=== PATIENT | female | born 1940 | race Caucasian/White ===

== ENCOUNTER 2017-04-17 06:49 | Day surgery (SDC) | payer MEDICARE, OTHER ==
[~2017-04-17] VITALS: Ht 157.5 cm; Wt 58.2 kg
[~2017-04-17 06:49] MED LIST: ACETAMINOPHEN 325 MG TAB PO PRN; PARO10TA3 PO; SIMV40TA2 PO; TYLE325T5 PO
[2017-04-17] MEDS ORDERED: CYCLOPENTOLATE 2% OPHTH SOLN 2ML BTL OD ONE (07:00)
[2017-04-17] MEDS ORDERED: OFLOXACIN 0.3 % (OCUFLOX) OPTH SOL 5ML OD ONE (07:00)
[2017-04-17] MEDS ORDERED: BSS with VANC/TOB/EPI for EYE CASES IR ONE (07:00)
[2017-04-17] MEDS ORDERED: PHENYLEPHRINE 2.5% OPHTH SOL 2ML OD ONE (07:00)
[2017-04-17] MEDS ORDERED: TROPICAMIDE 1% OPHTH SOLN 2ML OD ONE (07:00)
[2017-04-17] MEDS ORDERED: PHENYLEPHRINE HCL 10 % OPHTH. SOL 5ML OD PRN (07:00)
[2017-04-17] MEDS ORDERED: LIDOCAINE 3.5 % 1ML OPHTH TOPICAL GEL OU ONE (07:00)
[2017-04-17] MEDS ORDERED: PROPARACAINE 0.5% OPHTH SOL 15ML XX PRN (07:01)
[2017-04-17] MEDS ORDERED: PHENYLEPHRINE 2.5% OPHTH SOL 2ML As Ordered ONE (07:15)
[2017-04-17] MEDS ORDERED: TROPICAMIDE 1% OPHTH SOLN 2ML As Ordered ONE (07:15)
[2017-04-17] MEDS ORDERED: OFLOXACIN 0.3 % (OCUFLOX) OPTH SOL 5ML As Ordered ONE (07:15)
[2017-04-17] MEDS ORDERED: CYCLOPENTOLATE 2% OPHTH SOLN 2ML BTL As Ordered ONE (07:15)
[2017-04-17] MEDS ORDERED: MIDAZOLAM INJ 2 MG/2 ML VIAL (J2250) As Ordered ONE (07:39)
[2017-04-17] MEDS ORDERED: fentaNYL 100 MCG/2 ML INJECTION (J3010) As Ordered ONE (07:40)
[2017-04-17] MEDS ORDERED: TRIMETHOBENZAMIDE 300 MG CAP PO PRN (07:45)
[2017-04-17] MEDS ORDERED: AcetaZOLAMIDE 500 MG ER CAP PO ONE (07:45)
[2017-04-17] MEDS ORDERED: LR 1,000 ML IV ONE (07:45)
[2017-04-17] MEDS ORDERED: TRIAMCINOLONE PRES FR 40 MG/ML 1ML(TRIESENCE)(OR EYE ONLY)(J3300 PER 1MG) As Ordered ONE (09:18)
[2017-04-17] MEDS ORDERED: POVIDONE-IODINE 5% OPHTH PREP SOL 30ML As Ordered ONE (09:18)
[2017-04-17] MEDS ORDERED: HEALON DUET (HEALON 10MG/ML 0.55ML & HEALON ENDOCOAT 30MG/ML 0.85ML) As Ordered ONE (09:18)
[2017-04-17] MEDS ORDERED: LIDOCAINE 1% SDV 5 ML VIAL As Ordered ONE (09:18)
[2017-04-17] MEDS ORDERED: MOXIFLOXACIN IN BSS 0.25MG/0.25ML INTRACAMERAL INJ (OR EYE ONLY)(J2280) As Ordered ONE (09:18)
[2017-04-17 10:15] VITALS: BP 119/60
== END 2017-04-17 10:29 | disposition home or self-care (01) ==
LOC: M SDC 06:49
PROVIDERS: ATTEND Ophthalmology
DX: H26.9 Unspecified cataract (principal); E78.00 Pure hypercholesterolemia, unspecified; R01.1 Cardiac murmur, unspecified; F41.9 Anxiety disorder, unspecified; F32.9 Major depressive disorder, single episode, unspecified; Z79.899 Other long term (current) drug therapy; F17.210 Nicotine dependence, cigarettes, uncomplicated
CPT/HCPCS: 66984; J2250; J2280; J3010; J3300; V2632

== ENCOUNTER 2017-07-01 07:43 | Day surgery (SDC) | payer MEDICARE, OTHER ==
[2017-07-01] MEDS: LIDOCAINE 3.5 % 1ML OPHTH TOPICAL GEL OU (07:00)
[~2017-07-01 07:43] MED LIST changes: +ACETAMINOPHEN 325 MG TAB PO; -ACETAMINOPHEN 325 MG TAB PO PRN; -PARO10TA3 PO; +PHENYLEPHRINE HCL 10 % OPHTH. SOL 5ML OS; +PROPARACAINE 0.5% OPHTH SOL 15ML OS; -SIMV40TA2 PO; -TYLE325T5 PO
[2017-07-01] MEDS ORDERED: TRIMETHOBENZAMIDE 300 MG CAP PO (08:00)
[2017-07-01] MEDS ORDERED: KETOROLAC 0.5% OPHTH SOLN OS (08:00)
[2017-07-01] MEDS: CYCLOPENTOLATE 2% OPHTH SOLN 2ML BTL OS (08:31)
[2017-07-01] MEDS: OFLOXACIN 0.3 % (OCUFLOX) OPTH SOL 5ML OS (08:31)
[2017-07-01] MEDS: TROPICAMIDE 1% OPHTH SOLN 2ML OS (08:31)
[2017-07-01] MEDS: PHENYLEPHRINE 2.5% OPHTH SOL 2ML OS (08:32)
[2017-07-01] MEDS ORDERED: fentaNYL 100 MCG/2 ML INJECTION (J3010) As Ordered (08:49)
[2017-07-01] MEDS ORDERED: MIDAZOLAM INJ 2 MG/2 ML VIAL (J2250) As Ordered (08:49)
[2017-07-01] MEDS: POVIDONE-IODINE 5% OPHTH PREP SOL 30ML As Ordered (10:00)
[2017-07-01] MEDS: LIDOCAINE 2% W/EPIN INJ 20ML **PRES FREE As Ordered (10:01)
[2017-07-01] MEDS: HEALON DUET (HEALON 10MG/ML 0.55ML & HEALON ENDOCOAT 30MG/ML 0.85ML) As Ordered (10:01)
[2017-07-01] MEDS: TRIAMCINOLONE PRES FR 40 MG/ML 1ML(TRIESENCE)(OR EYE ONLY)(J3300 PER 1MG) As Ordered (10:01)
[2017-07-01] MEDS: LIDOCAINE 1% SDV 5 ML VIAL As Ordered (10:01)
[2017-07-01] MEDS: MOXIFLOXACIN IN BSS 0.25MG/0.25ML INTRACAMERAL INJ (OR EYE ONLY)(J2280) As Ordered (10:01)
[2017-07-01] MEDS: BSS with VANC/TOB/EPI for EYE CASES IR (10:02)
[2017-07-01] MEDS ORDERED: ONDANSETRON 4MG/2ML VIAL (J2405) IV (10:30)
[2017-07-01] MEDS: AcetaZOLAMIDE 500 MG ER CAP PO (10:39)
== END 2017-07-01 10:52 | disposition home or self-care (01) ==
LOC: M SDC 07:43
DX: H25.9 Unspecified age-related cataract (principal); E78.5 Hyperlipidemia, unspecified; F41.9 Anxiety disorder, unspecified; F32.9 Major depressive disorder, single episode, unspecified; Z79.899 Other long term (current) drug therapy; F17.210 Nicotine dependence, cigarettes, uncomplicated
CPT/HCPCS: 66984

== ENCOUNTER 2018-05-22 16:30 | Observation (INO) | payer MEDICARE, OTHER ==
[~2018-05-22] VITALS: Ht 157.5 cm; Wt 54.0 kg
[~2018-05-22 16:30] MED LIST changes: -ACETAMINOPHEN 325 MG TAB PO; +PARO10TA3 PO; -PHENYLEPHRINE HCL 10 % OPHTH. SOL 5ML OS; -PROPARACAINE 0.5% OPHTH SOL 15ML OS; +SIMV40TA2 PO; +TYLE325T5 PO
--- NOTE | 2018-05-22 17:15 | REP ---
Portable chest x-ray: Single view. History: Chest pain. Comparison study: June 01, 2010. Findings: Cardiomegaly is observed. The aorta is tortuous. Pulmonary vascular and interstitial markings are prominent. This is a new finding. No pleural effusion is seen. There is slight fissural thickening. Impression: Cardiomegaly. Vascular and interstitial congestion. Question CHF. No focal infiltrate. Electronically Signed by Bran Wallace MD 05/22/2018 06:19 P
[2018-05-22 17:17] LABS: BASO % 0.3 % (0.0-1.0); EOS # 0.1 10^3/uL (0.0-0.50); EOS % 0.7 % (0.0-3.0); HEMATOCRIT 65.5 % (36.0-47.0); LYMPH # 1.5 10^3/uL (1.5-4.5); LYMPH % 22.2 % (24.0-44.0); MEAN CORPUSCULAR HEMOGLOBIN 29.4 pg (27.0-33.0); MEAN CORPUSCULAR HGB CONC 31.9 g/dl (32.0-36.5); MEAN CORPUSCULAR VOLUME 92.1 fl (80.0-96.0); MONO # 0.7 10^3/uL (0.0-0.8); MONO % 9.4 % (0.0-5.0); NEUTROPHILS # 4.6 10^3/uL (1.8-7.7); PLATELET COUNT, AUTOMATED 163 10^3/uL (150-450); RED BLOOD COUNT 7.11 10^6/uL (4.00-5.40); WHITE BLOOD COUNT 6.9 10^3/uL (4.0-10.0)
[2018-05-22 17:20] LABS: HEMOGLOBIN 20.9 g/dl (12.0-15.5)
[2018-05-22 17:24] LABS: INR 0.99; PROTHROMBIN TIME 13.2 SECONDS (12.1-14.4)
[2018-05-22 17:49] LABS: ALBUMIN 3.3 GM/DL (3.2-5.2); ALT/SGPT 24 U/L (12-78); BILIRUBIN,DIRECT 0.2 MG/DL (0.0-0.2); BILIRUBIN,TOTAL 0.6 MG/DL (0.2-1.0); BLOOD UREA NITROGEN 14 MG/DL (7-18); CALCIUM LEVEL 8.8 MG/DL (8.8-10.2); CARBON DIOXIDE LEVEL 34 MEQ/L (21-32); CHLORIDE LEVEL 105 MEQ/L (98-107); CPK CREATINE PHOSPHOKINASE 86 U/L (26-192); CREATININE FOR GFR 0.79 MG/DL (0.55-1.30); GLOMERULAR FILTRATION RATE > 60.0 (>39); GLUCOSE, FASTING 110 MG/DL (70-100); LIPASE 204 U/L (73-393); MB/CK RELATIVE INDEX 5.35 (< OR =4); NT-PRO BNP 4658 PG/ML (<450); POTASSIUM SERUM 4.3 MEQ/L (3.5-5.1); SODIUM LEVEL 145 MEQ/L (136-145); TOTAL PROTEIN 6.6 GM/DL (6.4-8.2); TROPONIN I 0.04 NG/ML (< 0.10)
[2018-05-22] MEDS ORDERED: ASPI-222 PO (18:33)
[2018-05-22] MEDS ORDERED: ATOR1TAB21 PO (18:33)
[2018-05-22] MEDS ORDERED: LISI2.5T76 PO (18:33)
[2018-05-22] MEDS ORDERED: VITA-121 PO (18:33)
[2018-05-22] MEDS ORDERED: PARO10TA3 PO (18:33)
--- NOTE | 2018-05-22 19:06 | ECGEPIP ---
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
--- NOTE | 2018-05-22 19:07 | ECGEPIP ---
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
[2018-05-22 20:30] VITALS: BP 168/79
[2018-05-22] MEDS: ATORVASTATIN 20 MG TAB PO SCH (20:48)
--- NOTE | 2018-05-22 21:02 | HPE ---
DATE OF ADMISSION: 05/22/2018 This is a 78-year-old female with a past medical history of hypertension, hyperlipidemia, chronic active tobacco abuser, presented to the emergency room with chest pain, precordial in location, sharp, nonradiating that happened at rest. She had a similar episode approximately 3 days ago, and it went away. She has never had similar symptoms in the past. She has no known coronary history. In the emergency room (ER), her 12-lead EKG showed no acute ST abnormalities, and her first troponin was negative; however, complete blood count (CBC) did show the patient had a very abnormal hemoglobin and hematocrit, a hemoglobin of 20.9 and hematocrit of 65.5. Apparently, she sees a doctor in [place], and there is some evidence of this when I went back to the history here in [facility] of the diagnosis of hemachromatosis; however, upon looking at her anemia profile in 2013, they were all normal. The patient has not been treated for it as far as she is aware of, and at this time she is also chest pain free. She will be admitted for further management. PAST MEDICAL HISTORY: 1. Hypertension. 2. Hyperlipidemia. 3. Depression. 4. Chronic active tobacco abuser. ALLERGIES: She has no known drug allergies. FAMILY HISTORY: Positive for hematologic disorder. Her grandson has some sort of hematologic disorder of the blood; however, her daughter does not remember the name. Her family history is also negative for early coronary disease. SOCIAL HISTORY: Patient has been smoking half pack a day since she was age 14. Denies alcohol or illicit drugs. HOME MEDICATIONS: - aspirin 325 mg orally daily - atorvastatin 20 mg orally at bedtime - cholecalciferol 1000 units orally daily - lisinopril 2.5 mg orally daily - paroxetine 10 mg orally daily REVIEW OF SYSTEMS: Negative for all 10 major systems except what is mentioned in the history of present illness (HPI). VITAL SIGNS: Blood pressure is 177/88, heart rate 93, regular, respiratory rate is 21, temperature is 96.7, oxygen saturation is 95% on room air. HEAD: Atraumatic, normocephalic. NECK: Supple. No jugular venous distention (JVD). LUNGS: Clear to auscultation. S1, S2 audible. No murmurs appreciated. ABDOMEN: Soft. Positive bowel sounds. No pedal edema. SKIN: Intact. NEUROLOGIC: Patient awake, alert, oriented times three. LABORATORY DATA: WBC 6.9, hemoglobin is 20.9, hematocrit 65.5, platelets are 160,000, MCV is 92.1. Sodium 145, potassium 4.3, chloride is 105, CO2 of 34, BUN 14, creatinine 0.79, lactic acid 1.5. Troponin 0.04. TSH 3.260. AST 26, ALT 24, total bilirubin 0.6, direct bilirubin 0.2. IMPRESSION: 1. Chest pain, rule out acute coronary syndrome. 2. Polycythemia. PLAN: Patient is to be admitted to progressive care unit (PCU). Will get a second troponin to rule out acute coronary syndrome. I will also send a second anemia profile; however, most of this polycythemia can be done as an outpatient, so no hematologic consultation is necessary for the acute setting; however, she should be referred to a compliance officer upon discharge. For now, her liver function tests (LFTs) are normal, which usually are elevated if the patient has hemachromatosis, especially of this duration of being untreated, and the only other screening labs to check are serum ferritin and transferrin saturation, which I have sent out. If rules out acute coronary syndrome, would do well to followup with cardiology as an outpatient due to her age and years of smoking as well as other comorbidities, like hypertension, hyperlipidemia. Will continue following her care in the PCU.
[2018-05-22 21:51] LABS: PERCENT SATURATION 13.2 % (13.2-45.0); THYROID STIMULATING HORMONE 1.55 uIU/ML (0.358-3.740); TROPONIN I 0.06 NG/ML (< 0.10)
[2018-05-23] VITALS (7 sets, daily range): BP systolic 110–165; BP diastolic 58–77; PULSE 92
[2018-05-23] MEDS ORDERED: IBUPROFEN 400 MG TAB PO ONE (00:30)
[2018-05-23 07:39] LABS: MEAN CORPUSCULAR HEMOGLOBIN 28.9 pg (27.0-33.0); MEAN CORPUSCULAR HGB CONC 31.8 g/dl (32.0-36.5); MEAN CORPUSCULAR VOLUME 90.8 fl (80.0-96.0); PLATELET COUNT, AUTOMATED 155 10^3/uL (150-450); RED BLOOD COUNT 6.65 10^6/uL (4.00-5.40); WHITE BLOOD COUNT 8.4 10^3/uL (4.0-10.0)
[2018-05-23 07:58] LABS: HEMATOCRIT 60.4 % (36.0-47.0); HEMOGLOBIN 19.2 g/dl (12.0-15.5)
[2018-05-23] MEDS: LISINOPRIL *2.5 MG* TAB PO SCH (08:44)
[2018-05-23] MEDS: VITAMIN D 1,000 INTERNATIONAL UNITS TABLET PO SCH (08:44)
[2018-05-23] MEDS: ASPIRIN ENTERIC 325 MG TAB PO SCH (08:45)
[2018-05-23] MEDS ORDERED: ISOVUE-370 76% 100ML VIAL (Q9967) As Ordered ONE (11:43)
[2018-05-23 12:14] LABS: ABG BASE EXCESS 4.3 (-2.0-2.0); ABG HCO3 30.7 MEQ/L (22.0-26.0); ABG O2 SATURATION 83.5 % (95.0-99.0); ABG PARTIAL PRESSURE CO2 50.2 mmHg (35.0-45.0); ABG STANDARD HCO3 27.8 MEQ/L (22.0-26.0); ABG TOTAL CO2 32.2 MEQ/L (23.0-31.0); ABG pH (ARTERIAL) 7.404 UNITS (7.350-7.450)
[2018-05-23 12:19] LABS: ABG PARTIAL PRESSURE O2 44.8 mmHg (75.0-100.0)
[2018-05-23] MEDS ORDERED: IPRATROPIUM 0.5MG/ALBUTEROL 2.5MG INH SOL UD 3ML (DUONEB)(J7620) NEB PRN (12:30)
[2018-05-23 13:14] LABS: AMORPHOUS SEDIMENT SMALL (NEGATIVE); APPEARANCE, URINE CLEAR (CLEAR); BACTERIA, URINE AUTO NEGATIVE (NEGATIVE); BILIRUBIN, URINE AUTO NEGATIVE (NEGATIVE); BLOOD, URINE BLOOD NEGATIVE (NEGATIVE); COLOR, URINE YELLOW (YELLOW); GLUCOSE, URINE (UA) AUTO NEGATIVE (NEGATIVE); KETONE, URINE AUTO NEGATIVE (NEGATIVE); LEUKOCYTE ESTERASE, URINE AUTO 2+ (NEGATIVE); MUCUS, URINE SMALL (NEGATIVE); NITRITE, URINE AUTO NEGATIVE (NEGATIVE); PROTEIN, URINE AUTO 1+ mg/dL (NEGATIVE); RBC, URINE AUTO 2 /HPF (0-3); SPECIFIC GRAVITY URINE AUTO 1.027 (1.002-1.035); SQUAMOUS EPITHELIAL CELL UR AU 1 /HPF (0-6); WBC, URINE AUTO 5 /HPF (0-3)
--- NOTE | 2018-05-23 13:35 | REP ---
CT pulmonary angiogram: With IV contrast. HISTORY: Chest pain and hypoxia. COMPARISON STUDIES: No comparison CT study. CONTRAST DOSE: 75 mL of Isovue [address] TECHNIQUE: Helical scanning is acquired and overlapping 1.5 mm and contiguous 3 mm axial images are reformatted. In addition, maximum intensity projection and multiplanar re-formation images are generated in sagittal and coronal imaging projections. CT PULMONARY ANGIOGRAPHIC FINDINGS: There is good opacification of the pulmonary arterial tree. There is no CT evidence of pulmonary embolism. Maximum intensity projection images show no vessel cutoff or filling defect. The ascending aortic root is quite dilated measuring up to 7.3 cm in greatest AP dimension. There is no evidence of dissection. Vascular calcification is noted. The descending aorta measures 3.9 cm in diameter. There is cardiomegaly with right heart dilation. There is reflux of contrast opacified blood into the liver consistent with right heart strain or right heart failure. No pleural or pericardial effusion is seen. There is emphysematous change in the upper lobes bilaterally, right more so than left. Some right lower lobe emphysematous changes are noted. There is linear fibrosis versus discoid atelectasis in the left upper lobe posteriorly along the major fissure. No infiltrate is seen. No pulmonary nodule or mass lesion is seen. No hilar or mediastinal mass or adenopathy is observed. No adrenal lesion is seen. IMPRESSION: 1. No CT evidence of pulmonary embolus. 2. Ascending thoracic aortic aneurysm, up to 7.3 cm AP dimension of the aortic root. No dissection seen. 3. COPD. 4. CT findings consistent with right heart strain or right heart failure. Electronically Signed by Bran Wallace MD 05/23/2018 07:55 P
[2018-05-23] MEDS ORDERED: SODIUM CHLORIDE 0.9% 1000ML IV ONE (16:30)
[2018-05-23] MEDS: NICOTINE 14 MG/24 HR TRANSDERMAL TD SCH (18:30)
[2018-05-23] MEDS: ALBUTEROL 90 MCG/ACT 8GM HFA INHALER INH SCH (20:19)
[2018-05-23] MEDS: ATORVASTATIN 20 MG TAB PO SCH (21:54)
[2018-05-24] VITALS (7 sets, daily range): BP systolic 103–127; BP diastolic 55–64
--- NOTE | 2018-05-24 00:12 | IPNPDOC ---
Subjective Date Seen The patient was seen on 05/23/18. Subjective Chief Complaint/HPI chest pain Events since last encounter Chest pain has resolved. Patient says she wants to go home. Denies any SOB however noted t have accessory muscles working during conversation and and also has to break for breaths after a few words. She was hypoxic in the ED and now she was saturating about 88% at rest in room air. she did mention that her oxygenation readings are always better in her feet. Her said that y day when she came to the ED the nurses there had said she was cyanotic. He also said the patient pants on minimal exertion for several years but never been evaluated as she minimizes he symptoms and does not want to tell the doctors her problems. She also mentions that she had seen an oncologist in Dr Smith's office several years ago when some blood was let out for her high hemoglobin levels. Objective Physical Examination General Exam: Positive: Alert, Cooperative, No Acute Distress Eye Exam: Positive: PERRLA, Conjunctiva & lids normal, EOMI; Negative: Sclera icteric ENT Exam: Positive: Atraumatic, Mucous membr. moist/pink, Pharynx Normal Neck Exam: Positive: Supple, JVD Chest Exam: Positive: Clear to auscultation, Diminished (breath sounds are very distant and poorly heard all over) Heart Exam: Positive: Rate Normal, Regular Rhythm, Normal S1, Normal S2; Negative: Gallops, Murmurs, Rubs Abdomen Exam: Positive: Normal bowel sounds, Soft; Negative: Tenderness Extremity Exam: Negative: Edema, Tenderness, Swelling Neuro Exam: Positive: Normal Gait, Normal Speech, Cranial Nerves 3-12 NL, Reflexes 2+ Assessment /Plan Assessment This is a 78 years of female patient with past medical history of hypertension , hyperlipidemia, anxiety, vit D deficiency , smoker, known to have high hemoglobin with history of blood letting several years ago sent to the ED from urgent care for chest pain with possible ST-T segment elevation changes in the EKG. Patient had an episode of chest pain 3 days ago in the left precordium whi ch lasted 1 hour and subsided spontaneously however she has not been feeling well since then . Today she again had another episode of chest pain so she went to the urgent care and was sent here. On arrival to the ED patient's fingers were cyanotic with delayed capillary refill and she was hypoxic to 85% in room air. Pateint was also found to have erythrocytosis with a Hb of 20.9. Patient was admitted for evaluation of chest pain and hypoxia. Chest pain EKGs and Cardiac enzymes were negative for any ACS. however will get echo. in view of hypoxia and chest pain i did a CT angio of chest which was negative for Pulmonary embolism. will continue ASA and stain. Hypoxia Abg suggests chronic hypoxic and hypercarbic respiratory failure. due to advanced COPD/emphysema as seen in CT angio of chest never diagnosed before. patient is a smoker. 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 consulted hemato/oncology erythropoietin levels have been ordered. Had about 400 cc phlebotomy done. COPD/Emphysema with possible pulmonary hypertension and corpulmonale ordered Echo will start on albuterol and spiriva. Smoker counselled about stopping accepted nicotine patch. Hypertension continue lisinopril Hyperlipidemia continue statin Anxiety continue paroxetine DVT prophylaxis ordered. Plan/VTE VTE Prophylaxis Ordered?: Yes VS, I&O, 24H, Fishbone Vital Signs/I&O Vital Signs Date Time Temp Pulse Resp B/P (MAP) Pulse Ox O2 Delivery O2 Flow Rate FiO2 05/23/18 20:00 98.9 94 18 119/58 (78) 91 Nasal Cannula 2.0 05/23/18 04:00 94 I&O- Last 24 Hours up to 6 AM 05/23/18 06:00 Intake Total 0 ml Output Total 350 ml Balance -350 ml Laboratory Data 24H LABS Laboratory Tests 2 05/23/18 07:12: Nucleated Red Blood Cells % (auto) 0.0 05/23/18 11:59: Blood Gas Bicarbonate Standard 27.8H, Arterial Blood pH 7.404, Arterial Blood Partial Pressure CO2 50.2H, Arterial Blood Partial Pressure O2 44.8*L, Arterial Blood Total CO2 32.2H, Arterial Blood HCO3 30.7H, Arterial Blood Base Excess 4.3H, Arterial Blood Oxygen Saturation 83.5L 05/23/18 13:01: Urine Appearance CLEAR, Urine Color YELLOW, Urine pH 7.0, Urine Specific [place] 1.027, Urine Protein 1+H, Urine Glucose (UA) NEGATIVE, Urine Ketones NEGATIVE, Urine Urobilinogen 4.0H, Urine Bilirubin NEGATIVE, Urine Leukocyte Esterase 2+H, Urine Blood NEGATIVE, Urine Nitrite NEGATIVE, Urine WBC (Auto) 5H, Urine RBC (Auto) 2, Urine Hyaline Casts (Auto) 0, Urine Bacteria (Auto) NEGATIVE, Urine Squamous Epithelial Cells 1, Urine Amorphous Sediment SMALLH, Urine Mucus (Auto) SMALL, Urine Sperm (Auto) 05/23/18 15:23: CBC/BMP Laboratory Tests 05/23/18 07:12 Red Blood Count 6.65 H, Mean Corpuscular Volume 90.8, Mean Corpuscular Hemoglobin 28.9, Mean Corpuscular Hemoglobin Concent 31.8 L, Red Cell Distribution Width 16.5 H Microbiology Microbiology 05/22/18 Blood Culture - Preliminary, Resulted No growth after 24 hours . All specim... SHAMIKA CARTER MD May 24, 2018 00:12
[2018-05-24 06:54] LABS: BASO % 0.2 % (0.0-1.0); EOS % 0.2 % (0.0-3.0); HEMATOCRIT 57.1 % (36.0-47.0); HEMOGLOBIN 17.5 g/dl (12.0-15.5); LYMPH % 11.4 % (24.0-44.0); MEAN CORPUSCULAR HEMOGLOBIN 28.5 pg (27.0-33.0); MEAN CORPUSCULAR HGB CONC 30.6 g/dl (32.0-36.5); MEAN CORPUSCULAR VOLUME 93.1 fl (80.0-96.0); MONO # 1.2 10^3/uL (0.0-0.8); NEUTROPHILS # 6.7 10^3/uL (1.8-7.7); NEUTROPHILS % 74.8 % (36.0-66.0); PLATELET COUNT, AUTOMATED 149 10^3/uL (150-450); RED BLOOD COUNT 6.13 10^6/uL (4.00-5.40); WHITE BLOOD COUNT 8.9 10^3/uL (4.0-10.0)
[2018-05-24 07:12] LABS: BLOOD UREA NITROGEN 9 MG/DL (7-18); CARBON DIOXIDE LEVEL 33 MEQ/L (21-32); CHLORIDE LEVEL 106 MEQ/L (98-107); CREATININE FOR GFR 0.55 MG/DL (0.55-1.30); GLOMERULAR FILTRATION RATE > 60.0 (>39); GLUCOSE, FASTING 108 MG/DL (70-100); POTASSIUM SERUM 3.8 MEQ/L (3.5-5.1); SODIUM LEVEL 143 MEQ/L (136-145)
[2018-05-24] MEDS: TIOTROPIUM INHALER/CAPSULE (SPIRIVA) INH SCH ×3 (07:33→07:35)
[2018-05-24] MEDS: ALBUTEROL 90 MCG/ACT 8GM HFA INHALER INH SCH ×3 (07:33→21:00)
[2018-05-24] MEDS: LISINOPRIL *2.5 MG* TAB PO SCH (09:00)
--- NOTE | 2018-05-24 09:07 | CR ---
DATE OF CONSULTATION: 05/23/2018 REASON FOR CONSULTATION: Elevated hematocrit of 60. HISTORY OF PRESENT ILLNESS: This is a very pleasant 78-year-old white female who has a known history of hypertension and chronic obstructive pulmonary disease (COPD). Her had brought her into the hospital due to a complaint of chest pain and he was concerned that she had an angina attack. When she had come to the emergency room, acute coronary symptoms were evaluated and appropriate testing was done. Of note, her hematocrit was 65 on admission. She has had a known past medical history of seeing Dr. Smith here locally in the community and had been diagnosed with polycythemia vera. She had been getting routine phlebotomies in order to control her hematocrit, but stopped going to him approximately 5 years ago. There was no particular reason, she just stopped going. She has had no history of any thrombotic event in the interval since that particular time until it hit a crescendo today. PAST MEDICAL HISTORY: Includes hypertension, hyperlipidemia and depression. She at least has a 40 pack-year history of smoking. SOCIAL HISTORY: She is currently . She is an immigrant from [place]. FAMILY HISTORY: Positive for a grandson who has a blood disorder and also there is coronary artery disease. CURRENT MEDICATIONS HERE IN THE HOSPITAL INCLUDE: - aspirin 325 mg by mouth (p.o.) daily - atorvastatin 20 mg p.o. daily - vitamin D3 1000 units daily - lisinopril 2.5 mg p.o. daily - paroxetine 10 mg p.o. daily ALLERGIES: No known drug allergies. REVIEW OF SYSTEMS: She has baseline shortness of breath sitting. She requires oxygen therapy at home. She continues to smoke. She has no current chest pain at present. She denies any visual problems. However, she does use corrective lenses. No ringing in the ears. No mouth sores. No current chest pain or palpitations. She denies any history of any nausea or vomiting. She denies any history of any postprandial fullness, but she does have a decreased appetite. She has no problems with any hematuria. No vaginal bleeding. Currently no numbness at the fingertips or toes. She is able to take care of her activities of daily living, however, she does have dyspnea at minimal to moderate exertion. PHYSICAL EXAMINATION: She is a very frail elderly patient who has an increased respiratory rate and is using the accessory muscles of inspiration. Her weight is 54.7 kg. Temperature is 97.7, pulse is 94, respiratory rate is 18, blood pressure (BP) is 122/60 and pulse oximetry is 92. HEENT is normocephalic, atraumatic. Pupils equal, round and reactive to light (PERRL). Extraocular muscles intact (EOMI). Sclerae is white, nonicteric. Oropharynx is otherwise clear. Her neck is supple with no adenopathy. Slight increased in jugular vein distention. Chest is otherwise flattened diaphragms, occasional expiratory wheeze. Cardiovascular: Sounds are somewhat muffled, S1 and S2 appreciated. Her abdomen is soft. No hepatosplenomegaly is appreciated. Her extremities are thin and there is some degree of clubbing. IMAGING STUDIES: Angio CT of the chest shows no evidence of any pulmonary embolism. No evidence of any dissection. Cardiomegaly with right heart dilatation. There is reflux of contrast. Opacified blood into the liver. Consistent with right heart strain and right heart failure. There is no pleural or pericardial effusion. There is change in the upper lobes bilaterally. There are emphysematous changes noted bilaterally as well as atelectasis and fibrosis. There are no pulmonary nodules, mediastinal mass or any adenopathy that is noted. LABORATORIES: She has a WBC count of 8.4. She has a hemoglobin on admission of 20, hematocrit of 65, MCV of 92, platelets of 163, neutrophils of 67, and lymphs of 22. On today's laboratories, her hemoglobin is 19.2 and hematocrit is 60. IMPRESSION: Polycythemia vera is virtually diagnosed with a hematocrit of 60. She does have a known history with a lack of followup which has now caused her along with her COPD to have some right heart failure. PLAN: To remove 400 mL of blood tonight. Replace with normal saline solution. Try to get 2 units of blood off tomorrow. The goal is to get her hematocrit initially below 55, although ideally with polycythemia vera, in females, the target hemoglobin is 42. Due to her COPD, target hematocrit may go up to 45 depending upon patient's performance status. Of her problems, her COPD appears to be quite advanced symptomatically. Would appreciate cardiology evaluation regarding her right heart strain.
[2018-05-24] MEDS: VITAMIN D 1,000 INTERNATIONAL UNITS TABLET PO SCH (11:35)
[2018-05-24] MEDS: ASPIRIN ENTERIC 325 MG TAB PO SCH (11:35)
--- NOTE | 2018-05-24 12:22 | IPNPDOC ---
Date Seen The patient was seen on 05/24/18. Progress Note SUBJECTIVE: Patient is a [78]-year-old [white female with a know n Dxx of P Melony She was starte don phlebotmies last night due to a HCT of 60 + she has RIGHT sided heart failure She is more comfortable today less SOB her is at her bedside oPHYSICAL EXAMINATION: VITAL SIGNS: Please see below. GENERAL: [ND AT PERRL rubor facial ] HEENT: NC AT OR o clear neck supple CARDIOVASCULAR: [s1 s2 appreciated no murmurs no heaves intact ]. RESPIRATORY: [clear to A& P some exp wheeze ]. ABDOMINAL: [no HSM No distention ] EXTREMITIES: [no CCE no edema ] NEUROLOGICAL: [intact no numbness ntoed ] PSYCHOLOGICAL: LABORATORY DATA, IMAGING STUDIES, MICROBIOLOGY: Please see below. Echocardiogram: [noted ]. DVT prophylaxis ordered?: ASSESSMENT AND PLAN: This is a -year-old [RACE] [GENDER] with . PROBLEMS: 1. : [Polycythemia vera with HCT over 60 at high risk to CVA and OK ]. 2. : COPD . 3. : . DISPOSITION: [The patietn will be getting phlebotomies until her HCT is below 55 before discharge She was advised of the risks of not being on top of her disease and the risk of OK and CVA She can be sent home if her HCT is less than 55 ]. but will need to be followed up in the [facility] within the week to continue the phlebotomy until her HCt is 45 or less per the Polycythemia Vera Study group guidelines CBC with dif ordered for am 05/25/2018 [facility] Sign[facility]/I&O Vital Signs Date Time Temp Pulse Resp B/P (MAP) Pulse Ox O2 Delivery O2 Flow Rate FiO2 05/24/18 11:27 97.8 105 18 112/55 (74) 94 Nasal Cannula 2.0 05/23/18 04:00 94 I&O- Last 24 Hours up to 6 AM 05/24/18 06:00 Intake Total 860 ml Output Total 650 ml Balance 210 ml Laboratory Data 24H LABS Laboratory Tests 2 05/23/18 13:01: Urine Appearance CLEAR, Urine Color YELLOW, Urine pH 7.0, Urine Specific [place] 1.027, Urine Protein 1+H, Urine Glucose (UA) NEGATIVE, Urine Ketones NEGATIVE, U rine Urobilinogen 4.0H, Urine Bilirubin NEGATIVE, Urine Leukocyte Esterase 2+H, Urine Blood NEGATIVE, Urine Nitrite NEGATIVE, Urine WBC (Auto) 5H, Urine RBC (Auto) 2, Urine Hyaline Casts (Auto) 0, Urine Bacteria (Auto) NEGATIVE, Urine Squamous Epithelial Cells 1, Urine Amorphous Sediment SMALLH, Urine Mucus (Auto) SMALL, Urine Sperm (Auto) 05/23/18 15:23: 05/24/18 05:51: Anion Gap 4L, Glomerular Filtration Rate > 60.0, Blood Urea Nitrogen 9, Creatinine 0.55, Sodium Level 143, Potassium Level 3.8, Chloride Level 106, Carbon Dioxide Level 33H, Calcium Level 8.0L 05/24/18 05:52: Immature Granulocyte % (Auto) 0.4, White Blood Count 8.9, Red Blood Count 6.13H, Hemoglobin 17.5H, Hematocrit 57.1H, Mean Corpuscular Volume 93.1, Mean Corpuscular Hemoglobin 28.5, Mean Corpuscular Hemoglobin Concent 30.6L, Red Cell Distribution Width 15.9H, Platelet Count 149L, Neutrophils (%) (Auto) 74.8H, Lymphocytes (%) (Auto) 11.4L, Monocytes (%) (Auto) 13.0H, Eosinophils (%) (Auto) 0.2, Basophils (%) (Auto) 0.2, Neutrophils # (Auto) 6.7, Lymphocytes # (Auto) 1.0L, Monocytes # (Auto) 1.2H, Eosinophils # (Auto) 0.0, Basophils # (Auto) 0.0, Nucleated Red Blood Cells % (auto) 0.0 CBC/BMP Laboratory Tests 05/24/18 05:51 Calcium Level 8.0 L 05/24/18 05:52 Red Blood Count 6.13 H, Mean Corpuscular Volume 93.1, Mean Corpuscular Hemoglobin 28.5, Mean Corpuscular Hemoglobin Concent 30.6 L, Red Cell Distribution Width 15.9 H, Neutrophils (%) (Auto) 74.8 H, Lymphocytes (%) (Auto) 11.4 L, Monocytes (%) (Auto) 13.0 H, Eosinophils (%) (Auto) 0.2, Basophils (%) (Auto) 0.2, Neutrophils # (Auto) 6.7, Lymphocytes # (Auto) 1.0 L, Monocytes # (Auto) 1.2 H, Eosinophils # (Auto) 0.0, Basophils # (Auto) 0.0 Microbiology Microbiology 05/22/18 Blood Culture - Preliminary, Resulted No growth after 24 hours . All specim... Miri Davis MD May 24, 2018 12:22
--- NOTE | 2018-05-24 14:30 | ECGEPIP ---
Stationary ECG Study [facility] Test Date: 2018-05-24 Pat Name: WILTON ROBERTO Department: Room: [place] [address] Gender: F Magnetic Locater: INNA : 1940 Requested By: SHAMKIA CARTER Order Number: [id number] Reading MD: Car Chavez Measurements Intervals [place] Rate: 94 P: 69 RI: 137 QRS: 225 QRSD: 102 T: -5 QT: 353 QTc: 442 Interpretive Statements SINUS RHYTHM Incomplete right bundle branch block Delayed anterior R wave progression, possible previous anterior myocardial infarct Similar to tracing done 05-22-18 with increased artifact Electronically Signed On 05-24-2018 14:29:53 EST by Car Chavez
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
[2018-05-24] MEDS ORDERED: NS 250 ML IV ONE (19:00)
[2018-05-24 19:15] LABS: HEMATOCRIT 53.5 % (36.0-47.0); HEMOGLOBIN 16.5 g/dl (12.0-15.5); MEAN CORPUSCULAR HEMOGLOBIN 28.9 pg (27.0-33.0); MEAN CORPUSCULAR HGB CONC 30.8 g/dl (32.0-36.5); MEAN CORPUSCULAR VOLUME 93.7 fl (80.0-96.0); PLATELET COUNT, AUTOMATED 174 10^3/uL (150-450); RED BLOOD COUNT 5.71 10^6/uL (4.00-5.40); WHITE BLOOD COUNT 10.3 10^3/uL (4.0-10.0)
[2018-05-24] MEDS: ATORVASTATIN 20 MG TAB PO SCH (20:46)
[2018-05-24] MEDS: NICOTINE 14 MG/24 HR TRANSDERMAL TD SCH (20:50)
[2018-05-25 04:00] VITALS: BP 100/50
[2018-05-25 06:11] LABS: BASO % 0.3 % (0.0-1.0); EOS # 0.1 10^3/uL (0.0-0.50); EOS % 0.8 % (0.0-3.0); HEMATOCRIT 47.7 % (36.0-47.0); HEMOGLOBIN 14.6 g/dl (12.0-15.5); LYMPH # 1.3 10^3/uL (1.5-4.5); LYMPH % 14.7 % (24.0-44.0); MEAN CORPUSCULAR HEMOGLOBIN 28.6 pg (27.0-33.0); MEAN CORPUSCULAR HGB CONC 30.6 g/dl (32.0-36.5); MEAN CORPUSCULAR VOLUME 93.5 fl (80.0-96.0); MONO # 1.2 10^3/uL (0.0-0.8); MONO % 12.9 % (0.0-5.0); NEUTROPHILS # 6.4 10^3/uL (1.8-7.7); PLATELET COUNT, AUTOMATED 157 10^3/uL (150-450)
[2018-05-25 06:25] LABS: BLOOD UREA NITROGEN 14 MG/DL (7-18); CALCIUM LEVEL 7.8 MG/DL (8.8-10.2); CARBON DIOXIDE LEVEL 32 MEQ/L (21-32); CHLORIDE LEVEL 108 MEQ/L (98-107); CREATININE FOR GFR 0.56 MG/DL (0.55-1.30); GLOMERULAR FILTRATION RATE > 60.0 (>39); GLUCOSE, FASTING 97 MG/DL (70-100); POTASSIUM SERUM 4.2 MEQ/L (3.5-5.1); SODIUM LEVEL 143 MEQ/L (136-145)
[2018-05-25 06:59] VITALS: BP 138/60
[2018-05-25] MEDS: ALBUTEROL 90 MCG/ACT 8GM HFA INHALER INH SCH ×3 (08:07→21:00)
[2018-05-25] MEDS: TIOTROPIUM INHALER/CAPSULE (SPIRIVA) INH SCH (08:07)
[2018-05-25] MEDS: VITAMIN D 1,000 INTERNATIONAL UNITS TABLET PO SCH (08:40)
[2018-05-25] MEDS: ASPIRIN ENTERIC 325 MG TAB PO SCH (08:40)
[2018-05-25] MEDS: LISINOPRIL *2.5 MG* TAB PO SCH (08:40)
[2018-05-25 09:34] VITALS: BP 115/58
[2018-05-25 09:48] VITALS: BP 104/58
[2018-05-25 14:00] VITALS: BP 102/53
--- NOTE | 2018-05-25 15:06 | IPNPDOC ---
Text Note Date of Service The patient was seen on 05/25/18. NOTE Subjective: Patient feels well today. No chest pain or shortness of breath. No nausea or vomiting. Objective: Vitals: (see below) General: No acute distress, laying comfortably in bed. HEENT: Moist mucous membranes. Neck: No JVD or lymphadenopathy Cardiac: RRR, No murmurs Pulm: Clear to auscultation b/l. No wheezing, rhonchi Abd: NT/ND + BS Ext: No edema or cyanosis Labs (see below) Images: CTA chest on 05/23/[address]: 1[address] evidence of pulmonary embolus. 2. Ascending thoracic aortic aneurysm, up to 7.3 cm AP dimension of the aortic root. No dissection seen. 3. COPD. 4. CT findings consistent with right heart strain or right heart failure. Assessment/Plan 1. Chest pain resolved. Cardiac enzymes negative. CTA negative for PE. 2. Advanced COPD/emphysema on imaging. Will need close outpatient follow-up with PCP, pulmonary. Continue oxygen supplementation. Patient is a smoker. Counseled on cessation. 3. ? Polycythemia vera- appreciate Dr. Davis's input. Patient has received phlebotomies while on patient's and will need subsequent phlebotomies outpatient per hematology/oncology. We'll defer further testing to Dr. Davis. 4. Tobacco abuse counseled cessation. Nicotine patch. 5. Hypertension controlled continue current meds. 6. Hyperlipidemia statin 7. Ascending thoracic aneurysm- Dr. Wheat consulted 8. History of anxiety continue paroxetine DVT prophy: SCDs I plan to discharge in the next 24-48 hours continues to improve. In the meantime will have evaluation by Dr. Wheat. VS,Marga, I+O VS, Marie, I+O Laboratory Tests 05/24/18 18:29 Red Blood Count 5.71 H, Mean Corpuscular Volume 93.7, Mean Corpuscular Hemoglobin 28.9, Mean Corpuscular Hemoglobin Concent 30.8 L, Red Cell Distribution Width 15.3 H 05/25/18 05:33 Red Blood Count 5.10, Mean Corpuscular Volume 93.5, Mean Corpuscular Hemoglobin 28.6, Mean Corpuscular Hemoglobin Concent 30.6 L, Red Cell Distribution Width 15.1 H, Neutrophils (%) (Auto) 71.0 H, Lymphocytes (%) (Auto) 14.7 L, Monocytes (%) (Auto) 12.9 H, Eosinophils (%) (Auto) 0.8, Basophils (%) (Auto) 0.3, Neutrophils # (Auto) 6.4, Lymphocytes # (Auto) 1.3 L, Monocytes # (Auto) 1.2 H, Eosinophils # (Auto) 0.1, Basophils # (Auto) 0.0, Calcium Level 7.8 L Vital Signs Date Time Temp Pulse Resp B/P (MAP) Pulse Ox O2 Delivery O2 Flow Rate FiO2 05/25/18 09:48 96.4 97 20 104/58 (73) 89 Nasal Cannula 2.0 05/23/18 04:00 94 I&O- Last 24 Hours up to 6 AM 05/25/18 06:00 Intake Total 1650 ml Output Total 500 ml Balance 1150 ml LYNDA DURANT MD May 25, 2018 15:06
[2018-05-25] MEDS: ATORVASTATIN 20 MG TAB PO SCH (20:40)
[2018-05-25] MEDS: NICOTINE 14 MG/24 HR TRANSDERMAL TD SCH (20:41)
[2018-05-25 22:00] VITALS: BP 110/55
[2018-05-26 06:00] VITALS: BP 122/56
[2018-05-26 06:16] LABS: BASO % 0.3 % (0.0-1.0); EOS # 0.1 10^3/uL (0.0-0.50); EOS % 1.2 % (0.0-3.0); HEMATOCRIT 40.3 % (36.0-47.0); LYMPH # 1.2 10^3/uL (1.5-4.5); LYMPH % 12.9 % (24.0-44.0); MEAN CORPUSCULAR HEMOGLOBIN 28.4 pg (27.0-33.0); MEAN CORPUSCULAR HGB CONC 30.5 g/dl (32.0-36.5); MEAN CORPUSCULAR VOLUME 93.1 fl (80.0-96.0); MONO # 1.1 10^3/uL (0.0-0.8); MONO % 12.1 % (0.0-5.0); NEUTROPHILS # 6.7 10^3/uL (1.8-7.7); NEUTROPHILS % 73.1 % (36.0-66.0); PLATELET COUNT, AUTOMATED 174 10^3/uL (150-450); RED BLOOD COUNT 4.33 10^6/uL (4.00-5.40); WHITE BLOOD COUNT 9.1 10^3/uL (4.0-10.0)
[2018-05-26 06:24] LABS: HEMOGLOBIN 12.3 g/dl (12.0-15.5)
[2018-05-26 06:39] LABS: BLOOD UREA NITROGEN 16 MG/DL (7-18); CALCIUM LEVEL 7.7 MG/DL (8.8-10.2); CARBON DIOXIDE LEVEL 32 MEQ/L (21-32); CHLORIDE LEVEL 108 MEQ/L (98-107); CREATININE FOR GFR 0.58 MG/DL (0.55-1.30); GLOMERULAR FILTRATION RATE > 60.0 (>39); GLUCOSE, FASTING 87 MG/DL (70-100); POTASSIUM SERUM 4.1 MEQ/L (3.5-5.1); SODIUM LEVEL 144 MEQ/L (136-145)
[2018-05-26 08:57] VITALS: BP 122/56
[2018-05-26] MEDS: VITAMIN D 1,000 INTERNATIONAL UNITS TABLET PO SCH (08:57)
[2018-05-26] MEDS: LISINOPRIL *2.5 MG* TAB PO SCH (08:57)
[2018-05-26] MEDS: ASPIRIN ENTERIC 325 MG TAB PO SCH (08:57)
[2018-05-26] MEDS: TIOTROPIUM INHALER/CAPSULE (SPIRIVA) INH SCH (09:06)
[2018-05-26] MEDS: ALBUTEROL 90 MCG/ACT 8GM HFA INHALER INH SCH (09:07)
--- NOTE | 2018-05-26 11:35 | IPNPDOC ---
Date Seen The patient was seen on 05/26/18. Progress Note SUBJECTIVE: The patietn was seen on am rounds with Nahed Nino NP SHe has had 3 untis of PRBC's removed over the weekend and is now off oxygen therapy and ambulating to and from in th hallway and in the room Baseline SOB improved OBJECTIVE PHYSICAL EXAMINATION: VITAL SIGNS: Please see below. GENERAL: [ Constitutional ] patient is feeling better sittingup in the chair eating breakfast this am tolerated the three phlebotomies well HEENT: [NC AT PERRl EOMI sclera white non icteric ] CARDIOVASCULAR: s1 s2 appreciated no murmurs noted intact . RESPIRATORY: [clear to A&P no wheezes noted ]. ABDOMINAL: [soft non tender no HSM ] EXTREMITIES: [no cc e skin itact lower extrenities n o edema noted ] NEUROLOGICAL: cranial nreves ii-XII intact PSYCHOLOGICAL: [improved no anxiety today Laboratory Tests 05/23/18 07:12 Red Blood Count 6.65, Mean Corpuscular Volume 90.8, Mean Corpuscular Hemoglobin 28.9, Mean Corpuscular Hemoglobin Concent 31.8, Red Cell Distribution Width 16.5 05/24/18 05:51 Calcium Level 8.0 05/24/18 05:52 Red Blood Count 6.13, Mean Corpuscular Volume 93.1, Mean Corpuscular Hemoglobin 28.5, Mean Corpuscular Hemoglobin Concent 30.6, Red Cell Distribution Width 15.9, Neutrophils (%) (Auto) 74.8, Lymphocytes (%) (Auto) 11.4, Monocytes (%) (Auto) 13.0, Eosinophils (%) (Auto) 0.2, Basophils (%) (Auto) 0.2, Neutrophils # (Auto) 6.7, Lymphocytes # (Auto) 1.0, Monocytes # (Auto) 1.2, Eosinophils # (Auto) 0.0, Basophils # (Auto) 0.0 05/24/18 18:29 Red Blood Count 5.71, Mean Corpuscular Volume 93.7, Mean Corpuscular Hemoglobin 28.9, Mean Corpuscular Hemoglobin Concent 30.8, Red Cell Distribution Width 15.3 05/25/18 05:33 Red Blood Count 5.10, Mean Corpuscular Volume 93.5, Mean Corpuscular Hemoglobin 28.6, Mean Corpuscular Hemoglobin Concent 30.6, Red Cell Distribution Width 15.1, Neutrophils (%) (Auto) 71.0, Lymphocytes (%) (Auto) 14.7, Monocytes (%) (Auto) 12.9, Eosinophils (%) (Auto) 0.8, Basophils (%) (Auto) 0.3, Neutrophils # (Auto) 6.4, Lymphocytes # (Auto) 1.3, Monocytes # (Auto) 1.2, Eosinophils # (Auto) 0.1, Basophils # (Auto) 0.0, Calcium Level 7.8 05/26/18 05:45 Red Blood Count 4.33, Mean Corpuscular Volume 93.1, Mean Corpuscular Hemoglobin 28.4, Mean Corpuscular Hemoglobin Concent 30.5, Red Cell Distribution Width 14.8, Neutrophils (%) (Auto) 73.1, Lymphocytes (%) (Auto) 12.9, Monocytes (%) (Auto) 12.1, Eosinophils (%) (Auto) 1.2, Basophils (%) (Auto) 0.3, Neutrophils # (Auto) 6.7, Lymphocytes # (Auto) 1.2, Monocytes # (Auto) 1.1, Eosinophils # (Auto) 0.1, Basophils # (Auto) 0.0, Calcium Level 7.7 Current Medications Albuterol Sulfate (Proventil, Ventolin Hfa) 2 puff TID INH Last administered on 05/25/18at 17:09; Start 05/23/18 at 16:00 Albuterol/ Ipratropium (Duoneb (Ipr 0.5mg/Alb 2.5mg)) 3 ml Q2HP PRN NEB SOB/WHEEZING; Start 05/23/18 at 12:30 Aspirin (Ecotrin) 325 mg DAILY PO Last administered on 05/25/18at 08:40; Start 05/23/18 at 09:00 Atorvastatin Calcium (Lipitor) 20 mg QHS PO Last administered on 05/25/18at 20:40; Start 05/22/18 at 21:00 Home Med (Med Rec Complete!) ASDIRECTED XX ; Start 05/22/18 at 18:45; Stop 05/22/18 at 18:45; Status DC Lisinopril (Prinivil) 2.5 mg DAILY PO Last administered on 05/25/18at 08:40; Start 05/23/18 at 09:00 Nicotine (Nicoderm Cq 14mg) 1 patch QPM TD Last administered on 05/25/18at 20:41; Start 05/23/18 at 18:30 Tiotropium [place] (Spiriva Handihaler) 1 inhalation DAILY@08 INH Last administered on 05/25/18at 08:07; Start 05/23/18 at 08:00 Vitamin D (Vitamin D) 1,000 units DAILY PO Last administered on 05/25/18at 08 :40; Start 05/23/18 at 09:00 Skin dry intact LABORATORY DATA, IMAGING STUDIES, MICROBIOLOGY: Please see below. Echocardiogram: . DVT prophylaxis ordered?: ASSESSMENT AND PLAN: Polycythemia vera patient with poor compliance for phlebotomies as an outpatient now presenting with right heart strain improved post phlebotomy and HCT now 40 PROBLEMS: 1. : [P vera now with HCT of 40 . 2. : [COPD ]. 3. : [RIGHT hear t strain exacerbated by increased work load form a HCT of over 60 for several years DISPOSITION: I had a discussion with the patient regarding the need to keep her HCT less than . 45 Plan No further phlebotomies while admitted Follow up in the cancer center 2-3 weeks from her discharge date Compliance stressed in order to avoid repeat episodes VS, I&O, 24H, Fishbone Vital Signs/I&O Vital Signs Date Time Temp Pulse Resp B/P (MAP) Pulse Ox O2 Delivery O2 Flow Rate FiO2 05/26/18 06:00 97.6 104 17 122/56 (78) 93 Nasal Cannula 1.0 05/23/18 04:00 94 I&O- Last 24 Hours up to 6 AM 05/26/18 06:00 Intake Total 1100 ml Output Total 200 ml Balance 900 ml Laboratory Data 24H LABS Laboratory Tests 2 05/26/18 05:45: Immature Granulocyte % (Auto) 0.4, White Blood Count 9.1, Red Blood Count 4.33, Hemoglobin 12.3#, Hematocrit 40.3, Mean Corpuscular Volume 93.1, Mean Corpuscular Hemoglobin 28.4, Mean Corpuscular Hemoglobin Concent 30.5L, Red Cell Distribution Width 14.8H, Platelet Count 174, Neutrophils (%) (Auto) 73.1H, Lymphocytes (%) (Auto) 12.9L, Monocytes (%) (Auto) 12.1H, Eosinophils (%) (Auto) 1.2, Basophils (%) (Auto) 0.3, Neutrophils # (Auto) 6.7, Lymphocytes # (Auto) 1.2L, Monocytes # (Auto) 1.1H, Eosinophils # (Auto) 0.1, Basophils # (Auto) 0.0, Nucleated Red Blood Cells % (auto) 0.0, Anion Gap 4L, Glomerular Filtration Rate > 60.0, Blood Urea Nitrogen 16, Creatinine 0.58, Sodium Level 144, Potassium Level 4.1, Chloride Level 108H, Carbon Dioxide Level 32, Calcium Level 7.7L CBC/BMP Laboratory Tests 05/26/18 05:45 Red Blood Count 4.33, Mean Corpuscular Volume 93.1, Mean Corpuscular Hemoglobin 28.4, Mean Corpuscular Hemoglobin Concent 30.5 L, Red Cell Distribution Width 14.8 H, Neutrophils (%) (Auto) 73.1 H, Lymphocytes (%) (Auto) 12.9 L, Monocytes (%) (Auto) 12.1 H, Eosinophils (%) (Auto) 1.2, Basophils (%) (Auto) 0.3, Neutrophils # (Auto) 6.7, Lymphocytes # (Auto) 1.2 L, Monocytes # (Auto) 1.1 H, Eosinophils # (Auto) 0.1, Basophils # (Auto) 0.0, Calcium Level 7.7 L Microbiology Microbiology 05/22/18 Blood Culture - Preliminary, Resulted No Growth after 72 hours. All specime... Miri Davis MD May 26, 2018 10:44
[2018-05-26 14:00] VITALS: BP_SYST 122; BP_SYST 133; BP_DIAS 56; BP_DIAS 62
--- NOTE | 2018-05-26 17:00 | DS.PDOC ---
Discharge Summary General Date of Admission May 22, 2018 at 18:52 Date of Discharge 05/26/18 Attending Physician: LYNDA DURANT MD Specialist/Consultants Involve: Miri Davis MD Specialist/Consultants Involve Dr. Wheat Discharge Summary PROCEDURES PERFORMED DURING STAY: None. ADMITTING/DISCHARGE DIAGNOSES: 1. Ascending thoracic aneurysm 7.3 cm 2. Polycythemia vera status post phlebotomy 3. Chest pain resolved 4. Advanced COPD/emphysema 5. Tobacco abuse counseled on cessation 6. History of hyperlipidemia 7. History of anxiety COMPLICATIONS/CHIEF COMPLAINT: Chest pain HISTORY OF PRESENT ILLNESS/HOSPITAL COURSE: This is a 78-year-old female past medical history of tobacco abuse, hyperlipidemia, anxiety, polycythemia vera who has not followed up with her hr analyst/oncologist who presents complaining of chest pain. Patient had negative cardiac enzymes, and EKG did not reveal any acute ST elevations. Over the course of hospitalization, patient was noted to have hemoglobin greater than 20, hematocrit greater than 65, hematology/oncology was consulted, and Dr. Davis recommended phlebotomy for which patient had multiple times as the patient still to have his polycythemia vera. The patient's hematocrit is much improved and the patient will need to follow closely with hematology/collagen outpatient. Given the patient's chest pain, the patient did have a CTA of the chest which was negative for pulmonary embolism however noted to 7.3 cm ascending aortic aneurysm. I have discussed with Dr. Wheat who recommends transferring the patient to [place] for further evaluation by thoracic surgery given high risk of rupture/dissection. The patient was initially reluctant to go, however after speaking with the and the patient once again, the patient was agreeable. At this time the patient denies any chest pain, shortness of breath, or palpitations. I have discussed the case with Dr. Pérez who has graciously accepted the patient onto service. The patient will be transferred to [facility] for further management and care. I have answered all of the patient and 's questions to their satisfaction. DISCHARGE MEDICATIONS: Please see below. ALLERGIES: Please see below. PHYSICAL EXAMINATION ON DISCHARGE: Vitals: (see below) General: No acute distress, laying comfortably in bed. HEENT: Moist mucous membranes. Neck: No JVD or lymphadenopathy Cardiac: RRR, No murmurs Pulm: Clear to auscultation b/l. No wheezing, rhonchi Abd: NT/ND + BS Ext: No edema or cyanosis LABORATORY DATA: Please see below. IMAGING: CTA chest on 05/23/[address]: 1[address] evidence of pulmonary embolus. 2. Ascending thoracic aortic aneurysm, up to 7.3 cm AP dimension of the aortic root. No dissection seen. 3. COPD. 4. CT findings consistent with right heart strain or right heart failure. PROGNOSIS: Fair to poor given underlying comorbidities ACTIVITY: As tolerated. DIET: Low-sodium diet DISCHARGE PLAN/DISPOSITION: Transfer to [facility] under the care of Dr. Pérez DISCHARGE INSTRUCTIONS: 1. Follow-up with PCP in 1 week after discharge, thoracic surgery as recommended by [facility],, hematology/oncology 2-3 weeks. DISCHARGE CONDITION: Stable. TIME SPENT ON DISCHARGE: Greater than 30 minutes. Vital Signs/I&Os Vital Signs Date Time Temp Pulse Resp B/P (MAP) Pulse Ox O2 Delivery O2 Flow Rate FiO2 05/26/18 14:00 97.6 104 17 133/62 (85) 93 Nasal Cannula 1.0 05/23/18 04:00 94 I&O- Last 24 Hours up to 6 AM 05/26/18 06:00 Intake Total 1100 ml Output Total 200 ml Balance 900 ml Laboratory Data Labs 24H Laboratory Tests 2 05/26/18 05:45: Immature Granulocyte % (Auto) 0.4, White Blood Count 9.1, Red Blood Count 4.33, Hemoglobin 12.3#, Hematocrit 40.3, Mean Corpuscular Volume 93.1, Mean Corpuscular Hemoglobin 28.4, Mean Corpuscular Hemoglobin Concent 30.5L, Red Cell Distribution Width 14.8H, Platelet Count 174, Neutrophils (%) (Auto) 73.1H, Lymphocytes (%) (Auto) 12.9L, Monocytes (%) (Auto) 12.1H, Eosinophils (%) (Auto) 1.2, Basophils (%) (Auto) 0.3, Neutrophils # (Auto) 6.7, Lymphocytes # (Auto) 1.2L, Monocytes # (Auto) 1.1H, Eosinophils # (Auto) 0.1, Basophils # (Auto) 0.0, Nucleated Red Blood Cells % (auto) 0.0, Anion Gap 4L, Glomerular Filtration Rate > 60.0, Blood Urea Nitrogen 16, Creatinine 0.58, Sodium Level 144, Potassium Level 4.1, Chloride Level 108H, Carbon Dioxide Level 32, Calcium Level 7.7L 05/26/18 08:50: Whole Blood Ionized Calcium 4.5 CBC/BMP Laboratory Tests 05/26/18 05:45 Red Blood Count 4.33, Mean Corpuscular Volume 93.1, Mean Corpuscular Hemoglobin 28.4, Mean Corpuscular Hemoglobin Concent 30.5 L, Red Cell Distribution Width 14.8 H, Neutrophils (%) (Auto) 73.1 H, Lymphocytes (%) (Auto) 12.9 L, Monocytes (%) (Auto) 12.1 H, Eosinophils (%) (Auto) 1.2, Basophils (%) (Auto) 0.3, Neutrophils # (Auto) 6.7, Lymphocytes # (Auto) 1.2 L, Monocytes # (Auto) 1.1 H, Eosinophils # (Auto) 0.1, Basophils # (Auto) 0.0, Calcium Level 7.7 L Microbiology Microbiology 05/22/18 Blood Culture - Preliminary, Resulted No Growth after 72 hours. All specime... Discharge Medications Scheduled (Paroxetine) 10 Mg Tab, 10 MG PO DAILY, (Reported) Atorvastatin Calcium (Atorvastatin Calcium) 20 Mg Tab, 20 MG PO QHS, (Reported) Cholecalciferol (Vitamin D-3) 1,000 Unit Tab, 1,000 UNIT PO DAILY, (Reported) Lisinopril (Lisinopril) 2.5 Mg Tab, 2.5 MG PO DAILY, (Reported) Scheduled PRN Aspirin (Aspirin) 325 Mg Tab, 325 MG PO for CHEST PAIN, (Reported) Allergies Coded Allergies: No Known Drug Allergy (Unverified Allergy, Unknown, 05/22/18) LYNDA DURANT MD May 26, 2018 17:00
--- NOTE | 2018-05-26 18:24 | ECHO ---
DATE OF PROCEDURE: 05/26/2018 REFERRING PHYSICIAN: Dr. Neil Butler INDICATION: Chest pain. Height 158 cm, weight 54 kg. DIMENSIONS: IVS: 1.3 LV: 3.8 LVPW: 1.3 LA: 2.7. Aortic root: 3.4 Ascending aorta: 6.5 E prime septal: 4.8 E prime lateral: 4.4 IVC: 1.3 Left atrial volume index: 29 FINDINGS: The study is of good technical quality. The patient is in sinus tachycardia with ventricular rate approximately 110 beats per minute. Left ventricle has normal size and hyperdynamic contractility with estimated ejection fraction (EF) approximately 70-75%. I do not appreciate any segmental wall motion abnormalities. Right ventricle appears grossly normal. Left atrium is mildly enlarged. Right atrium appears normal size. Aortic valve is sclerotic. It is a trileaflet valve. It has preserved mobility. Mitral valve appears normal. Tricuspid valve appears normal. Pulmonic valve also appears structurally intact. There is small noncompressive pericardial effusion. Inferior vena cava is normal size. Aortic root appears normal. The ascending aorta is markedly dilated, measured diameter is 6.5 cm. Aortic arch and abdominal aorta were poorly seen but also appear enlarged. Doppler interrogation of aortic valve reveals no stenosis and at least moderate if not moderately severe insufficiency. There is no reversal of flow in descending aorta and pressure half-time of jet is 250 milliseconds. There is mild mitral insufficiency and mild tricuspid insufficiency. Calculated pulmonary artery pressure is in low 60s corresponding to moderately severe pulmonary hypertension. Pulmonic valve exhibits trace insufficiency. Evaluation of diastolic function is inconclusive due to aortic insufficiency jet interfering with mitral inflow pattern, but tissue Doppler velocities of mitral annulus are low so I assume advanced diastolic dysfunction. CONCLUSIONS: 1. Study is of good technical quality. 2. Normal left ventricular (LV) size with hyperdynamic LV systolic function. 3. Moderately severe aortic insufficiency. 4. Severely dilated ascending aorta. 5. Small pericardial effusion. 6. Normal central venous pressure. 7. Moderately severe pulmonary hypertension. COMMENT: Subacute bacterial endocarditis (SBE) prophylaxis is not recommended. Even though no obvious dissection is seen, combination of markedly dilated ascending aorta with significant aortic insufficiency and small pericardial effusion raises suspicion of possible dissection. To the best of my understanding, the patient was already transferred to [facility] in [place]. I left a message on attending physician's cell phone expressing my concerns.
== END 2018-05-26 15:19 | disposition other institution (70) ==
LOC: M ED 16:30 → M ED INP 18:52 → M PCU 20:26 → M MSPAV 05-25 07:08
PROVIDERS: ADMIT Internal Medicine Nephrology; ATTEND Internal Medicine
DX: I71.2 Thoracic aortic aneurysm, without rupture (principal); D45 Polycythemia vera; R07.9 Chest pain, unspecified; J44.9 Chronic obstructive pulmonary disease, unspecified; F17.210 Nicotine dependence, cigarettes, uncomplicated; E78.5 Hyperlipidemia, unspecified; F41.9 Anxiety disorder, unspecified; I10 Essential (primary) hypertension; F32.9 Major depressive disorder, single episode, unspecified; Z79.82 Long term (current) use of aspirin; Z79.899 Other long term (current) drug therapy
CPT/HCPCS: 36415; 71045; 71275; 80048; 80076; 81001; 82330; 82550; 82553; 82668; 82728; 82803; 83550; 83605; 83690; 83880; 84443; 84484; 85025; 85027; 85610; 87040; 93005; 93041; 93306; 94640; 94760; 96360; 96361; 97161; 99285; G0378; Q9967

== ENCOUNTER → 2018-08-07 | Outpatient (REF) ==
[~2018-08-07] MED LIST changes: +ASPI-222 PO; +ATOR1TAB21 PO; +LISI2.5T76 PO; +VITA-121 PO
[2018-08-07 09:21] LABS: HEMATOCRIT 40.3 % (36.0-47.0); HEMOGLOBIN 12.2 g/dl (12.0-15.5); MEAN CORPUSCULAR HGB CONC 30.3 g/dl (32.0-36.5); PLATELET COUNT, AUTOMATED 295 10^3/uL (150-450); WHITE BLOOD COUNT 8.2 10^3/uL (4.0-10.0)
[2018-08-07 09:26] LABS: BLOOD UREA NITROGEN 17 MG/DL (7-18); CALCIUM LEVEL 8.9 MG/DL (8.8-10.2); CARBON DIOXIDE LEVEL 31 MEQ/L (21-32); CHLORIDE LEVEL 105 MEQ/L (98-107); GLOMERULAR FILTRATION RATE > 60.0 (>39); GLUCOSE, FASTING 94 MG/DL (70-100); POTASSIUM SERUM 4.4 MEQ/L (3.5-5.1); SODIUM LEVEL 142 MEQ/L (136-145)
== END ==
LOC: SKLAB7 07:00
PROVIDERS: ATTEND Internal Medicine
DX: I10 Essential (primary) hypertension (principal); I25.10 Atherosclerotic heart disease of native coronary artery without angina pectoris

== ENCOUNTER → 2018-08-14 | Outpatient (REF) ==
[2018-08-14 08:10] LABS: HEMOGLOBIN 11.7 g/dl (12.0-15.5); MEAN CORPUSCULAR HEMOGLOBIN 29.1 pg (27.0-33.0); MEAN CORPUSCULAR HGB CONC 30.8 g/dl (32.0-36.5); MEAN CORPUSCULAR VOLUME 94.5 fl (80.0-96.0); PLATELET COUNT, AUTOMATED 279 10^3/uL (150-450); RED BLOOD COUNT 4.02 10^6/uL (4.00-5.40); WHITE BLOOD COUNT 7.6 10^3/uL (4.0-10.0)
[2018-08-14 08:39] LABS: BLOOD UREA NITROGEN 19 MG/DL (7-18); CALCIUM LEVEL 8.7 MG/DL (8.8-10.2); CARBON DIOXIDE LEVEL 30 MEQ/L (21-32); CHLORIDE LEVEL 107 MEQ/L (98-107); CREATININE FOR GFR 0.79 MG/DL (0.55-1.30); GLOMERULAR FILTRATION RATE > 60.0 (>39); GLUCOSE, FASTING 106 MG/DL (70-100); POTASSIUM SERUM 4.6 MEQ/L (3.5-5.1); SODIUM LEVEL 142 MEQ/L (136-145)
== END ==
LOC: SKLAB7 07:00
PROVIDERS: ATTEND Internal Medicine
DX: D64.9 Anemia, unspecified (principal); I10 Essential (primary) hypertension; I25.10 Atherosclerotic heart disease of native coronary artery without angina pectoris

== ENCOUNTER → 2018-08-21 | Outpatient (REF) ==
[2018-08-21 08:37] LABS: HEMATOCRIT 39.4 % (36.0-47.0); HEMOGLOBIN 11.8 g/dl (12.0-15.5); MEAN CORPUSCULAR HEMOGLOBIN 28.3 pg (27.0-33.0); MEAN CORPUSCULAR HGB CONC 29.9 g/dl (32.0-36.5); MEAN CORPUSCULAR VOLUME 94.5 fl (80.0-96.0); PLATELET COUNT, AUTOMATED 342 10^3/uL (150-450); RED BLOOD COUNT 4.17 10^6/uL (4.00-5.40); WHITE BLOOD COUNT 7.7 10^3/uL (4.0-10.0)
[2018-08-21 08:57] LABS: BLOOD UREA NITROGEN 19 MG/DL (7-18); CALCIUM LEVEL 9.1 MG/DL (8.8-10.2); CARBON DIOXIDE LEVEL 32 MEQ/L (21-32); CHLORIDE LEVEL 106 MEQ/L (98-107); CREATININE FOR GFR 0.74 MG/DL (0.55-1.30); GLOMERULAR FILTRATION RATE > 60.0 (>39); GLUCOSE, FASTING 93 MG/DL (70-100); POTASSIUM SERUM 4.4 MEQ/L (3.5-5.1); SODIUM LEVEL 142 MEQ/L (136-145)
== END ==
LOC: SKLAB7 07:00
PROVIDERS: ATTEND Internal Medicine
DX: I25.10 Atherosclerotic heart disease of native coronary artery without angina pectoris (principal); D64.9 Anemia, unspecified

== ENCOUNTER → 2018-08-28 | Outpatient (REF) ==
[2018-08-28 08:25] LABS: HEMATOCRIT 38.2 % (36.0-47.0); HEMOGLOBIN 11.7 g/dl (12.0-15.5); MEAN CORPUSCULAR HEMOGLOBIN 28.5 pg (27.0-33.0); MEAN CORPUSCULAR HGB CONC 30.6 g/dl (32.0-36.5); MEAN CORPUSCULAR VOLUME 93.2 fl (80.0-96.0); PLATELET COUNT, AUTOMATED 312 10^3/uL (150-450); WHITE BLOOD COUNT 6.9 10^3/uL (4.0-10.0)
[2018-08-28 08:42] LABS: BLOOD UREA NITROGEN 15 MG/DL (7-18); CALCIUM LEVEL 9.2 MG/DL (8.8-10.2); CARBON DIOXIDE LEVEL 29 MEQ/L (21-32); CHLORIDE LEVEL 106 MEQ/L (98-107); CREATININE FOR GFR 0.77 MG/DL (0.55-1.30); GLOMERULAR FILTRATION RATE > 60.0 (>39); GLUCOSE, FASTING 84 MG/DL (70-100); POTASSIUM SERUM 3.9 MEQ/L (3.5-5.1); SODIUM LEVEL 142 MEQ/L (136-145)
== END ==
LOC: SKLAB7 11:27
PROVIDERS: ATTEND Internal Medicine
DX: D64.9 Anemia, unspecified (principal)

== ENCOUNTER → 2018-09-18 | Outpatient (REF) ==
[2018-09-18 09:15] LABS: HEMATOCRIT 39.5 % (36.0-47.0); HEMOGLOBIN 12.1 g/dl (12.0-15.5); MEAN CORPUSCULAR HEMOGLOBIN 28.5 pg (27.0-33.0); MEAN CORPUSCULAR HGB CONC 30.6 g/dl (32.0-36.5); MEAN CORPUSCULAR VOLUME 93.2 fl (80.0-96.0); PLATELET COUNT, AUTOMATED 314 10^3/uL (150-450); RED BLOOD COUNT 4.24 10^6/uL (4.00-5.40); WHITE BLOOD COUNT 8.7 10^3/uL (4.0-10.0)
[2018-09-18 09:23] LABS: BLOOD UREA NITROGEN 17 MG/DL (7-18); CALCIUM LEVEL 9.5 MG/DL (8.8-10.2); CARBON DIOXIDE LEVEL 30 MEQ/L (21-32); CHLORIDE LEVEL 104 MEQ/L (98-107); CREATININE FOR GFR 0.75 MG/DL (0.55-1.30); GLOMERULAR FILTRATION RATE > 60.0 (>39); GLUCOSE, FASTING 84 MG/DL (70-100); SODIUM LEVEL 141 MEQ/L (136-145)
== END ==
LOC: SKLAB7 08:25
PROVIDERS: ATTEND Internal Medicine
DX: I10 Essential (primary) hypertension (principal); J44.9 Chronic obstructive pulmonary disease, unspecified

== ENCOUNTER → 2018-10-17 | Outpatient (CLI) | payer MEDICARE, OTHER ==
--- NOTE | 2018-10-17 15:11 | NUR ---
Pt seen this date for Modified Barium Swallow Study to determine if there is aspiration/penetration of intake to assist MD in determining whether removal of PEG tube is appropriate. Observed course of thin liquids, puree solids, soft solid w/thin liquid base mix, dry solid and barium tablet with applesauce assist. Swallow presented wnl for all consistencies. Minimal residue noted. Recommend: Regular solids and thin liquids. Continue to meats small and use ample moisture to dry items. Meds administered whole via puree assist. Continue supervision of intake. Continue dysphagia therapy to self-monitor safe intake protocol and/or teach caregiver how to monitor and prepare meal for safe intake. Addendum: 10/17/18 at 1517 by HARI MALONE [facility] Amended: Links added.
--- NOTE | 2018-10-17 19:28 | REP ---
COOKIE SWALLOW The procedure was performed under the direct supervision of Dr. Quershi. The procedure was performed with Ann Harrington from speech pathology present. 5 ml aliquots of pudding, thin, fruit, solid and a barium pill were administered. There is no evidence of penetration or aspiration. The detailed report of this examination will be provided by speech pathology. 0.9 minutes of fluoroscopy time was utilized for this procedure. Reviewed by CROW Bear 10/17/2018 03:48 P Electronically Signed by Robel Qureshi MD 10/17/2018 07:19 P
== END ==
LOC: M ST 12:15
PROVIDERS: ATTEND Internal Medicine
DX: R13.10 Dysphagia, unspecified (principal)

== ENCOUNTER → 2018-10-23 | Outpatient (REF) ==
[~2018-10-23] MED LIST changes: +ACET-908 PO; +ASPI81TA85 PO; +ATOR40TA75 PO; +ELIQ5TAB PO; +FAMO1TAB11 PO; +FOLI1TAB11 PO; +FOLI400T PO; +FURO20TA2 PO; +MELA3TAB PO; +METO1TAB87 PO; +PANT20TA2 PO; +POTA20TA6 PO; +REQU1TAB14 PO; +ROPI1TAB PO; +SENN1TAB8 PO; +SERT-155 PO; +SYMB16INH INH; +VITA-122 PO; +VITMTA PO
[2018-10-23 09:18] LABS: HEMATOCRIT 40.4 % (36.0-47.0); HEMOGLOBIN 12.3 g/dl (12.0-15.5); MEAN CORPUSCULAR HGB CONC 30.4 g/dl (32.0-36.5); MEAN CORPUSCULAR VOLUME 88.8 fl (80.0-96.0); PLATELET COUNT, AUTOMATED 270 10^3/uL (150-450); RED BLOOD COUNT 4.55 10^6/uL (4.00-5.40); WHITE BLOOD COUNT 6.4 10^3/uL (4.0-10.0)
[2018-10-23 09:28] LABS: BLOOD UREA NITROGEN 14 MG/DL (7-18); CALCIUM LEVEL 9.1 MG/DL (8.8-10.2); CARBON DIOXIDE LEVEL 31 MEQ/L (21-32); CHLORIDE LEVEL 102 MEQ/L (98-107); CREATININE FOR GFR 0.88 MG/DL (0.55-1.30); GLOMERULAR FILTRATION RATE > 60.0 (>39); GLUCOSE, FASTING 94 MG/DL (70-100); POTASSIUM SERUM 4.2 MEQ/L (3.5-5.1); SODIUM LEVEL 140 MEQ/L (136-145)
== END ==
LOC: SKLAB7 07:00
PROVIDERS: ATTEND Internal Medicine
DX: J44.9 Chronic obstructive pulmonary disease, unspecified (principal); I25.10 Atherosclerotic heart disease of native coronary artery without angina pectoris

== ENCOUNTER 2018-11-07 06:02 | Inpatient (IN) | payer MEDICARE, OTHER ==
[~2018-11-07] VITALS: Ht 157.5 cm; Wt 53.0 kg
[~2018-11-07 06:02] MED LIST changes: -ACET-908 PO; -ASPI81TA85 PO; -ATOR40TA75 PO; -ELIQ5TAB PO; -FAMO1TAB11 PO; -FOLI1TAB11 PO; -FOLI400T PO; -FURO20TA2 PO; -MELA3TAB PO; -METO1TAB87 PO; -PANT20TA2 PO; -POTA20TA6 PO; -REQU1TAB14 PO; -ROPI1TAB PO; -SENN1TAB8 PO; -SERT-155 PO; -SYMB16INH INH; -VITA-122 PO; -VITMTA PO
[2018-11-07] MEDS ORDERED: SENN1TAB8 PO (06:31)
[2018-11-07] MEDS ORDERED: FAMO1TAB11 PO (06:31)
[2018-11-07] MEDS ORDERED: FOLI1TAB11 PO (06:31)
[2018-11-07] MEDS ORDERED: FURO20TA2 PO (06:31)
[2018-11-07] MEDS ORDERED: POTA20TA6 PO (06:31)
[2018-11-07] MEDS ORDERED: METO1TAB87 PO (06:31)
[2018-11-07] MEDS ORDERED: MELA3TAB PO (06:31)
[2018-11-07] MEDS ORDERED: ELIQ5TAB PO (06:31)
[2018-11-07] MEDS ORDERED: ATOR40TA75 PO (06:31)
--- NOTE | 2018-11-07 06:50 | REPVR ---
EXAM: CT Head Without Contrast EXAM DATE/TIME: 11/07/2018 6:22 AM CLINICAL HISTORY: 78 years old, female; Injury or trauma; Fall; Initial encounter; Concussion / head injury TECHNIQUE: Imaging protocol: Axial computed tomography images of the head without contrast. Radiation optimization: All CT scans at this facility use at least one of these dose optimization techniques: automated exposure control; mA and/or kV adjustment per patient size (includes targeted exams where dose is matched to clinical indication); or iterative reconstruction. COMPARISON: No relevant prior studies available. FINDINGS: Brain: See Ventricles Finding. Ventricles: There is age-related cerebral atrophy with secondary ventricular dilatation. There is an area of chronic encephalomalacia in the right parietal lobe. Small lucency seen in the region of the right basal ganglia and thalamus likely also lacunar infarcts. There is mild periventricular white matter lucencies without mass effect. Bones/joints: Unremarkable. No acute fracture. Sinuses: Visualized sinuses are unremarkable. No fluid levels. Mastoid air cells: Visualized mastoid air cells are well aerated. No mastoid effusion. Soft tissues: Unremarkable. IMPRESSION: 1. No CT evidence of intracranial hemorrhage, mass effect or midline shift. 2. Age related cerebral atrophy with chronic microangiopathic changes. 3. Right parietal lobe chronic encephalomalacia and small lacunar infarcts in the right basal ganglia and thalamus. Electronically signed by: Wesley Garrett On 11/07/2018 06:50:00 AM
[2018-11-07] MEDS ORDERED: VITA-122 PO (06:58)
[2018-11-07] MEDS ORDERED: REQU1TAB14 PO (06:58)
[2018-11-07] MEDS ORDERED: FOLI400T PO (06:58)
[2018-11-07] MEDS ORDERED: ROPI1TAB PO (06:58)
[2018-11-07] MEDS ORDERED: PANT20TA2 PO (06:58)
[2018-11-07] MEDS ORDERED: SERT-155 PO (06:58)
[2018-11-07] MEDS ORDERED: SYMB16INH INH (06:58)
[2018-11-07] MEDS ORDERED: MORPHINE 4 MG/ML 1ML VIAL/SYRINGE (J2270) IV ONE (07:00)
[2018-11-07] MEDS ORDERED: NS 1,000 ML IV SCH (07:00)
[2018-11-07] MEDS ORDERED: ONDANSETRON 4MG/2ML VIAL (J2405) IV ONE (07:00)
[2018-11-07 07:10] LABS: BASO % 0.2 % (0.0-1.0); EOS # 0.3 10^3/uL (0.0-0.50); EOS % 2.4 % (0.0-3.0); HEMATOCRIT 35.5 % (36.0-47.0); HEMOGLOBIN 10.8 g/dl (12.0-15.5); LYMPH # 1.5 10^3/uL (1.5-4.5); LYMPH % 14.2 % (24.0-44.0); MEAN CORPUSCULAR HEMOGLOBIN 27.2 pg (27.0-33.0); MEAN CORPUSCULAR HGB CONC 30.4 g/dl (32.0-36.5); MEAN CORPUSCULAR VOLUME 89.4 fl (80.0-96.0); MONO # 0.8 10^3/uL (0.0-0.8); MONO % 8.2 % (0.0-5.0); NEUTROPHILS # 7.6 10^3/uL (1.8-7.7); NEUTROPHILS % 74.1 % (36.0-66.0); PLATELET COUNT, AUTOMATED 275 10^3/uL (150-450); RED BLOOD COUNT 3.97 10^6/uL (4.00-5.40); WHITE BLOOD COUNT 10.2 10^3/uL (4.0-10.0)
[2018-11-07 07:12] LABS: BLOOD UREA NITROGEN 15 MG/DL (7-18); CALCIUM LEVEL 8.5 MG/DL (8.8-10.2); CARBON DIOXIDE LEVEL 28 MEQ/L (21-32); CHLORIDE LEVEL 111 MEQ/L (98-107); CREATININE FOR GFR 0.72 MG/DL (0.55-1.30); GLOMERULAR FILTRATION RATE > 60.0 (>39); GLUCOSE, FASTING 98 MG/DL (70-100); SODIUM LEVEL 144 MEQ/L (136-145)
[2018-11-07 07:36] LABS: INR 1.34; PROTHROMBIN TIME 16.3 SECONDS (11.8-14.0)
[2018-11-07 07:37] LABS: PARTIAL THROMBOPLASTIN TIME 29.2 SECONDS (25.0-38.4)
--- NOTE | 2018-11-07 07:49 | REP ---
Clinical: Fall. Technique: AP and frog lateral views of the left femur. Findings: There is a comminuted angulated intertrochanteric fracture of the proximal left femur. Impression: Comminuted intertrochanteric fracture of the left femur. Electronically Signed by Raoul Todd MD 11/07/2018 07:40 A
--- NOTE | 2018-11-07 07:51 | REP ---
Clinical: Trauma. Fall. Technique: Single portable view of the chest. Comparison: 05/22/2018 Findings: Mediastinum and cardiac silhouette demonstrate the patient to be status post sternotomy, CABG and cardiac valve repair. Elevation to the left hemidiaphragm noted. Lung murray demonstrate chronic interstitial changes and subtle superimposed left lower lobe process cannot be excluded. No pneumothorax. Skeletal structures intact. Impression: Chronic and postsurgical changes. Elevation to the left hemidiaphragm. Cannot exclude left lower lobe process. Electronically Signed by Raoul Todd MD 11/07/2018 07:42 A
--- NOTE | 2018-11-07 07:54 | REPVR ---
EXAM: CT Cervical Spine Without Contrast EXAM DATE/TIME: 11/07/2018 6:22 AM CLINICAL HISTORY: 78 years old, female; Injury or trauma; Fall; Initial encounter; Concussion /head injury TECHNIQUE: Imaging protocol: Axial computed tomography images of the cervical spine without contrast. Coronal and sagittal reformatted images were created and reviewed. Radiation optimization: All CT scans at this facility use at least one of these dose optimization techniques: automated exposure control; mA and/or kV adjustment per patient size (includes targeted exams where dose is matched to clinical indication); or iterative reconstruction. COMPARISON: XA Cookie Swallow Mod.Ba Swallow 10/17/2018 12:35 PM FINDINGS: Vertebrae: No acute fracture. Normal alignment. Discs/Spinal canal/Neural foramina: There is multilevel cervical spine DJD extending from C3-C4 through C7-T1. There is multilevel facet arthrosis. Soft tissues: Unremarkable. Lungs: Severe emphysematous changes seen in the imaged lung apices. IMPRESSION: 1. No CT evidence of traumatic cervical spine injury. 2. C3-C4 through C7-T1 degenerative changes with posterior disc osteophyte complex formation above with facet arthrosis. Evaluation of the spinal canal, cord and neural foramina is very limited on this exam. 3. Severe emphysematous lung changes. Electronically signed by: Wesley Garrett On 11/07/2018 07:54:27 AM
[2018-11-07] MEDS ORDERED: ASPI81TA85 PO (08:29)
[2018-11-07] MEDS ORDERED: VITMTA PO (08:29)
[2018-11-07] MEDS ORDERED: ACET-908 PO (08:29)
[2018-11-07] MEDS ORDERED: PROMETHAZINE INJ 25 MG/ML VIAL (J2550) IV ONE (08:45)
[2018-11-07] MEDS ORDERED: NS 1,000 ML IV ONE (08:45)
[2018-11-07] MEDS ORDERED: MOM 30ML SUSPENSION UDC PO PRN (09:00)
[2018-11-07] MEDS: SYMBICORT 160/4.5MCG INHALER 6GM INH SCH ×2 (09:00→21:52)
[2018-11-07] MEDS ORDERED: MAALOX 30 ML SUSP *UDC PO PRN (09:00)
[2018-11-07] MEDS: ENOXAPARIN 30 MG/0.3 ML SYR (J1650) SC SCH (09:00)
[2018-11-07 10:45] VITALS: BP 132/60
--- NOTE | 2018-11-07 11:23 | ECGEPIP ---
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
[2018-11-07] MEDS ORDERED: ALBUTEROL SULFATE 2.5 MG/0.5 ML INH NEB SOLN NEB PRN (11:30)
[2018-11-07] MEDS ORDERED: ONDANSETRON 4MG/2ML VIAL (J2405) IV PRN (11:30)
[2018-11-07] MEDS: SERTRALINE HCL 50 MG TAB PO SCH (12:07)
[2018-11-07] MEDS: DOCUSATE SODIUM 100 MG CAP PO SCH ×2 (12:07→21:08)
[2018-11-07] MEDS: SENNA 8.6 MG TAB (SENOKOT) PO SCH (12:07)
[2018-11-07] MEDS: FAMOTIDINE 20 MG TAB PO SCH (12:07)
[2018-11-07] MEDS: PANTOPRAZOLE 20 MG TAB PO SCH (12:08)
[2018-11-07] MEDS: rOPINIRole 1MG TAB PO SCH ×2 (12:08→21:08)
[2018-11-07] MEDS: METOPROLOL TART 12.5 MG PER 1/2 TAB PO SCH ×2 (12:09→21:09)
[2018-11-07] MEDS: MORPHINE 4 MG/ML 1ML VIAL/SYRINGE (J2270) IV PRN ×2 (12:15→18:39)
--- NOTE | 2018-11-07 14:14 | CR ---
DATE OF CONSULTATION: 11/07/2018 REFERRING PHYSICIAN: Dr. Krista Myers. INDICATION: Preoperative evaluation for left hip open reduction internal fixation (ORIF) Mrs. Howard is known to me. She is a very unfortunate 78-year-old female who has a fairly extensive medical history. 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 She was transferred to [facility] ([facility]) and underwent ascending aortic replacement, aortic valve replacement and single-vessel coronary artery bypass graft (CABG). 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 It was felt to be related to paroxysmal atrial fibrillation that was apparent in postoperative period. She underwent extensive rehabilitation and eventually made it home this last week. Yesterday though just walking at night to the bathroom she tripped and broke her left hip. I am seeing the patient in progressive care unit (PCU). She tells me that she is currently comfortable even though she appears mildly dyspneic. She denies any chest pain and tells me that her respiratory status in the last several days has been quite favorable. Apparently, besides her problems with her mobility, she has not had any additional problems. Her initial dysphasia that required placement on the percutaneous endoscopic gastrostomy (PEG)mostly resolved and she is eating. There was actually a plan to remove the PEG tube in near future. PAST MEDICAL HISTORY: 1. History of open heart surgery in May of this year as above. She underwent aortic valve replacement with #23 Magna Ease pericardial valve. She has a ascending aorta replaced with #32 Dacron aortic graft and she had a single saphenous vein graft to left anterior descending (LAD). 2. Paroxysmal atrial fibrillation. 3. An echocardiogram performed on June 01, 2018 revealed ejection fraction 40-45% with dilated right ventricle and normal function of aortic bioprosthesis. Bubble study was suspicious for patent foramen ovale. 4/ Polycythemia vera 5. Hypertension. 6. Hyperlipidemia. 7. Anxiety. 8. History of solitary kidney. Surgical history is positive for; Left rotator cuff repair. Carpal tunnel release. Hysterectomy. Hammertoe release Heart surgery as above. FAMILY HISTORY: No longer relevant. SOCIAL HISTORY: The patient is , lives with her . There is a remote history of smoking. There is no alcohol. REVIEW OF SYSTEMS: She denies any recent fever, chills, nausea, vomiting or diarrhea. She tells me that she gets easily short of breath but there has been no deterioration lately. No chest pain or palpitations. No syncopal events. No abdominal pain. No peripheral edema. At her baseline she is walking with a cane slowly and she has splint on the left upper extremity. According to her , she usually is being assisted with ambulation but at night, she is not looking for any help and she also did not use cane this last night. PHYSICAL EXAMINATION: Mrs. Howard is a frail elderly woman. She appears anxious and mildly tachypneic. Respiratory rate was 16, even though she seemed to be mildly working mildly hard. Afebrile. Blood pressure 132/60, heart rate in 80s and 90s. Saturation 92% on 3 liters of oxygen. She earlier was as low as 82% on 3 liters of oxygen. Stated weight was 50 kg. She is alert and oriented and appropriate. Her jugular venous pulse (JVP) does not appear high. Lungs are reasonably clear to auscultation. I do not appreciate any wheezing, crackles or rhonchi. There is a scar after her thoracic surgery. I do not appreciate a murmur, gallop or rub. Abdomen is soft. Bowel sounds are present. There is no peripheral edema. Peripheral pulses are palpable on both lower extremities. She has fairly dense left-sided hemiparesis. She cannot move fingers or raise her left arm without help and her left lower extremity I did not test formally due to recent fracture related pain. LABORATORY: Hemoglobin 10.9, hematocrit 35, platelet count 275,000, WBC count 10.2. Basic metabolic panel sodium 144, potassium 4.0, BUN 15, creatinine 0.79, glucose 98, INR was 1.3. She had a chest x-ray, which revealed evidence for open heart surgery as expected. There is significant elevation of the left hemidiaphragm and chronic interstitial changes. She also had neuro imaging. CT of her head is consistent with old stroke. No hemorrhage. An electrocardiogram revealed sinus rhythm with ventricular rate 89 beats per minute. Right bundle branch block and left anterior hemiblock. This is not appreciably changed from her prior ECG. OUTPATIENT MEDICATIONS: According to hospital records, she was taking: - Tylenol as needed - Eliquis 5 twice a day, the last dose taken 11/06/2018 evening hours - aspirin 81 a day - Lipitor 40 a day - Symbicort - vitamin D - famotidine 20 a day - folic acid one a day - furosemide 20 mg a day - melatonin as needed - metoprolol 12.5 twice a day - pantoprazole 20 mg a day - potassium 20 mEq three times a week - ropinirole 1 mg twice a day - Senna as needed - sertraline 50 mg at night. ALLERGIES: No known allergies. ASSESSMENT/PLAN: Mrs. Howard is a frail 78-year-old female who, in the last 6 months, has had numerous medical problems. It started with extensive open heart surgery that was followed by ischemic stroke leading to difficulty swallowing and also dense left-sided hemiparesis. She finally made it home last week but then unfortunately broke her left hip. As far as the surgical intervention is concerned, I foresee that she will be able to proceed but with her Eliquis still being actively administered as recently as last night, I recommend that we wait at least 48 hours from her last dose before proceeding. Because the weekend is coming, I suspect that she will be operated on Saturday, even though in from my perspective, Saturday would be acceptable. She is quite hypoxic, which I am afraid will be further exacerbated by her inability to ambulate. I do not have an impression that she is in congestive heart failure but I am going to obtain a BNP to get a better idea. I did not make any additional changes in her medications. Otherwise I do not have any specific recommendations to her management. Unfortunately, because of her frail status and still ongoing left-sided hemiparesis, which is lot more pronounced on upper extremity, I am afraid that her prognosis is very poor because her capacity for rehab will likely be diminished. But she is certainly willing to put up a fight and I think we should proceed with surgery as explained above. Alternatives, unfortunately, give her a really grave prognosis. MAXIMUS
[2018-11-07 16:00] VITALS: BP 128/65
--- NOTE | 2018-11-07 17:37 | ECGEPIP ---
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 Order Number: [id number] Reading MD: Nichol Ji Measurements Intervals [place] Rate: 84 P: 68 NE: 138 QRS: QRSD: 114 T: 66 QT: 400 QTc: 474 Interpretive Statements SINUS RHYTHM INCOMPLETE RIGHT BUNDLE BRANCH BLOCK LEFT ANTERIOR FASCICULAR BLOCK MODERATE T-WAVE ABNORMALITY, CONSIDER ISCHEMIA DECREASED RATE 05/24/18 Electronically Signed on 11-07-2018 17:36:45 EDT by Nichol Ji
[2018-11-07 19:27] VITALS: BP 113/57
--- NOTE | 2018-11-07 20:23 | CR ---
DATE OF CONSULTATION: 11/07/2018 CHIEF COMPLAINT: Left hip pain. HISTORY OF PRESENT ILLNESS: This pleasant 78-year-old female has a complex history, but in short, she was at home, she got out of bed to use the bathroom, she is supposed to use a cane but did not have her cane, neither going to the bathroom or coming back from the bathroom. She fell and fractured her hip, was brought in to the emergency room (ER) and evaluated, appreciated to have a comminuted intertrochanteric fracture of the left hip with displacement. Recently, she had been sent home from [facility] and had recently had a complicated medical history, including a stroke with severe left-sided hemiparesis associated with treatment of a thoracic aortic aneurysm. She has got atrial fibrillation. She has had rotator cuff repair on the left side remotely with Dr. Johnson. Currently in the progressive care unit. In addition to the left hip fracture, her complains that she has a percutaneous endoscopic gastrostomy (PEG) tube that some day needs to be removed, and he is hoping to get that removed soon as she is eating. MEDICAL HISTORY: Open heart surgery May of 2018. Paroxysmal atrial fibrillation. Possible patent foramen ovale. Polycythemia vera. Hypertension. Hyperlipidemia. Anxiety. Only has one kidney. SURGICAL HISTORY: Includes left rotator cuff repair at least 20 years ago, carpal tunnel surgery, hysterectomy, hammertoe surgery, as well as the heart surgery she had in May FAMILY HISTORY: Not contributory. SOCIAL HISTORY: She is and lives independently with her outside of her rehabilitation experiences; again, she had only been home for a few days. Does not currently smoke or drink. REVIEW OF SYSTEMS: Today she is only complaining of left hip discomfort. She is not complaining of headache or shortness of breath, or chest pain or abdominal pain, or numbness or tingling. MEDICATIONS: When admitted, she was on Tylenol, Eliquis, aspirin, Lipitor, Symbicort, vitamin D, famotidine, folate, furosemide, melatonin, metoprolol, pantoprazole, potassium, ropinirole, Senna, sertraine, and other medications. ALLERGIES: No known drug allergies. IMPRESSION: Comminuted left hip fracture, intertrochanteric type, in a previous ambulator with a complex history. RECOMMENDATIONS: If she maintains stability, will consider surgical intervention in about 2 days. It is recommended that she hold Shiraquis for 48 hours. She has been seen by cardiology, Dr. Cook. Dr. Cook feels that she could potentially have surgery this coming Saturday and would be beneficial to the patient in order to get her mobilized, and I agree. Dr. Hillman is title i paraprofessional this , one of our orthopedic partners. I will coordinate with Dr. Hillman with respect to potentially seeing the patient and electing to operate. PLAN: Surgical intervention Saturday as long as the patient is medically optimized and able. Provisionally, we will contact the operating room and let them know that there is a possibility of this surgery this coming Saturday.
[2018-11-07] MEDS: ATORVASTATIN 20 MG TAB PO SCH (21:10)
[2018-11-08] VITALS (9 sets, daily range): BP systolic 100–146; BP diastolic 53–69
[2018-11-08] MEDS: MORPHINE 4 MG/ML 1ML VIAL/SYRINGE (J2270) IV PRN ×5 (00:56→22:02)
[2018-11-08 06:13] LABS: NT-PRO BNP 1355 PG/ML (<450)
[2018-11-08] MEDS: SYMBICORT 160/4.5MCG INHALER 6GM INH SCH ×2 (07:42→20:28)
[2018-11-08] MEDS: FAMOTIDINE 20 MG TAB PO SCH (09:12)
[2018-11-08] MEDS: SERTRALINE HCL 50 MG TAB PO SCH (09:12)
[2018-11-08] MEDS: SENNA 8.6 MG TAB (SENOKOT) PO SCH (09:12)
[2018-11-08] MEDS: DOCUSATE SODIUM 100 MG CAP PO SCH ×2 (09:12→20:01)
[2018-11-08] MEDS: METOPROLOL TART 12.5 MG PER 1/2 TAB PO SCH ×2 (09:13→20:01)
[2018-11-08] MEDS: ENOXAPARIN 30 MG/0.3 ML SYR (J1650) SC SCH (09:14)
[2018-11-08] MEDS ORDERED: SLF 3 ML SYR IV PRN (09:30)
--- NOTE | 2018-11-08 10:13 | HPEPDOC ---
General Date of Admission Nov 07, 2018 at 08:53 Date of Service: Nov 07, 2018 Chief Complaint The patient is a 78-year-old female admitted with a reason for visit of Closed Left Hip Fracture. Source: Patient, Family, RN/MD, Old records Exam Limitations: No limitations Severity: Moderate History of Present Illness 78 year old female with PMH of COPD/Emphysema, chronic respiratory failure with hypoxia on oxygen since may 2018 aftr surgery, polycythemia vera, Hypertension, Hyperlipidemia, solitary kidney, ascending Aortic severe dilatation with aortic regurgitation s/p open heart surgery in May 2018 which included AVR with biopr osthetic valve, ascending thoracic aortic dacron graft and single vessel CABG with saphenous graft to the LAD, Systolic CHF with EF of 40 to 45% from jun 01, 2018 , right sided ischemic stroke in the post operative period thought to be due to paroxysmal afib and there was a possibility of PFO also in bubble study complicated by dysphagia and dysphonia and left hemiparesis. Had a PEG tube placement then. Also had tracheostomy. After a prolonged stay at [facility] where she had the open heart surgery followed by Acute rehab in [facility] and then acute rehab in [facility] was just discharged a week ago. Early this morning was walking to the bathroom without her cane and she tripped possibly over the own left toes and broke her left hip. She was Admitted for Left Comminuted intertrochanteric fracture of the left femur. Patient complains of severe dull aching pain in the left groin and hip region with severe muscle spasms on minimal movement. The pain is 10/10 in intensity and then gets some relief wtih morphine . No radiation. Home Medications Scheduled Apixaban (Eliquis) 5 Mg Tablet, 5 MG PO BID, (Reported) Aspirin (Aspir 81) 81 Mg Tablet.dr, 81 MG PO DAILY, (Reported) Atorvastatin Calcium (Atorvastatin Calcium) 40 Mg Tablet, 40 MG PO QHS, (Reported) Budesonide/Formoterol (Symbicort 160-4.5 Mcg Inhaler) 6 Gm Hfa.aer.ad, 2 PUFF INH BID, (Reported) Cholecalciferol (Vitamin D3) (Vitamin D3) 1,000 Unit Tablet, 1,000 UNIT PO DAILY, (Reported) Famotidine (Famotidine) 20 Mg Tablet, 20 MG PO DAILY, (Reported) Folic Acid (Folic Acid) 1 Mg Tablet, 1 MG PO DAILY, (Reported) Furosemide (Furosemide) 20 Mg Tablet, 20 MG PO DAILY, (Reported) Metoprolol Tartrate (Metoprolol Tartrate) 25 Mg Tablet, 12.5 MG PO BID, (Reported) Multivitamins (Thera M Plus Tablet) 1 Each Tablet, 1 TAB PO DAILY, (Reported) Pantoprazole Sodium (Pantoprazole Sodium) 20 Mg Tablet.dr, 20 MG PO DAILY, (Reported) Potassium Chloride (Potassium Chloride) 20 Meq Tab.er.prt, 20 MG PO 3XW, (Reported) SAT/SAT/SAT Ropinirole HCl (Ropinirole HCl) 1 Mg Tablet, 1 MG PO BID, (Reported) Sennosides (Senna) 8.6 Mg Tablet, 17.2 MG PO DAILY, (Reported) Sertraline HCl (Sertraline HCl) 50 Mg Tablet, 50 MG PO DAILY, (Reported) Scheduled PRN Acetaminophen (Acetaminophen) 325 Mg Tablet, 650 MG PO Q4H PRN for PAIN, (Reported) Melatonin (Melatonin) 3 Mg Tablet, 3 MG PO QHS PRN for SLEEP, (Reported) Allergies Coded Allergies: No Known Allergies (Unverified , 11/07/18) Past Medical History Medical History COPD/Emphysema, chronic respiratory failure with hypoxia on oxygen, polycythemia vera, Hypertension, Hyperlipidemia, solitary kidney, ascending Aortic severe dilatation with aortic regurgitation s/p open heart surgery in May 2018 which included AVR with bioprosthetic valve, ascending thoracic aortic dacron graft and single vessel CABG with saphenous graft to the LAD, Systolic CHF with EF of 40 to 45% from jun 01, 2018 , right sided ischemic stroke in the post operative period thought to be due to paroxysmal afib Surgical History ascending Aortic severe dilatation with aortic regurgitation s/p open heart surgery in May 2018 which included AVR with bioprosthetic valve, ascending thoracic aortic dacron graft and single vessel CABG with saphenous graft to the LAD, PEG placement Tracheostomy Family History Positive for hematologic disorder. Her grandson has some sort of hematologic disorder of the blood; however, her daughter does not remember the name. Social History * Smoker: former Smoker Alcohol: Denies Drugs: denies A-FIB/CHADSVASC A-FIB History Current/History of A-Fib/PAF?: Yes Current PO Anticoag Therapy: Yes Review of Systems Constitutional: Denies: Chills, Fever, Night Sweats Eyes: Denies: Pain, Vision change Skin: Denies: Rash, Lesions, Breakdown Pulmonary: Denies: Dyspnea, Cough Cardiovascular: Denies: Chest Pain, Palpitations, Orthopnea Gastrointestinal: Denies: Nausea, Vomiting, Abdominal Pain, Diarrhea Hematologic: Denies: Bruising, Bleeding Excessively Musculoskeletal: Reports: Leg Pain, Joint Pain, Spasms Physical Examination General Exam: Positive: Alert, Moderate Distress (due to severe hip pain) Eye Exam: Positive: PERRLA, Conjunctiva & lids normal, EOMI; Negative: Sclera icteric ENT Exam: Positive: Atraumatic, Mucous membr. moist/pink, Pharynx Normal Neck Exam: Positive: Supple; Negative: JVD, thyromegaly Chest Exam: Positive: Wheezing (some wheezing on dep expiration. ), Diminished, Other (diffuse fibrotic crackles. ) Heart Exam: Positive: Rate Normal, Regular Rhythm, Normal S1, Normal S2; Negative: Murmurs, Rubs Telemetry: Positive: No significant arrhythmia Abdomen Exam: Positive: Normal bowel sounds, Soft, Other (Has PEG tube in placed not being used.); Negative: Tenderness, Hepatospenomegaly Extremity Exam: Negative: Clubbing, Cyanosis, Edema Skin Exam: Positive: Nl turgor and temperature; Negative: Breakdown, Lesion Vital Signs Vital Signs Date Time Temp Pulse Resp B/P (MAP) Pulse Ox O2 Delivery O2 Flow Rate FiO2 11/07/18 21:09 88 113/57 11/07/18 19:27 97.7 18 94 3.0 11/07/18 10:30 Nasal Cannula Laboratory Data Labs 24H Laboratory Tests 2 11/07/18 06:18: Immature Granulocyte % (Auto) 0.9, White Blood Count 10.2H, Red Blood Count 3.97L, Hemoglobin 10.8L, Hematocrit 35.5L, Mean Corpuscular Volume 89.4, Mean Corpuscular Hemoglobin 27.2, Mean Corpuscular Hemoglobin Concent 30.4L, Red Cell Distribution Width 14.3, Platelet Count 275, Neutrophils (%) (Auto) 74.1H, Lymphocytes (%) (Auto) 14.2L, Monocytes (%) (Auto) 8.2H, Eosinophils (%) (Auto) 2.4, Basophils (%) (Auto) 0.2, Neutrophils # (Auto) 7.6, Lymphocytes # (Auto) 1.5, Monocytes # (Auto) 0.8, Eosinophils # (Auto) 0.3, Basophils # (Auto) 0.0, Nucleated Red Blood Cells % (auto) 0.0, Prothrombin Time 16.3H, Prothromb Time International Ratio 1.34, Activated Partial Thromboplast Time 29.2, Anion Gap 5L, Glomerular Filtration Rate > 60.0, Blood Urea Nitrogen 15, Creatinine 0.72, Sodium Level 144, Potassium Level 4.0, Chloride Level 111H, Carbon Dioxide Level 28, Calcium Level 8.5L CBC/BMP Laboratory Tests 11/07/18 06:18 Red Blood Count 3.97 L, Mean Corpuscular Volume 89.4, Mean Corpuscular Hemoglobin 27.2, Mean Corpuscular Hemoglobin Concent 30.4 L, Red Cell Distr ibution Width 14.3, Neutrophils (%) (Auto) 74.1 H, Lymphocytes (%) (Auto) 14.2 L, Monocytes (%) (Auto) 8.2 H, Eosinophils (%) (Auto) 2.4, Basophils (%) (Auto) 0.2, Neutrophils # (Auto) 7.6, Lymphocytes # (Auto) 1.5, Monocytes # (Auto) 0.8, Eosinophils # (Auto) 0.3, Basophils # (Auto) 0.0, Calcium Level 8.5 L Assessment/Plan 78 year old female with PMH of COPD/Emphysema, chronic respiratory failure with hypoxia on oxygen since may 2018 aftr surgery, polycythemia vera, Hypertension, Hyperlipidemia, solitary kidney, ascending Aortic severe dilatation with aortic regurgitation s/p open heart surgery in May 2018 which included AVR with bioprosthetic valve, ascending thoracic aortic dacron graft and single vessel CABG with saphenous graft to the LAD, Systolic CHF with EF of 40 to 45% from jun 01, 2018 , right sided ischemic stroke in the post operative period thought to be due to paroxysmal afib and there was a possibility of PFO also in bubble study complicated by dysphagia and dysphonia and left hemiparesis. Had a PEG tube placement then. Also had tracheostomy. After a prolonged stay at [facility] where she had the open heart surgery followed by Acute rehab in [facility] and then acute rehab in [facility] was just discharged a week ago. Early this morning was walking to the bathroom without her cane and she tripped possibly over the own left toes and broke her left hip. She was Admitted for Left Comminuted intertrochanteric fracture of the left femur. Left hip fracture Patient will need ORIF. Ortho has been consulted patient cannot be cleared at this point Due to her recent extensive cardiac history she will need cardiac evaluation and risk stratification by sign fabricator. will consult Dr Cook who follows her as an outpateint Also she is on Eliquis her last dose was on 11/06/18 at 8:30 pm. She will need at least 24 hours for this effect t wear off. In fact anesthesia may want longer. Pain control with Morphine prn, zofran Lovenox for DVT prophylaxis. , hold on the day of surgery. A fib paroxysmal now in sinus rhythm with normal rate EKG shows INCOMPLETE RIGHT BUNDLE BRANCH BLOCK LEFT ANTERIOR FASCICULAR BLOCK hold eliquis COPD /Emphysema/ tracheostomy in may 2018 /Chronic respiratory failure with hypoxia continue oxygen supplementation continue symbicort continue albuterol prn. Hypertension metoprolol Hyperlipidemia statin H/O recent CVA with residual left hemiparesis continue statin, asa CAD s/p CABG continue stain , betablocker Restless legs ropinirole Anxiety depression emotional and crying continue sertraline. GERD continue pantoprazole , famotidine, maalox prn. Diet mechanical soft to regular PEG tube is not being used now. Plan / VTE VTE Prophylaxis Ordered?: Yes SHAMIKA CARTER MD Nov 07, 2018 23:24
[2018-11-08] MEDS: PANTOPRAZOLE 20 MG TAB PO SCH (10:27)
[2018-11-08] MEDS: rOPINIRole 1MG TAB PO SCH ×2 (10:28→20:26)
--- NOTE | 2018-11-08 11:00 | IPN ---
DATE: 11/08/2018 Ms. Howard is not feeling well today. She complains about a lot of pain in her left hip and when I entered the room she was actually crying, but she denies any chest discomfort or shortness of breath. There have not been any unusual events overnight. Vital signs: Blood pressure 133/63, heart rate has been in low 80s. She is afebrile. Saturation 95% on 3 liters of oxygen. Fluid balance yesterday was documented approximately equal even though the weight is 53.2 kg based on bed scale (yesterday. weight was not measured). She is alert and oriented. Her jugular venous pressure does not look high. Lungs are clear with fair air movement. Heart exam reveals regular rhythm. I do not appreciate a murmur or gallop. Abdomen is soft, nontender. She is free of edema. Neurologically, she is intact as much as I can tell due to lack of cooperation with the exam due to underlying pain. There are no laboratories this morning other than BNP, which was 1350. ASSESSMENT/PLAN Mrs. Howard is a 78-year-old female who underwent extensive cardiac surgery in May 2018 with aortic valve replacement, replacement of the ascending aorta and single-vessel bypass with venous graft to LAD. Surgery was complicated by stroke leading to left-sided hemiparesis. It was felt that the stroke was due to postoperative atrial fibrillation. She has been anticoagulated with Eliquis since and has been undergoing rehab and actually just came home a week ago. Unfortunately, now she broke her hip. I think she will be ready to go for surgery tomorrow. I am surprised that her BNP is this high. She does not look in heart failure by physical examination. Consequently, I am going to order an echocardiogram to get a better idea about her ejection fraction. I do not believe that it will stop her surgery for hopefully tomorrow. She is in a lot of pain, and I think that the pinning will certainly help her be more comfortable. I am concerned about a long-term prognosis mostly due to her limited rehabilitation potential. She has fairly significant left-sided paresis more pronounced on left upper extremity.
[2018-11-08 11:03] LABS: BASO % 0.2 % (0.0-1.0); EOS % 0.5 % (0.0-3.0); HEMOGLOBIN 10.9 g/dl (12.0-15.5); LYMPH # 0.9 10^3/uL (1.5-4.5); LYMPH % 10.5 % (24.0-44.0); MEAN CORPUSCULAR HGB CONC 30.3 g/dl (32.0-36.5); MEAN CORPUSCULAR VOLUME 92.5 fl (80.0-96.0); MONO # 0.8 10^3/uL (0.0-0.8); MONO % 10.1 % (0.0-5.0); NEUTROPHILS # 6.4 10^3/uL (1.8-7.7); NEUTROPHILS % 78.1 % (36.0-66.0); PLATELET COUNT, AUTOMATED 246 10^3/uL (150-450); RED BLOOD COUNT 3.89 10^6/uL (4.00-5.40); WHITE BLOOD COUNT 8.2 10^3/uL (4.0-10.0)
[2018-11-08 11:13] LABS: BLOOD UREA NITROGEN 13 MG/DL (7-18); CALCIUM LEVEL 8.2 MG/DL (8.8-10.2); CARBON DIOXIDE LEVEL 30 MEQ/L (21-32); CHLORIDE LEVEL 106 MEQ/L (98-107); CREATININE FOR GFR 0.67 MG/DL (0.55-1.30); GLOMERULAR FILTRATION RATE > 60.0 (>39); GLUCOSE, FASTING 137 MG/DL (70-100); POTASSIUM SERUM 4.1 MEQ/L (3.5-5.1); SODIUM LEVEL 144 MEQ/L (136-145)
--- NOTE | 2018-11-08 12:33 | IPNPDOC ---
Subjective Date Seen The patient was seen on 11/08/18. Subjective Chief Complaint/HPI Very anxious and emotional this morning. She is crying asks the rails to be put up furtehr as she is afraid of falling. I explained that the rails are already up and cannot go up higher that seemed to calm her and little. Having episodes of severe hip pain and spasm. No fever or chills, no chest pain or SOB. Awaiting for an echo however as per cardio this will not delay surgery. Objective Physical Examination General Exam: Positive: Alert, Moderate Distress (due to severe hip pain) Eye Exam: Positive: PERRLA, Conjunctiva & lids normal, EOMI; Negative: Sclera icteric ENT Exam: Positive: Atraumatic, Mucous membr. moist/pink, Pharynx Normal Neck Exam: Positive: Supple; Negative: JVD, thyromegaly Chest Exam: Positive: Wheezing (some wheezing on dep expiration. ), Diminished, Other (diffuse fibrotic crackles. ) Heart Exam: Positive: Rate Normal, Regular Rhythm, Normal S1, Normal S2; Negative: Murmurs, Rubs Telemetry: Positive: No significant arrhythmia Abdomen Exam: Positive: Normal bowel sounds, Soft, Other (Has PEG tube in [facility] ed not being used.); Negative: Tenderness, Hepatospenomegaly Extremity Exam: Negative: Clubbing, Cyanosis, Edema Skin Exam: Positive: Nl turgor and temperature; Negative: Breakdown, Lesion Assessment /Plan Assessment 78 year old female with PMH of COPD/Emphysema, chronic respiratory failure with hypoxia on oxygen since may 2018 aftr surgery, polycythemia vera, Hypertension, Hyperlipidemia, solitary kidney, ascending Aortic severe dilatation with aortic regurgitation s/p open heart surgery in May 2018 which included AVR with bioprosthetic valve, ascending thoracic aortic dacron graft and single vessel CABG with saphenous graft to the LAD, Systolic CHF with EF of 40 to 45% from jun 01, 2018 , right sided ischemic stroke in the post operative period thought to be due to paroxysmal afib and there was a possibility of PFO also in bubble study complicated by dysphagia and dysphonia and left hemiparesis. Had a PEG tube placement then. Also had tracheostomy. After a prolonged stay at [facility] where she had the open heart surgery followed by Acute rehab in [facility] and then acute rehab in [facility] was just discharged a week ago. Early this morning was walking to the bathroom without her cane and she tripped possibly over the own left toes and broke her left hip. She was Admitted for Left Comminuted intertrochanteric fracture of the left femur. Left hip fracture Patient will need ORIF. Ortho has been consulted Patient cleared to go for surgery tomorrow evening by cardio after 72 hours from [facility] last dose of eliquis. Also she is on Eliquis her last dose was on 11/06/18 at 8:30 pm. Pain control with Morphine prn, zofran Lovenox for DVT prophylaxis. , hold on the day of surgery. A fib paroxysmal now in sinus rhythm with normal rate EKG shows INCOMPLETE RIGHT BUNDLE BRANCH BLOCK LEFT ANTERIOR FASCICULAR BLOCK hold eliquis COPD /Emphysema/ tracheostomy in may 2018 /Chronic respiratory failure with hypoxia continue oxygen supplementation continue symbicort continue albuterol prn. Hypertension metoprolol Hyperlipidemia statin H/O recent CVA with residual left hemiparesis continue statin, asa CAD s/p CABG continue stain , betablocker Restless legs ropinirole Anxiety depression emotional and crying continue sertraline. GERD continue pantoprazole , famotidine, maalox prn. Diet mechanical soft to regular PEG tube is not being used now. Plan/VTE VTE Prophylaxis Ordered?: Yes VS, I&O, 24H, Marga Vital Signs/I&O Vital Signs Date Time Temp Pulse Resp B/P (MAP) Pulse Ox O2 Delivery O2 Flow Rate FiO2 11/08/18 10:27 18 11/08/18 09:13 87 133/63 11/08/18 08:00 3.0 11/08/18 08:00 97.1 95 11/07/18 10:30 Nasal Cannula I&O- Last 24 Hours up to 6 AM 11/08/18 06:00 Intake Total 180 ml Output Total 450 ml Balance -270 ml Laboratory Data 24H LABS Laboratory Tests 2 11/08/18 05:25: Immature Granulocyte % (Auto) 0.6, White Blood Count 8.2, Red Blood Count 3.89L, Hemoglobin 10.9L, Hematocrit 36.0, Mean Corpuscular Volume 92.5, Mean Corpuscular Hemoglobin 28.0, Mean Corpuscular Hemoglobin Concent 30.3L, Red Cell Distribution Width 14.5, Platelet Count 246, Neutrophils (%) (Auto) 78.1H, Lymphocytes (%) (Auto) 10.5L, Monocytes (%) (Auto) 10.1H, Eosinophils (%) (Auto) 0.5, Basophils (%) (Auto) 0.2, Neutrophils # (Auto) 6.4, Lymphocytes # (Auto) 0.9L, Monocytes # (Auto) 0.8, Eosinophils # (Auto) 0.0, Basophils # (Auto) 0.0, Nucleated Red Blood Cells % (auto) 0.0, Anion Gap 8, Glomerular Filtration Rate > 60.0, Blood Urea Nitrogen 13, Creatinine 0.67, Sodium Level 144, Potassium Level 4.1, Chloride Level 106, Carbon Dioxide Level 30, Calcium Level 8.2L, NG-Sus-N-Type Natriuretic Peptide 1355H CBC/BMP Laboratory Tests 11/08/18 05:25 Red Blood Count 3.89 L, Mean Corpuscular Volume 92.5, Mean Corpuscular Hemoglobin 28.0, Mean Corpuscular Hemoglobin Concent 30.3 L, Red Cell Distribution Width 14.5, Neutrophils (%) (Auto) 78.1 H, Lymphocytes (%) (Auto) 10.5 L, Monocytes (%) (Auto) 10.1 H, Eosinophils (%) (Auto) 0.5, Basophils (%) (Auto) 0.2, Neutrophils # (Auto) 6.4, Lymphocytes # (Auto) 0.9 L, Monocytes # (Auto) 0.8, Eosinophils # (Auto) 0.0, Basophils # (Auto) 0.0, Calcium Level 8.2 L SHAMIKA CARTER MD Nov 08, 2018 12:33
[2018-11-08] MEDS: PERCOCET 5MG/325MG TAB PO PRN ×3 (14:08→21:54)
[2018-11-08] MEDS: SLF 3 ML SYR IV SCH ×2 (14:11→20:26)
[2018-11-08] MEDS: D5W/0.9% SODIUM CHLORIDE 1,000 ML IV SCH (18:23)
[2018-11-08] MEDS: ATORVASTATIN 20 MG TAB PO SCH (20:02)
[2018-11-09] VITALS (12 sets, daily range): BP systolic 96–126; BP diastolic 51–76
[2018-11-09] MEDS: PERCOCET 5MG/325MG TAB PO PRN ×4 (00:34→20:34)
[2018-11-09] MEDS: MORPHINE 4 MG/ML 1ML VIAL/SYRINGE (J2270) IV PRN ×2 (04:32→09:38)
[2018-11-09] MEDS: SLF 3 ML SYR IV SCH ×3 (06:00→21:09)
[2018-11-09 07:38] LABS: HEMATOCRIT 32.9 % (36.0-47.0); MEAN CORPUSCULAR HEMOGLOBIN 27.2 pg (27.0-33.0); MEAN CORPUSCULAR HGB CONC 30.4 g/dl (32.0-36.5); MEAN CORPUSCULAR VOLUME 89.6 fl (80.0-96.0); PLATELET COUNT, AUTOMATED 209 10^3/uL (150-450); RED BLOOD COUNT 3.67 10^6/uL (4.00-5.40); WHITE BLOOD COUNT 8.6 10^3/uL (4.0-10.0)
[2018-11-09 08:01] LABS: BLOOD UREA NITROGEN 14 MG/DL (7-18); CALCIUM LEVEL 7.8 MG/DL (8.8-10.2); CARBON DIOXIDE LEVEL 32 MEQ/L (21-32); CHLORIDE LEVEL 108 MEQ/L (98-107); CREATININE FOR GFR 0.64 MG/DL (0.55-1.30); GLOMERULAR FILTRATION RATE > 60.0 (>39); GLUCOSE, FASTING 119 MG/DL (70-100); POTASSIUM SERUM 3.8 MEQ/L (3.5-5.1); SODIUM LEVEL 143 MEQ/L (136-145)
[2018-11-09] MEDS: METOPROLOL TART 12.5 MG PER 1/2 TAB PO SCH ×2 (08:45→21:09)
[2018-11-09] MEDS: SYMBICORT 160/4.5MCG INHALER 6GM INH SCH ×2 (08:49→20:03)
[2018-11-09] MEDS: DOCUSATE SODIUM 100 MG CAP PO SCH ×2 (09:00→21:08)
[2018-11-09] MEDS: SENNA 8.6 MG TAB (SENOKOT) PO SCH (09:00)
[2018-11-09] MEDS: rOPINIRole 1MG TAB PO SCH ×2 (09:00→21:09)
[2018-11-09] MEDS: SERTRALINE HCL 50 MG TAB PO SCH (09:00)
[2018-11-09] MEDS: FAMOTIDINE 20 MG TAB PO SCH (09:00)
[2018-11-09] MEDS: PANTOPRAZOLE 20 MG TAB PO SCH (09:00)
[2018-11-09] MEDS: D5W/0.9% SODIUM CHLORIDE 1,000 ML IV SCH (11:01)
[2018-11-09] MEDS ORDERED: MORPHINE 4 MG/ML 1ML VIAL/SYRINGE (J2270) IV ONE (13:00)
--- NOTE | 2018-11-09 14:03 | ECHO ---
DATE OF PROCEDURE: 11/08/2018 REFERRING PHYSICIAN: Dr. Cook INDICATION: Dyspnea, elevated BNP HEIGHT: 157 cm WEIGHT: 53 kg DIMENSIONS: IVS: 0.8 LV: 4.1 LVPW: 1.0 LA: 3.0 Aorta: 2.9 RV: 2.7 IVC: 1.6 Mitral E wave velocity: 83 A wave: 89 E prime septal: 6.2 E prime lateral: 9.8 FINDINGS: The study is of acceptable technical quality. Left ventricle is of normal size. There is septal wall motion abnormality most likely due to recent open heart surgery. Remaining LV segments have normal contractility. I estimate overall left ventricle ejection fraction (LVEF) approximately 60-65%. Right ventricle appears normal size. Both atria appear normal. There is a bioprosthesis in aortic position that appears normal. Mitral valve exhibits mild degenerative abnormalities with mitral annular calcifications, but mobility of the leaflets is preserved. Tricuspid valve appears normal. Pulmonic valve also appears normal. No pericardial effusion is present. Inferior vena cava is normal size. Aortic root is normal size. Visualized segment of ascending aorta appears normal. Aortic arch and abdominal aorta also appear normal. Doppler interrogation of aortic bioprosthesis reveals no insufficiency and mean gradient only 5 mmHg. There is trace mitral insufficiency and mild tricuspid insufficiency. Calculated pulmonary artery pressure is in 40s corresponding to moderate pulmonary hypertension. Pulmonic valve is functionally competent. Mitral inflow pattern and tissue Doppler imaging of mitral annulus reveal grade 1 diastolic dysfunction. CONCLUSIONS: 1. Study is of acceptable technical quality. 2. Normal LV size with normal LV systolic function and grade 1 diastolic dysfunction. Septal wall motion abnormality consistent with recent open heart surgery. 3. Normally functioning bioprosthesis in aortic position. 4. Normal a ascending aorta. 5. Likely normal central venous pressure and moderate pulmonary hypertension. COMMENT: Subacute bacterial endocarditis (SBE) prophylaxis is recommended.
--- NOTE | 2018-11-09 14:04 | IPN ---
DATE: 11/09/2018 Mrs. Howard tells me that she is feeling better. She still has pain in her left hip, but it is better than it was yesterday. Denies any chest pain or dyspnea. Her vital signs reveal a blood pressure of 196/52. Heart rate has been in 80s and 90s. She is afebrile. Saturation 92% on 3 liters of oxygen. Her weight is 52.5 kg. She is alert and oriented and appropriate. Her jugular venous pulse (JVP) is not elevated. Lungs sound reasonably clear to auscultation, even though her effort is relatively poor. Heart exam reveals regular rhythm. I do not appreciate any gallop or rub. Abdomen is soft, nontender. There is no peripheral edema. Neurologically, she has her dense left-sided hemiparesis. Laboratory-siddiqi, basic metabolic panel is essentially normal. Her CBC reveals a hemoglobin of 10.0, hematocrit 32 and platelet count 209,000. ASSESSMENT/PLAN: Mrs. Howard is a 78-year-old female who underwent single vessel bypass surgery, aortic valve replacement with bioprosthetic valve and replacement of ascending aortic aorta in May 2018. The surgery was complicated by a stroke that left her with dense left-sided hemiparesis. Now she is coming with a hip fracture. There is a plan to take her to the operating room (OR) later this afternoon. She was anticoagulated with Eliquis and her last dose was on evening. I do not have much to contribute to her management. I would continue her chronic medications and once felt safe from anesthesia and orthopedic perspective, I think we should put her back on Eliquis. Otherwise, will continue the metoprolol and Lipitor in perioperative period. I gave her nurse an order for incentive spirometry. I have to repeat myself to state that I am somewhat pessimistic about her prognosis. She is going to be very difficult to go through the rehab and there is a lot of work in front of her.
[2018-11-09] MEDS ORDERED: ceFAZolin 2 GM/D5W 50 ML IV BAG (J0690 PER 500MG) As Ordered ONE (15:05)
[2018-11-09] MEDS ORDERED: fentaNYL 100 MCG/2 ML INJECTION (J3010) As Ordered ONE ×2 (15:55→17:11)
[2018-11-09] MEDS ORDERED: BUPIVACAINE/DEXTROSE 0.75% 2 ML AMP As Ordered ONE (15:55)
[2018-11-09] MEDS ORDERED: ONDANSETRON 4MG/2ML VIAL (J2405) As Ordered ONE (15:55)
[2018-11-09] MEDS ORDERED: dexameTHASONE 4 MG/ML 1ML VIAL (J1100) As Ordered ONE (15:55)
[2018-11-09] MEDS ORDERED: ESMOLOL INJ 100MG/10ML VIAL As Ordered ONE (15:55)
[2018-11-09] MEDS ORDERED: EPINEPHrine INJ 1 MG/ML 1ML AMP As Ordered ONE (15:55)
[2018-11-09] MEDS ORDERED: PROPOFOL 200 MG/20 ML VIAL As Ordered ONE (15:55)
[2018-11-09] MEDS ORDERED: MIDAZOLAM INJ 2 MG/2 ML VIAL (J2250) As Ordered ONE (15:55)
[2018-11-09] MEDS ORDERED: KETAMINE HCL 200 MG/20 ML VIAL As Ordered ONE (15:55)
[2018-11-09] MEDS ORDERED: PHENYLephrine HCL 500 MCG/5 ML (100MCG/ML) SYRINGE (J2370) As Ordered ONE (15:55)
--- NOTE | 2018-11-09 17:01 | REP ---
Clinical: Fracture fixation. Technique: Intraoperative fluoroscopic imaging using portable C-arm technique. Findings: The patient is status post satisfactory open reduction and fixation for femoral neck fracture with intramedullary sofya and compression screw in satisfactory position. Total fluoroscopic time 1 minute 59 seconds. Impression: Status post satisfactory open reduction and fixation. Electronically Signed by Raoul Todd MD 11/09/2018 04:52 P
[2018-11-09] MEDS: fentaNYL 100 MCG/2 ML INJECTION (J3010) IV PRN ×2 (17:07→17:15)
[2018-11-09] MEDS ORDERED: ONDANSETRON 4MG/2ML VIAL (J2405) IV PRN (17:45)
[2018-11-09] MEDS ORDERED: PERCOCET 5MG/325MG TAB PO PRN (17:45)
[2018-11-09] MEDS ORDERED: HYDROMORPHONE HCL 0.5 MG/ 0.5 ML SYRINGE (J1170 PER 1) IV PRN (17:45)
[2018-11-09] MEDS ORDERED: LR 1,000 ML IV SCH (17:45)
[2018-11-09] MEDS: ATORVASTATIN 20 MG TAB PO SCH (21:09)
[2018-11-09] MEDS: ceFAZolin SOD 1 GM in D5W MINI-BAG PLUS 50 ML IV SCH (21:09)
--- NOTE | 2018-11-09 23:53 | IPNPDOC ---
Subjective Date Seen The patient was seen on 11/09/18. Subjective Chief Complaint/HPI Patient going to OR today. Post OR will come back to PCU. No new issues this am. The hip pain comes in spasms on minor movement. no fever or chills, no chest pain or SOB. Objective Physical Examination General Exam: Positive: Alert, Moderate Distress (due to severe hip pain) Eye Exam: Positive: PERRLA, Conjunctiva & lids normal, EOMI; Negative: Sclera icteric ENT Exam: Positive: Atraumatic, Mucous membr. moist/pink, Pharynx Normal Neck Exam: Positive: Supple; Negative: JVD, thyromegaly Chest Exam: Positive: Wheezing (some wheezing on dep expiration. ), Diminished, Other (diffuse fibrotic crackles. ) Heart Exam: Positive: Rate Normal, Regular Rhythm, Normal S1, Normal S2; Negative: Murmurs, Rubs Telemetry: Positive: No significant arrhythmia Abdomen Exam: Positive: Normal bowel sounds, Soft, Other (Has PEG tube in placed not being used.); Negative: Tenderness, Hepatospenomegaly Extremity Exam: Negative: Clubbing, Cyanosis, Edema Skin Exam: Positive: Nl turgor and temperature; Negative: Breakdown, Lesion Assessment /Plan Assessment 78 year old female with PMH of COPD/Emphysema, chronic respiratory failure with hypoxia on oxygen since may 2018 aftr surgery, polycythemia vera, Hypertension, Hyperlipidemia, solitary kidney, ascending Aortic severe dilatation with aortic regurgitation s/p open heart surgery in May 2018 which included AVR with bioprosthetic valve, ascending thoracic aortic dacron graft and single vessel CABG with saphenous graft to the LAD, Systolic CHF with EF of 40 to 45% from jun 01, 2018 , right sided ischemic stroke in the post operative period thought to be due to paroxysmal afib and there was a possibility of PFO also in bubble study complicated by dysphagia and dysphonia and left hemiparesis. Had a PEG tube placement then. Also had tracheostomy. After a prolonged stay at [facility] where she had the open heart surgery followed by Acute rehab in [place] and then acute rehab in [facility] was just discharged a week ago. Early this morning was walking to the bathroom without her cane and she tripped possibly over the own left toes and broke her left hip. She was Admitted for Left Comminuted intertrochanteric fracture of the left femur. Left hip fracture Patient will need ORIF. Ortho has been consulted Patient cleared to go for surgery by cardio but its going to be high risk surgery and difficult rehabilitation. Eliquis ast dose was on 11/06/18 at 8:30 pm. Pain control with Morphine prn Post op pain control as per Ortho. A fib paroxysmal now in sinus rhythm with normal rate EKG shows INCOMPLETE RIGHT BUNDLE BRANCH BLOCK LEFT ANTERIOR FASCICULAR BLOCK hold eliquis now restart after surgery when cleared by Orhto and anesthesia. COPD /Emphysema/ tracheostomy in may 2018 /Chronic respiratory failure with hypoxia continue oxygen supplementation continue symbicort continue albuterol prn. Hypertension metoprolol Hyperlipidemia statin H/O recent CVA with residual left hemiparesis continue statin, asa CAD s/p CABG continue stain , betablocker Restless legs ropinirole Anxiety depression emotional and crying continue sertraline. GERD continue pantoprazole , famotidine, maalox prn. Diet mechanical soft to regular PEG tube is not being used now. Plan/VTE VTE Prophylaxis Ordered?: Yes VS, I&O, [facility] Vital Signs/I&O Vital Signs Date Time Temp Pulse Resp B/P (MAP) Pulse Ox O2 Delivery O2 Flow Rate FiO2 11/09/18 08:45 90 96/52 11/09/18 08:00 98.3 17 92 3.0 11/07/18 10:30 Nasal Cannula I&O- Last 24 Hours up to 6 AM 11/09/18 06:00 Intake Total 1280 ml Output Total 650 ml Balance 630 ml Laboratory Data 24H LABS Laboratory Tests 2 11/09/18 07:24: Nucleated Red Blood Cells % (auto) 0.0, Anion Gap 3L, Glomerular Filtration Rate > 60.0, Blood Urea Nitrogen 14, Creatinine 0.64, Sodium Level 143, Potassium Level 3.8, Chloride Level 108H, Carbon Dioxide Level 32, Calcium Level 7.8L CBC/BMP Laboratory Tests 11/09/18 07:24 Red Blood Count 3.67 L, Mean Corpuscular Volume 89.6, Mean Corpuscular Hemoglobin 27.2, Mean Corpuscular Hemoglobin Concent 30.4 L, Red Cell Distribution Width 14.5, Calcium Level 7.8 L SHAMIKA CARTER MD Nov 09, 2018 09:28
[2018-11-10 04:00] VITALS: BP 128/63
[2018-11-10] MEDS: ceFAZolin SOD 1 GM in D5W MINI-BAG PLUS 50 ML IV SCH (05:44)
[2018-11-10] MEDS: SLF 3 ML SYR IV SCH ×3 (05:44→20:08)
[2018-11-10 06:16] LABS: BASO % 0.1 % (0.0-1.0); HEMOGLOBIN 10.2 g/dl (12.0-15.5); LYMPH # 0.7 10^3/uL (1.5-4.5); LYMPH % 7.8 % (24.0-44.0); MEAN CORPUSCULAR HEMOGLOBIN 27.8 pg (27.0-33.0); MEAN CORPUSCULAR VOLUME 92.6 fl (80.0-96.0); MONO # 0.7 10^3/uL (0.0-0.8); MONO % 8.4 % (0.0-5.0); NEUTROPHILS % 82.9 % (36.0-66.0); PLATELET COUNT, AUTOMATED 212 10^3/uL (150-450); RED BLOOD COUNT 3.67 10^6/uL (4.00-5.40); WHITE BLOOD COUNT 8.5 10^3/uL (4.0-10.0)
[2018-11-10] MEDS: PERCOCET 5MG/325MG TAB PO PRN ×2 (06:16→14:13)
[2018-11-10 06:36] LABS: BLOOD UREA NITROGEN 17 MG/DL (7-18); CALCIUM LEVEL 8.6 MG/DL (8.8-10.2); CARBON DIOXIDE LEVEL 30 MEQ/L (21-32); CHLORIDE LEVEL 109 MEQ/L (98-107); CREATININE FOR GFR 0.75 MG/DL (0.55-1.30); GLOMERULAR FILTRATION RATE > 60.0 (>39); GLUCOSE, FASTING 124 MG/DL (70-100); POTASSIUM SERUM 4.5 MEQ/L (3.5-5.1); SODIUM LEVEL 143 MEQ/L (136-145)
--- NOTE | 2018-11-10 07:26 | IPN ---
DATE: 11/10/2018 Mrs. Howard underwent her ORIF yesterday afternoon she tolerated the procedure well and this morning she is in much better mood. She tells me that the pain in her left hip is much better than it was yesterday. She denies any chest pain or shortness of breath and has no specific complaints. Vital signs this morning blood pressure 128/63, heart rate has been in 80s to low 100s as she is afebrile. Saturation is 94%, but she is now on 6 liters of oxygen. Her fluid balance yesterday was recorded as positive 1100, but the weight is not appreciably changed at 52.8 kg. She is alert and oriented and mostly appropriate. Her JVP does not look high. Lungs are reasonably clear to auscultation. I do not appreciate wheezing, crackles, even though there are diminished breath sounds over mostly left bowel base. Heart: Exam reveals regular rhythm. I would do not appreciate gallop or rub. Abdomen is soft without tenderness that the tube is still in place. Extremities are free of edema and neurologically she continues to have very prominent left sided weakness that is very obvious on left upper extremity and also she is to somewhat reluctant to move her left lower extremity has a consequence of hip pain. LABORATORY: Basic metabolic panel this morning is normal and CBC reveals hemoglobin 10.4, hematocrit 34 and platelet count 212,000 ASSESSMENT/PLAN: Mrs. 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 Postoperatively she developed atrial fibrillation and stroke which left her with left-sided hemiparesis. She came to our facility with hip fracture and after holding Eliquis for almost 72 hours, she underwent repair yesterday. It looks like the procedure was well. She remains in sinus rhythm as she has been monitored on telemetry as far as her dyspnea is concerned, her BNP was quite high but her systolic function is preserved. She had approximately moderate pulmonary hypertension, but I do not appreciate any volume overload by physical examination I suspect that the great degree of hypoxemia is caused by her hypoventilation and I am hoping that if she does not need to much sedatives and will be able to get her into sitting position that this is going to improve, I would restart the Eliquis as soon as felt safe from anesthesiology perspective, she probably will be okay to get her first dose tonight. I am going to sign off her care, please do not hesitate to contact me back if further assistance is desired.
[2018-11-10 08:00] VITALS: BP 92/52
[2018-11-10] MEDS: SYMBICORT 160/4.5MCG INHALER 6GM INH SCH ×2 (08:01→20:24)
--- NOTE | 2018-11-10 08:05 | RO ---
DATE OF PROCEDURE: 11/09/2018 PREOPERATIVE DIAGNOSIS: Left displaced proximal femur fracture. POSTOPERATIVE DIAGNOSIS: Left displaced proximal femur fracture. PROCEDURE: Open reduction internal fixation left femur with an intramedullary nail. SURGEON: Dr. Johnny Hillman. ANESTHESIA: Spinal. IV FLUIDS: Lactated Ringer's. ESTIMATED BLOOD LOSS: 50 mL. IMPLANTS: Synthes intermediate length TFN 130 degrees neck angle, 85 mm helical blade and that distal locking screw times one closure gifty. PROCEDURE: The patient was identified in preoperative holding area and the left leg marked by myself. She had been medically optimized per cardiology on the hospitalist. She was brought to the operating room and spinal anesthesia was induced. She received appropriate IV antibiotics within 1 hour of incision. She was carefully positioned onto the fracture table and the left operative leg was well padded and secured into the traction boot and the right well leg was secured to the central beam the OR table in a scissored fashion. She had an SCD on the right lower extremity for DVT prophylaxis. Time-out was then performed per hospital protocol. Closed reduction with manipulation was then performed with internal rotation, adduction and traction. This was a four-part fracture and the tip of the greater trochanter was significantly displaced in a posterior fashion. The lesser trochanter was attached to both the proximal and distal fragments so with is atypical not of internal rotation. It actually caused worsening fracture displacement. Multiple AP lateral and obliques with the large C-ARM were obtained and a good 10 minutes were spent on the closed reduction to obtain as good reduction as possible. Alignment on the lateral was quite good on the AP she was somewhat more vertical neck shaft angle. The left leg was then prepped and draped in normal sterile fashion with Chloraprep and the fracture table shower drape. The fifth the 10 blade was used to make a longitudinal incision just proximal to the greater trochanter. Hemostasis electrocautery. Metzenbaum scissor dissection down to the fascia which then carefully opened with curved García scissors. The tip of the greater trochanter was palpated significant again significantly posteriorly displaced. A threaded guidewire was placed, what would have been the tip of the greater trochanter and then was advanced by hand to the level lesser trochanter on AP lateral and oblique views. Next, the opening reamer was used over the guidewire taking care to medialized with the reamer to avoid lateralization of the nail. A ball-tip guidewire was then placed through that opening. 12.5 mm reamer was placed over the guidewire. An intermediate length [id number] degrees neck angle was then placed on the industrial economist over the guidewire and malleted to the appropriate depth. Trocars were then placed and a threaded guidewire was then advanced on power up to the proximal femur to the femoral head in a central position on the flat lateral view and slightly countersunk on AP view just distal to mid point. An 85 mm length helical blade was felt to be most appropriate and the opening reamer was placed over the guidewire and then in 85 mm helical blade malleted over the guidewire to the appropriate depth. This fracture alignment was excellent at this point. The nail was locked proximally. AP lateral C-arm images at the hip, fracture site and tip of the nail were then obtained as well as an AP at the knee showing well-positioned hardware in no fractures distally. The trocar for the distal interlocking screw was then placed and appropriate drilling through the trocar and a 34 mm distal locking she was placed by hand with excellent fixation. The industrial economist was then removed. All incisions extensively irrigated. Deep fascia proximally was closed with 0 Vicryl suture in [id number] fashion. IT band of for distally was closed with 0 Vicryl and then 2-0 Vicryl and gifty. Sterile dressings were applied. All counts correct times 2. Complications none. She was transferred to PACU in stable condition. Per anesthesia request. She will have every 2 hour neuro monitoring. 24 hours antibiotic prophylaxis.
[2018-11-10] MEDS: METOPROLOL TART 12.5 MG PER 1/2 TAB PO SCH ×2 (09:00→20:07)
[2018-11-10] MEDS: FAMOTIDINE 20 MG TAB PO SCH (09:46)
[2018-11-10] MEDS: DOCUSATE SODIUM 100 MG CAP PO SCH ×2 (09:46→20:07)
[2018-11-10] MEDS: APIXABAN 5 MG TAB (ELIQUIS) PO SCH ×2 (09:46→20:07)
[2018-11-10] MEDS: SERTRALINE HCL 50 MG TAB PO SCH (09:46)
[2018-11-10] MEDS: SENNA 8.6 MG TAB (SENOKOT) PO SCH (09:46)
[2018-11-10] MEDS: rOPINIRole 1MG TAB PO SCH ×2 (09:46→20:07)
[2018-11-10] MEDS: PANTOPRAZOLE 20 MG TAB PO SCH (09:46)
[2018-11-10] MEDS ORDERED: MORPHINE 4 MG/ML 1ML VIAL/SYRINGE (J2270) IV ONE (10:45)
[2018-11-10 12:00] VITALS: BP 122/68
[2018-11-10 16:00] VITALS: BP 90/50
--- NOTE | 2018-11-10 17:24 | IPNPDOC ---
Subjective Date Seen The patient was seen on 11/10/18. Subjective Chief Complaint/HPI 78f with hx polycytemia vera, copd, CABG/AVR/TAAR in may complicated post op by afib, cva, prolonged respiratory failure requiring peg/trach, admitted with left hip fracture. s/p ORIF pt seen four hours after receiving 2 percocets, crying in pain. Unable to obtain ROS at this time Objective Physical Examination General Exam: Positive: Alert, Severe Distress Eye Exam: Positive: PERRLA, Conjunctiva & lids normal, EOMI; Negative: Sclera icteric ENT Exam: Positive: Atraumatic, Mucous membr. moist/pink, Pharynx Normal Neck Exam: Positive: Supple; Negative: JVD, thyromegaly Chest Exam: Positive: Wheezing (some wheezing on dep expiration. ), Diminished, Other (diffuse fibrotic crackles. ) Heart Exam: Positive: Rate Normal, Regular Rhythm, Normal S1, Normal S2; Negative: Murmurs, Rubs Telemetry: Positive: No significant arrhythmia Abdomen Exam: Positive: Normal bowel sounds, Soft, Other (Has PEG tube in placed not being used.); Negative: Tenderness, Hepatospenomegaly Extremity Exam: Negative: Clubbing, Cyanosis, Edema Skin Exam: Positive: Nl turgor and temperature; Negative: Breakdown, Lesion Assessment /Plan Assessment 78f with hx of post op complications admitted with hip fracture hip pain s/p ORIF would increase oxycodone to q4h prn PT afib/avr continue eliquis continue metorpolol for rate control copd stable continue bronchodilators and ICS Plan/VTE VTE Prophylaxis Ordered?: Yes VS, I&O, 24H, [facility] Vital Signs/I&O Vital Signs Date Time Temp Pulse Resp B/P (MAP) Pulse Ox O2 Delivery O2 Flow Rate FiO2 11/10/18 16:00 97.6 99 20 90/50 (63) 91 4.0 11/07/18 10:30 Nasal Cannula I&O- Last 24 Hours up to 6 AM0 11/10/18 06:00 Intake Total 1130 ml Output Total 350 ml Balance 780 ml Laboratory Data 24H LABS Laboratory Tests 2 11/10/18 05:25: Immature Granulocyte % (Auto) 0.8, White Blood Count 8.5, Red Blood Count 3.67L, Hemoglobin 10.2L, Hematocrit 34.0L, Mean Corpuscular Volume 92.6, Mean Corpuscular Hemoglobin 27.8, Mean Corpuscular Hemoglobin Concent 30.0L, Red Cell Distribution Width 14.4, Platelet Count 212, Neutrophils (%) (Auto) 82.9H, Lymphocytes (%) (Auto) 7.8L, Monocytes (%) (Auto) 8.4H, Eosinophils (%) (Auto) 0.0, Basophils (%) (Auto) 0.1, Neutrophils # (Auto) 7.0, Lymphocytes # (Auto) 0.7L, Monocytes # (Auto) 0.7, Eosinophils # (Auto) 0.0, Basophils # (Auto) 0.0, Nucleated Red Blood Cells % (auto) 0.0, Anion Gap 4L, Glomerular Filtration Rate > 60.0, Blood Urea Nitrogen 17, Creatinine 0.75, Sodium Level 143, Potassium Level 4.5, Chloride Level 109H, Carbon Dioxide Level 30, Calcium Level 8.6L CBC/BMP Laboratory Tests 11/10/18 05:25 Red Blood Count 3.67 L, Mean Corpuscular Volume 92.6, Mean Corpuscular Hemoglobin 27.8, Mean Corpuscular Hemoglobin Concent 30.0 L, Red Cell Distribution Width 14.4, Neutrophils (%) (Auto) 82.9 H, Lymphocytes (%) (Auto) 7.8 L, Monocytes (%) (Auto) 8.4 H, Eosinophils (%) (Auto) 0.0, Basophils (%) (Auto) 0.1, Neutrophils # (Auto) 7.0, Lymphocytes # (Auto) 0.7 L, Monocytes # (Auto) 0.7, Eosinophils # (Auto) 0.0, Basophils # (Auto) 0.0, Calcium Level 8.6 L PARKER LOBO MD Nov 10, 2018 17:24
[2018-11-10 20:00] VITALS: BP 115/54
[2018-11-10] MEDS: ATORVASTATIN 20 MG TAB PO SCH (20:07)
[2018-11-10 23:59] VITALS: BP 119/60
[2018-11-11] MEDS: PERCOCET 5MG/325MG TAB PO PRN ×2 (00:29→06:26)
[2018-11-11 04:00] VITALS: BP 127/59
[2018-11-11] MEDS: SLF 3 ML SYR IV SCH ×3 (04:25→20:19)
[2018-11-11 04:55] LABS: BASO % 0.3 % (0.0-1.0); EOS # 0.2 10^3/uL (0.0-0.50); EOS % 2.8 % (0.0-3.0); HEMATOCRIT 29.6 % (36.0-47.0); HEMOGLOBIN 9.1 g/dl (12.0-15.5); LYMPH # 1.2 10^3/uL (1.5-4.5); LYMPH % 15.7 % (24.0-44.0); MEAN CORPUSCULAR HEMOGLOBIN 28.4 pg (27.0-33.0); MEAN CORPUSCULAR HGB CONC 30.7 g/dl (32.0-36.5); MEAN CORPUSCULAR VOLUME 92.5 fl (80.0-96.0); MONO # 0.8 10^3/uL (0.0-0.8); MONO % 9.9 % (0.0-5.0); NEUTROPHILS # 5.5 10^3/uL (1.8-7.7); NEUTROPHILS % 70.5 % (36.0-66.0); PLATELET COUNT, AUTOMATED 227 10^3/uL (150-450); WHITE BLOOD COUNT 7.8 10^3/uL (4.0-10.0)
[2018-11-11 05:23] LABS: BLOOD UREA NITROGEN 22 MG/DL (7-18); CALCIUM LEVEL 7.6 MG/DL (8.8-10.2); CARBON DIOXIDE LEVEL 27 MEQ/L (21-32); CHLORIDE LEVEL 110 MEQ/L (98-107); CREATININE FOR GFR 0.63 MG/DL (0.55-1.30); GLOMERULAR FILTRATION RATE > 60.0 (>39); GLUCOSE, FASTING 108 MG/DL (70-100); POTASSIUM SERUM 3.9 MEQ/L (3.5-5.1); SODIUM LEVEL 143 MEQ/L (136-145)
[2018-11-11] MEDS: SYMBICORT 160/4.5MCG INHALER 6GM INH SCH ×2 (07:37→21:27)
[2018-11-11 08:00] VITALS: BP 95/54
--- NOTE | 2018-11-11 08:24 | IPNPDOC ---
Text Note Date of Service The patient was seen on 11/11/18. NOTE Subjective: Patient seen and examined at bedside. Complains of some left leg pain, which she states is typical from her restless leg syndrome. Denies chest pain, shortness of breath. She is noted to be hypoxic on pulse oximetry. Objective: General: NAD, lying comfortably in bed, elderly, frail HEENT: NC/AT, EOMI, PERRL Lungs: CTA B/L Heart: +S1S2, RRR, systolic murmur Abd: soft, NT, +BS Ext: no edema A/P: 78yo female with PMHx P.Vera, COPD, CAD s/p CABG, s/p AVR/TAAR in may complicated post-op by afib, cva, prolonged respiratory failure requiring peg/trach, admitted with left hip fracture s/p ORIF #hypoxia - ABG, CXR - keep O2 sats >88% #hip pain - s/p ORIF - as per ortho - PT as per ortho #afib/avr - a/c recs as per cardiology/ortho - receiving eliquis - continue metorpolol for rate control #copd - as above check ABG, CXR #dysphagia - currently has PEG tube #RLS - requip #GERD - PPI #DVT prophylaxis VS,Fishbone, I+O VS, Fishbone, I+O Laboratory Tests 11/11/18 04:43 Red Blood Count 3.20 L, Mean Corpuscular Volume 92.5, Mean Corpuscular Hemoglobin 28.4, Mean Corpuscular Hemoglobin Concent 30.7 L, Red Cell Distribution Width 14.6 H, Neutrophils (%) (Auto) 70.5 H, Lymphocytes (%) (Auto) 15.7 L, Monocytes (%) (Auto) 9.9 H, Eosinophils (%) (Auto) 2.8, Basophils (%) (Auto) 0.3, Neutrophils # (Auto) 5.5, Lymphocytes # (Auto) 1.2 L, Monocytes # (Auto) 0.8, Eosinophils # (Auto) 0.2, Basophils # (Auto) 0.0, Calcium Level 7.6 L Vital Signs Date Time Temp Pulse Resp B/P (MAP) Pulse Ox O2 Delivery O2 Flow Rate FiO2 11/11/18 06:26 18 4.0 11/11/18 04:00 97.7 88 127/59 (81) 95 11/07/18 10:30 Nasal Cannula I&O- Last 24 Hours up to 6 AM 11/11/18 06:00 Intake Total 360 ml Output Total 625 ml Balance -265 ml DAVID CACERES MD Nov 11, 2018 08:24
[2018-11-11] MEDS: FAMOTIDINE 20 MG TAB PO SCH (08:37)
[2018-11-11] MEDS: APIXABAN 5 MG TAB (ELIQUIS) PO SCH ×2 (08:40→20:18)
[2018-11-11] MEDS: rOPINIRole 1MG TAB PO SCH ×2 (08:40→20:18)
[2018-11-11] MEDS: DOCUSATE SODIUM 100 MG CAP PO SCH ×2 (08:40→20:18)
[2018-11-11] MEDS: PANTOPRAZOLE 20 MG TAB PO SCH (08:40)
[2018-11-11] MEDS: SENNA 8.6 MG TAB (SENOKOT) PO SCH (08:40)
[2018-11-11] MEDS: SERTRALINE HCL 50 MG TAB PO SCH (08:40)
[2018-11-11] MEDS: METOPROLOL TART 12.5 MG PER 1/2 TAB PO SCH ×2 (08:42→20:18)
[2018-11-11 08:50] LABS: ABG BASE EXCESS 4.2 (-2.0-2.0); ABG HCO3 28.7 MEQ/L (22.0-26.0); ABG O2 SATURATION 96.5 % (95.0-99.0); ABG PARTIAL PRESSURE CO2 43.2 mmHg (35.0-45.0); ABG PARTIAL PRESSURE O2 82.5 mmHg (75.0-100.0); ABG STANDARD HCO3 28.2 MEQ/L (22.0-26.0); ABG TOTAL CO2 30.1 MEQ/L (23.0-31.0); ABG pH (ARTERIAL) 7.441 UNITS (7.350-7.450)
--- NOTE | 2018-11-11 09:06 | REP ---
Portable chest x-ray: Single view. History: Shortness of breath. Comparison study: November 07, 2018. Findings: The patient is status post median sternotomy and aortic valve replacement. Lung murray are a little less well inflated on today's radiograph with elevation of the left hemidiaphragm somewhat more pronounced. Pleural opacity is suspected in the left base. Possible left effusion. There is discoid atelectasis in the right base on today's radiograph. Pulmonary vasculature is not increased. Impression: Lesser degree of inspiration. Status post aortic valve replacement. Increased pleural opacity left base, question effusion. Discoid atelectasis visible in the right base. Electronically Signed by Bran Wallace MD 11/11/2018 04:43 P
[2018-11-11] MEDS: oxyCODONE 5MG TAB PO PRN ×3 (11:27→20:19)
[2018-11-11 12:00] VITALS: BP 120/68
[2018-11-11 16:00] VITALS: BP 106/55
[2018-11-11 20:00] VITALS: BP 132/60
[2018-11-11] MEDS: ATORVASTATIN 20 MG TAB PO SCH (20:18)
[2018-11-11 23:59] VITALS: BP 148/64
[2018-11-12] VITALS (7 sets, daily range): BP systolic 103–147; BP diastolic 55–76
[2018-11-12 05:12] LABS: BASO % 0.3 % (0.0-1.0); EOS # 0.2 10^3/uL (0.0-0.50); EOS % 2.9 % (0.0-3.0); HEMATOCRIT 30.1 % (36.0-47.0); HEMOGLOBIN 9.3 g/dl (12.0-15.5); LYMPH # 1.2 10^3/uL (1.5-4.5); LYMPH % 16.1 % (24.0-44.0); MEAN CORPUSCULAR HEMOGLOBIN 27.4 pg (27.0-33.0); MEAN CORPUSCULAR HGB CONC 30.9 g/dl (32.0-36.5); MEAN CORPUSCULAR VOLUME 88.8 fl (80.0-96.0); MONO # 0.8 10^3/uL (0.0-0.8); MONO % 11.3 % (0.0-5.0); NEUTROPHILS # 4.9 10^3/uL (1.8-7.7); NEUTROPHILS % 68.3 % (36.0-66.0); PLATELET COUNT, AUTOMATED 227 10^3/uL (150-450); RED BLOOD COUNT 3.39 10^6/uL (4.00-5.40); WHITE BLOOD COUNT 7.2 10^3/uL (4.0-10.0)
[2018-11-12 05:32] LABS: BLOOD UREA NITROGEN 16 MG/DL (7-18); CALCIUM LEVEL 8.5 MG/DL (8.8-10.2); CARBON DIOXIDE LEVEL 32 MEQ/L (21-32); CHLORIDE LEVEL 106 MEQ/L (98-107); CREATININE FOR GFR 0.56 MG/DL (0.55-1.30); GLOMERULAR FILTRATION RATE > 60.0 (>39); GLUCOSE, FASTING 103 MG/DL (70-100); POTASSIUM SERUM 4.1 MEQ/L (3.5-5.1); SODIUM LEVEL 142 MEQ/L (136-145)
[2018-11-12] MEDS: SLF 3 ML SYR IV SCH ×3 (05:39→22:34)
[2018-11-12] MEDS: oxyCODONE 5MG TAB PO PRN ×3 (06:43→21:44)
[2018-11-12] MEDS: SYMBICORT 160/4.5MCG INHALER 6GM INH SCH ×2 (07:20→20:05)
--- NOTE | 2018-11-12 09:07 | IPNPDOC ---
Text Note Date of Service The patient was seen on 11/12/18. NOTE Subjective: Patient seen and examined at bedside. No acute overnight events reported. No new medical complaints. Objective: General: NAD, lying comfortably in bed, elderly, frail HEENT: NC/AT, EOMI, PERRL Lungs: CTA B/L Heart: +S1S2, tachy, systolic murmur Abd: soft, NT, +BS Ext: no edema A/P: 78yo female with PMHx P.Vera, COPD, CAD s/p CABG, s/p AVR/TAAR in may com plicated post-op by afib, cva, prolonged respiratory failure requiring peg/trach, admitted with left hip fracture s/p ORIF #hypoxia - CT chest pending - possible effusion - keep O2 sats >88% #hip pain - s/p ORIF - as per ortho - PT as per ortho #afib/avr - a/c recs as per cardiology/ortho - receiving eliquis - continue metoprolol for rate control #copd #dysphagia - currently has PEG tube but is tolerating oral - to d/w surgery regarding removing PEG tube #RLS - requip #GERD - PPI #DVT prophylaxis - Eliquis VS,Fishbone, I+O VS, Fishbone, I+O Laboratory Tests 11/12/18 04:56 Red Blood Count 3.39 L, Mean Corpuscular Volume 88.8, Mean Corpuscular Hemoglobin 27.4, Mean Corpuscular Hemoglobin Concent 30.9 L, Red Cell Distribution Width 14.6 H, Neutrophils (%) (Auto) 68.3 H, Lymphocytes (%) (Auto) 16.1 L, Monocytes (%) (Auto) 11.3 H, Eosinophils (%) (Auto) 2.9, Basophils (%) (Auto) 0.3, Neutrophils # (Auto) 4.9, Lymphocytes # (Auto) 1.2 L, Monocytes # (Auto) 0.8, Eosinophils # (Auto) 0.2, Basophils # (Auto) 0.0, Calcium Level 8.5 L Vital Signs Date Time Temp Pulse Resp B/P (MAP) Pulse Ox O2 Delivery O2 Flow Rate FiO2 11/12/18 08:00 97.5 105 20 147/67 (93) 92 30.0 11/11/18 21:27 Nasal Cannula I&O- Last 24 Hours up to 6 AM 11/12/18 06:00 Intake Total 600 ml Output Total 0 ml Balance 600 ml DAVID CACERES MD Nov 12, 2018 09:07
[2018-11-12] MEDS: METOPROLOL TART 12.5 MG PER 1/2 TAB PO SCH ×2 (09:59→20:14)
[2018-11-12] MEDS: FAMOTIDINE 20 MG TAB PO SCH (10:00)
[2018-11-12] MEDS: DOCUSATE SODIUM 100 MG CAP PO SCH ×2 (10:00→20:14)
[2018-11-12] MEDS: rOPINIRole 1MG TAB PO SCH ×2 (10:00→20:13)
[2018-11-12] MEDS: SENNA 8.6 MG TAB (SENOKOT) PO SCH (10:00)
[2018-11-12] MEDS: SERTRALINE HCL 50 MG TAB PO SCH (10:00)
[2018-11-12] MEDS: PANTOPRAZOLE 20 MG TAB PO SCH (10:00)
[2018-11-12] MEDS: APIXABAN 5 MG TAB (ELIQUIS) PO SCH ×2 (10:01→20:13)
--- NOTE | 2018-11-12 10:44 | REP ---
CT CHEST WITHOUT CONTRAST: HISTORY: Further evaluation, possible effusion. Comparison is made with yesterday's portable chest x-ray. There is a comparison chest CT study from May 23, 2018. FINDINGS: The patient is rotated to the left. There is a small left pleural effusion. In addition, there is collapse and consolidation with air bronchograms in the left lower lobe. These findings are new when compared with the May 23, 2018 prior study. There are fairly advanced emphysematous changes in the upper lobes bilaterally and in the superior portion of the right lower lobe. There is similar atelectatic change with air bronchograms in the right lower lobe although this is less extensive. The thoracic aorta is diffusely dilated and calcific. This is unchanged. There is a cyst in the left lobe of the liver unchanged. IMPRESSION: 1. Bilateral lower lobe atelectatic changes, left more extensive than right. 2. Small left pleural effusion. 3. Advanced COPD changes. 4. Diffuse thoracic aortic ectasia. Electronically Signed by Bran Wallace MD 11/12/2018 01:41 P
[2018-11-12] MEDS: ATORVASTATIN 20 MG TAB PO SCH (20:13)
[2018-11-13 04:00] VITALS: BP 125/61
[2018-11-13 05:43] LABS: BASO % 0.3 % (0.0-1.0); EOS # 0.3 10^3/uL (0.0-0.50); HEMATOCRIT 30.1 % (36.0-47.0); HEMOGLOBIN 9.1 g/dl (12.0-15.5); LYMPH # 1.1 10^3/uL (1.5-4.5); LYMPH % 17.7 % (24.0-44.0); MEAN CORPUSCULAR HEMOGLOBIN 27.6 pg (27.0-33.0); MEAN CORPUSCULAR HGB CONC 30.2 g/dl (32.0-36.5); MEAN CORPUSCULAR VOLUME 91.2 fl (80.0-96.0); MONO # 0.7 10^3/uL (0.0-0.8); MONO % 10.9 % (0.0-5.0); NEUTROPHILS % 64.5 % (36.0-66.0); PLATELET COUNT, AUTOMATED 250 10^3/uL (150-450); WHITE BLOOD COUNT 6.3 10^3/uL (4.0-10.0)
[2018-11-13] MEDS: SLF 3 ML SYR IV SCH ×3 (05:46→22:41)
[2018-11-13 06:03] LABS: BLOOD UREA NITROGEN 16 MG/DL (7-18); CARBON DIOXIDE LEVEL 32 MEQ/L (21-32); CHLORIDE LEVEL 104 MEQ/L (98-107); CREATININE FOR GFR 0.55 MG/DL (0.55-1.30); GLOMERULAR FILTRATION RATE > 60.0 (>39); GLUCOSE, FASTING 96 MG/DL (70-100); POTASSIUM SERUM 4.3 MEQ/L (3.5-5.1); SODIUM LEVEL 140 MEQ/L (136-145)
[2018-11-13] MEDS: oxyCODONE 5MG TAB PO PRN ×3 (06:31→22:38)
[2018-11-13 08:00] VITALS: BP 119/56
[2018-11-13] MEDS: SYMBICORT 160/4.5MCG INHALER 6GM INH SCH ×2 (08:00→20:31)
[2018-11-13] MEDS: SERTRALINE HCL 50 MG TAB PO SCH (08:49)
[2018-11-13] MEDS: SENNA 8.6 MG TAB (SENOKOT) PO SCH (08:49)
[2018-11-13] MEDS: PANTOPRAZOLE 20 MG TAB PO SCH (08:49)
[2018-11-13] MEDS: FAMOTIDINE 20 MG TAB PO SCH (08:49)
[2018-11-13] MEDS: METOPROLOL TART 12.5 MG PER 1/2 TAB PO SCH ×2 (08:49→20:35)
[2018-11-13] MEDS: rOPINIRole 1MG TAB PO SCH ×2 (08:49→20:35)
[2018-11-13] MEDS: APIXABAN 5 MG TAB (ELIQUIS) PO SCH ×2 (08:50→20:35)
[2018-11-13] MEDS: DOCUSATE SODIUM 100 MG CAP PO SCH ×2 (08:50→20:35)
[2018-11-13 12:00] VITALS: BP 111/58
--- NOTE | 2018-11-13 12:37 | IPNPDOC ---
Text Note Date of Service The patient was seen on 11/13/18. NOTE Subjective: Patient seen and examined at bedside. No acute overnight events reported. No new medical complaints. Objective: General: NAD, sitting comfortably in chair, elderly, frail HEENT: NC/AT, EOMI, PERRL Lungs: CTA B/L Heart: +S1S2, tachy, systolic murmur Abd: soft, NT, +BS Ext: no edema A/P: 78yo female with PMHx P.Vera, COPD, CAD s/p CABG, s/p AVR/TAAR in may complicated post-op by afib, cva, prolonged respiratory failure requiring peg/trach, admitted with left hip fracture s/p ORIF #hypoxia - CT chest noted - keep O2 sats >88% #hip pain - s/p ORIF - as per ortho - PT as per ortho #afib/avr - a/c recs as per cardiology/ortho - receiving eliquis - continue metoprolol for rate control #copd - supplemental o2 at baseline #dysphagia - currently has PEG tube but is tolerating oral - pending surgery to remove PEG #RLS - requip #GERD - PPI #DVT prophylaxis - Eliquis VS,Fishbone, I+O VS, Fishbone, I+O Laboratory Tests 11/13/18 05:15 Red Blood Count 3.30 L, Mean Corpuscular Volume 91.2, Mean Corpuscular Hemoglobin 27.6, Mean Corpuscular Hemoglobin Concent 30.2 L, Red Cell Distribution Width 14.5, Neutrophils (%) (Auto) 64.5, Lymphocytes (%) (Auto) 17.7 L, Monocytes (%) (Auto) 10.9 H, Eosinophils (%) (Auto) 5.0 H, Basophils (%) (Auto) 0.3, Neutrophils # (Auto) 4.0, Lymphocytes # (Auto) 1.1 L, Monocytes # (Auto) 0.7, Eosinophils # (Auto) 0.3, Basophils # (Auto) 0.0, Calcium Level 8.0 L Vital Signs Date Time Temp Pulse Resp B/P (MAP) Pulse Ox O2 Delivery O2 Flow Rate FiO2 11/13/18 09:15 96 3.0 11/13/18 08:49 102 119/56 11/13/18 08:00 98.4 19 7/9/19 21:27 Nasal Cannula I&O- Last 24 Hours up to 6 AM 11/13/18 05:59 Intake Total 900 ml Output Total 0 ml Balance 900 ml DAVID CACERES MD Nov 13, 2018 12:37
--- NOTE | 2018-11-13 13:12 | CR.PDOC ---
General Surgery Consultation Date of Consultation 11/13/18 History and Physical CONSULT REPORT FOR: Ziggy Denise MD REASON FOR CONSULTATION: removal of PEG tube HISTORY OF PRESENT ILLNESS: I was asked to see the patient for possible removal of her gastrostomy tube which was placed percutaneously sometime june when she had a prolonged hospital course/prolonged ventilation following her cardiothoracic surgery. She only used it for about a month afterwards and is no longer using it at this point for a few months now. She denies any problems, drainage, infection with it. The tube bothers her that it gets caught up in her clothes and tugs at it with movement. She is in the hospital following a fall and hip fracture and is recovering from this following surgery. She is able to eat without signs of aspiration and has no need for the feeding tube. PAST MEDICAL HISTORY: 1. Reviewed in the chart, confirmed with family. Recent open heart surgery, paroxysmal atrial fibrillation, polycythemia vera, hypertension, solitary kidney PAST SURGICAL HISTORY: INCLUDES: 1. Reviewed in chart. PEG tube placed back in June along with a tracheostomy. She no longer have her tracheostomy. ALLERGIES: Please see below. FAMILY HISTORY: Not relevant. HOME MEDICATIONS: Please see below. REVIEW OF SYSTEMS: Patient in the hospital for history of fall with hip fracture, had hip surgery last Saturday. Seems to be doing well from this. Yesterday, the hospitalist has concerns for shortness of breath and a chest CT done. She reports feeling better, breathing better. She is tolerating soft foods which she denies any nausea. Not documented episodes of aspiration. No fevers or chills prior to hospitalization no unexplained weight loss. She denies any chest pains or palpitations or any recent silk syncopal events. PHYSICAL EXAMINATION: VITALS SIGNS: Please see below. GENERAL APPEARANCE: Frail-appearing otherwise comfortable. SKIN: Warm and dry. LUNGS: Clear to auscultation bilaterally. No wheezing appreciated. HEART: Slightly irregular rhythm, rate in the 80s to 90s. No murmurs.. ABDOMEN: Abdomen is flat, soft, and nondistended. She has a 20 [place] PEG tube on her epigastric area. Slight granulation tissue around the PEG tube site. No drainage. No skin erythema.. EXTREMITIES: Left upper arm is on the splint ANCILLARIES: LABORATORY DATA: Please see below. IMAGING STUDIES: . IMPRESSION AND PLAN: Nonfunctioning gastrostomy tube feeding tube removed at bedside, tolerated. npo x 2 hrs then may resume diet change dressings prn. expect minimal drainage for a couple of days Vital Signs Vital Signs Date Time Temp Pulse Resp B/P (MAP) Pulse Ox O2 Delivery O2 Flow Rate FiO2 11/13/18 12:00 3.0 11/13/18 12:00 99.1 91 18 111/58 (75) 93 11/11/18 21:27 Nasal Cannula I&Os I&O- Last 24 Hours up to 6 AM 11/13/18 06:00 Intake Total 900 ml Output Total 0 ml Balance 900 ml Laboratory Data Labs 24H Laboratory Tests 2 11/13/18 05:15: Immature Granulocyte % (Auto) 1.6, White Blood Count 6.3, Red Blood Count 3.30L, Hemoglobin 9.1L, Hematocrit 30.1L, Mean Corpuscular Volume 91.2, Mean Corpuscular Hemoglobin 27.6, Mean Corpuscular Hemoglobin Concent 30.2L, Red Cell Distribution Width 14.5, Platelet Count 250, Neutrophils (%) (Auto) 64.5, Lym phocytes (%) (Auto) 17.7L, Monocytes (%) (Auto) 10.9H, Eosinophils (%) (Auto) 5.0H, Basophils (%) (Auto) 0.3, Neutrophils # (Auto) 4.0, Lymphocytes # (Auto) 1.1L, Monocytes # (Auto) 0.7, Eosinophils # (Auto) 0.3, Basophils # (Auto) 0.0, Nucleated Red Blood Cells % (auto) 0.0, Anion Gap 4L, Glomerular Filtration Rate > 60.0, Blood Urea Nitrogen 16, Creatinine 0.55, Sodium Level 140, Potassium Level 4.3, Chloride Level 104, Carbon Dioxide Level 32, Calcium Level 8.0L CBC/BMP Laboratory Tests 11/13/18 05:15 Red Blood Count 3.30 L, Mean Corpuscular Volume 91.2, Mean Corpuscular Hemoglobin 27.6, Mean Corpuscular Hemoglobin Concent 30.2 L, Red Cell Distribution Width 14.5, Neutrophils (%) (Auto) 64.5, Lymphocytes (%) (Auto) 17.7 L, Monocytes (%) (Auto) 10.9 H, Eosinophils (%) (Auto) 5.0 H, Basophils (%) (Auto) 0.3, Neutrophils # (Auto) 4.0, Lymphocytes # (Auto) 1.1 L, Monocytes # (Auto) 0.7, Eosinophils # (Auto) 0.3, Basophils # (Auto) 0.0, Calcium Level 8.0 L Home Medications Scheduled Apixaban (Eliquis) 5 Mg Tablet, 5 MG PO BID, (Reported) Aspirin (Aspir 81) 81 Mg Tablet.dr, 81 MG PO DAILY, (Reported) Atorvastatin Calcium (Atorvastatin Calcium) 40 Mg Tablet, 40 MG PO QHS, (Reported) Budesonide/Formoterol (Symbicort 160-4.5 Mcg Inhaler) 6 Gm Hfa.aer.ad, 2 PUFF INH BID, (Reported) Cholecalciferol (Vitamin D3) (Vitamin D3) 1,000 Unit Tablet, 1,000 UNIT PO DAILY, (Reported) Famotidine (Famotidine) 20 Mg Tablet, 20 MG PO DAILY, (Reported) Folic Acid (Folic Acid) 1 Mg Tablet, 1 MG PO DAILY, (Reported) Furosemide (Furosemide) 20 Mg Tablet, 20 MG PO DAILY, (Reported) Metoprolol Tartrate (Metoprolol Tartrate) 25 Mg Tablet, 12.5 MG PO BID, (Reported) Multivitamins (Thera M Plus Tablet) 1 Each Tablet, 1 TAB PO DAILY, (Reported) Pantoprazole Sodium (Pantoprazole Sodium) 20 Mg Tablet.dr, 20 MG PO DAILY, (Reported) Potassium Chloride (Potassium Chloride) 20 Meq Tab.er.prt, 20 MG PO 3XW, (Reported) SAT/SAT/SAT Ropinirole HCl (Ropinirole HCl) 1 Mg Tablet, 1 MG PO BID, (Reported) Sennosides (Senna) 8.6 Mg Tablet, 17.2 MG PO DAILY, (Reported) Sertraline HCl (Sertraline HCl) 50 Mg Tablet, 50 MG PO DAILY, (Reported) Scheduled PRN Acetaminophen (Acetaminophen) 325 Mg Tablet, 650 MG PO Q4H PRN for PAIN, (Reported) Melatonin (Melatonin) 3 Mg Tablet, 3 MG PO QHS PRN for SLEEP, (Reported) Allergies Coded Allergies: No Known Allergies (Unverified , 11/07/18) SHEILA KONG MD Nov 13, 2018 13:12
[2018-11-13 16:00] VITALS: BP 121/59
[2018-11-13 20:00] VITALS: BP 112/53
[2018-11-13] MEDS: ATORVASTATIN 20 MG TAB PO SCH (20:35)
[2018-11-13 23:59] VITALS: BP 110/58
[2018-11-14] MEDS: oxyCODONE 5MG TAB PO PRN ×2 (03:09→10:07)
[2018-11-14 04:00] VITALS: BP 126/60
[2018-11-14 05:43] LABS: BASO % 0.4 % (0.0-1.0); EOS # 0.3 10^3/uL (0.0-0.50); EOS % 4.5 % (0.0-3.0); HEMATOCRIT 31.9 % (36.0-47.0); HEMOGLOBIN 9.5 g/dl (12.0-15.5); LYMPH # 1.4 10^3/uL (1.5-4.5); LYMPH % 19.2 % (24.0-44.0); MEAN CORPUSCULAR HEMOGLOBIN 27.2 pg (27.0-33.0); MEAN CORPUSCULAR HGB CONC 29.8 g/dl (32.0-36.5); MEAN CORPUSCULAR VOLUME 91.4 fl (80.0-96.0); MONO # 0.8 10^3/uL (0.0-0.8); MONO % 11.5 % (0.0-5.0); NEUTROPHILS # 4.6 10^3/uL (1.8-7.7); NEUTROPHILS % 62.2 % (36.0-66.0); PLATELET COUNT, AUTOMATED 278 10^3/uL (150-450); RED BLOOD COUNT 3.49 10^6/uL (4.00-5.40); WHITE BLOOD COUNT 7.3 10^3/uL (4.0-10.0)
[2018-11-14 05:57] LABS: BLOOD UREA NITROGEN 17 MG/DL (7-18); CALCIUM LEVEL 8.1 MG/DL (8.8-10.2); CARBON DIOXIDE LEVEL 31 MEQ/L (21-32); CHLORIDE LEVEL 104 MEQ/L (98-107); CREATININE FOR GFR 0.66 MG/DL (0.55-1.30); GLOMERULAR FILTRATION RATE > 60.0 (>39); GLUCOSE, FASTING 105 MG/DL (70-100); POTASSIUM SERUM 4.4 MEQ/L (3.5-5.1); SODIUM LEVEL 139 MEQ/L (136-145)
[2018-11-14] MEDS: SLF 3 ML SYR IV SCH (06:24)
[2018-11-14] MEDS: SYMBICORT 160/4.5MCG INHALER 6GM INH SCH (07:25)
[2018-11-14 08:00] VITALS: BP 126/62
[2018-11-14 10:04] VITALS: BP 117/68
[2018-11-14] MEDS: METOPROLOL TART 12.5 MG PER 1/2 TAB PO SCH (10:04)
[2018-11-14] MEDS: PANTOPRAZOLE 20 MG TAB PO SCH (10:05)
[2018-11-14] MEDS: rOPINIRole 1MG TAB PO SCH (10:05)
[2018-11-14] MEDS: APIXABAN 5 MG TAB (ELIQUIS) PO SCH (10:05)
[2018-11-14] MEDS: SENNA 8.6 MG TAB (SENOKOT) PO SCH (10:05)
[2018-11-14] MEDS: FAMOTIDINE 20 MG TAB PO SCH (10:05)
[2018-11-14] MEDS: DOCUSATE SODIUM 100 MG CAP PO SCH (10:05)
[2018-11-14] MEDS: SERTRALINE HCL 50 MG TAB PO SCH (10:05)
[2018-11-14 12:00] VITALS: BP 112/58
--- NOTE | 2018-11-14 12:18 | DS.PDOC ---
Discharge Summary General Date of Admission Nov 07, 2018 at 08:53 Date of Discharge 11/14/18 Specialist/Consultants Involve cardiology, dr. myles nguyễn, dr. bean surgery, dr. tovar Discharge Summary PROCEDURES PERFORMED DURING STAY: Removal of PEG tube, left femur ORIF/intramedullary nail DISCHARGE DIAGNOSES: 1. Left Hip Fx s/p ORIF 2. 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 Had a PEG tube placement then. Also had tracheostomy. After a prolonged stay at [facility] where she had the open heart surgery followed by Acute rehab in [facility] and then acute rehab in [facility] was just discharged a week ago. Early this morning was walking to the bathroom without her cane and she tripped and broke her left hip. She was Admitted for Left Commi nuted intertrochanteric fracture of the left femur. HOSPITAL COURSE: Patient was seen by cardiology for risk stratification for planned ORIF by [facility]. Post-operative she was in acute hypoxic respiratory failure requiring increasing supplemental oxygen. She was successfully weaned to essentially her baseline of 2-3L supplemental oxygen. She tolerated oral intake, and her PEG tube was removed on consultation with surgery. DISCHARGE MEDICATIONS: Please see below. ALLERGIES: Please see below. PHYSICAL EXAMINATION ON DISCHARGE: VITAL SIGNS: Please see below. GENERAL: NAD, lying comfortably in bed, edlerly, frail HEENT: NC/AT NECK: supple CARDIOVASCULAR EXAMINATION: +S1S2, systolic murmur RESPIRATORY EXAMINATION: CTA B/L ABDOMINAL EXAMINATION: soft, NT, +BS EXTREMITIES: no edema LABORATORY DATA: Please see below. PROGNOSIS: guarded/poor ACTIVITY: As per PT/ortho. DIET: 2 gram sodium, heart healthy DISPOSITION: Discharge to [facility] ITEMS TO FOLLOWUP ON ON OUTPATIENT: 1. Follow up PCP in 3-7 days. DISCHARGE CONDITION: [Stable]. TIME SPENT ON DISCHARGE: 41 minutes. Vital Signs/I&Os Vital Signs Date Time Temp Pulse Resp B/P (MAP) Pulse Ox O2 Delivery O2 Flow Rate FiO2 11/14/18 10:37 18 11/14/18 10:04 110 117/68 11/14/18 08:00 98.3 91 3.0 11/11/18 21:27 Nasal Cannula I&O- Last 24 Hours up to 6 AM 11/14/18 06:00 Intake Total 360 ml Output Total 625 ml Balance -265 ml Laboratory Data Labs 24H Laboratory Tests 2 11/14/18 05:22: Immature Granulocyte % (Auto) 2.2, White Blood Count 7.3, Red Blood Count 3.49L, Hemoglobin 9.5L, Hematocrit 31.9L, Mean Corpuscular Volume 91.4, Mean Corpuscular Hemoglobin 27.2, Mean Corpuscular Hemoglobin Concent 29.8L, Red Cell Distribution Width 14.5, Platelet Count 278, Neutrophils (%) (Auto) 62.2, Lymphocytes (%) (Auto) 19.2L, Monocytes (%) (Auto) 11.5H, Eosinophils (%) (Auto) 4.5H, Basophils (%) (Auto) 0.4, Neutrophils # (Auto) 4.6, Lymphocytes # (Auto) 1.4L, Monocytes # (Auto) 0.8, Eosinophils # (Auto) 0.3, Basophils # (Auto) 0.0, Nucleated Red Blood Cells % (auto) 0.0, Anion Gap 4L, Glomerular Filtration Rate > 60.0, Blood Urea Nitrogen 17, Creatinine 0.66, Sodium Level 139, Potassium Level 4.4, Chloride Level 104, Carbon Dioxide Level 31, Calcium Level 8.1L CBC/BMP Laboratory Tests 11/14/18 05:22 Red Blood Count 3.49 L, Mean Corpuscular Volume 91.4, Mean Corpuscular Hemoglobin 27.2, Mean Corpuscular Hemoglobin Concent 29.8 L, Red Cell Distribution Width 14.5, Neutrophils (%) (Auto) 62.2, Lymphocytes (%) (Auto) 19.2 L, Monocytes (%) (Auto) 11.5 H, Eosinophils (%) (Auto) 4.5 H, Basophils (%) (Auto) 0.4, Neutrophils # (Auto) 4.6, Lymphocytes # (Auto) 1.4 L, Monocytes # (Auto) 0.8, Eosinophils # (Auto) 0.3, Basophils # (Auto) 0.0, Calcium Level 8.1 L Discharge Medications Scheduled Apixaban (Eliquis) 5 Mg Tablet, 5 MG PO BID, (Reported) Aspirin (Aspir 81) 81 Mg Tablet.dr, 81 MG PO DAILY, (Reported) Atorvastatin Calcium (Atorvastatin Calcium) 40 Mg Tablet, 40 MG PO QHS, (Reported) Budesonide/Formoterol (Symbicort 160-4.5 Mcg Inhaler) 6 Gm Hfa.aer.ad, 2 PUFF INH BID, (Reported) Cholecalciferol (Vitamin D3) (Vitamin D3) 1,000 Unit Tablet, 1,000 UNIT PO DAILY, (Reported) Famotidine (Famotidine) 20 Mg Tablet, 20 MG PO DAILY, (Reported) Folic Acid (Folic Acid) 1 Mg Tablet, 1 MG PO DAILY, (Reported) Furosemide (Furosemide) 20 Mg Tablet, 20 MG PO DAILY, (Reported) Metoprolol Tartrate (Metoprolol Tartrate) 25 Mg Tablet, 12.5 MG PO BID, (Reported) Multivitamins (Thera M Plus Tablet) 1 Each Tablet, 1 TAB PO DAILY, (Reported) Pantoprazole Sodium (Pantoprazole Sodium) 20 Mg Tablet.dr, 20 MG PO DAILY, (Reported) Potassium Chloride (Potassium Chloride) 20 Meq Tab.er.prt, 20 MG PO 3XW, (Reported) MON/SAT/SAT Ropinirole HCl (Ropinirole HCl) 1 Mg Tablet, 1 MG PO BID, (Reported) Sennosides (Senna) 8.6 Mg Tablet, 17.2 MG PO DAILY, (Reported) Sertraline HCl (Sertraline HCl) 50 Mg Tablet, 50 MG PO DAILY, (Reported) Scheduled PRN Acetaminophen (Acetaminophen) 325 Mg Tablet, 650 MG PO Q4H PRN for PAIN, (Reported) Melatonin (Melatonin) 3 Mg Tablet, 3 MG PO QHS PRN for SLEEP, (Reported) Allergies Coded Allergies: No Known Allergies (Unverified , 11/07/18) DAVID CACERES MD Nov 14, 2018 12:18
== END 2018-11-14 13:45 | DRG 481 ==
LOC: M ED 06:02 → M ED INP 08:53 → M PCU 10:47
PROVIDERS: ADMIT Internal Medicine Nephrology; ATTEND Internal Medicine
PROC: 0QS706Z Reposition Left Upper Femur with Intramedullary Internal Fixation Device, Open Approach (ICD-10-PCS; principal; 2018-11-09 12:00)
PROC: 0DP67UZ Removal of Feeding Device from Stomach, Via Natural or Artificial Opening (ICD-10-PCS; 2018-11-13)
DX: S72.142A Displaced intertrochanteric fracture of left femur, initial encounter for closed fracture (principal); J96.11 Chronic respiratory failure with hypoxia; I50.22 Chronic systolic (congestive) heart failure; I69.354 Hemiplegia and hemiparesis following cerebral infarction affecting left non-dominant side; Q60.0 Renal agenesis, unilateral; J44.9 Chronic obstructive pulmonary disease, unspecified; D45 Polycythemia vera; I11.0 Hypertensive heart disease with heart failure; F32.9 Major depressive disorder, single episode, unspecified; I27.20 Pulmonary hypertension, unspecified; K21.9 Gastro-esophageal reflux disease without esophagitis; F41.9 Anxiety disorder, unspecified; G25.81 Restless legs syndrome; E78.5 Hyperlipidemia, unspecified; I48.0 Paroxysmal atrial fibrillation; Z95.3 Presence of xenogenic heart valve; W18.09XA Striking against other object with subsequent fall, initial encounter; Y92.89 Other specified places as the place of occurrence of the external cause; Z79.01 Long term (current) use of anticoagulants; Z79.82 Long term (current) use of aspirin; Z79.899 Other long term (current) drug therapy; Z99.81 Dependence on supplemental oxygen; Z93.1 Gastrostomy status

== ENCOUNTER → 2018-11-20 | Outpatient (REF) ==
[~2018-11-20] MED LIST changes: +ACET-908 PO; +ASPI81TA85 PO; +ATOR40TA75 PO; +ELIQ5TAB PO; +FAMO1TAB11 PO; +FOLI1TAB11 PO; +FOLI400T PO; +FURO20TA2 PO; +MELA3TAB PO; +METO1TAB87 PO; +PANT20TA2 PO; +POTA20TA6 PO; +REQU1TAB14 PO; +ROPI1TAB PO; +SENN1TAB8 PO; +SERT-155 PO; +SYMB16INH INH; +VITA-122 PO; +VITMTA PO
[2018-11-20 08:06] LABS: HEMATOCRIT 32.8 % (36.0-47.0); HEMOGLOBIN 9.9 g/dl (12.0-15.5); MEAN CORPUSCULAR HEMOGLOBIN 27.5 pg (27.0-33.0); MEAN CORPUSCULAR HGB CONC 30.2 g/dl (32.0-36.5); MEAN CORPUSCULAR VOLUME 91.1 fl (80.0-96.0); PLATELET COUNT, AUTOMATED 474 10^3/uL (150-450); WHITE BLOOD COUNT 9.4 10^3/uL (4.0-10.0)
[2018-11-20 08:33] LABS: BLOOD UREA NITROGEN 18 MG/DL (7-18); CALCIUM LEVEL 8.8 MG/DL (8.8-10.2); CARBON DIOXIDE LEVEL 29 MEQ/L (21-32); CHLORIDE LEVEL 105 MEQ/L (98-107); CREATININE FOR GFR 0.61 MG/DL (0.55-1.30); GLOMERULAR FILTRATION RATE > 60.0 (>39); GLUCOSE, FASTING 96 MG/DL (70-100); POTASSIUM SERUM 4.5 MEQ/L (3.5-5.1); SODIUM LEVEL 140 MEQ/L (136-145)
== END ==
LOC: SKLAB7 08:49
PROVIDERS: ATTEND Internal Medicine
DX: I50.9 Heart failure, unspecified (principal); D64.9 Anemia, unspecified

== ENCOUNTER → 2018-11-27 | Outpatient (REF) | payer MEDICARE, OTHER | LOC: SKLAB7 08:23 | PROVIDERS: ATTEND Internal Medicine | DX: M81.0 Age-related osteoporosis without current pathological fracture (principal) ==

== ENCOUNTER → 2018-11-28 | Outpatient (REF) | payer MEDICARE, OTHER ==
--- NOTE | 2018-11-29 13:06 | NOCOX ---
NOCTURNAL OXIMETRY STUDY DATE: 11/28/2018 Study was performed on 2 liters of nasal cannula oxygen supplementation. The total valid sampling time for this study was 7 hours and 37 minutes. The highest O2 sat was 100%. The lowest O2 sat was 70%. The patient's heart rate was 107, the lowest heart rate was 60. The total time spent with an O2 sat less than 88% was 25 minutes. On the graphical summary the patient had significant episodic oxygen desaturations as well as significant heart rate variability. IMPRESSION: Abnormal nocturnal oximetry study. The study was performed on 2 liters of nasal cannula oxygen supplementation. Despite the nasal cannula oxygen she had significant desaturations overnight. Graphically the patient had episodic oxygen desaturations with associated heart rate variability consistent with obstructive sleep apnea. Would consider formal sleep evaluation if clinically indicated for obstructive sleep apnea.
== END ==
LOC: SKLAB7 13:17
PROVIDERS: ATTEND Internal Medicine
DX: R41.82 Altered mental status, unspecified (principal)

== ENCOUNTER → 2018-11-28 | Outpatient (CLI) | payer MEDICARE, OTHER ==
--- NOTE | 2018-11-28 15:24 | REPVR ---
EXAM: CT Head Without Contrast EXAM DATE/TIME: 11/28/2018 2:51 PM CLINICAL HISTORY: 78 years old, female; Altered mental status/memory loss; Other: Confusion TECHNIQUE: Imaging protocol: Computed tomography images of the head without contrast. Radiation optimization: All CT scans at this facility use at least one of these dose optimization techniques: automated exposure control; mA and/or kV adjustment per patient size (includes targeted exams where dose is matched to clinical indication); or iterative reconstruction. COMPARISON: CT Head without contrast 11/07/2018 6:30 AM FINDINGS: Brain: Lucencies in the white matter, most suggestive of chronic microvascular ischemic disease, do not appear significantly changed. There is a similar area of encephalomalacia in the right frontoparietal region relating to a remote infarct. There is also again evidence of prior infarct in the left cerebellum. No intracranial hemorrhage or extraaxial collection is identified. There is no significant intracranial mass effect. Ventricles: The ventricles and sulci are stable in configuration, with similar atrophy. Bones/joints: Unremarkable. No acute fracture. Sinuses: Visualized sinuses are unremarkable. No fluid levels. Mastoid air cells: Visualized mastoid air cells are well aerated. No mastoid effusion. Soft tissues: Unremarkable. Vasculature: Intracranial atherosclerotic vascular calcifications are again present. IMPRESSION: No CT evidence for acute intracranial abnormality or significant change since 11/07/18. Electronically signed by: Josue Mcintyre On 11/28/2018 15:24:03 PM
== END ==
LOC: M RAD 14:25
PROVIDERS: ATTEND Nurse Practitioner Family
DX: R41.0 Disorientation, unspecified (principal)

== ENCOUNTER → 2018-12-04 | Outpatient (REF) ==
[2018-12-04 10:47] LABS: HEMATOCRIT 33.2 % (36.0-47.0); HEMOGLOBIN 9.8 g/dl (12.0-15.5); MEAN CORPUSCULAR HEMOGLOBIN 27.3 pg (27.0-33.0); MEAN CORPUSCULAR HGB CONC 29.5 g/dl (32.0-36.5); MEAN CORPUSCULAR VOLUME 92.5 fl (80.0-96.0); PLATELET COUNT, AUTOMATED 475 10^3/uL (150-450); RED BLOOD COUNT 3.59 10^6/uL (4.00-5.40); WHITE BLOOD COUNT 7.4 10^3/uL (4.0-10.0)
== END ==
LOC: SKLAB7 07:00
PROVIDERS: ATTEND Internal Medicine
DX: D64.9 Anemia, unspecified (principal)

== ENCOUNTER → 2018-12-11 | Outpatient (REF) ==
[2018-12-11 08:02] LABS: HEMATOCRIT 30.5 % (36.0-47.0); MEAN CORPUSCULAR HEMOGLOBIN 26.4 pg (27.0-33.0); MEAN CORPUSCULAR HGB CONC 29.5 g/dl (32.0-36.5); MEAN CORPUSCULAR VOLUME 89.4 fl (80.0-96.0); PLATELET COUNT, AUTOMATED 434 10^3/uL (150-450); RED BLOOD COUNT 3.41 10^6/uL (4.00-5.40); WHITE BLOOD COUNT 7.3 10^3/uL (4.0-10.0)
== END ==
LOC: SKLAB7 08:46
PROVIDERS: ATTEND Internal Medicine
DX: D64.9 Anemia, unspecified (principal)

== ENCOUNTER → 2018-12-18 | Outpatient (REF) ==
[2018-12-18 08:42] LABS: HEMATOCRIT 31.8 % (36.0-47.0); HEMOGLOBIN 9.4 g/dl (12.0-15.5); MEAN CORPUSCULAR HEMOGLOBIN 26.9 pg (27.0-33.0); MEAN CORPUSCULAR HGB CONC 29.6 g/dl (32.0-36.5); MEAN CORPUSCULAR VOLUME 91.1 fl (80.0-96.0); PLATELET COUNT, AUTOMATED 445 10^3/uL (150-450); RED BLOOD COUNT 3.49 10^6/uL (4.00-5.40); WHITE BLOOD COUNT 7.1 10^3/uL (4.0-10.0)
[2018-12-18 10:17] LABS: BLOOD UREA NITROGEN 23 MG/DL (7-18); CALCIUM LEVEL 9.3 MG/DL (8.8-10.2); CARBON DIOXIDE LEVEL 29 MEQ/L (21-32); CHLORIDE LEVEL 106 MEQ/L (98-107); CREATININE FOR GFR 0.74 MG/DL (0.55-1.30); GLOMERULAR FILTRATION RATE > 60.0 (>39); GLUCOSE, FASTING 97 MG/DL (70-100); POTASSIUM SERUM 4.6 MEQ/L (3.5-5.1); SODIUM LEVEL 142 MEQ/L (136-145)
== END ==
LOC: SKLAB7 07:00
PROVIDERS: ATTEND Internal Medicine
DX: D64.9 Anemia, unspecified (principal)

== ENCOUNTER → 2019-01-15 | Outpatient (REF) ==
[~2019-01-15] MED LIST changes: +ADV250INH INH; +AMOX500T2 PO; -ASPI-222 PO; +ASPI-527 PO; +DULC10SU2 PR; +ENEMENE PR; +ENSU1LIQ36 PO; +FERR325T18 PO; -MELA3TAB PO; +MELA3TAB63 PO; +MELA5CAP2 PO; +MOM30SS PO; -SERT-155 PO; +SERT50TA29 PO; -SIMV40TA2 PO; +SIMV40TA20 PO; +SODIGEL; +VITA500T40 PO
[2019-01-15 09:08] LABS: BLOOD UREA NITROGEN 20 MG/DL (7-18); CALCIUM LEVEL 9.1 MG/DL (8.8-10.2); CARBON DIOXIDE LEVEL 29 MEQ/L (21-32); CHLORIDE LEVEL 106 MEQ/L (98-107); CREATININE FOR GFR 0.71 MG/DL (0.55-1.30); GLOMERULAR FILTRATION RATE > 60.0 (>39); GLUCOSE, FASTING 97 MG/DL (70-100); POTASSIUM SERUM 4.6 MEQ/L (3.5-5.1); SODIUM LEVEL 143 MEQ/L (136-145)
== END ==
LOC: SKLAB7 07:00
PROVIDERS: ATTEND Internal Medicine
DX: Z86.73 Personal history of transient ischemic attack (TIA), and cerebral infarction without residual deficits (principal)

== ENCOUNTER → 2019-01-25 | Outpatient (CLI) | payer MEDICARE, OTHER ==
[~2019-01-25] MED LIST changes: +SERT-155 PO; -SERT50TA29 PO; +SIMV40TA2 PO; -SIMV40TA20 PO
--- NOTE | 2019-02-01 14:57 | SLEEP ---
DATE OF STUDY: 01/25/2019 REFERRING PHYSICIAN: Dr. Cong Jackson INTERPRETATION: Overnight polysomnography was performed for evaluation of excessive daytime sleepiness, sleep apnea and hypoxemia. A total 7 hours and 16 minutes of data was reviewed with total sleep time 147 minutes with reduced sleep efficiency. No stage N3 REM sleep were recorded. The mean oxygen saturation during sleep was 95% with minimum oxygen saturation 83% during respiratory events. Mild-moderate snoring was observed. EKG revealed sinus rhythm with mean heart rate 74 beats per minute. EEG remained normal throughout. Respiratory disturbance index was 7.3 per hour with severe periodic limb movements of sleep and index 180 per hour, but no significant respiratory effort related arousals. CONCLUSIONS: 1. Mild obstructive sleep apnea syndrome. 2. Nocturnal hypoxemia. 3. Severe periodic limb movements of sleep, which can be seen with restless legs and obstructive sleep apnea syndrome, and are nonspecific in nature. RECOMMENDATIONS: Overnight polysomnography is recommended for titration of positive airway pressure. Clinical correlation is recommended for treatment of periodic limb movements of sleep.
== END ==
LOC: M SLEEP 20:00
PROVIDERS: ATTEND Psychiatry & Neurology Neurology
DX: G47.33 Obstructive sleep apnea (adult) (pediatric) (principal)

== ENCOUNTER 2019-01-30 09:11 | Inpatient (IN) | payer MEDICARE, OTHER ==
[~2019-01-30] VITALS: Ht 157.5 cm; Wt 53.3 kg
[~2019-01-30 09:11] MED LIST changes: -ADV250INH INH; -AMOX500T2 PO; -DULC10SU2 PR; -ENEMENE PR; -ENSU1LIQ36 PO; -FERR325T18 PO; -MELA5CAP2 PO; -MOM30SS PO; -SODIGEL; -VITA500T40 PO
[2019-01-30] MEDS ORDERED: ONDANSETRON 4MG/2ML VIAL (J2405) IV ONE (09:45)
[2019-01-30] MEDS ORDERED: NS 500 ML IV ONE (09:45)
[2019-01-30 09:55] LABS: BASO % 0.3 % (0.0-1.0); EOS # 0.3 10^3/uL (0.0-0.5); EOS % 3.1 % (0.0-3.0); HEMATOCRIT 26.9 % (36.0-47.0); HEMOGLOBIN 7.7 g/dl (12.0-15.5); LYMPH # 2.5 10^3/uL (1.5-5.0); MEAN CORPUSCULAR HEMOGLOBIN 24.5 pg (27.0-33.0); MEAN CORPUSCULAR HGB CONC 28.6 g/dl (32.0-36.5); MEAN CORPUSCULAR VOLUME 85.7 fl (80.0-96.0); MONO # 0.9 10^3/uL (0.0-0.8); MONO % 8.7 % (0.0-5.0); NEUTROPHILS # 6.3 10^3/uL (1.5-8.5); NEUTROPHILS % 62.1 % (36.0-66.0); PLATELET COUNT, AUTOMATED 410 10^3/uL (150-450); RED BLOOD COUNT 3.14 10^6/uL (4.00-5.40); WHITE BLOOD COUNT 10.1 10^3/uL (4.0-10.0)
[2019-01-30 09:59] LABS: INR 1.27; PARTIAL THROMBOPLASTIN TIME 26.1 SECONDS (25.0-38.4); PROTHROMBIN TIME 15.6 SECONDS (11.8-14.0)
[2019-01-30] MEDS ORDERED: ENEMENE PR (10:00)
[2019-01-30] MEDS ORDERED: MOM30SS PO (10:00)
[2019-01-30] MEDS ORDERED: MELA5CAP2 PO (10:00)
[2019-01-30] MEDS ORDERED: ADV250INH INH (10:00)
[2019-01-30] MEDS ORDERED: ENSU1LIQ36 PO (10:00)
[2019-01-30] MEDS ORDERED: DULC10SU2 PR (10:00)
[2019-01-30] MEDS ORDERED: SODIGEL (10:00)
[2019-01-30 10:15] LABS: ALBUMIN 3.3 GM/DL (3.2-5.2); ALT/SGPT 14 U/L (12-78); BILIRUBIN,DIRECT < 0.1 MG/DL (0.0-0.2); BILIRUBIN,TOTAL 0.3 MG/DL (0.2-1.0); BLOOD UREA NITROGEN 26 MG/DL (7-18); CALCIUM LEVEL 8.8 MG/DL (8.8-10.2); CARBON DIOXIDE LEVEL 27 MEQ/L (21-32); CHLORIDE LEVEL 105 MEQ/L (98-107); CK-MB VALUE MASS < 1.0 NG/ML (<3.6); CPK CREATINE PHOSPHOKINASE 63 U/L (26-192); CREATININE FOR GFR 0.86 MG/DL (0.55-1.30); GLOMERULAR FILTRATION RATE > 60.0 (>39); GLUCOSE, FASTING 131 MG/DL (70-100); LIPASE 206 U/L (73-393); MB/CK RELATIVE INDEX 1.59 (< OR =4); POTASSIUM SERUM 4.4 MEQ/L (3.5-5.1); SODIUM LEVEL 142 MEQ/L (136-145); TOTAL PROTEIN 6.9 GM/DL (6.4-8.2); TROPONIN I < 0.02 NG/ML (< 0.10)
--- NOTE | 2019-01-30 10:42 | REP ---
Portable chest, 10:20 a.m., single AP view with the patient semi upright: Comparisons are the portable chest dated 11/11/[address] dated 11/12/2018. The patient is rotated. Sternotomy wires and cardiac valve replacement are unchanged. There is increased density superimposed over the heart, left lower lobe infiltrate versus artifact from patient rotation. Remainder the lung murray are clear. The josselin, mediastinum, skeletal structures are unremarkable. Impression: Left lower lobe infiltrate versus artifact from patient rotation. Electronically Signed by Robel Salgado MD 01/30/2019 10:34 A
[2019-01-30] MEDS ORDERED: ONDANSETRON 4MG/2ML VIAL (J2405) IV PRN (13:00)
[2019-01-30 13:48] LABS: FERRITIN 18 NG/ML (8-252); IRON (FE) 48 UG/DL (50-170); PERCENT SATURATION 10.2 % (13.2-45.0); TOTAL IRON BINDING CAPACITY 472 UG/DL (250-450)
--- NOTE | 2019-01-30 13:57 | HPEPDOC ---
General Date of Admission Jan 30, 2019 at 12:39 Date of Service: Jan 30, 2019 Chief Complaint The patient is a 78-year-old female admitted with a reason for visit of Anemia,Epistaxis. Source: Patient, Family, RN/MD, Old records Severity: Moderate History of Present Illness 78 year old female with PMH of COPD/Emphysema, chronic respiratory failure with hypoxia on oxygen since may 2018 after open heart surgery, Probable ABE , polycythemia vera, Hypertension, Hyperlipidemia, solitary kidney, ascending Aortic severe dilatation with aortic regurgitation s/p open heart surgery in May 2018 which included AVR with bioprosthetic valve, ascending thoracic aortic dacron graft and single vessel CABG with saphenous graft to the LAD, Systolic CHF with EF of 40 to 45% from jun 01, 2018 , right sided ischemic stroke in the post operative period thought to be due to paroxysmal afib and there was a possibility of PFO also in bubble study complicated by dysphagia and dysphonia and left hemiparesis. Had a PEG tube placement then. Also had tracheostomy. Aft er a prolonged stay at [facility] where she had the open heart surgery followed by Acute rehab in [place] [facility] and then acute rehab in [facility] and discharged in november then fell at home and was readmitted here for left hip fracture on 11/07/18 and underwent ORIF and then was again discharged to [facility] rehab were she has been till now. She started having epistaxis 4 days ago , eliquis was stopped 2 days ago however epistaxis has continued in large amounts and she was swallowing a lot of blood. this morning she had a severe bout and swallowed some of it and then had coffee ground emesis . Patient was sent to the ED for uncontrollable epistaxis. She also complained of dizziness and light headedness, feeling extremely weak and tired. In the ED she had a packing done in her right nose which seems to have controlled the bleeding. Blood work showed HH of 7.7 which was down from 9.[address] Crawford has been consulted by the ED physician and he has agreed to consult on the patient. Patient is being admitted to the hospitalist service for epistaxis and symptomatic anemia. Home Medications Scheduled Amoxicillin/Potassium Clav (Amox-Clav 500-125 mg Tablet) 1 Each Tablet, 500 MG PO Q8H Aspirin (Aspir 81) 81 Mg Tablet.dr, 81 MG PO DAILY, (Reported) Atorvastatin Calcium (Atorvastatin Calcium) 40 Mg Tablet, 40 MG PO QHS, (Reported) Cholecalciferol (Vitamin D3) (Vitamin D3) 1,000 Unit Tablet, 1,000 UNIT PO DAILY, (Reported) TAKES AT NOON Cyanocobalamin (Vitamin B-12) (Vitamin B-12) 500 Mcg Tablet, 1,000 MCG PO DAILY Famotidine (Famotidine) 20 Mg Tablet, 20 MG PO DAILY, (Reported) Ferrous Sulfate (Ferrous Sulfate) 325 Mg Tablet, 325 MG PO DAILY Folic Acid (Folic Acid) 1 Mg Tablet, 1 MG PO DAILY, (Reported) Furosemide (Furosemide) 20 Mg Tablet, 20 MG PO DAILY, (Reported) Lactose-Reduced Food (Ensure Enlive) 237 Ml Liquid, 180 ML PO DAILY, (Reported) TAKES AT 1400 Melatonin (Melatonin) 5 Mg Capsule, 5 MG PO QHS, (Reported) Metoprolol Tartrate (Metoprolol Tartrate) 25 Mg Tablet, 12.5 MG PO BID, (Reported) Multivitamins (Thera M Plus Tablet) 1 Each Tablet, 1 TAB PO DAILY, (Reported) Potassium Chloride (Potassium Chloride) 20 Meq Tab.er.prt, 20 MG PO 3XW, (Reported) MON/WED/FRI Ropinirole HCl (Ropinirole HCl) 1 Mg Tablet, 1 MG PO BID, (Reported) Salmeterol/Fluticasone (Advair 250-50 Diskus) 1 Each Blst.w.dev, 1 PUFF INH BID, (Reported) Sennosides (Senna) 8.6 Mg Tablet, 8.6 MG PO DAILY, (Reported) Sertraline HCl (Sertraline HCl) 50 Mg Tablet, 50 MG PO DAILY, (Reported) Sodium Chloride ([place] Saline Nasal Gel) 14.1 Gm Gel..gram., 1 DOSE NA BID, (Reported) Scheduled PRN Acetaminophen (Acetaminophen) 325 Mg Tablet, 650 MG PO Q4H PRN for PAIN, (Reported) Bisacodyl (Dulcolax) 10 Mg Supp.rect, 10 MG MS DAILY PRN for CONSTIPATION, (Reported) Milk Of Magnesia (Milk of Magnesia) 2,400 Mg/10 Ml Oral.susp, 10 ML PO DAILY PRN for CONSTIPATION, (Reported) Sodium Phosphate,[place]-Dibasic (Enema) 133 Ml Enema, 1 ERASTO MS DAILY PRN for CONSTIPATION, (Reported) Allergies Coded Allergies: No Known Allergies (Unverified , 11/07/18) Past Medical History Medical History COPD/Emphysema, chronic respiratory failure with hypoxia on oxygen since may 2018, CAD s/p CABG, AVR, thoracic Aortic aneurysm repair, polycythemia vera, Hypertension, Hyperlipidemia, solitary kidney, Systolic CHF with EF of 40 to 45% from jun 01, 2018 , right sided ischemic stroke in the post operative period , paroxysmal afib , possibility of PFO left hemiparesis, probable ABE ,PEG tube placement then, tracheostomy then Surgical History Thoracic aortic aneurysm repair AVR CABG Tracheostomy PEG Left proximal femur ORIF Carpal tunnel release Release of Guyons canal and the ulnar nerve of the left wrist. Bilateral Cataract surgery Left shoulder Rotator cuff surgery Left first and second toe surgeries. Family History Positive for hematologic disorder. Her grandson has some sort of hematologic disorder Social History * Smoker: former Smoker Alcohol: Denies Drugs: denies A-FIB/CHADSVASC A-FIB History Current/History of A-Fib/PAF?: Yes Current PO Anticoag Therapy: Yes Review of Systems Constitutional: Reports: Weakness, Fatigue; Denies: Chills, Fever, Night Sweats Eyes: Denies: Pain, Vision change ENT: Reports: Epistaxis; Denies: Head Aches, Ear Pain, Dysphagia Skin: Reports: Bruising; Denies: Rash, Lesions, Breakdown Pulmonary: Denies: Dyspnea, Cough Cardiovascular: Denies: Chest Pain, Palpitations, Orthopnea, Paroxysmal Noc. Dyspnea, Lt Headedness Gastrointestinal: Reports: Nausea, Vomiting; Denies: Abdominal Pain, Diarrhea, Constipation, Melena, Hematochezia Genitourinary: Denies: Dysuria, Frequency, Incontinence, Retention Hematologic: Reports: Bruising Musculoskeletal: Denies: Neck Pain, Back Pain Neurological: Reports: Weakness (on the left side), Other Symptoms (left wrist drop) Physical Examination General Exam: Positive: Alert, Cooperative, No Acute Distress Eye Exam: Positive: PERRLA, Conjunctiva & lids normal, EOMI; Negative: Sclera icteric ENT Exam: Positive: Atraumatic, Mucous membr. moist/pink, Other ENT (right nostril packed) Neck Exam: Positive: Supple; Negative: JVD, thyromegaly Chest Exam: Positive: Clear to auscultation, Normal air movement Heart Exam: Positive: Rate Normal, Regular Rhythm, Normal S1, Normal S2, Murmurs; Negative: Rubs Telemetry: Positive: No significant arrhythmia Abdomen Exam: Positive: Normal bowel sounds, Soft; Negative: Tenderness, Hepatospenomegaly Extremity Exam: Positive: Normal pulses; Negative: Clubbing, Cyanosis, Edema Skin Exam: Positive: Nl turgor and temperature, Other skin issue (bruises present); Negative: Breakdown, Lesion Neuro Exam: Positive: Normal Speech Psych Exam: Positive: Mental status NL, Mood NL, Memory Intact, Oriented x 3 Vital Signs Vital Signs Date Time Temp Pulse Resp B/P (MAP) Pulse Ox O2 Delivery O2 Flow Rate FiO2 01/30/19 10:33 98.0 76 20 96 01/30/19 10:30 148/77 (100) Laboratory Data Labs 24H Laboratory Tests 2 01/30/19 09:29: Immature Granulocyte % (Auto) 0.8, White Blood Count 10.1H, Red Blood Count 3.14L, Hemoglobin 7.7L, Hematocrit 26.9L, Mean Corpuscular Volume 85.7, Mean Corpuscular Hemoglobin 24.5L, Mean Corpuscular Hemoglobin Concent 28.6L, Red Cell Distribution Width 15.3H, Platelet Count 410, Neutrophils (%) (Auto) 62.1, Lymphocytes (%) (Auto) 25.0, Monocytes (%) (Auto) 8.7H, Eosinophils (%) (Auto) 3 .1H, Basophils (%) (Auto) 0.3, Neutrophils # (Auto) 6.3, Lymphocytes # (Auto) 2.5, Monocytes # (Auto) 0.9H, Eosinophils # (Auto) 0.3, Basophils # (Auto) 0.0, Nucleated Red Blood Cells % (auto) 0.0, Prothrombin Time 15.6H, Prothromb Time International Ratio 1.27, Activated Partial Thromboplast Time 26.1, Anion Gap 10, Glomerular Filtration Rate > 60.0, Calcium Level 8.8, Aspartate Amino Transf (AST/SGOT) 18, Alanine Aminotransferase (ALT/SGPT) 14, Alkaline Phosphatase 96, Total Bilirubin 0.3, Direct Bilirubin < 0.1, Total Creatine Kinase 63, Creatine Kinase MB < 1.0, Creatine Kinase MB Relative Index 1.59, Troponin I < 0.02, Total Protein 6.9, Albumin 3.3, Albumin/Globulin Ratio 0.92L, Lipase 206 CBC/BMP Laboratory Tests 01/30/19 09:29 Red Blood Count 3.14 L, Mean Corpuscular Volume 85.7, Mean Corpuscular Hemoglobin 24.5 L, Mean Corpuscular Hemoglobin Concent 28.6 L, Red Cell Distribution Width 15.3 H, Neutrophils (%) (Auto) 62.1, Lymphocytes (%) (Auto) 25.0, Monocytes (%) (Auto) 8.7 H, Eosinophils (%) (Auto) 3.1 H, Basophils (%) (Auto) 0.3, Neutrophils # (Auto) 6.3, Lymphocytes # (Auto) 2.5, Monocytes # (Auto) 0.9 H, Eosinophils # (Auto) 0.3, Basophils # (Auto) 0.0 Microbiology Microbiology 01/30/19 Blood Culture, Received Pending 01/30/19 Blood Culture, Received Pending Assessment/Plan 78 year old female with PMH of COPD/Emphysema, chronic respiratory failure with hypoxia on oxygen since may 2018 after open heart surgery, polycythemia vera, Hypertension, Hyperlipidemia, solitary kidney, ascending Aortic severe dilatation with aortic regurgitation s/p open heart surgery in May 2018 which included AVR with bioprosthetic valve, ascending thoracic aortic dacron graft and single vessel CABG with saphenous graft to the LAD, Systolic CHF with EF of 40 to 45% from jun 01, 2018 , right sided ischemic stroke in the post operative period thought to be due to paroxysmal afib and there was a possibility of PFO also in bubble study complicated by dysphagia and dysphonia and left hemiparesis. Had a PEG tube placement then. Also had tracheostomy. After a prolonged stay at [facility] where she had the open heart surgery followed by Acute rehab in [place] [facility] and then acute rehab in [facility] and discharged in november then fell at home and was readmitted here for left hip fracture on 11/07/18 and underwent ORIF and then was again discharged to [facility] rehab were she has been till now. She started having epistaxis 4 days ago , eliquis was stopped 2 days ago however epistaxis has continued in large amounts and she was swallowing a lot of blood. this morning she had a severe bout and swallowed some of it and then had coffee ground emesis . Patient was sent to the ED for uncontrollable epistaxis. She also complained of dizziness and light headedness, feeling extremely weak and tired. In the ED she had a packing done in her right nose which seems to have controlled the bleeding. Blood work showed HH of 7.7 which was down from 9.[address] Crawford has been consulted by the ED physician and he has agreed to consult on the patient. Patient is being admitted to the hospitalist service for epistaxis and symptomatic anemia. Epistaxis eliquis is on hold for the past 2 days nose now packed Dr Crawford consulted. Acute on chronic anemia acute blood loss anemia due to uncontrollable epistaxis on the back ground of being on eliquis. 2 units prbc transfusion check iron panel, folate and b 12 levels. H/o Polycythemia Vera with h/o therapeutic phlebotomies in the past. now most of the year her hematocrit has been around 30 after her heart surgery now at 26 will transfuse 2 units. HCT should remain less than 40 A fib paroxysmal now in sinus rhythm with normal rate EKG shows INCOMPLETE RIGHT BUNDLE BRANCH BLOCK LEFT ANTERIOR FASCICULAR BLOCK hold eliquis COPD /Emphysema/ tracheostomy in may 2018 /Chronic respiratory failure with hypoxia continue oxygen supplementation continue advair continue albuterol prn. Hypertension metoprolol Hyperlipidemia statin H/O CVA in may 2018 with residual left hemiparesis continue statin, asa has left wrist drop CAD s/p CABG continue stain , betablocker Chronic Systolic CHF continue lasix appears euvolemic Restless legs ropinirole Anxiety depression emotional and crying continue sertraline. GERD famotidine Diet mechanical soft to regular H/o Polycythemia Vera with h/o therapeutic phlebotomies int eh past. now most of the year her hematocrit has been around 30 after her heart surgery now at 26 will transfuse 2 units. HCT should remain less than 40 Thoracic Aortic Aneurysm repair/ AVR/CABG in may 2018 Ascending Aortic severe dilatation with aortic regurgitation s/p surgery in May 2018 which included AVR with bioprosthetic valve, ascending thoracic aortic dacron graft and single vessel CABG with saphenous graft to the LAD, Plan / VTE VTE Prophylaxis Ordered?: Yes SHAMIKA CARTER MD Jan 30, 2019 13:57
[2019-01-30] MEDS ORDERED: ALBUTEROL SULFATE 2.5 MG/0.5 ML INH NEB SOLN NEB PRN (14:00)
[2019-01-30 14:31] LABS: FOLATE > 24.0 NG/ML; VITAMIN B12 LEVEL 283 PG/ML
[2019-01-30 16:00] VITALS: BP 137/71
[2019-01-30] MEDS: ADVAIR HFA 115/21MCG INHALER INH SCH (18:28)
--- NOTE | 2019-01-30 20:06 | ECGEPIP ---
[facility] - ED Test Date: 2019-01-30 Pat Name: WILTON ROBERTO Department: Room: - Gender: Female Bundle Collector: NORBERTO : 1940 Requested By: Beto Garcia Order Number: [id number] Reading MD: Ankush Goldman Measurements Intervals [place] Rate: 84 P: 49 VT: 141 QRS: -44 QRSD: 110 T: 33 QT: 383 QTc: 453 Interpretive Statements SINUS RHYTHM MARKED LEFT AXIS DEVIATION PATTERN CONSISTENT WITH PULMONARY DISEASE INCOMPLETE RIGHT BUNDLE BRANCH BLOCK SIMILAR TO 11/07/18 Electronically Signed on 01-30-2019 20:06:13 EDT by Ankush Goldman
[2019-01-30 20:29] VITALS: BP 164/70
[2019-01-30] MEDS: rOPINIRole 1MG TAB PO SCH (20:29)
[2019-01-30] MEDS: METOPROLOL TART 12.5 MG PER 1/2 TAB PO SCH (20:29)
[2019-01-30] MEDS: ACETAMINOPHEN TAB 650MG DOSE (2X325MG) PO PRN (20:30)
[2019-01-30] MEDS ORDERED: ATORVASTATIN 20 MG TAB PO SCH (21:00)
[2019-01-30 22:00] VITALS: BP 144/72
[2019-01-31] MEDS: ACETAMINOPHEN TAB 650MG DOSE (2X325MG) PO PRN (03:25)
[2019-01-31] MEDS ORDERED: LIDOCAINE 5% (LIDODERM) PATCH TD SCH (05:45)
[2019-01-31] MEDS ORDERED: traMADol 50 MG TAB PO ONE (05:45)
[2019-01-31 06:00] VITALS: BP 140/72
[2019-01-31 07:50] LABS: BASO % 0.2 % (0.0-1.0); EOS # 0.2 10^3/uL (0.0-0.5); EOS % 2.2 % (0.0-3.0); HEMATOCRIT 33.8 % (36.0-47.0); LYMPH # 1.2 10^3/uL (1.5-5.0); LYMPH % 13.9 % (24.0-44.0); MEAN CORPUSCULAR HEMOGLOBIN 26.1 pg (27.0-33.0); MEAN CORPUSCULAR HGB CONC 30.5 g/dl (32.0-36.5); MEAN CORPUSCULAR VOLUME 85.6 fl (80.0-96.0); MONO # 0.7 10^3/uL (0.0-0.8); MONO % 8.9 % (0.0-5.0); NEUTROPHILS # 6.2 10^3/uL (1.5-8.5); NEUTROPHILS % 74.1 % (36.0-66.0); RED BLOOD COUNT 3.95 10^6/uL (4.00-5.40); WHITE BLOOD COUNT 8.3 10^3/uL (4.0-10.0)
[2019-01-31 07:56] LABS: HEMOGLOBIN 10.3 g/dl (12.0-15.5); PLATELET COUNT, AUTOMATED 300 10^3/uL (150-450)
[2019-01-31 08:03] LABS: BLOOD UREA NITROGEN 18 MG/DL (7-18); CALCIUM LEVEL 8.5 MG/DL (8.8-10.2); CARBON DIOXIDE LEVEL 28 MEQ/L (21-32); CHLORIDE LEVEL 107 MEQ/L (98-107); CREATININE FOR GFR 0.73 MG/DL (0.55-1.30); GLOMERULAR FILTRATION RATE > 60.0 (>39); GLUCOSE, FASTING 100 MG/DL (70-100); SODIUM LEVEL 142 MEQ/L (136-145)
[2019-01-31] MEDS ORDERED: FERROUS SULFATE 325MG TAB PO SCH (09:00)
[2019-01-31] MEDS ORDERED: FAMOTIDINE 20 MG TAB PO SCH (09:00)
[2019-01-31] MEDS ORDERED: CYANOCOBALAMIN 500 MCG TAB PO SCH (09:00)
[2019-01-31] MEDS ORDERED: FOLIC ACID 1 MG TAB PO SCH (09:00)
[2019-01-31] MEDS ORDERED: FUROSEMIDE 20 MG TAB PO SCH (09:00)
[2019-01-31] MEDS ORDERED: SENNA 8.6 MG TAB (SENOKOT) PO SCH (09:00)
[2019-01-31] MEDS ORDERED: SERTRALINE HCL 50 MG TAB PO SCH (09:00)
[2019-01-31] MEDS: METOPROLOL TART 12.5 MG PER 1/2 TAB PO SCH (10:11)
[2019-01-31] MEDS: rOPINIRole 1MG TAB PO SCH (10:11)
[2019-01-31] MEDS: ADVAIR HFA 115/21MCG INHALER INH SCH (10:46)
[2019-01-31] MEDS ORDERED: FERR325T18 PO (10:49)
[2019-01-31] MEDS ORDERED: VITA500T40 PO (10:49)
[2019-01-31] MEDS ORDERED: AMOX500T2 PO (10:49)
[2019-01-31] MEDS ORDERED: AUGMENTIN 500 MG TAB PO SCH (14:00)
--- NOTE | 2019-01-31 16:11 | DS.PDOC ---
Discharge Summary General Date of Admission Jan 30, 2019 at 12:39 Date of Discharge 01/31/19 Discharge Summary PROCEDURES PERFORMED DURING STAY: [None]. DISCHARGE DIAGNOSES: Severe epistaxis on the back ground of being on Eliquis and ASA Acute blood loss anemia Iron deficiency Vit B12 deficiency SECONDARY DIAGNOSIS: COPD/Emphysema, Probable ABE, chronic respiratory failure with hypoxia on oxygen since may 2018 after open heart surgery, polycythemia vera, Hypertension, Hyperlipidemia, solitary kidney, ascending Aortic severe dilatation with aortic regurgitation s/p open heart surgery in May 2018 which included AVR with bioprosthetic valve, ascending thoracic aortic dacron graft and single vessel CABG with saphenous graft to the LAD, Systolic CHF with EF of 40 to 45% from jun 01, 2018 , right sided ischemic stroke in the post operative period thought to be due to paroxysmal afib and there was a possibility of PFO also in bubble study complicated by dysphagia and dysphonia and left hemiparesis. Had a PEG tube placement then. Also had tracheostomy , fall and left proximal femur fracture with ORIF in november 2018. COMPLICATIONS/CHIEF COMPLAINT: Anemia,Epistaxis. HISTORY OF PRESENT ILLNESS: Please see history and physical HOSPITAL COURSE: 78 year old female with PMH of COPD/Emphysema, chronic respiratory failure with hypoxia on oxygen since may 2018 after open heart surgery, polycythemia vera, Hypertension, Hyperlipidemia, solitary kidney, ascending Aortic severe dilatation with aortic regurgitation s/p open heart surgery in May 2018 which included AVR with bioprosthetic valve, ascending thoracic aortic dacron graft and single vessel CABG with saphenous graft to the LAD, Systolic CHF with EF of 40 to 45% from jun 01, 2018 , right sided ischemic stroke in the post operative period thought to be due to paroxysmal afib and there was a possibility of PFO also in bubble study complicated by dysphagia and dysphonia and left hemiparesis. Had a PEG tube placement then. Also had tr acheostomy. After a prolonged stay at [facility] where she had the open heart surgery followed by Acute rehab in [facility] and then acute rehab in [facility] and discharged in november then fell at home and was readmitted here for left hip fracture on 11/07/18 and underwent ORIF and then was again discharged to [facility] rehab were she has been till now. She started having epistaxis 4 days ago , eliquis was stopped 2 days ago however epistaxis has continued in large amounts and she was swallowing a lot of blood. this morning she had a severe bout and swallowed some of it and then had coffee ground emesis . Patient was sent to the ED for uncontrollable epistaxis. She also complained of dizziness and light headedness, feeling extremely weak and tired. In the ED she had a packing done in her right nose which seems to have controlled the bleeding. Blood work showed HH of 7.7 which was down from 9.[address] Crawford has been consulted by the ED physician and he has agreed to consult on the patient. Patient is being admitted to the hospitalist service for epistaxis and symptomatic anemia. Epistaxis eliquis on hold. nose now packed Dr Crawford consulted. Discussed with Dr White today. He wanted the pateint to be sent to [facility] on Saturday02/02/19 for removal of nasl pack and evaluation. He adviced to continue the patient on antibiotics for now. Acute on chronic anemia acute blood loss anemia due to uncontrollable epistaxis on the back ground of being on eliquis. 2 units prbc transfusion Ferritin low normal and Vit B12 also low normal. started on supplements. H/o Polycythemia Vera with h/o therapeutic phlebotomies in the past. now most of the year her hematocrit has been around 30 after her heart surgery now at 26 will transfuse 2 units. HCT should remain less than 40 A fib paroxysmal now in sinus rhythm with normal rate EKG shows INCOMPLETE RIGHT BUNDLE BRANCH BLOCK LEFT ANTERIOR FASCICULAR BLOCK hold eliquis COPD /Emphysema/ tracheostomy in may 2018 /Chronic respiratory failure with hypoxia continue oxygen supplementation continue advair continue albuterol prn. Hypertension metoprolol Hyperlipidemia statin H/O CVA in may 2018 with residual left hemiparesis continue statin, asa has left wrist drop CAD s/p CABG continue stain , betablocker Chronic Systolic CHF continue lasix appears euvolemic Restless legs ropinirole Anxiety depression emotional and crying continue sertraline. GERD famotidine Diet mechanical soft to regular Thoracic Aortic Aneurysm repair/ AVR/CABG in may 2018 Ascending Aortic severe dilatation with aortic regurgitation s/p surgery in May 2018 which included AVR with bioprosthetic valve, ascending thoracic aortic dacr on graft and single vessel CABG with saphenous graft to the LAD, DISCHARGE MEDICATIONS: Please see below. ALLERGIES: Please see below. PHYSICAL EXAMINATION ON DISCHARGE: VITAL SIGNS: Please see below. General Exam: Positive: Alert, Cooperative, No Acute Distress Eye Exam: Positive: PERRLA, Conjunctiva & lids normal, EOMI; Negative: Sclera icteric ENT Exam: Positive: Atraumatic, Mucous membr. moist/pink, Other ENT (right nostril packed) Neck Exam: Positive: Supple; Negative: JVD, thyromegaly Chest Exam: Positive: Clear to auscultation, Normal air movement Heart Exam: Positive: Rate Normal, Regular Rhythm, Normal S1, Normal S2, Murmurs; Negative: Rubs Telemetry: Positive: No significant arrhythmia Abdomen Exam: Positive: Normal bowel sounds, Soft; Negative: Tenderness, Hepatospenomegaly Extremity Exam: Positive: Normal pulses; Negative: Clubbing, Cyanosis, Edema Skin Exam: Positive: Nl turgor and temperature, Other skin issue (bruises present); Negative: Breakdown, Lesion Neuro Exam: Positive: Normal Speech Psych Exam: Positive: Mental status NL, Mood NL, Memory Intact, Oriented x 3 LABORATORY DATA: Please see below. ACTIVITY: [As tolerated]. DIET: as tolerated DISPOSITION: [facility]. DISCHARGE INSTRUCTIONS: Follow up with Dr Crawford in office on 02/02/19 DISCHARGE CONDITION: [Stable]. TIME SPENT ON DISCHARGE: 35 minutes. Vital Signs/I&Os Vital Signs Date Time Temp Pulse Resp B/P (MAP) Pulse Ox O2 Delivery O2 Flow Rate FiO2 01/31/19 09:00 2.0 01/31/19 06:00 97.7 81 18 140/72 (94) 94 01/30/19 15:00 Nasal Cannula I&O- Last 24 Hours up to 6 AM 01/31/19 06:00 Intake Total 1910 ml Output Total 400 ml Balance 1510 ml Laboratory Data Labs 24H Laboratory Tests 2 01/31/19 07:31: Immature Granulocyte % (Auto) 0.7, White Blood Count 8.3, Red Blood Count 3.95L, Hemoglobin 10.3#L, Hematocrit 33.8L, Mean Corpuscular Volume 85.6, Mean Corpuscular Hemoglobin 26.1L, Mean Corpuscular Hemoglobin Concent 30.5L, Red Cell Distribution Width 15.2H, Platelet Count 300#, Neutrophils (%) (Auto) 74.1H, Lymphocytes (%) (Auto) 13.9L, Monocytes (%) (Auto) 8.9H, Eosinophils (%) (Auto) 2.2, Basophils (%) (Auto) 0.2, Neutrophils # (Auto) 6.2, Lymphocytes # (Auto) 1.2L, Monocytes # (Auto) 0.7, Eosinophils # (Auto) 0.2, Basophils # (Auto) 0.0, Nucleated Red Blood Cells % (auto) 0.0, Anion Gap 7L, Glomerular Filtration Rate > 60.0, Blood Urea Nitrogen 18, Creatinine 0.73, Sodium Level 142, Potassium Level 4.0, Chloride Level 107, Carbon Dioxide Level 28, Calcium Level 8.5L CBC/BMP Laboratory Tests 01/31/19 07:31 Red Blood Count 3.95 L, Mean Corpuscular Volume 85.6, Mean Corpuscular Hemoglobin 26.1 L, Mean Corpuscular Hemoglobin Concent 30.5 L, Red Cell Distribution Width 15.2 H, Neutrophils (%) (Auto) 74.1 H, Lymphocytes (%) (Auto) 13.9 L, Monocytes (%) (Auto) 8.9 H, Eosinophils (%) (Auto) 2.2, Basophils (%) (Auto) 0.2, Neutrophils # (Auto) 6.2, Lymphocytes # (Auto) 1.2 L, Monocytes # (Auto) 0.7, Eosinophils # (Auto) 0.2, Basophils # (Auto) 0.0, Calcium Level 8.5 L Microbiology Microbiology 01/30/19 Blood Culture - Preliminary, Resulted No growth after 24 hours . All specim... 01/30/19 Blood Culture - Preliminary, Resulted No growth after 24 hours . All specim... Discharge Medications Scheduled Amoxicillin/Potassium Clav (Amox-Clav 500-125 mg Tablet) 1 Each Tablet, 500 MG PO Q8H Aspirin (Aspir 81) 81 Mg Tablet.dr, 81 MG PO DAILY, (Reported) Atorvastatin Calcium (Atorvastatin Calcium) 40 Mg Tablet, 40 MG PO QHS, (Reported) Cholecalciferol (Vitamin D3) (Vitamin D3) 1,000 Unit Tablet, 1,000 UNIT PO DAILY, (Reported) TAKES AT NOON Cyanocobalamin (Vitamin B-12) (Vitamin B-12) 500 Mcg Tablet, 1,000 MCG PO DAILY Famotidine (Famotidine) 20 Mg Tablet, 20 MG PO DAILY, (Reported) Ferrous Sulfate (Ferrous Sulfate) 325 Mg Tablet, 325 MG PO DAILY Folic Acid (Folic Acid) 1 Mg Tablet, 1 MG PO DAILY, (Reported) Furosemide (Furosemide) 20 Mg Tablet, 20 MG PO DAILY, (Reported) Lactose-Reduced Food (Ensure Enlive) 237 Ml Liquid, 180 ML PO DAILY, (Reported) TAKES AT 1400 Melatonin (Melatonin) 5 Mg Capsule, 5 MG PO QHS, (Reported) Metoprolol Tartrate (Metoprolol Tartrate) 25 Mg Tablet, 12.5 MG PO BID, (Reported) Multivitamins (Thera M Plus Tablet) 1 Each Tablet, 1 TAB PO DAILY, (Reported) Potassium Chloride (Potassium Chloride) 20 Meq Tab.er.prt, 20 MG PO 3XW, (Reported) SAT/SAT/SAT Ropinirole HCl (Ropinirole HCl) 1 Mg Tablet, 1 MG PO BID, (Reported) Salmeterol/Fluticasone (Advair 250-50 Diskus) 1 Each Blst.w.dev, 1 PUFF INH BID, (Reported) Sennosides (Senna) 8.6 Mg Tablet, 8.6 MG PO DAILY, (Reported) Sertraline HCl (Sertraline HCl) 50 Mg Tablet, 50 MG PO DAILY, (Reported) Sodium Chloride ([place] Saline Nasal Gel) 14.1 Gm Gel..gram., 1 DOSE NA BID, (Reported) Scheduled PRN Acetaminophen (Acetaminophen) 325 Mg Tablet, 650 MG PO Q4H PRN for PAIN, (Reported) Bisacodyl (Dulcolax) 10 Mg Supp.rect, 10 MG [place] DAILY PRN for CONSTIPATION, (Reported) Milk Of Magnesia (Milk of Magnesia) 2,400 Mg/10 Ml Oral.susp, 10 ML PO DAILY PRN for CONSTIPATION, (Reported) Sodium Phosphate,[place]-Dibasic (Enema) 133 Ml Enema, 1 [place]ST[place] DAILY PRN for CONSTIPATION, (Reported) Allergies Coded Allergies: No Known Allergies (Unverified , 11/07/18) SHAMIKA CARTER MD Jan 31, 2019 16:11
[2019-01-31] MEDS ORDERED: **NOTE PATIENT COMMENT** MISC XX SCH (21:00)
== END 2019-01-31 13:55 | DRG 151 ==
LOC: EDSEX 09:11 → EDBD 09:11 → M ED 09:11 → M ED INP 12:39 → M MSPAV 16:05
PROVIDERS: ADMIT Internal Medicine Nephrology; ATTEND Internal Medicine Nephrology
PROC: 2Y41X5Z Packing of Nasal Region using Packing Material (ICD-10-PCS; principal; 2019-01-30)
PROC: 30233N1 Transfusion of Nonautologous Red Blood Cells into Peripheral Vein, Percutaneous Approach (ICD-10-PCS; 2019-01-30)
DX: R04.0 Epistaxis (principal); J96.11 Chronic respiratory failure with hypoxia; I50.22 Chronic systolic (congestive) heart failure; I69.354 Hemiplegia and hemiparesis following cerebral infarction affecting left non-dominant side; D62 Acute posthemorrhagic anemia; J44.9 Chronic obstructive pulmonary disease, unspecified; G47.33 Obstructive sleep apnea (adult) (pediatric); D45 Polycythemia vera; E61.1 Iron deficiency; I11.0 Hypertensive heart disease with heart failure; I48.0 Paroxysmal atrial fibrillation; E78.5 Hyperlipidemia, unspecified; E53.8 Deficiency of other specified B group vitamins; Z99.81 Dependence on supplemental oxygen; I69.391 Dysphagia following cerebral infarction; R13.10 Dysphagia, unspecified; R49.0 Dysphonia; I69.398 Other sequelae of cerebral infarction; Z79.01 Long term (current) use of anticoagulants; Z79.82 Long term (current) use of aspirin; Z79.899 Other long term (current) drug therapy; Z98.41 Cataract extraction status, right eye; Z98.42 Cataract extraction status, left eye; Z87.891 Personal history of nicotine dependence; Z95.1 Presence of aortocoronary bypass graft; Z95.3 Presence of xenogenic heart valve

== ENCOUNTER → 2019-02-05 | Outpatient (REF) | payer MEDICARE, OTHER ==
[~2019-02-05] MED LIST changes: +ADV250INH INH; +AMOX500T2 PO; +DULC10SU2 PR; +ENEMENE PR; +ENSU1LIQ36 PO; +FERR325T18 PO; +MELA5CAP2 PO; +MOM30SS PO; +SODIGEL; +VITA500T40 PO
[2019-02-05 08:19] LABS: HEMATOCRIT 36.3 % (36.0-47.0); HEMOGLOBIN 10.6 g/dl (12.0-15.5); MEAN CORPUSCULAR HEMOGLOBIN 25.6 pg (27.0-33.0); MEAN CORPUSCULAR HGB CONC 29.2 g/dl (32.0-36.5); MEAN CORPUSCULAR VOLUME 87.7 fl (80.0-96.0); PLATELET COUNT, AUTOMATED 334 10^3/uL (150-450); RED BLOOD COUNT 4.14 10^6/uL (4.00-5.40); WHITE BLOOD COUNT 7.7 10^3/uL (4.0-10.0)
== END ==
LOC: SKLAB7 07:00
PROVIDERS: ATTEND Internal Medicine
DX: D64.9 Anemia, unspecified (principal)

== ENCOUNTER → 2019-02-12 | Outpatient (REF) ==
[2019-02-12 08:29] LABS: HEMATOCRIT 38.8 % (36.0-47.0); HEMOGLOBIN 11.2 g/dl (12.0-15.5); MEAN CORPUSCULAR HEMOGLOBIN 25.8 pg (27.0-33.0); MEAN CORPUSCULAR HGB CONC 28.9 g/dl (32.0-36.5); MEAN CORPUSCULAR VOLUME 89.4 fl (80.0-96.0); PLATELET COUNT, AUTOMATED 383 10^3/uL (150-450); RED BLOOD COUNT 4.34 10^6/uL (4.00-5.40); WHITE BLOOD COUNT 7.8 10^3/uL (4.0-10.0)
== END ==
LOC: SKLAB7 07:00
PROVIDERS: ATTEND Internal Medicine
DX: D64.9 Anemia, unspecified (principal)

== ENCOUNTER → 2019-02-19 | Outpatient (REF) ==
[~2019-02-19] MED LIST changes: -SERT-155 PO; +SERT50TA29 PO
[2019-02-19 08:43] LABS: HEMATOCRIT 41.3 % (36.0-47.0); HEMOGLOBIN 11.8 g/dl (12.0-15.5); MEAN CORPUSCULAR HEMOGLOBIN 25.6 pg (27.0-33.0); MEAN CORPUSCULAR HGB CONC 28.6 g/dl (32.0-36.5); MEAN CORPUSCULAR VOLUME 89.6 fl (80.0-96.0); PLATELET COUNT, AUTOMATED 345 10^3/uL (150-450); RED BLOOD COUNT 4.61 10^6/uL (4.00-5.40); WHITE BLOOD COUNT 8.2 10^3/uL (4.0-10.0)
== END ==
LOC: SKLAB7 07:00
PROVIDERS: ATTEND Internal Medicine
DX: D64.9 Anemia, unspecified (principal)

== ENCOUNTER → 2019-02-26 | Outpatient (REF) | payer MEDICARE, OTHER ==
[2019-02-26 08:59] LABS: HEMATOCRIT 41.4 % (36.0-47.0); MEAN CORPUSCULAR HEMOGLOBIN 26.5 pg (27.0-33.0); MEAN CORPUSCULAR VOLUME 91.6 fl (80.0-96.0); PLATELET COUNT, AUTOMATED 250 10^3/uL (150-450); RED BLOOD COUNT 4.52 10^6/uL (4.00-5.40); WHITE BLOOD COUNT 6.6 10^3/uL (4.0-10.0)
== END ==
LOC: SKLAB7 11:56
PROVIDERS: ATTEND Internal Medicine
DX: D64.9 Anemia, unspecified (principal)

== ENCOUNTER → 2019-02-27 | Outpatient (CLI) | payer MEDICARE, OTHER ==
--- NOTE | 2019-03-09 11:36 | SLEEP ---
DATE OF PROCEDURE: 02/27/2019 REFERRING PHYSICIAN: Dr. Cong Jackson INTERPRETATION: Overnight polysomnography was performed for titration of positive airway pressure. The patient was diagnosed with nocturnal hypoxemia and obstructive sleep apnea syndrome. A total of 6 hours and 25 minutes of data was reviewed with total sleep time 193.5 minutes with prolonged sleep onset latency and decreased sleep efficiency and suppression of N3 sleep. Before the study, the patient was fit with ResMed small F30 AirFit full face mask and C-PAP trial was initiated at 4 cm of water pressure and titrated to 7 cm of water pressure. 2 liters per minute oxygen was bled into CPAP due to persistent nocturnal hypoxemia. The mean oxygen saturation during sleep was 90%, minimum oxygen saturation during sleep was 80% during periods of hypoxemia. Mild snoring was observed. There were no significant respiratory events or respiratory arousals. Severe periodic limb movements were noted. EKG revealed mean heart rate 74 beats per minute. EEG remained normal throughout. Decreased REM sleep was noted. CONCLUSIONS: 1. Obstructive sleep apnea syndrome. 2. Nocturnal hypoxemia. 3. Successful trial of CPAP 7 cm of water pressure with 2 liters per minute oxygen with suggested mask. 4. Severe periodic limb movements of sleep, which are nonspecific, and can be seen with sleep apnea or restless leg syndrome. RECOMMENDATIONS: 1. Nightly use of CPAP 7 cm of water pressure with suggested mask and oxygen 2 liters per minute. 2. Correlation is recommended for periodic limb movements of sleep as described above.
== END ==
LOC: M SLEEP 19:01
PROVIDERS: ATTEND Psychiatry & Neurology Neurology
DX: G47.33 Obstructive sleep apnea (adult) (pediatric) (principal); G47.61 Periodic limb movement disorder; R09.02 Hypoxemia

== ENCOUNTER → 2019-04-23 | Outpatient (REF) | payer MEDICARE, OTHER ==
[~2019-04-23] MED LIST changes: -SIMV40TA2 PO; +SIMV40TA20 PO
[2019-04-23 09:32] LABS: ALBUMIN 3.6 GM/DL (3.2-5.2); ALT/SGPT 14 U/L (12-78); BILIRUBIN,TOTAL 0.4 MG/DL (0.2-1.0); BLOOD UREA NITROGEN 21 MG/DL (7-18); CALCIUM LEVEL 9.2 MG/DL (8.8-10.2); CARBON DIOXIDE LEVEL 34 MEQ/L (21-32); CHLORIDE LEVEL 104 MEQ/L (98-107); CHOLESTEROL LEVEL 213 MG/DL (<200); CREATININE FOR GFR 0.79 MG/DL (0.55-1.30); GLOMERULAR FILTRATION RATE > 60.0 (>39); GLUCOSE, FASTING 102 MG/DL (70-100); HDL CHOLESTEROL 78 MG/DL (>40); IRON (FE) 83 UG/DL (50-170); LDL CHOLESTEROL 112 MG/DL (<100); NON-HDL-C 135 MG/DL; POTASSIUM SERUM 4.7 MEQ/L (3.5-5.1); SODIUM LEVEL 141 MEQ/L (136-145); TOTAL PROTEIN 7.8 GM/DL (6.4-8.2); TRIGLYCERIDES LEVEL 117 MG/DL (<150)
== END ==
LOC: SKLAB7 07:00
PROVIDERS: ATTEND Internal Medicine
DX: D64.9 Anemia, unspecified (principal); I50.9 Heart failure, unspecified; E87.6 Hypokalemia

== ENCOUNTER → 2019-05-14 | Outpatient (REF) | payer MEDICARE, OTHER ==
[2019-05-14 08:32] LABS: HEMATOCRIT 44.5 % (36.0-47.0); HEMOGLOBIN 12.7 g/dl (12.0-15.5); MEAN CORPUSCULAR HEMOGLOBIN 26.2 pg (27.0-33.0); MEAN CORPUSCULAR HGB CONC 28.5 g/dl (32.0-36.5); MEAN CORPUSCULAR VOLUME 91.9 fl (80.0-96.0); PLATELET COUNT, AUTOMATED 265 10^3/uL (150-450); RED BLOOD COUNT 4.84 10^6/uL (4.00-5.40); WHITE BLOOD COUNT 7.1 10^3/uL (4.0-10.0)
== END ==
LOC: SKLAB7 13:15
PROVIDERS: ATTEND Internal Medicine
DX: Z79.899 Other long term (current) drug therapy (principal)

== ENCOUNTER → 2019-05-21 | Outpatient (REF) | payer MEDICARE, OTHER ==
[2019-05-21 09:06] LABS: HEMOGLOBIN 12.2 g/dl (12.0-15.5); MEAN CORPUSCULAR HEMOGLOBIN 27.8 pg (27.0-33.0); MEAN CORPUSCULAR HGB CONC 30.5 g/dl (32.0-36.5); MEAN CORPUSCULAR VOLUME 91.1 fl (80.0-96.0); PLATELET COUNT, AUTOMATED 269 10^3/uL (150-450); RED BLOOD COUNT 4.39 10^6/uL (4.00-5.40); WHITE BLOOD COUNT 6.3 10^3/uL (4.0-10.0)
== END ==
LOC: SKLAB7 09:16
PROVIDERS: ATTEND Internal Medicine
DX: D64.9 Anemia, unspecified (principal)

== ENCOUNTER → 2019-06-25 | Outpatient (REF) | payer MEDICARE, OTHER ==
[~2019-06-25] MED LIST changes: -ROPI1TAB PO; +ROPI1TAB3 PO
[2019-06-25 09:38] LABS: HEMATOCRIT 35.5 % (36.0-47.0); HEMOGLOBIN 10.7 g/dl (12.0-15.5); MEAN CORPUSCULAR HEMOGLOBIN 28.2 pg (27.0-33.0); MEAN CORPUSCULAR HGB CONC 30.1 g/dl (32.0-36.5); MEAN CORPUSCULAR VOLUME 93.7 fl (80.0-96.0); PLATELET COUNT, AUTOMATED 270 10^3/uL (150-450); RED BLOOD COUNT 3.79 10^6/uL (4.00-5.40); WHITE BLOOD COUNT 6.5 10^3/uL (4.0-10.0)
== END ==
LOC: SKLAB7 13:53
PROVIDERS: ATTEND Family Medicine
DX: D64.9 Anemia, unspecified (principal)

== ENCOUNTER → 2019-07-07 | Outpatient (REF) | payer MEDICARE, OTHER ==
--- NOTE | 2019-07-07 13:50 | REP ---
CHEST, TWO VIEWS: Two views of the chest are performed. The heart is of upper limits of normal in size to slightly enlarged. There is tortuosity and dilatation of the thoracic aorta. The descending thoracic aorta appears dilated up to 5.3 cm in maximum AP dimension. There is a prosthetic heart valve. There are multiple sternal wires present. Liner scarring is seen in the left lung base. Otherwise no infiltrate or pulmonary edema is seen. There is osteopenia. IMPRESSION: Linear scarring left base with no acute infiltrate. Dilatation of the thoracic aorta, descending thoracic aorta appears to be have a maximum diameter of 5.3 cm. Electronically Signed by Robel Qureshi MD 07/07/2019 07:57 P
[2019-07-07 14:55] LABS: HEMATOCRIT 36.8 % (36.0-47.0); HEMOGLOBIN 11.2 g/dl (12.0-15.5); MEAN CORPUSCULAR HEMOGLOBIN 27.8 pg (27.0-33.0); MEAN CORPUSCULAR HGB CONC 30.4 g/dl (32.0-36.5); MEAN CORPUSCULAR VOLUME 91.3 fl (80.0-96.0); PLATELET COUNT, AUTOMATED 296 10^3/uL (150-450); RED BLOOD COUNT 4.03 10^6/uL (4.00-5.40); WHITE BLOOD COUNT 6.6 10^3/uL (4.0-10.0)
[2019-07-07 15:24] LABS: CALCIUM LEVEL 8.8 MG/DL (8.8-10.2); CREATININE FOR GFR 0.98 MG/DL (0.55-1.30); GLOMERULAR FILTRATION RATE 58.3 (>39); POTASSIUM SERUM 4.1 MEQ/L (3.5-5.1)
== END ==
LOC: SKLAB7 11:37
PROVIDERS: ATTEND Internal Medicine
DX: R06.02 Shortness of breath (principal); R60.9 Edema, unspecified

== ENCOUNTER → 2019-07-23 | Outpatient (REF) | payer MEDICARE, OTHER ==
[2019-07-23 09:07] LABS: HEMATOCRIT 38.5 % (36.0-47.0); HEMOGLOBIN 11.4 g/dl (12.0-15.5); MEAN CORPUSCULAR HEMOGLOBIN 28.2 pg (27.0-33.0); MEAN CORPUSCULAR HGB CONC 29.6 g/dl (32.0-36.5); MEAN CORPUSCULAR VOLUME 95.3 fl (80.0-96.0); PLATELET COUNT, AUTOMATED 288 10^3/uL (150-450); RED BLOOD COUNT 4.04 10^6/uL (4.00-5.40); WHITE BLOOD COUNT 5.7 10^3/uL (4.0-10.0)
[2019-07-23 09:30] LABS: BLOOD UREA NITROGEN 16 MG/DL (7-18); CALCIUM LEVEL 8.9 MG/DL (8.8-10.2); CARBON DIOXIDE LEVEL 30 MEQ/L (21-32); CHLORIDE LEVEL 106 MEQ/L (98-107); CHOLESTEROL LEVEL 158 MG/DL (<200); CHOLESTEROL RISK RATIO 2.393 (<5); CREATININE FOR GFR 0.82 MG/DL (0.55-1.30); GLOMERULAR FILTRATION RATE > 60.0 (>39); GLUCOSE, FASTING 175 MG/DL (70-100); HDL CHOLESTEROL 66 MG/DL (>40); IRON (FE) 48 UG/DL (50-170); LDL CHOLESTEROL 64 MG/DL (<100); NON-HDL-C 92 MG/DL; POTASSIUM SERUM 4.5 MEQ/L (3.5-5.1); SODIUM LEVEL 143 MEQ/L (136-145); TRIGLYCERIDES LEVEL 138 MG/DL (<150)
[2019-07-23 12:27] LABS: VITAMIN B12 LEVEL 469 PG/ML (247-911)
== END ==
LOC: SKLAB7 13:21
PROVIDERS: ATTEND Internal Medicine
DX: D64.9 Anemia, unspecified (principal); I50.9 Heart failure, unspecified; E78.5 Hyperlipidemia, unspecified

== ENCOUNTER → 2019-09-03 | Outpatient (REF) | payer MEDICARE, OTHER ==
[~2019-09-03] MED LIST changes: +SENN-80 PO; -SENN1TAB8 PO
--- NOTE | 2019-09-03 17:18 | REP ---
REASON FOR EXAM: Back pain. There are no priors for comparison. There is degenerative disc space narrowing at every level, particularly at L1-2, L4-5, and L5-S1. There is a grade 1 L4 upon L5 spondylolisthesis. Anterior and posterior osteophytic ridging is seen at every level, but particularly L2-3. There is partial syndesmophyte formation seen bilaterally at every level but, again, particularly at L2-3. The pedicles are intact bilaterally. There is evidence of a partially wall calcified abdominal aortic aneurysm with an approximate measurement of 5.8 cm. Hypertrophic degenerative facet joint changes are present at every level bilaterally, particularly L4-5 and L5-S1. IMPRESSION: 1. Chronic changes as described above. The L4 upon L5 spondylolisthesis is likely secondary to degenerative facet joint changes. 2. Evidence of an abdominal aortic aneurysm. Abdominal aortic ultrasound is recommended for further evaluation. Electronically Signed by Braulio Madison DO 09/04/2019 09:24 A
== END ==
LOC: SKLAB7 13:57
PROVIDERS: ATTEND Internal Medicine
DX: M43.16 Spondylolisthesis, lumbar region (principal); M43.17 Spondylolisthesis, lumbosacral region

== ENCOUNTER → 2019-09-07 | Outpatient (CLI) | payer MEDICARE, OTHER ==
[~2019-09-07] MED LIST changes: +AUGM875T28 PO
--- NOTE | 2019-09-07 08:05 | REP ---
Clinical: Abdominal aortic aneurysm. Technique: Real time thayer scale ultrasound examination using curved array transducer. Findings: Abdominal aorta is tortuous and demonstrates moderate atheromatous changes. An aneurysm is identified originating approximately 3 cm below the level of the main renal arteries measuring 4.8 x 5.3 diameter and 5.7 cm in craniocaudal length tapering towards the bifurcation with associated dilatation of the left iliac artery. Proximal aorta 3.2 x 4.2 cm. Mid aorta (renal artery level) 2.2 x 2.5 cm. Mid aorta 4.8 x 5.3 cm. Distal aorta 2.1 x 3.5 cm. Right common iliac artery 1.0 x 1.2 cm maximal diameter. Left common iliac artery 1.7 x 1.8 cm maximal diameter. Impression: Infrarenal abdominal aortic aneurysm as described above. Evaluation is limited due to a aortic tortuosity and overlying bowel gas. Pre and postcontrast CT may be warranted for more definitive evaluation. Electronically Signed by Raoul Todd MD 09/07/2019 07:56 A
== END ==
LOC: M RAD 07:05
PROVIDERS: ATTEND Nurse Practitioner Family
DX: I71.4 Abdominal aortic aneurysm, without rupture (principal); I70.0 Atherosclerosis of aorta

== ENCOUNTER 2019-09-11 13:11 | Emergency (ER) | payer MEDICARE, OTHER ==
[~2019-09-11] VITALS: Ht 157.5 cm; Wt 67.2 kg
[~2019-09-11 13:11] MED LIST changes: -AUGM875T28 PO; +LISI-1034 PO; -LISI2.5T76 PO
[2019-09-11 14:55] LABS: HEMATOCRIT 34.9 % (36.0-47.0); HEMOGLOBIN 10.4 g/dl (12.0-15.5); MEAN CORPUSCULAR HGB CONC 29.8 g/dl (32.0-36.5); MEAN CORPUSCULAR VOLUME 90.6 fl (80.0-96.0); PLATELET COUNT, AUTOMATED 332 10^3/uL (150-450); RED BLOOD COUNT 3.85 10^6/uL (4.00-5.40); WHITE BLOOD COUNT 7.1 10^3/uL (4.0-10.0)
[2019-09-11] MEDS ORDERED: AUGMENTIN 875 MG TAB PO ONE (15:15)
[2019-09-11] MEDS ORDERED: AUGM875T28 PO (15:18)
[2019-09-11 16:15] VITALS: BP 147/75
== END 2019-09-11 16:26 | disposition home or self-care (01) ==
LOC: EDBD 13:11 → M ED 13:11
DX: R04.0 Epistaxis (principal); I10 Essential (primary) hypertension; I50.9 Heart failure, unspecified; J44.9 Chronic obstructive pulmonary disease, unspecified; I48.91 Unspecified atrial fibrillation; E78.5 Hyperlipidemia, unspecified; D75.1 Secondary polycythemia; G47.33 Obstructive sleep apnea (adult) (pediatric); Z95.1 Presence of aortocoronary bypass graft; Z99.81 Dependence on supplemental oxygen; Z79.899 Other long term (current) drug therapy; Z79.82 Long term (current) use of aspirin; Z79.01 Long term (current) use of anticoagulants

== ENCOUNTER → 2019-09-17 | Outpatient (REF) ==
[~2019-09-17] MED LIST changes: +AUGM875T28 PO
== END ==
LOC: SKLAB7 09:36
PROVIDERS: ATTEND Internal Medicine
DX: Z11.59 Encounter for screening for other viral diseases (principal); Z53.9 Procedure and treatment not carried out, unspecified reason

== ENCOUNTER → 2019-10-13 | Outpatient (REF) | payer MEDICARE, OTHER ==
[2019-10-13 16:40] LABS: BLOOD UREA NITROGEN 17 MG/DL (7-18); CALCIUM LEVEL 8.9 MG/DL (8.8-10.2); CARBON DIOXIDE LEVEL 32 MEQ/L (21-32); CHLORIDE LEVEL 105 MEQ/L (98-107); CREATININE FOR GFR 0.88 MG/DL (0.55-1.30); GLOMERULAR FILTRATION RATE > 60.0 (>39); GLUCOSE, FASTING 129 MG/DL (70-100); POTASSIUM SERUM 4.6 MEQ/L (3.5-5.1); SODIUM LEVEL 142 MEQ/L (136-145)
== END ==
LOC: SKLAB7 11:00
PROVIDERS: ATTEND Internal Medicine
DX: Z79.899 Other long term (current) drug therapy (principal)

== ENCOUNTER → 2019-10-15 | Outpatient (CLI) | payer MEDICARE, OTHER ==
[~2019-10-15] MED LIST changes: +ISOVUE-370 76% 100ML VIAL As Ordered ONE
--- NOTE | 2019-10-15 23:30 | REP ---
CT ANGIOGRAM ABDOMEN AND PELVIS: CT angiogram abdomen and pelvis performed following the intravenous administration of 100 mL of Isovue-370. Sagittal, coronal, and 3D MIP reconstruction images are performed. There is a fusiform aneurysm of the distal abdominal aorta measuring 4.8 cm in diameter, both in the AP and transverse dimensions. There is moderate diffuse plaquing of the abdominal aorta. The very proximal aspect of the abdominal aorta at the diaphragmatic hiatus measures 3.9 cm in AP dimension. The distal thoracic aorta more superiorly measures 4.1 cm in AP dimension. 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 There is no stenosis of the superior mesenteric or main right renal artery. There is no left renal artery present. There is severe left renal atrophy. No inferior mesenteric artery is visualized. There is moderate calcific plaque of bilateral common iliac arteries with bilateral moderate narrowing. There is severe stenosis at the origin of the right internal iliac artery. Both external iliac arteries are moderately narrowed diffusely, as are the bilateral common femoral arteries. There is bilateral occlusion at the origin of the superficial femoral arteries. There is metallic internal fixation in the proximal left femur. The visualized lung bases demonstrate interstitial fibrosis. Liver, spleen, adrenals, pancreas, and right kidney are unremarkable. There is no adenopathy, free air, or free fluid. There are scattered diverticula of the colon. The patient has had a hysterectomy. IMPRESSION: Fusiform aneurysm of distal abdominal aorta with a maximum diameter of 4.8 cm. Moderate diffuse plaquing of the abdominal aorta. Mildly dilated lower thoracic aorta 4.1 cm in AP dimension. 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 Patent superior mesenteric artery. Inferior mesenteric artery is not visualized. Occluded main left renal artery with severe left renal atrophy. Mild to moderate narrowing of the right renal artery without significant stenosis. Moderate diffuse narrowing of the external iliac and common femoral arteries with bilateral occlusion at the origin of the superficial femoral arteries. Electronically Signed by Robel Qureshi MD 10/20/2019 06:20 P
== END ==
LOC: M RAD 15:03
PROVIDERS: ATTEND Physician Assistant
DX: I71.4 Abdominal aortic aneurysm, without rupture (principal); I70.0 Atherosclerosis of aorta; I77.4 Celiac artery compression syndrome; I70.203 Unspecified atherosclerosis of native arteries of extremities, bilateral legs
CPT/HCPCS: 74174; Q9967

== ENCOUNTER → 2019-10-22 | Outpatient (REF) | payer MEDICARE, OTHER ==
[~2019-10-22] MED LIST changes: -ISOVUE-370 76% 100ML VIAL As Ordered ONE
[2019-10-22 09:50] LABS: HEMATOCRIT 33.9 % (36.0-47.0); HEMOGLOBIN 9.7 g/dl (12.0-15.5); MEAN CORPUSCULAR HEMOGLOBIN 24.9 pg (27.0-33.0); MEAN CORPUSCULAR HGB CONC 28.6 g/dl (32.0-36.5); MEAN CORPUSCULAR VOLUME 87.1 fl (80.0-96.0); PLATELET COUNT, AUTOMATED 330 10^3/uL (150-450); RED BLOOD COUNT 3.89 10^6/uL (4.00-5.40); WHITE BLOOD COUNT 5.8 10^3/uL (4.0-10.0)
[2019-10-22 10:27] LABS: ALBUMIN 3.3 GM/DL (3.2-5.2); ALT/SGPT 17 U/L (12-78); BILIRUBIN,TOTAL 0.3 MG/DL (0.2-1.0); BLOOD UREA NITROGEN 16 MG/DL (7-18); CALCIUM LEVEL 9.1 MG/DL (8.8-10.2); CARBON DIOXIDE LEVEL 33 MEQ/L (21-32); CHLORIDE LEVEL 107 MEQ/L (98-107); CHOLESTEROL LEVEL 144 MG/DL (<200); CHOLESTEROL RISK RATIO 2.666 (<5); CREATININE FOR GFR 0.79 MG/DL (0.55-1.30); GLOMERULAR FILTRATION RATE > 60.0 (>39); GLUCOSE, FASTING 114 MG/DL (70-100); HDL CHOLESTEROL 54 MG/DL (>40); IRON (FE) 19 UG/DL (50-170); LDL CHOLESTEROL 64 MG/DL (<100); NON-HDL-C 90 MG/DL; POTASSIUM SERUM 3.5 MEQ/L (3.5-5.1); SODIUM LEVEL 142 MEQ/L (136-145); TOTAL PROTEIN 7.4 GM/DL (6.4-8.2); TRIGLYCERIDES LEVEL 129 MG/DL (<150)
== END ==
LOC: SKLAB7 09:35
PROVIDERS: ATTEND Internal Medicine
DX: E78.5 Hyperlipidemia, unspecified (principal); D64.9 Anemia, unspecified; J44.9 Chronic obstructive pulmonary disease, unspecified; I50.9 Heart failure, unspecified

== ENCOUNTER → 2019-11-05 | Outpatient (REF) | payer MEDICARE, OTHER ==
[2019-11-05 08:17] LABS: HEMATOCRIT 40.1 % (36.0-47.0); HEMOGLOBIN 11.2 g/dl (12.0-15.5); MEAN CORPUSCULAR HEMOGLOBIN 25.6 pg (27.0-33.0); MEAN CORPUSCULAR HGB CONC 27.9 g/dl (32.0-36.5); MEAN CORPUSCULAR VOLUME 91.8 fl (80.0-96.0); PLATELET COUNT, AUTOMATED 337 10^3/uL (150-450); RED BLOOD COUNT 4.37 10^6/uL (4.00-5.40); WHITE BLOOD COUNT 6.1 10^3/uL (4.0-10.0)
== END ==
LOC: SKLAB7 10:29
PROVIDERS: ATTEND Internal Medicine
DX: D64.9 Anemia, unspecified (principal)

== ENCOUNTER → 2019-11-19 | Outpatient (REF) | payer MEDICARE, OTHER ==
[~2019-11-19] MED LIST changes: -ASPI81TA85 PO; +ASPI81TA86 PO; -LISI-1034 PO; +LISI2.5T8 PO; -PANT20TA2 PO; +PANT20TA6 PO
[2019-11-19 10:07] LABS: HEMATOCRIT 43.2 % (36.0-47.0); HEMOGLOBIN 12.4 g/dl (12.0-15.5); MEAN CORPUSCULAR HEMOGLOBIN 26.6 pg (27.0-33.0); MEAN CORPUSCULAR HGB CONC 28.7 g/dl (32.0-36.5); MEAN CORPUSCULAR VOLUME 92.7 fl (80.0-96.0); PLATELET COUNT, AUTOMATED 243 10^3/uL (150-450); RED BLOOD COUNT 4.66 10^6/uL (4.00-5.40); WHITE BLOOD COUNT 6.5 10^3/uL (4.0-10.0)
== END ==
LOC: SKLAB7 07:00
PROVIDERS: ATTEND Internal Medicine
DX: D64.9 Anemia, unspecified (principal)

== ENCOUNTER 2019-12-05 04:49 | Emergency (ER) | payer MEDICARE, OTHER ==
[2019-12-05] MEDS ORDERED: DOXYCYCLINE HYCLATE 100MG TABLET ONE (06:46)
== END 2019-12-05 06:50 | disposition home or self-care (01) ==
LOC: M ED 04:49
DX: R04.0 Epistaxis (principal); T45.515A Adverse effect of anticoagulants, initial encounter; X58.XXXA Exposure to other specified factors, initial encounter; Y92.89 Other specified places as the place of occurrence of the external cause; I50.9 Heart failure, unspecified; J44.9 Chronic obstructive pulmonary disease, unspecified; N18.3 Chronic kidney disease, stage 3 (moderate); I48.91 Unspecified atrial fibrillation; F33.9 Major depressive disorder, recurrent, unspecified; Z99.81 Dependence on supplemental oxygen; Z99.89 Dependence on other enabling machines and devices; Z95.1 Presence of aortocoronary bypass graft; Z79.899 Other long term (current) drug therapy; Z79.82 Long term (current) use of aspirin; Z79.01 Long term (current) use of anticoagulants

== ENCOUNTER → 2020-01-21 | Outpatient (REF) | payer MEDICARE, OTHER ==
[2020-01-21 09:44] LABS: BLOOD UREA NITROGEN 19 MG/DL (7-18); CALCIUM LEVEL 8.8 MG/DL (8.8-10.2); CARBON DIOXIDE LEVEL 29 MEQ/L (21-32); CHLORIDE LEVEL 106 MEQ/L (98-107); CHOLESTEROL LEVEL 178 MG/DL (<200); CHOLESTEROL RISK RATIO 2.656 (<5); CREATININE FOR GFR 0.81 MG/DL (0.55-1.30); GLOMERULAR FILTRATION RATE > 60.0 (>39); GLUCOSE, FASTING 94 MG/DL (70-100); HDL CHOLESTEROL 67 MG/DL (>40); LDL CHOLESTEROL 90 MG/DL (<100); NON-HDL-C 111 MG/DL; POTASSIUM SERUM 3.9 MEQ/L (3.5-5.1); SODIUM LEVEL 142 MEQ/L (136-145); TRIGLYCERIDES LEVEL 107 MG/DL (<150)
[2020-01-21 11:20] LABS: VITAMIN B12 LEVEL 335 PG/ML (247-911)
== END ==
LOC: SKLAB7 13:03
PROVIDERS: ATTEND Internal Medicine
DX: E78.5 Hyperlipidemia, unspecified (principal); E55.9 Vitamin D deficiency, unspecified; I50.9 Heart failure, unspecified

== ENCOUNTER → 2020-02-25 | Outpatient (REF) | payer MEDICARE, OTHER ==
[2020-02-25 09:24] LABS: HEMATOCRIT 41.2 % (36.0-47.0); HEMOGLOBIN 12.2 g/dl (12.0-15.5); MEAN CORPUSCULAR HEMOGLOBIN 28.2 pg (27.0-33.0); MEAN CORPUSCULAR HGB CONC 29.6 g/dl (32.0-36.5); MEAN CORPUSCULAR VOLUME 95.2 fl (80.0-96.0); PLATELET COUNT, AUTOMATED 275 10^3/uL (150-450); RED BLOOD COUNT 4.33 10^6/uL (4.00-5.40); WHITE BLOOD COUNT 6.9 10^3/uL (4.0-10.0)
== END ==
LOC: SKLAB7 07:00
PROVIDERS: ATTEND Internal Medicine
DX: D64.9 Anemia, unspecified (principal)

== ENCOUNTER → 2020-03-02 | Outpatient (REF) | payer MEDICARE, OTHER | LOC: SKLAB7 14:51 | PROVIDERS: ATTEND Internal Medicine | DX: Z20.828 Contact with and (suspected) exposure to other viral communicable diseases (principal) ==

== ENCOUNTER → 2020-03-17 | Outpatient (REF) ==
[2020-03-18 09:51] LABS: INFLUENZA A AMPLIFICATION NEGATIVE (NEGATIVE); INFLUENZA B AMPLIFICATION NEGATIVE (NEGATIVE)
== END ==
LOC: SKLAB7 14:13
PROVIDERS: ATTEND Internal Medicine
DX: Z20.828 Contact with and (suspected) exposure to other viral communicable diseases (principal)

== ENCOUNTER → 2020-03-24 | Outpatient (REF) | payer MEDICARE, OTHER | LOC: SKLAB7 07:00 | PROVIDERS: ATTEND Internal Medicine | DX: D64.9 Anemia, unspecified (principal) ==

== ENCOUNTER → 2020-03-30 | Outpatient (REF) ==
[~2020-03-30] MED LIST changes: +ASPI-161 PO; +AZIT-10 PO; +BACI28.3; +BENG1CRE3 EXT; +C 50TAB PO; +D31000TA2 PO; +ELIQ2.5T PO; +FERR32TA PO; +HM S0.65; -MELA3TAB63 PO; +MELA3TAB70 PO; +META400T PO; +ONDA-195 PO; +POTA10TA67 PO; +PRED20TA PO; +QC A650T3 PO; +SERT-138 PO; +ZINC50TA26 PO
== END ==
LOC: SKLAB7 08:00
PROVIDERS: ATTEND Internal Medicine
DX: Z20.828 Contact with and (suspected) exposure to other viral communicable diseases (principal)

== ENCOUNTER → 2020-04-06 | Outpatient (REF) | LOC: SKLAB7 08:00 | PROVIDERS: ATTEND Internal Medicine | DX: Z20.828 Contact with and (suspected) exposure to other viral communicable diseases (principal) ==

== ENCOUNTER 2020-04-12 15:55 | Inpatient (IN) | payer MEDICARE, OTHER ==
[~2020-04-12] VITALS: Ht 160 cm; Wt 59.2 kg
[~2020-04-12 15:55] MED LIST changes: -ASPI-161 PO; -AZIT-10 PO; -BACI28.3; -BENG1CRE3 EXT; -C 50TAB PO; -D31000TA2 PO; -ELIQ2.5T PO; -FERR32TA PO; -HM S0.65; -META400T PO; -ONDA-195 PO; -POTA10TA67 PO; -PRED20TA PO; -QC A650T3 PO; -SERT-138 PO; -ZINC50TA26 PO
[2020-04-12] MEDS ORDERED: ALBUTEROL 90 MCG/ACT 8GM HFA INHALER INH ONE (16:45)
[2020-04-12] MEDS ORDERED: ACETAMINOPHEN TAB 650MG DOSE (2X325MG) PO ONE (16:45)
[2020-04-12 17:07] LABS: VENOUS BASE EXCESS 4.2 (-2.0-2.0); VENOUS O2 SATURATION 98.8 % (60.0-80.0); VENOUS PARTIAL PRESSURE CO2 56.3 mmHg (38.0-50.0); VENOUS PARTIAL PRESSURE O2 135.7 mmHg (30.0-50.0); VENOUS PH 7.359 UNITS (7.330-7.430); VENOUS STANDARD HCO3 28.2 MEQ/L; VENOUS TOTAL CO2 32.7 MEQ/L (24.0-28.0)
[2020-04-12 17:10] LABS: BASO % 0.2 % (0.0-1.0); HEMATOCRIT 41.1 % (36.0-47.0); HEMOGLOBIN 12.1 g/dl (12.0-15.5); LYMPH # 0.5 10^3/uL (1.5-5.0); LYMPH % 9.9 % (24.0-44.0); MEAN CORPUSCULAR HEMOGLOBIN 27.4 pg (27.0-33.0); MEAN CORPUSCULAR HGB CONC 29.4 g/dl (32.0-36.5); MEAN CORPUSCULAR VOLUME 93.2 fl (80.0-96.0); MONO # 0.2 10^3/uL (0.0-0.8); MONO % 3.6 % (0.0-5.0); NEUTROPHILS % 85.5 % (36.0-66.0); PLATELET COUNT, AUTOMATED 236 10^3/uL (150-450); RED BLOOD COUNT 4.41 10^6/uL (4.00-5.40); WHITE BLOOD COUNT 4.7 10^3/uL (4.0-10.0)
--- NOTE | 2020-04-12 17:11 | REP ---
INDICATION: DYSPNEA/COUGH. COMPARISON: PA and lateral chest dated 07/07/2019. TECHNIQUE: Single AP view performed portably with the patient sitting. FINDINGS: There is a new infiltrate inferomedially in the right lung, as an interval change. There is diffuse mild interstitial coarsening as an interval change. There are no pleural effusions. Cardiac size is mildly enlarged, unchanged. Sternotomy wires and cardiac valve prosthesis are unchanged. IMPRESSION: No infiltrate inferomedially in the right lung. Mild diffuse interstitial coarsening. <Electronically signed by Robel Salgado > 04/12/20 [id number]
[2020-04-12 17:15] LABS: INR 1.56
[2020-04-12 17:30] LABS: ALBUMIN 2.9 GM/DL (3.2-5.2); ALT/SGPT 16 U/L (12-78); BILIRUBIN,DIRECT 0.1 MG/DL (0.0-0.2); BILIRUBIN,TOTAL 0.3 MG/DL (0.2-1.0); BLOOD UREA NITROGEN 21 MG/DL (7-18); CALCIUM LEVEL 8.4 MG/DL (8.8-10.2); CARBON DIOXIDE LEVEL 29 MEQ/L (21-32); CHLORIDE LEVEL 108 MEQ/L (98-107); CK-MB VALUE MASS < 1.0 NG/ML (<3.6); CPK CREATINE PHOSPHOKINASE 48 U/L (26-192); CREATININE FOR GFR 0.79 MG/DL (0.55-1.30); GLOMERULAR FILTRATION RATE > 60.0 (>39); GLUCOSE, FASTING 156 MG/DL (70-100); MB/CK RELATIVE INDEX 2.08 (< OR =4); NT-PRO BNP 108 PG/ML (<450); POTASSIUM SERUM 4.2 MEQ/L (3.5-5.1); SODIUM LEVEL 141 MEQ/L (136-145); TOTAL PROTEIN 6.8 GM/DL (6.4-8.2); TROPONIN I < 0.02 NG/ML (< 0.10)
--- NOTE | 2020-04-12 18:58 | HPEPDOC ---
[facility] Medical History & Physical Date of Admission Apr 12, 2020 Date of Service: Apr 12, 2020 History and Physical CHIEF COMPLAINT: hypoxia HISTORY OF PRESENT ILLNESS: 79 yo F with a hx of COPD (2L NC at home, requires continous CPAP), paroxysmal afib, depression, CAD (s/p CABG 2018), mobility disorder, sent to ER from [place] for hypoxia. Patient was diagnosed with COVID at [place] on 04/06 after having gone home for Thanksgiving. patient was saturating well but became hypoxic this morning. Patient denies associated dyspnea, subjective fevers, chills, chest pain, n/v/d. On arrival to ED, required 15 LPM of O2 via NRB. Able to wean to 10 LPM and saturating at 92%. Admitted to covid unit for O2 supplementation and treatemnt with IV steroids and remdesevir. PAST MEDICAL HISTORY: 1. Gait mobility disorder. 2. Left hip fracture due to mechanical fall. 3. COPD. 4. Chronic hypoxemic respiratory failure. 5. Paroxysmal atrial fibrillation, on chronic anticoagulation. 6. Hypercholesterolemia. 7. Depression. 8. Restless leg syndrome. 9. GERD. 10. Insomnia. 11. Coronary arterial disease, status post CABG times one. 12. 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 Complicated by postoperative stroke with left-sided hemiparesis. Aortic valve replacement with a #23 Magna Ease pericardial valve. Ascending thoracic aorta was fixed with a #32 Dacron aortic graft, and she had a single saphenous vein graft to her LAD. Echocardiogram May 2018 revealed ejection fraction 40-45% with normal function of bioprosthetic valve. She possibly had a patent foramen ovale. 13. Hypertension with chronic kidney disease stage III. 14. Polycythemia vera. 15. Chronic anxiety. 16. History of solitary kidney. PAST SURGICAL HISTORY: 1. CABG 2. S/p L rotator cuff repair 3. Carpal tunnel release 4. Hysterectomy 5. Hammer toe surgery SOCIAL HISTORY: Patient denies smoking Patient denies etoh use Patient denies illicit drug use FAMILY HISTORY: reviewed with patient, no pertinent family hx ALLERGIES: Please see below. REVIEW OF SYSTEMS: CONSTITUTIONAL: patient denies fevers, chills HEENT: patient denies blurred vision, loss of vision, headache,. CARDIOVASCULAR: patient denies chest pain, palpitations. RESPIRATORY: patient denies shortness of breath, cough, hemoptysis. GASTROINTESTINAL: patient denies abdominal pain, n/v/d, blood in stool. GENITOURINARY: patient denies dysuria, discharge. SKIN: patient denies rashes. MUSCULOSKELETAL: patient denies joint pain, neck pain. NEUROLOGICAL: patient denies focal weakness, numbness, seizures. PSYCHIATRIC: patient denies SI/HI. ENDOCRINE: patient denies polyuria, heat intolerance, cold intolerance. HEMATOLOGIC/LYMPHATIC: patient denies easy bruising.. HOME MEDICATIONS: Please see below. PHYSICAL EXAMINATION: VITAL SIGNS: please see below General: NAD, comfortable HEENT: PERRLA, EOMI, sclerae clear Neck: supple, normal ROM, no JVD Respiratory: reduced air entry, no wheeze, no rales, no crackles CVS: RRR, normal S1, S2, no murmurs Abdo: soft, no masses, no hepatosplenomegaly, BS+, no rebound tenderness Extremities: no edema, pulses 2+ MSK: no joint deformities, normal ROM Neuro: no focal neuro deficits, moving all 4 extremities, CN2-12 intact. Strength 5/5 in all 4 extremities. No nystagmus. Psych: calm, cooperative, AAO x 3 LABORATORY DATA: See below. IMAGING: CXR (04/12/20): TECHNIQUE: Single AP view performed portably with the patient sitting. FINDINGS: There is a new infiltrate inferomedially in the right lung, as an interval change. There is diffuse mild interstitial coarsening as an interval change. There are no pleural effusions. Cardiac size is mildly enlarged, unchanged. Sternotomy wires and cardiac valve prosthesis are unchanged. IMPRESSION: No infiltrate inferomedially in the right lung. Mild diffuse interstitial coarsening. MICROBIOLOGY: Please see below. ASSESSMENT: 79 yo F with a hx of CAD, . PLAN: #Acute hypoxic respiratory failure #COVID-19 infection: requires 10L NRB. IV dexamethasone 6 mg daily. Remdesevir. Monitor inflammatory markers. #RLL CAP: seen on CXR. continue azithromycin 250 mg PO daily x 5 days. #COPD: uses 2L NC in [place]. duonebs prn. symbicort. #paroxysmal atrial fibrillation: rate controlled. AC with eliquis 2.5 mg PO bid. Metoprolol 12.5 mg PO bid #CKD 3: Cr. 0.79. stable. monitor. avoid nephrotoxins. #Anemia: stable. c/w PO iron daily. #CAD: continue with ASA, metoprolol, statin #CHF: continue home meds. Lasix 20 mg daily. Metoprolol 12.5 mg PO bid. #Depression: sertraline 100 mg PO daily #Vit D deficiency: c/w Vit D daily replacement #Constipation: senna, dulcolax DVT ppx: AC on eliquis. Vital Signs Vital Signs Date Time Temp Pulse Resp B/P (MAP) Pulse Ox O2 Delivery O2 Flow Rate FiO2 04/12/20 18:30 100/58 (72) 04/12/20 18:10 87 95 04/12/20 17:02 Non-Rebreather 15.0 100 04/12/20 16:31 99.1 28 Laboratory Data Labs 24H Laboratory Tests 2 04/12/20 16:41: Immature Granulocyte % (Auto) 0.8, Neutrophils (%) (Auto) 85.5H, Lymphocytes (%) (Auto) 9.9L, Monocytes (%) (Auto) 3.6, Eosinophils (%) (Auto) 0.0, Basophils (%) (Auto) 0.2, Neutrophils # (Auto) 4.0, Lymphocytes # (Auto) 0.5L, Monocytes # (Auto) 0.2, Eosinophils # (Auto) 0.0, Basophils # (Auto) 0.0, Nucleated Red Blood Cells % (auto) 0.0, Blood Gas Bicarbonate Standard 28.2, Venous Blood pH 7.359, Venous Blood Partial Pressure CO2 56.3H, Venous Blood Partial Pressure O2 135.7H, Venous Blood Total Carbon Dioxide 32.7H, Venous Blood HCO3 31.0H, Venous Blood Oxygen Saturation 98.8H, Venous Blood Base Excess 4.2H 04/12/20 16:42: Anion Gap 4L, Glomerular Filtration Rate > 60.0, Calcium Level 8.4L, Total Bili hernández 0.3, Direct Bilirubin 0.1, Aspartate Amino Transf (AST/SGOT) 22, Alanine Aminotransferase (ALT/SGPT) 16, Alkaline Phosphatase 63, Total Creatine Kinase 48, Creatine Kinase MB < 1.0, Creatine Kinase MB Relative Index 2.08, Troponin I < 0.02, [id number]-Type Natriuretic Peptide 108, Total Protein 6.8, Albumin 2.9L, Albumin/Globulin Ratio 0.7L 04/12/20 16:50: Prothrombin Time 19.0H, Prothromb Time International Ratio 1.56, Lactic Acid Level 0.8 CBC/BMP Laboratory Tests 04/12/20 16:41 04/12/20 16:42 Microbiology Microbiology 04/12/20 Blood Culture, Received Pending Home Medications Scheduled Acetaminophen (Acetaminophen 8 Hour) 650 Mg Tablet.er, 650 MG PO QHS Apixaban (Eliquis) 2.5 Mg Tablet, 2.5 MG PO BID Ascorbic Acid (Vitamin C) 500 Mg Tablet, 500 MG PO DAILY Aspirin (Aspirin EC) 81 Mg Tablet.dr, 81 MG PO DAILY Azithromycin (Azithromycin) 250 Mg Tablet, 250 MG PO QHS STARTED ON 04/09/2020 Bacitracin/Polymyxin B Sulfate (Polysporin Ointment) 28.3 Gm Oint...g., 1 DOSE NA BID Budesonide/Formoterol (Symbicort 160-4.5 Mcg Inhaler) 6 Gm Hfa.aer.ad, 2 PUFF INH BID Cholecalciferol (Vitamin D3) (Vitamin D3) 1,000 Unit Tablet, 1,000 UNITS PO DAILY TAKES AT 1200 Famotidine (Famotidine) 20 Mg Tablet, 20 MG PO DAILY Ferrous Gluconate (Ferrous Gluconate) 324 Mg Tablet, 324 MG PO DAILY Furosemide (Furosemide) 20 Mg Tablet, 20 MG PO DAILY Lactose-Reduced Food (Ensure Enlive) 237 Ml Liquid, 180 ML PO DAILY TAKES AT 1400 Melatonin (Melatonin) 5 Mg Capsule, 5 MG PO QHS Metaxalone (Metaxalone) 400 Mg Tablet, 400 MG PO BID Metoprolol Tartrate (Metoprolol Tartrate) 25 Mg Tablet, 12.5 MG PO BID Multivitamins (Thera M Plus Tablet) 1 Each Tablet, 1 TAB PO DAILY Potassium Chloride (Potassium Chloride) 10 Meq Tab.er.prt, 20 MEQ PO 3XW SATURDAY, SATURDAY AND SATURDAY, GAVE 40MEQ ON LAST DOSE ONE TIME ORDER Prednisone (Prednisone) 20 Mg Tablet, 40 MG PO DAILY Ropinirole HCl (Ropinirole HCl) 1 Mg Tablet, 1 MG PO BID Sennosides (Senna) 8.6 Mg Tablet, 8.6 MG PO DAILY Sertraline HCl (Sertraline HCl) 100 Mg Tablet, 100 MG PO DAILY Simvastatin (Simvastatin) 40 Mg Tablet, 40 MG PO QHS Sodium Chloride (Saline Nasal Index) 44 Ml Index, 1 SPRAY NA QID Zinc Gluconate (Zinc) 50 Mg Tablet, 50 MG PO DAILY Scheduled PRN Acetaminophen (Acetaminophen) 325 Mg Tablet, 650 MG PO Q4H PRN for PAIN / FEVER Bisacodyl (Dulcolax) 10 Mg Supp.rect, 10 MG AR DAILY PRN for CONSTIPATION Methyl Salicylate/Menthol (Bengay Greaseless Cream) 57 Gm Cream..g., 1 DOSE EXT QID PRN for PAIN APPLY TO PAINFUL JOINTS Milk Of Magnesia (Milk of Magnesia) 2,400 Mg/10 Ml Oral.susp, 10 ML PO DAILY PRN for CONSTIPATION Ondansetron HCl (Ondansetron HCl) 4 Mg Tablet, 4 MG PO Q8H PRN for NAUSEA OR VOMITING Sodium Phosphate,Cass-Dibasic (Enema) 133 Ml Enema, 1 ERASTO AR DAILY PRN for CONSTIPATION Allergies Coded Allergies: No Known Allergies (Unverified , 11/07/18) A-FIB/CHADSVASC A-FIB History Current/History of A-Fib/PAF?: No Current PO Anticoag Therapy: No CHUCK MARRUFO MD Apr 12, 2020 18:58
[2020-04-12 20:41] LABS: C REACTIVE PROTEIN QUANTITATIV 3.58 MG/DL (0.00-0.30); LDH LACTATE DEHYDROGENASE 222 U/L (84-246)
[2020-04-12 21:04] LABS: ERYTHROCYTE SEDIMENTATION RATE 54 mm/hr (0-30)
[2020-04-12] MEDS ORDERED: PRED20TA PO (21:27)
[2020-04-12] MEDS ORDERED: ONDA-195 PO (21:27)
[2020-04-12] MEDS ORDERED: ASPI-161 PO (21:27)
[2020-04-12 21:50] LABS: PARTIAL THROMBOPLASTIN TIME 34.2 SECONDS (24.2-38.5)
[2020-04-12 21:52] LABS: D-DIMER QUANT 2177.43 ng/ml (<500)
[2020-04-12] MEDS ORDERED: ELIQ2.5T PO (22:03)
[2020-04-12] MEDS ORDERED: ZINC50TA26 PO (22:03)
[2020-04-12] MEDS ORDERED: SERT-138 PO (22:03)
[2020-04-12] MEDS ORDERED: SYMB16INH INH (22:03)
[2020-04-12] MEDS ORDERED: D31000TA2 PO (22:03)
[2020-04-12] MEDS ORDERED: BENG1CRE3 EXT (22:03)
[2020-04-12] MEDS ORDERED: BACI28.3 (22:03)
[2020-04-12] MEDS ORDERED: META400T PO (22:03)
[2020-04-12] MEDS ORDERED: SIMV40TA20 PO (22:03)
[2020-04-12] MEDS ORDERED: C 50TAB PO (22:03)
[2020-04-12] MEDS ORDERED: FERR32TA PO (22:03)
[2020-04-12] MEDS ORDERED: AZIT-10 PO (22:03)
[2020-04-12] MEDS ORDERED: POTA10TA67 PO (22:03)
[2020-04-12] MEDS ORDERED: QC A650T3 PO (22:03)
[2020-04-12] MEDS ORDERED: HM S0.65 (22:03)
[2020-04-12 22:29] VITALS: BP 135/67
[2020-04-12] MEDS: rOPINIRole 1MG TAB PO SCH (22:56)
[2020-04-12] MEDS: SIMVASTATIN 40 MG TAB PO SCH (22:56)
[2020-04-12] MEDS: APIXABAN 2.5 MG TAB (ELIQUIS) PO SCH (22:56)
[2020-04-12] MEDS: METOPROLOL TART 12.5 MG PER 1/2 TAB PO SCH (22:56)
[2020-04-12] MEDS: dexameTHASONE 4 MG/ML 1ML VIAL (J1100 PER 1MG) IV SCH (22:56)
[2020-04-12] MEDS ORDERED: BISACODYL 10 MG SUPP PR PRN (23:00)
[2020-04-12] MEDS ORDERED: SODIUM CHLORIDE 0.9% INJ 10 ML SYR IV ONE (23:00)
[2020-04-12] MEDS ORDERED: MOM 30ML SUSPENSION UDC PO PRN (23:00)
[2020-04-13] MEDS: AZITHROMYCIN 250MG TABLET PO SCH ×2 (01:01→21:13)
[2020-04-13] MEDS: SYMBICORT 160/4.5MCG INHALER 6GM INH SCH ×3 (01:33→20:18)
[2020-04-13 03:25] VITALS: BP 132/64
[2020-04-13 07:22] LABS: HEMATOCRIT 40.8 % (36.0-47.0); HEMOGLOBIN 12.2 g/dl (12.0-15.5); LYMPH # 0.5 10^3/uL (1.5-5.0); LYMPH % 10.5 % (24.0-44.0); MEAN CORPUSCULAR HEMOGLOBIN 28.2 pg (27.0-33.0); MEAN CORPUSCULAR HGB CONC 29.9 g/dl (32.0-36.5); MEAN CORPUSCULAR VOLUME 94.2 fl (80.0-96.0); MONO # 0.2 10^3/uL (0.0-0.8); MONO % 5.3 % (0.0-5.0); NEUTROPHILS # 3.7 10^3/uL (1.5-8.5); NEUTROPHILS % 83.3 % (36.0-66.0); PLATELET COUNT, AUTOMATED 231 10^3/uL (150-450); RED BLOOD COUNT 4.33 10^6/uL (4.00-5.40); WHITE BLOOD COUNT 4.5 10^3/uL (4.0-10.0)
[2020-04-13 07:29] LABS: INR 1.55; PARTIAL THROMBOPLASTIN TIME 29.2 SECONDS (24.2-38.5); PROTHROMBIN TIME 18.9 SECONDS (12.5-14.3)
[2020-04-13 07:32] LABS: D-DIMER QUANT 2789.83 ng/ml (<500)
[2020-04-13 07:45] LABS: ALBUMIN 2.8 GM/DL (3.2-5.2); ALT/SGPT 15 U/L (12-78); BILIRUBIN,DIRECT < 0.1 MG/DL (0.0-0.2); BILIRUBIN,TOTAL 0.2 MG/DL (0.2-1.0); BLOOD UREA NITROGEN 20 MG/DL (7-18); C REACTIVE PROTEIN QUANTITATIV 2.58 MG/DL (0.00-0.30); CALCIUM LEVEL 8.2 MG/DL (8.8-10.2); CARBON DIOXIDE LEVEL 29 MEQ/L (21-32); CHLORIDE LEVEL 111 MEQ/L (98-107); FERRITIN 131 NG/ML (8-252); GLOMERULAR FILTRATION RATE > 60.0 (>39); GLUCOSE, FASTING 132 MG/DL (70-100); NT-PRO BNP 172 PG/ML (<450); SODIUM LEVEL 144 MEQ/L (136-145); TOTAL PROTEIN 6.6 GM/DL (6.4-8.2); TROPONIN I < 0.02 NG/ML (< 0.10)
--- NOTE | 2020-04-13 08:38 | ECGEPIP ---
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
[2020-04-13] MEDS ORDERED: POTASSIUM CHLORIDE 10 MEQ SR TABLET PO SCH (09:00)
[2020-04-13] MEDS: POTASSIUM CHLORIDE 10 MEQ SR TABLET PO SCH (09:23)
[2020-04-13] MEDS: MULTIVITAMINS/MINERALS THERAP 1 TAB PO SCH (09:23)
[2020-04-13] MEDS: SENNA 8.6 MG TAB (SENOKOT) PO SCH (09:23)
[2020-04-13] MEDS: APIXABAN 2.5 MG TAB (ELIQUIS) PO SCH ×2 (09:23→21:14)
[2020-04-13] MEDS: rOPINIRole 1MG TAB PO SCH ×2 (09:24→21:14)
[2020-04-13] MEDS: ASPIRIN 81 MG ENTERIC TAB PO SCH (09:24)
[2020-04-13] MEDS: METOPROLOL TART 12.5 MG PER 1/2 TAB PO SCH ×2 (09:26→21:16)
[2020-04-13] MEDS: FERROUS GLUCONATE 324 MG TAB PO SCH (09:27)
[2020-04-13] MEDS: SODIUM CHLORIDE NASAL 0.65% SPRAY BTL (OCEAN) SCH ×5 (09:27→21:15)
[2020-04-13] MEDS: ASCORBIC ACID 500 MG TAB PO SCH (09:27)
[2020-04-13] MEDS: FUROSEMIDE 20 MG TAB PO SCH (09:27)
[2020-04-13] MEDS: FAMOTIDINE 20 MG TAB PO SCH (09:27)
[2020-04-13] MEDS: SERTRALINE 100 MG TAB PO SCH (09:27)
[2020-04-13] MEDS: NYSTATIN 100,000 UNITS/GM TOPICAL PWD 15 GM TOP SCH ×3 (09:28→21:15)
[2020-04-13 09:53] VITALS: O2SAT 91
[2020-04-13] MEDS: VITAMIN D 1,000 INTERNATIONAL UNITS TABLET PO SCH (12:10)
[2020-04-13 14:00] VITALS: BP 122/64
[2020-04-13 20:00] VITALS: BP 122/59
[2020-04-13] MEDS: RAMELTEON 8 MG TAB (ROZEREM) PO SCH ×2 (21:13)
[2020-04-13] MEDS: dexameTHASONE 4 MG/ML 1ML VIAL (J1100 PER 1MG) IV SCH (21:13)
[2020-04-13] MEDS: SIMVASTATIN 40 MG TAB PO SCH (21:14)
--- NOTE | 2020-04-13 21:33 | IPNPDOC ---
Date Seen The patient was seen on 04/13/20. Progress Note SUBJECTIVE: patient was seen and examined at bedside. No acute events overnight. No on 6L high flow O2, saturating between 92-96%. OBJECTIVE PHYSICAL EXAMINATION: General: NAD, comfortable HEENT: PERRLA, EOMI, sclerae clear Neck: supple, normal ROM, no JVD Respiratory: reduced air entry, no wheeze, no rales, no crackles CVS: RRR, normal S1, S2, no murmurs Abdo: soft, no masses, no hepatosplenomegaly, BS+, no rebound tenderness Extremities: no edema, pulses 2+ MSK: no joint deformities, normal ROM Neuro: no focal neuro deficits, moving all 4 extremities, CN2-12 intact. Strength 5/5 in all 4 extremities. No nystagmus. Psych: calm, cooperative, AAO x 3 LABORATORY DATA, IMAGING STUDIES, MICROBIOLOGY: Please see below. DVT prophylaxis ordered?: on eliquis Plan: #Covid infection: reduced O2 requirement, now on 6L. Saturating 92-95%. IV dexamethasone 6 mg daily. Remdesevir. Monitor inflammatory markers. #RLL CAP: seen on CXR. continue azithromycin 250 mg PO daily x 5 days total th rough 04/14/20. #COPD: uses 2L NC in NH. duonebs prn. symbicort. #paroxysmal atrial fibrillation: rate controlled. AC with eliquis 2.5 mg PO bid. Metoprolol 12.5 mg PO bid #CKD 3: Cr. 0.79. stable. monitor. avoid nephrotoxins. #Anemia: stable. c/w PO iron daily. #CAD: continue with ASA, metoprolol, statin #CHF: continue home meds. Lasix 20 mg daily. Metoprolol 12.5 mg PO bid. #Depression: sertraline 100 mg PO daily #Vit D deficiency: c/w Vit D daily replacement #Constipation: senna, dulcolax VS, I&O, 24H, Fishbone Vital Signs/I&O Vital Signs Date Time Temp Pulse Resp B/P (MAP) Pulse Ox O2 Delivery O2 Flow Rate FiO2 04/13/20 21:16 70 122/59 04/13/20 16:00 6.0 04/13/20 14:00 96.4 22 96 High Flow Cannula 04/12/20 17:02 100 Laboratory Data 24H LABS Laboratory Tests 2 04/13/20 07:07: Immature Granulocyte % (Auto) 0.9, Neutrophils (%) (Auto) 83.3H, Lymphocytes (%) (Auto) 10.5L, Monocytes (%) (Auto) 5.3H, Eosinophils (%) (Auto) 0.0, Basophils ( %) (Auto) 0.0, Neutrophils # (Auto) 3.7, Lymphocytes # (Auto) 0.5L, Monocytes # (Auto) 0.2, Eosinophils # (Auto) 0.0, Basophils # (Auto) 0.0, Nucleated Red Blood Cells % (auto) 0.0, Prothrombin Time 18.9H, Prothromb Time International Ratio 1.55, Activated Partial Thromboplast Time 29.2, Fibrinogen 407, D-Dimer, Quantitative 2789.83H, Anion Gap 4L, Glomerular Filtration Rate > 60.0, Calcium Level 8.2L, Magnesium Level 2.0, Ferritin 131, Total Bilirubin 0.2, Direct Bilirubin < 0.1, Aspartate Amino Transf (AST/SGOT) 25, Alanine Aminotransferase (ALT/SGPT) 15, Alkaline Phosphatase 59, Troponin I < 0.02, C-Reactive Protein, Quantitative 2.58H, [id number]-Type Natriuretic Peptide 172, Total Protein 6.6, Albumin 2.8L, Albumin/Globulin Ratio 0.7L, Procalcitonin <0.05 CBC/BMP Laboratory Tests 04/13/20 07:07 Microbiology Microbiology 04/12/20 Blood Culture - Preliminary, Resulted No growth after 24 hours . All specim... CHUCK MARRUFO MD Apr 13, 2020 21:33
[2020-04-13] MEDS: SODIUM CHLORIDE 0.9% INJ 10 ML SYR IV SCH (22:43)
[2020-04-14] VITALS: BP 98/50
[2020-04-14 04:08] VITALS: BP 101/50
[2020-04-14 08:00] VITALS: BP 102/50
[2020-04-14] MEDS: SYMBICORT 160/4.5MCG INHALER 6GM INH SCH (09:16)
[2020-04-14] MEDS: FERROUS GLUCONATE 324 MG TAB PO SCH (09:17)
[2020-04-14] MEDS: ASCORBIC ACID 500 MG TAB PO SCH (09:17)
[2020-04-14] MEDS: FAMOTIDINE 20 MG TAB PO SCH (09:17)
[2020-04-14] MEDS: MULTIVITAMINS/MINERALS THERAP 1 TAB PO SCH (09:17)
[2020-04-14] MEDS: SERTRALINE 100 MG TAB PO SCH (09:17)
[2020-04-14] MEDS: rOPINIRole 1MG TAB PO SCH ×2 (09:17→20:49)
[2020-04-14] MEDS: SENNA 8.6 MG TAB (SENOKOT) PO SCH (09:17)
[2020-04-14] MEDS: ASPIRIN 81 MG ENTERIC TAB PO SCH (09:17)
[2020-04-14] MEDS: APIXABAN 2.5 MG TAB (ELIQUIS) PO SCH ×2 (09:17→20:49)
[2020-04-14] MEDS: SODIUM CHLORIDE NASAL 0.65% SPRAY BTL (OCEAN) SCH ×4 (09:21→20:57)
[2020-04-14] MEDS: NYSTATIN 100,000 UNITS/GM TOPICAL PWD 15 GM TOP SCH ×2 (09:21→20:57)
[2020-04-14 09:49] LABS: ALBUMIN 2.8 GM/DL (3.2-5.2); ALT/SGPT 16 U/L (12-78); BILIRUBIN,DIRECT 0.1 MG/DL (0.0-0.2); BILIRUBIN,TOTAL 0.3 MG/DL (0.2-1.0); CPK CREATINE PHOSPHOKINASE 62 U/L (26-192); FERRITIN 109 NG/ML (8-252); LDH LACTATE DEHYDROGENASE 272 U/L (84-246); TOTAL PROTEIN 6.6 GM/DL (6.4-8.2); TROPONIN I < 0.02 NG/ML (< 0.10)
[2020-04-14 10:08] LABS: INR 1.55; PROTHROMBIN TIME 18.9 SECONDS (12.5-14.3)
[2020-04-14 10:09] LABS: PARTIAL THROMBOPLASTIN TIME 29.1 SECONDS (24.2-38.5)
[2020-04-14 10:11] LABS: D-DIMER QUANT 2472.57 ng/ml (<500)
[2020-04-14] MEDS: FUROSEMIDE 20 MG TAB PO SCH (11:05)
[2020-04-14 12:00] VITALS: BP 108/60
[2020-04-14] MEDS: METOPROLOL TART 12.5 MG PER 1/2 TAB PO SCH ×2 (12:01→20:56)
[2020-04-14] MEDS: VITAMIN D 1,000 INTERNATIONAL UNITS TABLET PO SCH (12:01)
--- NOTE | 2020-04-14 15:44 | IPNPDOC ---
Date Seen The patient was seen on 04/14/20. Progress Note SUBJECTIVE: patient was seen and examined at bedside. No acute events overnight. 6L high flow O2, saturating between 92-96%. Gets up to go to commode. OBJECTIVE PHYSICAL EXAMINATION: General: NAD, comfortable HEENT: PERRLA, EOMI, sclerae clear Neck: supple, normal ROM, no JVD Respiratory: reduced air entry, no wheeze, no rales, no crackles CVS: RRR, normal S1, S2, no murmurs Abdo: soft, no masses, no hepatosplenomegaly, BS+, no rebound tenderness Extremities: no edema, pulses 2+ MSK: no joint deformities, normal ROM Neuro: no focal neuro deficits, moving all 4 extremities, CN2-12 intact. Strength 5/5 in all 4 extremities. No nystagmus. Psych: calm, cooperative, AAO x 3 LABORATORY DATA, IMAGING STUDIES, MICROBIOLOGY: Please see below. DVT prophylaxis ordered?: on eliquis Plan: #Covid infection: reduced O2 requirement, now on 6L. Saturating 92-95%. IV dexamethasone 6 mg daily. Remdesevir. Monitor inflammatory markers. CRP, D dimer trending down. Fibrinogen wnl. #RLL CAP: seen on CXR. continue azithromycin 250 mg PO daily x 5 days total through 04/14/20. #COPD: uses 2L NC in NH. duonebs prn. symbicort. #paroxysmal atrial fibrillation: rate controlled. AC with eliquis 2.5 mg PO bid. Metoprolol 12.5 mg PO bid #CKD 3: Cr. 0.79. stable. monitor. avoid nephrotoxins. #Anemia: stable. c/w PO iron daily. #CAD: continue with ASA, metoprolol, statin #CHF: continue home meds. Lasix 20 mg daily. Metoprolol 12.5 mg PO bid. #Depression: sertraline 100 mg PO daily #Vit D deficiency: c/w Vit D daily replacement #Constipation: senna, dulcolax VS, I&O, 24H, Fishbone Vital Signs/I&O Vital Signs Date Time Temp Pulse Resp B/P (MAP) Pulse Ox O2 Delivery O2 Flow Rate FiO2 04/14/20 12:01 71 108/60 04/14/20 12:00 8.0 04/14/20 12:00 97.2 22 91 High Flow Cannula 04/12/20 17:02 100 I&O- Last 24 Hours up to 6 AM 04/14/20 06:00 Intake Total 1115 ml Output Total 0 ml Balance 1115 ml Laboratory Data 24H LABS Laboratory Tests 2 04/14/20 08:56: Prothrombin Time 18.9H, Prothromb Time International Ratio 1.55, Activated Partial Thromboplast Time 29.1, Fibrinogen 348, D-Dimer, Quantitative 2472.57H, Ferritin 109, Total Bilirubin 0.3, Direct Bilirubin 0.1, Aspartate Amino Transf (AST/SGOT) 25, Alanine Aminotransferase (ALT/SGPT) 16, Alkaline Phosphatase 62, Lactate Dehydrogenase 272H, Total Creatine Kinase 62, Troponin I < 0.02, C- Reactive Protein, Quantitative 1.40H, Total Protein 6.6, Albumin 2.8L, Albumin/Globulin Ratio 0.7L Microbiology Microbiology 04/12/20 Blood Culture - Preliminary, Resulted No growth after 24 hours . All specim... CHUCK MARRUFO MD Apr 14, 2020 15:44
[2020-04-14 17:53] VITALS: BP 105/54
[2020-04-14] MEDS: RAMELTEON 8 MG TAB (ROZEREM) PO SCH (20:49)
[2020-04-14] MEDS: SIMVASTATIN 40 MG TAB PO SCH (20:49)
[2020-04-14] MEDS: dexameTHASONE 4 MG/ML 1ML VIAL (J1100 PER 1MG) IV SCH (20:53)
[2020-04-14 20:54] VITALS: BP 105/75
[2020-04-15] VITALS (8 sets, daily range): BP systolic 100–135; BP diastolic 52–84
[2020-04-15 06:52] LABS: HEMATOCRIT 38.5 % (36.0-47.0); HEMOGLOBIN 11.2 g/dl (12.0-15.5); MEAN CORPUSCULAR HEMOGLOBIN 26.9 pg (27.0-33.0); MEAN CORPUSCULAR HGB CONC 29.1 g/dl (32.0-36.5); MEAN CORPUSCULAR VOLUME 92.3 fl (80.0-96.0); PLATELET COUNT, AUTOMATED 271 10^3/uL (150-450); RED BLOOD COUNT 4.17 10^6/uL (4.00-5.40); WHITE BLOOD COUNT 5.7 10^3/uL (4.0-10.0)
[2020-04-15 07:13] LABS: BLOOD UREA NITROGEN 27 MG/DL (7-18); CALCIUM LEVEL 8.2 MG/DL (8.8-10.2); CARBON DIOXIDE LEVEL 28 MEQ/L (21-32); CHLORIDE LEVEL 111 MEQ/L (98-107); CREATININE FOR GFR 0.67 MG/DL (0.55-1.30); GLOMERULAR FILTRATION RATE > 60.0 (>39); GLUCOSE, FASTING 125 MG/DL (70-100); POTASSIUM SERUM 4.2 MEQ/L (3.5-5.1); SODIUM LEVEL 144 MEQ/L (136-145)
[2020-04-15] MEDS: SYMBICORT 160/4.5MCG INHALER 6GM INH SCH ×3 (07:41→20:28)
[2020-04-15] MEDS: SODIUM CHLORIDE 0.9% INJ 10 ML SYR IV SCH ×2 (07:42→21:12)
[2020-04-15 08:24] LABS: LDH LACTATE DEHYDROGENASE 241 U/L (84-246)
[2020-04-15] MEDS: METOPROLOL TART 12.5 MG PER 1/2 TAB PO SCH ×2 (09:00→21:13)
[2020-04-15] MEDS: FUROSEMIDE 20 MG TAB PO SCH (09:00)
[2020-04-15] MEDS: FERROUS GLUCONATE 324 MG TAB PO SCH (09:04)
[2020-04-15] MEDS: SENNA 8.6 MG TAB (SENOKOT) PO SCH (09:04)
[2020-04-15] MEDS: FAMOTIDINE 20 MG TAB PO SCH (09:04)
[2020-04-15] MEDS: ASCORBIC ACID 500 MG TAB PO SCH (09:04)
[2020-04-15] MEDS: APIXABAN 2.5 MG TAB (ELIQUIS) PO SCH (09:04)
[2020-04-15] MEDS: rOPINIRole 1MG TAB PO SCH ×2 (09:05→21:10)
[2020-04-15] MEDS: POTASSIUM CHLORIDE 10 MEQ SR TABLET PO SCH (09:05)
[2020-04-15] MEDS: SERTRALINE 100 MG TAB PO SCH (09:05)
[2020-04-15] MEDS: ASPIRIN 81 MG ENTERIC TAB PO SCH (09:05)
[2020-04-15] MEDS: NYSTATIN 100,000 UNITS/GM TOPICAL PWD 15 GM TOP SCH ×2 (09:06→21:11)
[2020-04-15] MEDS: MULTIVITAMINS/MINERALS THERAP 1 TAB PO SCH (09:06)
[2020-04-15] MEDS: SODIUM CHLORIDE NASAL 0.65% SPRAY BTL (OCEAN) SCH ×4 (09:07→21:11)
--- NOTE | 2020-04-15 11:20 | IPNPDOC ---
Date Seen The patient was seen on 04/15/20. Progress Note SUBJECTIVE: Patient was seen and examined. Overnight. She was afebrile. However, she requires a liters of oxygen via high flow cannula to oxygenation above 91%. She has no acute physical complaints right now. She is comfortable lying in bed. she has shallow breath and appears to be mildly tachypneic. OBJECTIVE PHYSICAL EXAMINATION: General: NAD, comfortable HEENT: PERRLA, EOMI, sclerae clear Neck: supple, normal ROM, no JVD Respiratory: reduced air entry, no wheeze, no rales, no crackles CVS: RRR, normal S1, S2, no murmurs Abdo: soft, no masses, no hepatosplenomegaly, BS+, no rebound tenderness Extremities: no edema, pulses 2+ MSK: no joint deformities, normal ROM Neuro: no focal neuro deficits, moving all 4 extremities, CN2-12 intact. Strength 5/5 in all 4 extremities. No nystagmus. Psych: calm, cooperative, AAO x 3 LABORATORY DATA, IMAGING STUDIES, MICROBIOLOGY: Please see below. DVT prophylaxis ordered?: on eliquis Plan: #Covid infection: reduced O2 requirement, now on 8L high flow (up from 6L). Saturating 90-92% IV dexamethasone 6 mg daily. Remdesevir. Monitor inflammatory markers. Monitor inflammatory markers. Check venous duplex bilateral LEs. #RLL CAP: seen on CXR. continue azithromycin 250 mg PO daily x 5 days total through 04/14/20. #COPD: uses 2L [place] in [place]. duonebs prn. symbicort. #paroxysmal atrial fibrillation: rate controlled. AC with eliquis. Metoprolol 12.5 mg PO bid. I discussed with pharmacy, patient is on 2.5 mg PO daily of eliquis at present, however no indication not to use 5 mg BID dosing. Increased to full AC with eliquis 5 mg daily. Inflammatory markers elevated given COVID, patient is hypercoagulable at risk for PE. #CKD 3: Cr. 0.79. stable. monitor. avoid nephrotoxins. #Anemia: stable. c/w PO iron daily. #CAD: continue with ASA, metoprolol, statin #CHF: continue home meds. Lasix 20 mg daily. Metoprolol 12.5 mg PO bid. #Depression: sertraline 100 mg PO daily #Vit D deficiency: c/w Vit D daily replacement #Constipation: senna, dulcolax Dispo: prognosis is poor, given COPD and ongoing increased O2 requirement. I have been trying to contact the patient's Norman Howard using telephone numbers listed in EMR without success. VS, I&O, 24H, Fishbone Vital Signs/I&O Vital Signs Date Time Temp Pulse Resp B/P (MAP) Pulse Ox O2 Delivery O2 Flow Rate FiO2 04/15/20 09:14 36 72 High Flow Cannula 8.0 04/15/20 09:00 58 110/52 04/15/20 08:34 96.7 04/12/20 17:02 100 I&O- Last 24 Hours up to 6 AM 04/15/20 06:00 Intake Total 660 ml Output Total 100 ml Balance 560 ml Laboratory Data 24H LABS Laboratory Tests 2 04/15/20 06:34: Nucleated Red Blood Cells % (auto) 0.0, Anion Gap 5L, Glomerular Filtration Rate > 60.0, Calcium Level 8.2L, Lactate Dehydrogenase 241 CBC/BMP Laboratory Tests 04/15/20 06:34 Microbiology Microbiology 04/12/20 Blood Culture - Preliminary, Resulted No Growth after 48 hours. All Specime... CHUCK MARRUFO MD Apr 15, 2020 11:20
[2020-04-15] MEDS: VITAMIN D 1,000 INTERNATIONAL UNITS TABLET PO SCH (12:20)
--- NOTE | 2020-04-15 16:53 | REP ---
INDICATION: d/o DVT, covid+ COMPARISON: 12/25/2013. TECHNIQUE: Real time compression and duplex Doppler interrogation of the bilateral lower extremity deep venous system is performed. FINDINGS: Bilaterally, the common femoral, superficial femoral and popliteal veins are fully compressible with transducer pressure and demonstrate normal spontaneous and phasic flow, without evidence of deep venous thrombosis. Incidental note is made of occlusion of the origin of the right superficial femoral artery with reconstitution of the distal superficial femoral artery. IMPRESSION: No evidence of deep venous thrombosis of the bilateral lower extremity femoral popliteal venous system. <Electronically signed by Robel Qureshi > 04/15/20 [id number]
[2020-04-15] MEDS: RAMELTEON 8 MG TAB (ROZEREM) PO SCH (21:09)
[2020-04-15] MEDS: APIXABAN 5 MG TAB (ELIQUIS) PO SCH (21:10)
[2020-04-15] MEDS: SIMVASTATIN 40 MG TAB PO SCH (21:10)
[2020-04-16 03:12] VITALS: BP 118/65
[2020-04-16 06:26] LABS: BASO % 0.4 % (0.0-1.0); EOS # 0.1 10^3/uL (0.0-0.5); EOS % 1.1 % (0.0-3.0); HEMATOCRIT 38.2 % (36.0-47.0); HEMOGLOBIN 11.2 g/dl (12.0-15.5); LYMPH % 17.1 % (24.0-44.0); MEAN CORPUSCULAR HEMOGLOBIN 27.1 pg (27.0-33.0); MEAN CORPUSCULAR HGB CONC 29.3 g/dl (32.0-36.5); MEAN CORPUSCULAR VOLUME 92.3 fl (80.0-96.0); MONO # 0.5 10^3/uL (0.0-0.8); MONO % 9.4 % (0.0-5.0); NEUTROPHILS # 3.9 10^3/uL (1.5-8.5); NEUTROPHILS % 69.5 % (36.0-66.0); PLATELET COUNT, AUTOMATED 272 10^3/uL (150-450); RED BLOOD COUNT 4.14 10^6/uL (4.00-5.40); WHITE BLOOD COUNT 5.7 10^3/uL (4.0-10.0)
[2020-04-16 06:39] LABS: INR 1.75; PROTHROMBIN TIME 20.8 SECONDS (12.5-14.3)
[2020-04-16 06:40] LABS: PARTIAL THROMBOPLASTIN TIME 36.5 SECONDS (24.2-38.5)
[2020-04-16 06:43] LABS: D-DIMER QUANT 2554.73 ng/ml (<500)
[2020-04-16 06:48] LABS: ALBUMIN 2.6 GM/DL (3.2-5.2); ALT/SGPT 18 U/L (12-78); BILIRUBIN,TOTAL 0.2 MG/DL (0.2-1.0); BLOOD UREA NITROGEN 25 MG/DL (7-18); CALCIUM LEVEL 8.2 MG/DL (8.8-10.2); CARBON DIOXIDE LEVEL 28 MEQ/L (21-32); CHLORIDE LEVEL 112 MEQ/L (98-107); CREATININE FOR GFR 0.69 MG/DL (0.55-1.30); GLOMERULAR FILTRATION RATE > 60.0 (>39); GLUCOSE, FASTING 88 MG/DL (70-100); NT-PRO BNP 425 PG/ML (<450); POTASSIUM SERUM 4.1 MEQ/L (3.5-5.1); SODIUM LEVEL 144 MEQ/L (136-145); TOTAL PROTEIN 5.9 GM/DL (6.4-8.2); TROPONIN I < 0.02 NG/ML (< 0.10)
[2020-04-16 08:00] VITALS: BP 110/57
[2020-04-16] MEDS: SYMBICORT 160/4.5MCG INHALER 6GM INH SCH ×2 (08:11→20:00)
[2020-04-16] MEDS: rOPINIRole 1MG TAB PO SCH ×2 (08:44→19:58)
[2020-04-16] MEDS: FERROUS GLUCONATE 324 MG TAB PO SCH (08:44)
[2020-04-16] MEDS: FAMOTIDINE 20 MG TAB PO SCH (08:44)
[2020-04-16] MEDS: FUROSEMIDE 20 MG TAB PO SCH (08:44)
[2020-04-16] MEDS: ASCORBIC ACID 500 MG TAB PO SCH (08:44)
[2020-04-16] MEDS: MULTIVITAMINS/MINERALS THERAP 1 TAB PO SCH (08:44)
[2020-04-16] MEDS: APIXABAN 5 MG TAB (ELIQUIS) PO SCH ×2 (08:45→19:58)
[2020-04-16] MEDS: ASPIRIN 81 MG ENTERIC TAB PO SCH (08:45)
[2020-04-16] MEDS: SERTRALINE 100 MG TAB PO SCH (08:45)
[2020-04-16] MEDS: SENNA 8.6 MG TAB (SENOKOT) PO SCH (08:45)
[2020-04-16] MEDS: METOPROLOL TART 12.5 MG PER 1/2 TAB PO SCH ×2 (08:45→19:58)
[2020-04-16] MEDS: SODIUM CHLORIDE NASAL 0.65% SPRAY BTL (OCEAN) SCH ×4 (08:46→20:00)
[2020-04-16] MEDS: NYSTATIN 100,000 UNITS/GM TOPICAL PWD 15 GM TOP SCH ×2 (08:46→19:59)
[2020-04-16] MEDS: VITAMIN D 1,000 INTERNATIONAL UNITS TABLET PO SCH (12:03)
--- NOTE | 2020-04-16 14:29 | IPNPDOC ---
Date Seen The patient was seen on 04/16/20. Progress Note SUBJECTIVE: Patient was seen and examined. Afebrile overnight. 4LPM, saturating at 89% at rest. She has no acute physical complaints right now. She is comfortable lying in bed. OBJECTIVE PHYSICAL EXAMINATION: General: NAD, comfortable HEENT: PERRLA, EOMI, sclerae clear Neck: supple, normal ROM, no JVD Respiratory: reduced air entry, no wheeze, no rales, no crackles CVS: RRR, normal S1, S2, no murmurs Abdo: soft, no masses, no hepatosplenomegaly, BS+, no rebound tenderness Extremities: no edema, pulses 2+ MSK: no joint deformities, normal ROM Neuro: no focal neuro deficits, moving all 4 extremities, CN2-12 intact. Strength 5/5 in all 4 extremities. No nystagmus. Psych: calm, cooperative, AAO x 3 LABORATORY DATA, IMAGING STUDIES, MICROBIOLOGY: Please see below. DVT prophylaxis ordered?: on eliquis Plan: #Covid infection: reduced O2 requirement, now on 8L high flow (up from 6L). Saturating 90-92% IV dexamethasone 6 mg daily. Remdesevir. Monitor inflammatory markers. Monitor inflammatory markers. Venous duplex b/l negative. CRP Trending down. Dd dimer decreased. Trop negative. Liver enzymed wnl. #RLL CAP: seen on CXR. continue azithromycin 250 mg PO daily x 5 days total through 04/14/20. #COPD: uses 2L [place] in [place]. duonebs prn. symbicort. #paroxysmal atrial fibrillation: rate controlled. AC with eliquis. Metoprolol 12.5 mg PO bid. Eliquis 5 mg BID. Inflammatory markers elevated given COVID, patient is hypercoagulable at risk for PE. #CKD 3: Cr. 0.79. stable. monitor. avoid nephrotoxins. #Anemia: stable. c/w PO iron daily. #CAD: continue with ASA, metoprolol, statin #CHF: continue home meds. Lasix 20 mg daily. Metoprolol 12.5 mg PO bid. #Depression: sertraline 100 mg PO daily #Vit D deficiency: c/w Vit D daily replacement #Constipation: senna, dulcolax Dispo: pending improved oxygenation. I provided updates to her Norman Howard at [phone]. I answered all questions in detail. VS, I&O, 24H, Fishbone Vital Signs/I&O Vital Signs Date Time Temp Pulse Resp B/P (MAP) Pulse Ox O2 Delivery O2 Flow Rate FiO2 04/16/20 12:00 89 Nasal Cannula 4.0 04/16/20 08:45 103 110/57 04/16/20 08:00 98.0 20 04/12/20 17:02 100 I&O- Last 24 Hours up to 6 AM 04/16/20 06:00 Intake Total 330 ml Balance 330 ml Laboratory Data 24H LABS Laboratory Tests 2 04/15/20 19:48: Bedside Glucose (Misc Panel) 100 04/16/20 05:39: Immature Granulocyte % (Auto) 2.5, Neutrophils (%) (Auto) 69.5H, Lymphocytes (%) (Auto) 17.1L, Monocytes (%) (Auto) 9.4H, Eosinophils (%) (Auto) 1.1, Basophils (%) (Auto) 0.4, Neutrophils # (Auto) 3.9, Lymphocytes # (Auto) 1.0L, Monocytes # (Auto) 0.5, Eosinophils # (Auto) 0.1, Basophils # (Auto) 0.0, Nucleated Red Blood Cells % (auto) 0.0, Prothrombin Time 20.8H, Prothromb Time International Ratio 1.75, Activated Partial Thromboplast Time 36.5, Fibrinogen 314, D-Dimer, Quantitative 2554.73H, Anion Gap 4L, Glomerular Filtration Rate > 60.0, Calcium Level 8.2L, Total Bilirubin 0.2, Aspartate Amino Transf (AST/SGOT) 22, Alanine A minotransferase (ALT/SGPT) 18, Alkaline Phosphatase 64, Troponin I < 0.02, C- Reactive Protein, Quantitative 1.20H, ZI-Fng-M-Type Natriuretic Peptide 425, Total Protein 5.9L, Albumin 2.6L, Albumin/Globulin Ratio 0.8L CBC/BMP Laboratory Tests 04/16/20 05:39 Microbiology Microbiology 04/12/20 Blood Culture - Preliminary, Resulted No Growth after 72 hours. All specime... CHUCK MARRUFO MD Apr 16, 2020 14:29
[2020-04-16 16:00] VITALS: BP 100/62
[2020-04-16 19:42] VITALS: BP 97/57
[2020-04-16] MEDS: RAMELTEON 8 MG TAB (ROZEREM) PO SCH (19:58)
[2020-04-16] MEDS: SIMVASTATIN 40 MG TAB PO SCH (19:58)
[2020-04-16] MEDS: SODIUM CHLORIDE 0.9% INJ 10 ML SYR IV SCH (22:00)
[2020-04-17 04:00] VITALS: BP 113/54
[2020-04-17 06:46] LABS: BASO # 0.1 10^3/uL (0.0-0.2); BASO % 0.8 % (0.0-1.0); EOS # 0.1 10^3/uL (0.0-0.5); EOS % 1.3 % (0.0-3.0); HEMATOCRIT 39.9 % (36.0-47.0); HEMOGLOBIN 11.6 g/dl (12.0-15.5); LYMPH # 0.9 10^3/uL (1.5-5.0); LYMPH % 11.1 % (24.0-44.0); MEAN CORPUSCULAR HEMOGLOBIN 26.8 pg (27.0-33.0); MEAN CORPUSCULAR HGB CONC 29.1 g/dl (32.0-36.5); MEAN CORPUSCULAR VOLUME 92.1 fl (80.0-96.0); MONO # 0.7 10^3/uL (0.0-0.8); MONO % 8.4 % (0.0-5.0); NEUTROPHILS # 5.8 10^3/uL (1.5-8.5); NEUTROPHILS % 75.2 % (36.0-66.0); PLATELET COUNT, AUTOMATED 304 10^3/uL (150-450); RED BLOOD COUNT 4.33 10^6/uL (4.00-5.40); WHITE BLOOD COUNT 7.7 10^3/uL (4.0-10.0)
[2020-04-17 06:57] LABS: INR 1.96; PARTIAL THROMBOPLASTIN TIME 37.3 SECONDS (24.2-38.5); PROTHROMBIN TIME 22.8 SECONDS (12.5-14.3)
[2020-04-17 07:20] LABS: BLOOD UREA NITROGEN 25 MG/DL (7-18); CARBON DIOXIDE LEVEL 32 MEQ/L (21-32); CHLORIDE LEVEL 108 MEQ/L (98-107); CREATININE FOR GFR 0.75 MG/DL (0.55-1.30); GLOMERULAR FILTRATION RATE > 60.0 (>39); GLUCOSE, FASTING 92 MG/DL (70-100); POTASSIUM SERUM 3.7 MEQ/L (3.5-5.1); SODIUM LEVEL 143 MEQ/L (136-145)
[2020-04-17 07:21] LABS: ALBUMIN 2.8 GM/DL (3.2-5.2); ALT/SGPT 17 U/L (12-78); BILIRUBIN,TOTAL 0.5 MG/DL (0.2-1.0); C REACTIVE PROTEIN QUANTITATIV 2.55 MG/DL (0.00-0.30); CALCIUM LEVEL 8.7 MG/DL (8.8-10.2); NT-PRO BNP 227 PG/ML (<450); TOTAL PROTEIN 6.2 GM/DL (6.4-8.2); TROPONIN I < 0.02 NG/ML (< 0.10)
[2020-04-17 07:41] VITALS: BP 110/56
[2020-04-17] MEDS: SYMBICORT 160/4.5MCG INHALER 6GM INH SCH ×2 (08:27→20:00)
[2020-04-17] MEDS: SENNA 8.6 MG TAB (SENOKOT) PO SCH (09:00)
[2020-04-17] MEDS: FERROUS GLUCONATE 324 MG TAB PO SCH (09:03)
[2020-04-17] MEDS: APIXABAN 5 MG TAB (ELIQUIS) PO SCH ×2 (09:03→20:09)
[2020-04-17] MEDS: SERTRALINE 100 MG TAB PO SCH (09:03)
[2020-04-17] MEDS: rOPINIRole 1MG TAB PO SCH ×2 (09:03→20:09)
[2020-04-17] MEDS: ASCORBIC ACID 500 MG TAB PO SCH (09:03)
[2020-04-17] MEDS: FAMOTIDINE 20 MG TAB PO SCH (09:03)
[2020-04-17] MEDS: MULTIVITAMINS/MINERALS THERAP 1 TAB PO SCH (09:03)
[2020-04-17] MEDS: ASPIRIN 81 MG ENTERIC TAB PO SCH (09:03)
[2020-04-17] MEDS: FUROSEMIDE 20 MG TAB PO SCH (09:04)
[2020-04-17] MEDS: NYSTATIN 100,000 UNITS/GM TOPICAL PWD 15 GM TOP SCH ×2 (09:04→20:11)
[2020-04-17] MEDS: SODIUM CHLORIDE NASAL 0.65% SPRAY BTL (OCEAN) SCH ×4 (09:04→20:11)
[2020-04-17] MEDS: METOPROLOL TART 12.5 MG PER 1/2 TAB PO SCH ×2 (09:04→20:11)
[2020-04-17] MEDS: VITAMIN D 1,000 INTERNATIONAL UNITS TABLET PO SCH (11:52)
[2020-04-17 15:53] VITALS: BP 111/62
--- NOTE | 2020-04-17 16:34 | IPNPDOC ---
Date Seen The patient was seen on 04/17/20. Progress Note SUBJECTIVE: Patient was seen and examined. Afebrile overnight. 4LPM, saturating at 90% at rest but desaturates on exertion. She has no acute physical complaints right now. She is comfortable lying in bed. OBJECTIVE PHYSICAL EXAMINATION: General: NAD, comfortable HEENT: PERRLA, EOMI, sclerae clear Neck: supple, normal ROM, no JVD Respiratory: reduced air entry, no wheeze, no rales, no crackles CVS: RRR, normal S1, S2, no murmurs Abdo: soft, no masses, no hepatosplenomegaly, BS+, no rebound tenderness Extremities: no edema, pulses 2+ MSK: no joint deformities, normal ROM Neuro: no focal neuro deficits, moving all 4 extremities, CN2-12 intact. Strength 5/5 in all 4 extremities. No nystagmus. Psych: calm, cooperative, AAO x 3 LABORATORY DATA, IMAGING STUDIES, MICROBIOLOGY: Please see below. DVT prophylaxis ordered?: on eliquis Plan: #Covid infection: reduced O2 requirement, improved to 4LPM at 90%. IV dexamethasone 6 mg daily. Remdesevir (EOT 04/17/20). Monitor inflammatory markers. Venous duplex b/l negative. D dimer trending down Trop negative. Liver enzymed wnl. #RLL CAP: seen on CXR. continue azithromycin 250 mg PO daily x 5 days total through 04/14/20. #COPD: uses 2L [place] in [place]. duonebs prn. symbicort. #paroxysmal atrial fibrillation: rate controlled. AC with eliquis. Metoprolol 12.5 mg PO bid. Eliquis 5 mg BID. Inflammatory markers elevated given COVID, patient is hypercoagulable at risk for PE. #CKD 3: Cr. 0.79. stable. monitor. avoid nephrotoxins. #Anemia: stable. c/w PO iron daily. #CAD: continue with ASA, metoprolol, statin #CHF: continue home meds. Lasix 20 mg daily. Metoprolol 12.5 mg PO bid. #Depression: sertraline 100 mg PO daily #Vit D deficiency: c/w Vit D daily replacement #Constipation: senna, dulcolax Dispo: pending improved oxygenation. I provided updates to her Norman Howard at [phone]. I answered all questions in detail. VS, I&O, 24H, Fishbone Vital Signs/I&O Vital Signs Date Time Temp Pulse Resp B/P (MAP) Pulse Ox O2 Delivery O2 Flow Rate FiO2 04/17/20 15:53 97.2 72 18 111/62 (78) 90 Nasal Cannula 3.0 04/12/20 17:02 100 I&O- Last 24 Hours up to 6 AM 04/17/20 06:00 Intake Total 970 ml Balance 970 ml Laboratory Data 24H LABS Laboratory Tests 2 04/17/20 06:09: Immature Granulocyte % (Auto) 3.2H, Neutrophils (%) (Auto) 75.2H, Lymphocytes (%) (Auto) 11.1L, Monocytes (%) (Auto) 8.4H, Eosinophils (%) (Auto) 1.3, Basophils (%) (Auto) 0.8, Neutrophils # (Auto) 5.8, Lymphocytes # (Auto) 0.9L, Monocytes # (Auto) 0.7, Eosinophils # (Auto) 0.1, Basophils # (Auto) 0.1, Nucleated Red Blood Cells % (auto) 0.0, Prothrombin Time 22.8H, Prothromb Time International Ratio 1.96, Activated Partial Thromboplast Time 37.3, Fibrinogen 298, D-Dimer, Quantitative 2021.77H, Anion Gap 3L, Glomerular Filtration Rate > 60.0, Calcium Level 8.7L, Total Bilirubin 0.5#, Aspartate Amino Transf (AST/SGOT) 18, Alanine Aminotransferase (ALT/SGPT) 17, Alkaline Phosphatase 69, Troponin I < 0.02, C-Reactive Protein, Quantitative 2.55H, IH-Uwv-E-Type Natriuretic Peptide 227, Total Protein 6.2L, Albumin 2.8L, Albumin/Globulin Ratio 0.8L CBC/BMP Laboratory Tests 04/17/20 06:09 Microbiology Microbiology 04/12/20 Blood Culture - Preliminary, Resulted No Growth after 72 hours. All specime... CHUCK MARRUFO MD Apr 17, 2020 16:34
[2020-04-17 20:05] VITALS: BP 87/55
[2020-04-17] MEDS: SIMVASTATIN 40 MG TAB PO SCH (20:09)
[2020-04-17] MEDS: RAMELTEON 8 MG TAB (ROZEREM) PO SCH (20:09)
[2020-04-17 22:04] VITALS: BP 101/62
[2020-04-18] VITALS (7 sets, daily range): BP systolic 93–118; BP diastolic 55–66; O2SAT 89–95
[2020-04-18 06:23] LABS: BASO % 0.3 % (0.0-1.0); EOS # 0.2 10^3/uL (0.0-0.5); HEMOGLOBIN 12.5 g/dl (12.0-15.5); LYMPH # 1.3 10^3/uL (1.5-5.0); LYMPH % 13.3 % (24.0-44.0); MEAN CORPUSCULAR HEMOGLOBIN 27.7 pg (27.0-33.0); MEAN CORPUSCULAR HGB CONC 30.5 g/dl (32.0-36.5); MEAN CORPUSCULAR VOLUME 90.9 fl (80.0-96.0); MONO # 0.9 10^3/uL (0.0-0.8); MONO % 9.5 % (0.0-5.0); NEUTROPHILS # 6.7 10^3/uL (1.5-8.5); NEUTROPHILS % 71.7 % (36.0-66.0); PLATELET COUNT, AUTOMATED 351 10^3/uL (150-450); RED BLOOD COUNT 4.51 10^6/uL (4.00-5.40); WHITE BLOOD COUNT 9.4 10^3/uL (4.0-10.0)
[2020-04-18 06:35] LABS: INR 1.94; PROTHROMBIN TIME 22.6 SECONDS (12.5-14.3)
[2020-04-18 06:38] LABS: D-DIMER QUANT 1750.15 ng/ml (<500)
[2020-04-18 06:52] LABS: ALBUMIN 2.7 GM/DL (3.2-5.2); ALT/SGPT 16 U/L (12-78); BILIRUBIN,TOTAL 0.4 MG/DL (0.2-1.0); BLOOD UREA NITROGEN 21 MG/DL (7-18); C REACTIVE PROTEIN QUANTITATIV 3.56 MG/DL (0.00-0.30); CALCIUM LEVEL 8.1 MG/DL (8.8-10.2); CARBON DIOXIDE LEVEL 29 MEQ/L (21-32); CHLORIDE LEVEL 108 MEQ/L (98-107); CREATININE FOR GFR 0.74 MG/DL (0.55-1.30); GLOMERULAR FILTRATION RATE > 60.0 (>32); GLUCOSE, FASTING 106 MG/DL (70-100); NT-PRO BNP 133 PG/ML (<450); POTASSIUM SERUM 3.9 MEQ/L (3.5-5.1); SODIUM LEVEL 142 MEQ/L (136-145); TOTAL PROTEIN 6.2 GM/DL (6.4-8.2); TROPONIN I < 0.02 NG/ML (< 0.10)
[2020-04-18] MEDS: SYMBICORT 160/4.5MCG INHALER 6GM INH SCH ×2 (07:18→19:35)
[2020-04-18] MEDS: SODIUM CHLORIDE NASAL 0.65% SPRAY BTL (OCEAN) SCH ×4 (09:00→22:25)
[2020-04-18] MEDS: METOPROLOL TART 12.5 MG PER 1/2 TAB PO SCH ×2 (09:00→22:25)
[2020-04-18] MEDS: FUROSEMIDE 20 MG TAB PO SCH (09:00)
[2020-04-18] MEDS: APIXABAN 5 MG TAB (ELIQUIS) PO SCH ×2 (09:19→22:08)
[2020-04-18] MEDS: SERTRALINE 100 MG TAB PO SCH (09:19)
[2020-04-18] MEDS: rOPINIRole 1MG TAB PO SCH ×2 (09:19→22:05)
[2020-04-18] MEDS: POTASSIUM CHLORIDE 10 MEQ SR TABLET PO SCH (09:19)
[2020-04-18] MEDS: ASPIRIN 81 MG ENTERIC TAB PO SCH (09:19)
[2020-04-18] MEDS: FAMOTIDINE 20 MG TAB PO SCH (09:19)
[2020-04-18] MEDS: SENNA 8.6 MG TAB (SENOKOT) PO SCH (09:19)
[2020-04-18] MEDS: ASCORBIC ACID 500 MG TAB PO SCH (09:19)
[2020-04-18] MEDS: MULTIVITAMINS/MINERALS THERAP 1 TAB PO SCH (09:19)
[2020-04-18] MEDS: FERROUS GLUCONATE 324 MG TAB PO SCH (09:19)
[2020-04-18] MEDS: NYSTATIN 100,000 UNITS/GM TOPICAL PWD 15 GM TOP SCH ×2 (09:21→22:26)
[2020-04-18] MEDS: VITAMIN D 1,000 INTERNATIONAL UNITS TABLET PO SCH (12:33)
--- NOTE | 2020-04-18 20:38 | IPNPDOC ---
Date Seen The patient was seen on 04/18/20. Progress Note SUBJECTIVE: Patient was seen and examined. Afebrile overnight. Oxygenation has improved, now on 3 LPM via NC at 98% and O2 requirement is approaching baseline, which is 2 LPM. OBJECTIVE PHYSICAL EXAMINATION: General: NAD, comfortable HEENT: PERRLA, EOMI, sclerae clear Neck: supple, normal ROM, no JVD Respiratory: reduced air entry, no wheeze, no rales, no crackles CVS: RRR, normal S1, S2, no murmurs Abdo: soft, no masses, no hepatosplenomegaly, BS+, no rebound tenderness Extremities: no edema, pulses 2+ MSK: no joint deformities, normal ROM Neuro: no focal neuro deficits, moving all 4 extremities, CN2-12 intact. Strength 5/5 in all 4 extremities. No nystagmus. Psych: calm, cooperative, AAO x 3 LABORATORY DATA, IMAGING STUDIES, MICROBIOLOGY: Please see below. DVT prophylaxis ordered?: on eliquis Plan: #Covid infection: reduced O2 requirement, improved to 4LPM at 90%. IV de xamethasone 6 mg daily. Remdesevir (EOT 04/17/20). Monitor inflammatory markers. Venous duplex b/l negative. D dimer trending down Trop negative. Liver enzymed wnl. #RLL CAP: seen on CXR. Completed azithromycin 250 mg PO daily x 5 days on 04/14/20. #COPD: uses 2L NC in [place]. duonebs prn. symbicort. #paroxysmal atrial fibrillation: rate controlled. AC with eliquis. Metoprolol 12.5 mg PO bid. Eliquis 5 mg BID. Inflammatory markers elevated given COVID, patient is hypercoagulable at risk for PE. #CKD 3: Cr. 0.79. stable. monitor. avoid nephrotoxins. #Anemia: stable. c/w PO iron daily. #CAD: continue with ASA, metoprolol, statin #CHF: continue home meds. Lasix 20 mg daily. Metoprolol 12.5 mg PO bid. #Depression: sertraline 100 mg PO daily #Vit D deficiency: c/w Vit D daily replacement #Constipation: senna, dulcolax Dispo: pending improved oxygenation. VS, I&O, 24H, Fishbone Vital Signs/I&O Vital Signs Date Time Temp Pulse Resp B/P (MAP) Pulse Ox O2 Delivery O2 Flow Rate FiO2 04/18/20 16:00 98.5 100 22 118/66 (83) 93 Nasal Cannula 3.0 04/12/20 17:02 100 I&O- Last 24 Hours up to 6 AM 04/18/20 06:00 Intake Total 660 ml Output Total 0 ml Balance 660 ml Laboratory Data 24H LABS Laboratory Tests 2 04/18/20 05:43: Immature Granulocyte % (Auto) 3.2H, Neutrophils (%) (Auto) 71.7H, Lymphocytes (%) (Auto) 13.3L, Monocytes (%) (Auto) 9.5H, Eosinophils (%) (Auto) 2.0, Basophils (%) (Auto) 0.3, Neutrophils # (Auto) 6.7, Lymphocytes # (Auto) 1.3L, Monocytes # (Auto) 0.9H, Eosinophils # (Auto) 0.2, Basophils # (Auto) 0.0, Nucleated Red Blood Cells % (auto) 0.0, Prothrombin Time 22.6H, Prothromb Time International Ratio 1.94, Activated Partial Thromboplast Time 38.0, Fibrinogen 338, D-Dimer, Quantitative 1750.15H, Anion Gap 5L, Glomerular Filtration Rate > 60.0, Calcium Level 8.1L, Total Bilirubin 0.4, Aspartate Amino Transf (AST/SGOT) 16, Alanine Aminotransferase (ALT/SGPT) 16, Alkaline Phosphatase 74, Troponin I < 0.02, C-Reactive Protein, Quantitative 3.56H, HP-Cgg-E-Type Natriuretic Peptide 133, Total Protein 6.2L, Albumin 2.7L, Albumin/Globulin Ratio 0.8L CBC/BMP Laboratory Tests 04/18/20 05:43 Microbiology Microbiology 04/12/20 Blood Culture - Final, Complete NO GROWTH AFTER 5 DAYS CHUCK MARRUFO MD Apr 18, 2020 20:37
[2020-04-18] MEDS: SIMVASTATIN 40 MG TAB PO SCH (22:05)
[2020-04-18] MEDS: RAMELTEON 8 MG TAB (ROZEREM) PO SCH (22:05)
[2020-04-19 04:00] VITALS: BP 92/54
[2020-04-19 06:20] LABS: BASO % 0.3 % (0.0-1.0); EOS # 0.2 10^3/uL (0.0-0.5); EOS % 1.6 % (0.0-3.0); HEMATOCRIT 36.9 % (36.0-47.0); HEMOGLOBIN 11.2 g/dl (12.0-15.5); LYMPH % 10.3 % (24.0-44.0); MEAN CORPUSCULAR HEMOGLOBIN 27.7 pg (27.0-33.0); MEAN CORPUSCULAR HGB CONC 30.4 g/dl (32.0-36.5); MEAN CORPUSCULAR VOLUME 91.1 fl (80.0-96.0); MONO % 10.8 % (0.0-5.0); NEUTROPHILS # 6.9 10^3/uL (1.5-8.5); NEUTROPHILS % 74.4 % (36.0-66.0); PLATELET COUNT, AUTOMATED 347 10^3/uL (150-450); RED BLOOD COUNT 4.05 10^6/uL (4.00-5.40); WHITE BLOOD COUNT 9.2 10^3/uL (4.0-10.0)
[2020-04-19 06:32] LABS: INR 2.01; PROTHROMBIN TIME 23.2 SECONDS (12.5-14.3)
[2020-04-19 06:35] LABS: D-DIMER QUANT 1418.27 ng/ml (<500)
[2020-04-19 06:54] LABS: ALBUMIN 2.6 GM/DL (3.2-5.2); ALT/SGPT 15 U/L (12-78); BILIRUBIN,TOTAL 0.4 MG/DL (0.2-1.0); BLOOD UREA NITROGEN 18 MG/DL (7-18); CALCIUM LEVEL 8.7 MG/DL (8.8-10.2); CARBON DIOXIDE LEVEL 30 MEQ/L (21-32); CHLORIDE LEVEL 110 MEQ/L (98-107); CREATININE FOR GFR 0.72 MG/DL (0.55-1.30); GLOMERULAR FILTRATION RATE > 60.0 (>32); GLUCOSE, FASTING 112 MG/DL (70-100); NT-PRO BNP 191 PG/ML (<450); POTASSIUM SERUM 4.3 MEQ/L (3.5-5.1); SODIUM LEVEL 142 MEQ/L (136-145); TOTAL PROTEIN 5.9 GM/DL (6.4-8.2); TROPONIN I < 0.02 NG/ML (< 0.10)
[2020-04-19 08:00] VITALS: BP 91/54
[2020-04-19] MEDS: APIXABAN 5 MG TAB (ELIQUIS) PO SCH ×2 (08:54→19:59)
[2020-04-19] MEDS: ASCORBIC ACID 500 MG TAB PO SCH (08:54)
[2020-04-19] MEDS: SERTRALINE 100 MG TAB PO SCH (08:54)
[2020-04-19] MEDS: SENNA 8.6 MG TAB (SENOKOT) PO SCH (08:54)
[2020-04-19] MEDS: FERROUS GLUCONATE 324 MG TAB PO SCH (08:56)
[2020-04-19] MEDS: ASPIRIN 81 MG ENTERIC TAB PO SCH (08:56)
[2020-04-19] MEDS: MULTIVITAMINS/MINERALS THERAP 1 TAB PO SCH (08:56)
[2020-04-19] MEDS: rOPINIRole 1MG TAB PO SCH ×2 (08:56→19:58)
[2020-04-19] MEDS: FAMOTIDINE 20 MG TAB PO SCH (08:56)
[2020-04-19] MEDS: SODIUM CHLORIDE NASAL 0.65% SPRAY BTL (OCEAN) SCH ×4 (08:57→19:57)
[2020-04-19] MEDS: NYSTATIN 100,000 UNITS/GM TOPICAL PWD 15 GM TOP SCH ×2 (08:57→19:58)
[2020-04-19] MEDS: METOPROLOL TART 12.5 MG PER 1/2 TAB PO SCH ×2 (09:00→20:03)
[2020-04-19] MEDS: FUROSEMIDE 20 MG TAB PO SCH (09:00)
[2020-04-19] MEDS: SYMBICORT 160/4.5MCG INHALER 6GM INH SCH ×2 (11:42→19:56)
[2020-04-19] MEDS: VITAMIN D 1,000 INTERNATIONAL UNITS TABLET PO SCH (12:04)
[2020-04-19 16:00] VITALS: BP 96/58
--- NOTE | 2020-04-19 19:20 | IPNPDOC ---
Text Note Date of Service The patient was seen on 04/19/20. NOTE Subjective: Patient seen and examined this morning at bedside. She's been afebrile overnight. Tells me he is feeling comfortable either go back home. She is on between 2-3 L of oxygen by nasal cannula saturating well. This is close to her baseline 2 L. I started the patient the limitations of going back to the senior care until she completes quarantine here on the Covid floor. Patient understands. She's been speaking to her on the phone daily. She doesn't complain of any shortness of breath or chest pain at this time. Objective: Constitutional: Awake and alert, in no apparent distress ENT: Sclera are clear. Mucosa is moist. Respiratory: Lungs CTA bilaterally, perhaps some mild decrease in air entry bilaterally but very subtle. No respiratory distress. No use of accessory muscles. on O2 by NC. Cardiovascular: RRR S1 and S2 are normal, no murmur Gastrointestinal: Abdomen is soft, non distended, non tender, BS present. Musculoskeletal: No edema. Neurologic: No focal neurological deficit. Mental Status: A&O x3, normal affect Assessment/plan: #Covid infection: Oxygen requirement close to her baseline using 2-3L o2 by nasal cannula. s/p IV dexamethasone. s/p Remdesevir. Inflammatory markers downtrending. Venous duplex b/l negative. D dimer trending down Trop negative. Liver enzymed wnl. Patient is close to her baseline and medically cleared for discharge. She'll be changed to ALC status until senior care is able to accept her. #RLL CAP: seen on CXR. Completed azithromycin 250 mg PO daily x 5 days on 04/14/20. #COPD: uses 2L NC in [place]. duonebs prn. symbicort. #paroxysmal atrial fibrillation: rate controlled. AC with eliquis. Metoprolol 12.5 mg PO bid. Inflammatory markers elevated but downtrending. #CKD 3: Cr. 0.79. stable. monitor. avoid nephrotoxins. #Anemia: stable. c/w PO iron daily. #CAD: continue with ASA, metoprolol, statin #CHF: continue home meds. Lasix 20 mg daily. Metoprolol 12.5 mg PO bid. #Depression: sertraline 100 mg PO daily #Vit D deficiency: c/w Vit D daily replacement #Constipation: senna, dulcolax # DVT prophylaxis: [facility]ist Marga VALLE I+O Marga VALLE I+O Laboratory Tests 04/19/20 05:45 Vital Signs Date Time Temp Pulse Resp B/P (MAP) Pulse Ox O2 Delivery O2 Flow Rate FiO2 04/19/20 16:00 2.0 04/19/20 16:00 99.0 95 16 96/58 (71) 92 Nasal Cannula I&O- Last 24 Hours up to 6 AM 04/19/20 06:00 Intake Total 840 ml Output Total 0 ml Balance 840 ml RODGER DUBOIS MD Apr 19, 2020 19:20
[2020-04-19] MEDS: SIMVASTATIN 40 MG TAB PO SCH (19:58)
[2020-04-19 20:00] VITALS: BP 115/64
[2020-04-19] MEDS: RAMELTEON 8 MG TAB (ROZEREM) PO SCH (20:03)
[2020-04-20 04:00] VITALS: BP 96/50
[2020-04-20] MEDS: SYMBICORT 160/4.5MCG INHALER 6GM INH SCH ×2 (08:00→20:15)
[2020-04-20] MEDS: FUROSEMIDE 20 MG TAB PO SCH (09:00)
[2020-04-20] MEDS: METOPROLOL TART 12.5 MG PER 1/2 TAB PO SCH ×2 (09:00→20:15)
[2020-04-20] MEDS: ASCORBIC ACID 500 MG TAB PO SCH (09:11)
[2020-04-20] MEDS: APIXABAN 5 MG TAB (ELIQUIS) PO SCH ×2 (09:11→20:15)
[2020-04-20] MEDS: MULTIVITAMINS/MINERALS THERAP 1 TAB PO SCH (09:12)
[2020-04-20] MEDS: FAMOTIDINE 20 MG TAB PO SCH (09:12)
[2020-04-20] MEDS: ASPIRIN 81 MG ENTERIC TAB PO SCH (09:12)
[2020-04-20] MEDS: SENNA 8.6 MG TAB (SENOKOT) PO SCH (09:12)
[2020-04-20] MEDS: SODIUM CHLORIDE NASAL 0.65% SPRAY BTL (OCEAN) SCH ×4 (09:13→20:14)
[2020-04-20] MEDS: rOPINIRole 1MG TAB PO SCH ×2 (09:13→20:15)
[2020-04-20] MEDS: SERTRALINE 100 MG TAB PO SCH (09:13)
[2020-04-20] MEDS: NYSTATIN 100,000 UNITS/GM TOPICAL PWD 15 GM TOP SCH ×2 (09:13→20:14)
[2020-04-20] MEDS: POTASSIUM CHLORIDE 10 MEQ SR TABLET PO SCH (09:13)
[2020-04-20] MEDS: FERROUS GLUCONATE 324 MG TAB PO SCH (12:34)
[2020-04-20] MEDS: VITAMIN D 1,000 INTERNATIONAL UNITS TABLET PO SCH (12:35)
[2020-04-20 20:09] VITALS: BP 113/58
[2020-04-20] MEDS: RAMELTEON 8 MG TAB (ROZEREM) PO SCH (20:15)
[2020-04-20] MEDS: SIMVASTATIN 40 MG TAB PO SCH (20:15)
[2020-04-21 04:05] VITALS: BP 115/62
[2020-04-21] MEDS: SYMBICORT 160/4.5MCG INHALER 6GM INH SCH ×2 (07:42→19:58)
[2020-04-21] MEDS: ASCORBIC ACID 500 MG TAB PO SCH (08:11)
[2020-04-21] MEDS: MULTIVITAMINS/MINERALS THERAP 1 TAB PO SCH (08:11)
[2020-04-21] MEDS: SERTRALINE 100 MG TAB PO SCH (08:11)
[2020-04-21] MEDS: ASPIRIN 81 MG ENTERIC TAB PO SCH (08:11)
[2020-04-21] MEDS: SENNA 8.6 MG TAB (SENOKOT) PO SCH (08:11)
[2020-04-21] MEDS: rOPINIRole 1MG TAB PO SCH ×2 (08:11→22:43)
[2020-04-21] MEDS: APIXABAN 5 MG TAB (ELIQUIS) PO SCH ×2 (08:11→22:43)
[2020-04-21] MEDS: FUROSEMIDE 20 MG TAB PO SCH (08:11)
[2020-04-21] MEDS: FERROUS GLUCONATE 324 MG TAB PO SCH (08:12)
[2020-04-21] MEDS: METOPROLOL TART 12.5 MG PER 1/2 TAB PO SCH ×2 (08:12→22:45)
[2020-04-21] MEDS: FAMOTIDINE 20 MG TAB PO SCH (08:12)
[2020-04-21] MEDS: SODIUM CHLORIDE NASAL 0.65% SPRAY BTL (OCEAN) SCH ×4 (08:13→22:44)
[2020-04-21] MEDS: NYSTATIN 100,000 UNITS/GM TOPICAL PWD 15 GM TOP SCH ×2 (08:13→22:44)
[2020-04-21 08:14] VITALS: BP 106/55
[2020-04-21] MEDS: VITAMIN D 1,000 INTERNATIONAL UNITS TABLET PO SCH (13:24)
[2020-04-21 13:41] VITALS: BP 111/55
[2020-04-21] MEDS: SIMVASTATIN 40 MG TAB PO SCH (22:43)
[2020-04-21] MEDS: RAMELTEON 8 MG TAB (ROZEREM) PO SCH (22:43)
[2020-04-22 04:00] VITALS: BP 96/55
[2020-04-22] MEDS: SYMBICORT 160/4.5MCG INHALER 6GM INH SCH ×2 (08:00→20:12)
[2020-04-22] MEDS: FUROSEMIDE 20 MG TAB PO SCH (09:00)
[2020-04-22] MEDS: METOPROLOL TART 12.5 MG PER 1/2 TAB PO SCH ×2 (09:00→20:05)
[2020-04-22] MEDS: FAMOTIDINE 20 MG TAB PO SCH (10:00)
[2020-04-22] MEDS: MULTIVITAMINS/MINERALS THERAP 1 TAB PO SCH (10:00)
[2020-04-22] MEDS: POTASSIUM CHLORIDE 10 MEQ SR TABLET PO SCH (10:01)
[2020-04-22] MEDS: ASPIRIN 81 MG ENTERIC TAB PO SCH (10:03)
[2020-04-22] MEDS: rOPINIRole 1MG TAB PO SCH ×2 (10:03→20:07)
[2020-04-22] MEDS: SERTRALINE 100 MG TAB PO SCH (10:03)
[2020-04-22] MEDS: SENNA 8.6 MG TAB (SENOKOT) PO SCH (10:03)
[2020-04-22] MEDS: SODIUM CHLORIDE NASAL 0.65% SPRAY BTL (OCEAN) SCH ×4 (10:04→20:09)
[2020-04-22] MEDS: NYSTATIN 100,000 UNITS/GM TOPICAL PWD 15 GM TOP SCH ×2 (10:04→20:09)
[2020-04-22] MEDS: FERROUS GLUCONATE 324 MG TAB PO SCH (10:04)
[2020-04-22] MEDS: APIXABAN 5 MG TAB (ELIQUIS) PO SCH ×2 (10:04→20:07)
[2020-04-22] MEDS: ASCORBIC ACID 500 MG TAB PO SCH (10:04)
[2020-04-22] MEDS: VITAMIN D 1,000 INTERNATIONAL UNITS TABLET PO SCH (14:14)
[2020-04-22] MEDS: RAMELTEON 8 MG TAB (ROZEREM) PO SCH (20:07)
[2020-04-22] MEDS: SIMVASTATIN 40 MG TAB PO SCH (20:07)
[2020-04-23 04:00] VITALS: BP 124/76
[2020-04-23] MEDS: SYMBICORT 160/4.5MCG INHALER 6GM INH SCH ×2 (08:31→20:48)
[2020-04-23] MEDS: METOPROLOL TART 12.5 MG PER 1/2 TAB PO SCH ×2 (09:00→20:43)
[2020-04-23] MEDS: FUROSEMIDE 20 MG TAB PO SCH ×2 (09:00→09:06)
[2020-04-23] MEDS: SODIUM CHLORIDE NASAL 0.65% SPRAY BTL (OCEAN) SCH ×4 (09:05→20:43)
[2020-04-23] MEDS: SENNA 8.6 MG TAB (SENOKOT) PO SCH (09:05)
[2020-04-23] MEDS: NYSTATIN 100,000 UNITS/GM TOPICAL PWD 15 GM TOP SCH ×2 (09:05→20:43)
[2020-04-23] MEDS: ASPIRIN 81 MG ENTERIC TAB PO SCH (09:05)
[2020-04-23] MEDS: FERROUS GLUCONATE 324 MG TAB PO SCH (09:06)
[2020-04-23] MEDS: SERTRALINE 100 MG TAB PO SCH (09:06)
[2020-04-23] MEDS: rOPINIRole 1MG TAB PO SCH ×2 (09:06→20:44)
[2020-04-23] MEDS: MULTIVITAMINS/MINERALS THERAP 1 TAB PO SCH (09:06)
[2020-04-23] MEDS: ASCORBIC ACID 500 MG TAB PO SCH (09:06)
[2020-04-23] MEDS: APIXABAN 5 MG TAB (ELIQUIS) PO SCH ×2 (09:07→20:44)
[2020-04-23] MEDS: FAMOTIDINE 20 MG TAB PO SCH (09:07)
[2020-04-23] MEDS: VITAMIN D 1,000 INTERNATIONAL UNITS TABLET PO SCH (12:52)
[2020-04-23] MEDS: RAMELTEON 8 MG TAB (ROZEREM) PO SCH (20:43)
[2020-04-23] MEDS: SIMVASTATIN 40 MG TAB PO SCH (20:44)
[2020-04-24 04:00] VITALS: BP 116/63
[2020-04-24] MEDS: SYMBICORT 160/4.5MCG INHALER 6GM INH SCH ×2 (08:00→19:50)
[2020-04-24 08:35] VITALS: BP 96/55
[2020-04-24] MEDS: FUROSEMIDE 20 MG TAB PO SCH (09:00)
[2020-04-24] MEDS: METOPROLOL TART 12.5 MG PER 1/2 TAB PO SCH ×2 (09:00→20:19)
[2020-04-24] MEDS: FAMOTIDINE 20 MG TAB PO SCH (09:19)
[2020-04-24] MEDS: FERROUS GLUCONATE 324 MG TAB PO SCH (09:19)
[2020-04-24] MEDS: MULTIVITAMINS/MINERALS THERAP 1 TAB PO SCH (09:20)
[2020-04-24] MEDS: ASPIRIN 81 MG ENTERIC TAB PO SCH (09:21)
[2020-04-24] MEDS: APIXABAN 5 MG TAB (ELIQUIS) PO SCH ×2 (09:21→20:17)
[2020-04-24] MEDS: ASCORBIC ACID 500 MG TAB PO SCH (09:21)
[2020-04-24] MEDS: SODIUM CHLORIDE NASAL 0.65% SPRAY BTL (OCEAN) SCH ×4 (09:22→20:20)
[2020-04-24] MEDS: NYSTATIN 100,000 UNITS/GM TOPICAL PWD 15 GM TOP SCH ×2 (09:22→20:20)
[2020-04-24 12:41] VITALS: BP 125/57
[2020-04-24] MEDS: rOPINIRole 1MG TAB PO SCH ×2 (12:43→20:17)
[2020-04-24] MEDS: SENNA 8.6 MG TAB (SENOKOT) PO SCH (12:43)
[2020-04-24] MEDS: SERTRALINE 100 MG TAB PO SCH (12:44)
[2020-04-24] MEDS: VITAMIN D 1,000 INTERNATIONAL UNITS TABLET PO SCH (12:44)
[2020-04-24] MEDS: RAMELTEON 8 MG TAB (ROZEREM) PO SCH (20:16)
[2020-04-24] MEDS: SIMVASTATIN 40 MG TAB PO SCH (20:17)
[2020-04-25 04:00] VITALS: BP 120/74
[2020-04-25] MEDS: SYMBICORT 160/4.5MCG INHALER 6GM INH SCH ×2 (07:55→20:02)
[2020-04-25] MEDS: ASPIRIN 81 MG ENTERIC TAB PO SCH (10:05)
[2020-04-25] MEDS: SERTRALINE 100 MG TAB PO SCH (10:06)
[2020-04-25] MEDS: FUROSEMIDE 20 MG TAB PO SCH (10:06)
[2020-04-25] MEDS: METOPROLOL TART 12.5 MG PER 1/2 TAB PO SCH ×2 (10:06→20:01)
[2020-04-25] MEDS: POTASSIUM CHLORIDE 10 MEQ SR TABLET PO SCH (10:07)
[2020-04-25] MEDS: MULTIVITAMINS/MINERALS THERAP 1 TAB PO SCH (10:07)
[2020-04-25] MEDS: APIXABAN 5 MG TAB (ELIQUIS) PO SCH ×2 (10:07→19:54)
[2020-04-25] MEDS: rOPINIRole 1MG TAB PO SCH ×2 (10:07→19:54)
[2020-04-25] MEDS: SENNA 8.6 MG TAB (SENOKOT) PO SCH (10:07)
[2020-04-25] MEDS: NYSTATIN 100,000 UNITS/GM TOPICAL PWD 15 GM TOP SCH ×2 (10:08→19:54)
[2020-04-25] MEDS: FAMOTIDINE 20 MG TAB PO SCH (10:08)
[2020-04-25] MEDS: SODIUM CHLORIDE NASAL 0.65% SPRAY BTL (OCEAN) SCH ×4 (10:08→19:54)
[2020-04-25] MEDS: ASCORBIC ACID 500 MG TAB PO SCH (11:49)
[2020-04-25] MEDS: VITAMIN D 1,000 INTERNATIONAL UNITS TABLET PO SCH (11:49)
[2020-04-25] MEDS: FERROUS GLUCONATE 324 MG TAB PO SCH (11:49)
[2020-04-25] MEDS: SIMVASTATIN 40 MG TAB PO SCH (19:54)
[2020-04-25] MEDS: RAMELTEON 8 MG TAB (ROZEREM) PO SCH (19:55)
[2020-04-26 04:17] VITALS: BP 126/70
[2020-04-26] MEDS: SYMBICORT 160/4.5MCG INHALER 6GM INH SCH ×2 (08:25→20:37)
[2020-04-26] MEDS: SODIUM CHLORIDE NASAL 0.65% SPRAY BTL (OCEAN) SCH ×4 (09:00→22:03)
[2020-04-26] MEDS: NYSTATIN 100,000 UNITS/GM TOPICAL PWD 15 GM TOP SCH ×2 (09:15→21:00)
[2020-04-26] MEDS: APIXABAN 5 MG TAB (ELIQUIS) PO SCH ×2 (09:15→22:02)
[2020-04-26] MEDS: MULTIVITAMINS/MINERALS THERAP 1 TAB PO SCH (09:15)
[2020-04-26] MEDS: ASCORBIC ACID 500 MG TAB PO SCH (09:15)
[2020-04-26] MEDS: FERROUS GLUCONATE 324 MG TAB PO SCH (09:15)
[2020-04-26] MEDS: FAMOTIDINE 20 MG TAB PO SCH (09:15)
[2020-04-26] MEDS: ASPIRIN 81 MG ENTERIC TAB PO SCH (09:15)
[2020-04-26] MEDS: rOPINIRole 1MG TAB PO SCH ×2 (09:15→22:02)
[2020-04-26] MEDS: SENNA 8.6 MG TAB (SENOKOT) PO SCH (09:15)
[2020-04-26] MEDS: SERTRALINE 100 MG TAB PO SCH (09:15)
[2020-04-26] MEDS: FUROSEMIDE 20 MG TAB PO SCH (09:16)
[2020-04-26] MEDS: METOPROLOL TART 12.5 MG PER 1/2 TAB PO SCH ×2 (09:17→22:03)
[2020-04-26] MEDS: VITAMIN D 1,000 INTERNATIONAL UNITS TABLET PO SCH (12:37)
[2020-04-26 15:00] VITALS: BP 111/73
--- NOTE | 2020-04-26 18:13 | IPNPDOC ---
Date Seen The patient was seen on 04/26/20. Progress Note SUBJECTIVE: Patient seen and examined at bedside. She is comfortable in bed at rest. She is receiving supplemental oxygen therapy at 3 L via nasal cannula. OBJECTIVE Constitutional: Awake and alert, in no apparent distress ENT: Sclera are clear. Mucosa is moist. Respiratory: Lungs CTA bilaterally, perhaps some mild decrease in air entry bilaterally but very subtle. No respiratory distress. No use of accessory muscles. on O2 by NC. Cardiovascular: RRR S1 and S2 are normal, no murmur Gastrointestinal: Abdomen is soft, non distended, non tender, BS present. Musculoskeletal: No edema. Neurologic: No focal neurological deficit. Mental Status: A&O x3, normal affect Assessment/plan: #Covid infection: Oxygen requirement close to her baseline using 2-3L o2 by nasal cannula. s/p IV dexamethasone. s/p Remdesevir. Inflammatory markers downtrending. Venous duplex b/l negative. D dimer trending down. Trop negative. Liver enzymed wnl. Patient ALC status, pending negative covid test prior to transfer to SNF. [facility]. The test was on 04/25, positive. #RLL CAP: seen on CXR. Completed azithromycin 250 mg PO daily x 5 days on 04/14/20. #COPD: uses 2L NC in [place]. duonebs prn. symbicort. #paroxysmal atrial fibrillation: rate controlled. AC with eliquis. Metoprolol 12.5 mg PO bid. #CKD 3: Cr. 0.79. stable. monitor. avoid nephrotoxins. #Anemia: stable. c/w PO iron daily. #CAD: continue with ASA, metoprolol, statin #CHF: continue home meds. Lasix 20 mg daily. Metoprolol 12.5 mg PO bid. #Depression: sertraline 100 mg PO daily #Vit D deficiency: c/w Vit D daily replacement #Constipation: senna, dulcolax # DVT prophylaxis: Eliquis VS, I&O, 24H, Fishbone Vital Signs/I&O Vital Signs Date Time Temp Pulse Resp B/P (MAP) Pulse Ox O2 Delivery O2 Flow Rate FiO2 04/26/20 15:04 3.0 04/26/20 15:00 96.6 69 18 111/73 (86) 94 High Flow Cannula I&O- Last 24 Hours up to 6 AM 12/22/20 06:00 Intake Total 600 ml Balance 600 ml CHUCK MARRUFO MD Apr 26, 2020 18:13
[2020-04-26] MEDS: SIMVASTATIN 40 MG TAB PO SCH (22:02)
[2020-04-26] MEDS: RAMELTEON 8 MG TAB (ROZEREM) PO SCH (22:02)
[2020-04-27 06:00] VITALS: BP 108/70
[2020-04-27] MEDS: SODIUM CHLORIDE NASAL 0.65% SPRAY BTL (OCEAN) SCH ×4 (08:07→20:41)
[2020-04-27] MEDS: SERTRALINE 100 MG TAB PO SCH (08:07)
[2020-04-27] MEDS: ASCORBIC ACID 500 MG TAB PO SCH (08:07)
[2020-04-27] MEDS: MULTIVITAMINS/MINERALS THERAP 1 TAB PO SCH (08:08)
[2020-04-27] MEDS: SENNA 8.6 MG TAB (SENOKOT) PO SCH (08:08)
[2020-04-27] MEDS: POTASSIUM CHLORIDE 10 MEQ SR TABLET PO SCH (08:09)
[2020-04-27] MEDS: FERROUS GLUCONATE 324 MG TAB PO SCH (08:09)
[2020-04-27] MEDS: FAMOTIDINE 20 MG TAB PO SCH (08:09)
[2020-04-27] MEDS: rOPINIRole 1MG TAB PO SCH ×2 (08:09→20:41)
[2020-04-27] MEDS: ASPIRIN 81 MG ENTERIC TAB PO SCH (08:09)
[2020-04-27] MEDS: APIXABAN 5 MG TAB (ELIQUIS) PO SCH ×2 (08:09→20:40)
[2020-04-27] MEDS: FUROSEMIDE 20 MG TAB PO SCH (08:10)
[2020-04-27] MEDS: METOPROLOL TART 12.5 MG PER 1/2 TAB PO SCH ×2 (08:10→20:40)
[2020-04-27] MEDS: NYSTATIN 100,000 UNITS/GM TOPICAL PWD 15 GM TOP SCH ×2 (08:12→20:42)
[2020-04-27] MEDS: SYMBICORT 160/4.5MCG INHALER 6GM INH SCH ×2 (08:25→20:51)
--- NOTE | 2020-04-27 10:30 | REP ---
INDICATION: R lung crackles, desaturation COMPARISON: 04/12/2020 TECHNIQUE: Portable AP view of the chest FINDINGS: Bibasilar airspace disease consistent with multifocal pneumonia including small pleural reactions. No pneumothorax. Evidence for prior sternotomy and cardiac valve repair. No cardiomegaly. Skeletal structures demonstrate osteopenia and degenerative changes IMPRESSION: Bibasilar opacities and small pleural reactions suggesting multifocal pneumonia. Follow-up to resolution recommended. Correlation required. <Electronically signed by Raoul Todd > 04/27/20 1027
[2020-04-27] MEDS: VITAMIN D 1,000 INTERNATIONAL UNITS TABLET PO SCH (11:47)
[2020-04-27] MEDS ORDERED: DOXYCYCLINE HYCLATE 100 MG in D5W MINI-BAG PLUS 100 ML IV SCH (14:00)
[2020-04-27] MEDS: AUGMENTIN 875 MG TAB PO SCH (16:57)
[2020-04-27] MEDS: DOXYCYCLINE HYCLATE 100MG TABLET PO SCH (16:57)
--- NOTE | 2020-04-27 17:25 | IPNPDOC ---
Date Seen The patient was seen on 04/27/20. Progress Note SUBJECTIVE: Patient seen and examined at bedside. She states that she has more difficulty breathing today. O2 requirement increased to 5LPM, she is at 89-90% this morning. Denies cough, fevers, chills, chest pain, palpitations. OBJECTIVE Constitutional: Awake and alert, in no apparent distress ENT: Sclera are clear. Mucosa is moist. Respiratory: Rales in the R lung base. Good inspiratory effort. No wheeze. Cardiovascular: RRR S1 and S2 are normal, no murmur Gastrointestinal: Abdomen is soft, non distended, non tender, BS present. Musculoskeletal: No edema. Neurologic: No focal neurological deficit. Mental Status: A&O x3, normal affect Imaging: CXR (04/27/20): IMPRESSION: Bibasilar opacities and small pleural reactions suggesting multifocal pneumonia. Follow-up to resolution recommended. Correlation required. Assessment/plan: #Covid infection: O2 requirement increased to 5LPM. s/p IV dexamethasone. s/p Remdesevir. Inflammatory markers downtrending. Venous duplex b/l negative. Rales on auscultation. Check CXR - bibasilar opacities, suggestive of multifocal pna. #CAP: Completed azithromycin 250 mg PO daily x 5 days on 04/14/20. New found opacities on CXR 04/27. Will resume abx therapy. Augmentin 875 mg BID, doxycylcine 100 mg BID. #COPD: uses 2L NC in [place]. duonebs prn. symbicort. #paroxysmal atrial fibrillation: rate controlled. AC with eliquis. Metoprolol 12.5 mg PO bid. #CKD 3: Cr. 0.79. stable. monitor. avoid nephrotoxins. #Anemia: stable. c/w PO iron daily. #CAD: continue with ASA, metoprolol, statin #CHF: continue home meds. Lasix 20 mg daily. Metoprolol 12.5 mg PO bid. #Depression: sertraline 100 mg PO daily #Vit D deficiency: c/w Vit D daily replacement #Constipation: senna, dulcolax # DVT prophylaxis: Eliquis VS, I&O, 24H, Fishbone Vital Signs/I&O Vital Signs Date Time Temp Pulse Resp B/P (MAP) Pulse Ox O2 Delivery O2 Flow Rate FiO2 12/23/20 08:00 5.0 04/27/20 06:00 97.3 100 18 108/70 (83) 86 Nasal Cannula I&O- Last 24 Hours up to 6 AM 04/27/20 06:00 Intake Total 420 ml Output Total 0 ml Balance 420 ml CHUCK MARRUFO MD Apr 27, 2020 17:25
[2020-04-27] MEDS: RAMELTEON 8 MG TAB (ROZEREM) PO SCH (20:40)
[2020-04-27] MEDS: SIMVASTATIN 40 MG TAB PO SCH (20:41)
[2020-04-28] MEDS: DOXYCYCLINE HYCLATE 100MG TABLET PO SCH ×2 (05:42→18:50)
[2020-04-28 06:00] VITALS: BP 97/55
[2020-04-28] MEDS: SYMBICORT 160/4.5MCG INHALER 6GM INH SCH ×2 (06:42→20:28)
[2020-04-28 07:34] LABS: BASO % 0.5 % (0.0-1.0); EOS # 0.2 10^3/uL (0.0-0.5); EOS % 2.7 % (0.0-3.0); HEMOGLOBIN 12.1 g/dl (12.0-15.5); LYMPH # 1.3 10^3/uL (1.5-5.0); LYMPH % 15.9 % (24.0-44.0); MEAN CORPUSCULAR HEMOGLOBIN 27.9 pg (27.0-33.0); MEAN CORPUSCULAR HGB CONC 30.3 g/dl (32.0-36.5); MEAN CORPUSCULAR VOLUME 92.4 fl (80.0-96.0); MONO # 0.9 10^3/uL (0.0-0.8); MONO % 10.9 % (0.0-5.0); NEUTROPHILS # 5.5 10^3/uL (1.5-8.5); NEUTROPHILS % 69.2 % (36.0-66.0); PLATELET COUNT, AUTOMATED 330 10^3/uL (150-450); RED BLOOD COUNT 4.33 10^6/uL (4.00-5.40); WHITE BLOOD COUNT 7.9 10^3/uL (4.0-10.0)
[2020-04-28 08:18] LABS: ALBUMIN 3.2 GM/DL (3.2-5.2); ALT/SGPT 21 U/L (12-78); BILIRUBIN,TOTAL 0.4 MG/DL (0.2-1.0); BLOOD UREA NITROGEN 23 MG/DL (7-18); CARBON DIOXIDE LEVEL 30 MEQ/L (21-32); CHLORIDE LEVEL 105 MEQ/L (98-107); CREATININE FOR GFR 0.92 MG/DL (0.55-1.30); GLOMERULAR FILTRATION RATE > 60.0 (>32); GLUCOSE, FASTING 112 MG/DL (70-100); MAGNESIUM LEVEL 2.4 MG/DL (1.8-2.4); SODIUM LEVEL 140 MEQ/L (136-145); TOTAL PROTEIN 7.2 GM/DL (6.4-8.2)
[2020-04-28] MEDS: NYSTATIN 100,000 UNITS/GM TOPICAL PWD 15 GM TOP SCH ×2 (09:47→22:03)
[2020-04-28] MEDS: AUGMENTIN 875 MG TAB PO SCH ×2 (09:48→22:02)
[2020-04-28] MEDS: ASPIRIN 81 MG ENTERIC TAB PO SCH (09:48)
[2020-04-28] MEDS: SODIUM CHLORIDE NASAL 0.65% SPRAY BTL (OCEAN) SCH ×4 (09:48→22:03)
[2020-04-28] MEDS: FAMOTIDINE 20 MG TAB PO SCH (09:49)
[2020-04-28] MEDS: rOPINIRole 1MG TAB PO SCH ×2 (09:49→22:04)
[2020-04-28] MEDS: ASCORBIC ACID 500 MG TAB PO SCH (09:49)
[2020-04-28] MEDS: APIXABAN 5 MG TAB (ELIQUIS) PO SCH ×2 (09:50→22:02)
[2020-04-28] MEDS: SERTRALINE 100 MG TAB PO SCH (09:50)
[2020-04-28] MEDS: MULTIVITAMINS/MINERALS THERAP 1 TAB PO SCH (09:50)
[2020-04-28] MEDS: SENNA 8.6 MG TAB (SENOKOT) PO SCH (09:50)
[2020-04-28] MEDS: FERROUS GLUCONATE 324 MG TAB PO SCH (09:51)
[2020-04-28] MEDS: ACETAMINOPHEN 325 MG TAB PO PRN (09:51)
[2020-04-28] MEDS: FUROSEMIDE 20 MG TAB PO SCH (09:55)
[2020-04-28] MEDS: METOPROLOL TART 12.5 MG PER 1/2 TAB PO SCH ×2 (09:55→21:00)
[2020-04-28] MEDS: VITAMIN D 1,000 INTERNATIONAL UNITS TABLET PO SCH (12:19)
[2020-04-28] MEDS: RAMELTEON 8 MG TAB (ROZEREM) PO SCH (22:02)
[2020-04-28] MEDS: SIMVASTATIN 40 MG TAB PO SCH (22:02)
[2020-04-29] MEDS: DOXYCYCLINE HYCLATE 100MG TABLET PO SCH ×2 (04:56→19:30)
[2020-04-29 06:00] VITALS: BP 87/55
[2020-04-29] MEDS: SYMBICORT 160/4.5MCG INHALER 6GM INH SCH ×2 (07:47→20:57)
[2020-04-29] MEDS: SENNA 8.6 MG TAB (SENOKOT) PO SCH (09:00)
[2020-04-29] MEDS: POTASSIUM CHLORIDE 10 MEQ SR TABLET PO SCH (09:00)
[2020-04-29] MEDS: FUROSEMIDE 20 MG TAB PO SCH (09:00)
[2020-04-29] MEDS: METOPROLOL TART 12.5 MG PER 1/2 TAB PO SCH ×2 (09:00→21:00)
[2020-04-29] MEDS: APIXABAN 5 MG TAB (ELIQUIS) PO SCH ×2 (09:38→20:51)
[2020-04-29] MEDS: ANALGESIC BALM CRM 120 GM EXT PRN (09:38)
[2020-04-29] MEDS: ASPIRIN 81 MG ENTERIC TAB PO SCH (09:39)
[2020-04-29] MEDS: AUGMENTIN 875 MG TAB PO SCH ×2 (09:39→20:51)
[2020-04-29] MEDS: rOPINIRole 1MG TAB PO SCH ×2 (09:39→20:51)
[2020-04-29] MEDS: MULTIVITAMINS/MINERALS THERAP 1 TAB PO SCH (09:40)
[2020-04-29] MEDS: ASCORBIC ACID 500 MG TAB PO SCH (09:40)
[2020-04-29] MEDS: FAMOTIDINE 20 MG TAB PO SCH (09:40)
[2020-04-29] MEDS: FERROUS GLUCONATE 324 MG TAB PO SCH (09:42)
[2020-04-29] MEDS: SERTRALINE 100 MG TAB PO SCH (09:42)
[2020-04-29] MEDS: SODIUM CHLORIDE NASAL 0.65% SPRAY BTL (OCEAN) SCH ×4 (09:43→20:52)
[2020-04-29] MEDS: NYSTATIN 100,000 UNITS/GM TOPICAL PWD 15 GM TOP SCH ×2 (09:43→20:52)
[2020-04-29] MEDS: ACETAMINOPHEN 325 MG TAB PO PRN (14:31)
[2020-04-29] MEDS: VITAMIN D 1,000 INTERNATIONAL UNITS TABLET PO SCH (14:32)
[2020-04-29 20:15] VITALS: BP 102/66
[2020-04-29] MEDS: SIMVASTATIN 40 MG TAB PO SCH (20:51)
[2020-04-29] MEDS: RAMELTEON 8 MG TAB (ROZEREM) PO SCH (20:52)
[2020-04-30] MEDS: DOXYCYCLINE HYCLATE 100MG TABLET PO SCH ×2 (05:56→17:16)
[2020-04-30 06:00] VITALS: BP 105/75
[2020-04-30] MEDS: SYMBICORT 160/4.5MCG INHALER 6GM INH SCH ×2 (08:48→20:49)
[2020-04-30] MEDS: FUROSEMIDE 20 MG TAB PO SCH (09:00)
[2020-04-30] MEDS: METOPROLOL TART 12.5 MG PER 1/2 TAB PO SCH ×2 (09:00→21:00)
[2020-04-30] MEDS: ASPIRIN 81 MG ENTERIC TAB PO SCH (09:25)
[2020-04-30] MEDS: FAMOTIDINE 20 MG TAB PO SCH (09:25)
[2020-04-30] MEDS: FERROUS GLUCONATE 324 MG TAB PO SCH (09:25)
[2020-04-30] MEDS: APIXABAN 5 MG TAB (ELIQUIS) PO SCH ×2 (09:27→21:35)
[2020-04-30] MEDS: MULTIVITAMINS/MINERALS THERAP 1 TAB PO SCH (09:27)
[2020-04-30] MEDS: SENNA 8.6 MG TAB (SENOKOT) PO SCH (09:27)
[2020-04-30] MEDS: SERTRALINE 100 MG TAB PO SCH (09:28)
[2020-04-30] MEDS: AUGMENTIN 875 MG TAB PO SCH ×2 (09:28→21:35)
[2020-04-30] MEDS: ASCORBIC ACID 500 MG TAB PO SCH (09:28)
[2020-04-30] MEDS: rOPINIRole 1MG TAB PO SCH ×2 (09:29→21:35)
[2020-04-30] MEDS: NYSTATIN 100,000 UNITS/GM TOPICAL PWD 15 GM TOP SCH ×2 (09:31→21:36)
[2020-04-30] MEDS: SODIUM CHLORIDE NASAL 0.65% SPRAY BTL (OCEAN) SCH ×4 (09:31→21:36)
[2020-04-30] MEDS: VITAMIN D 1,000 INTERNATIONAL UNITS TABLET PO SCH (11:45)
[2020-04-30 19:33] VITALS: BP 95/55
[2020-04-30] MEDS: RAMELTEON 8 MG TAB (ROZEREM) PO SCH (21:35)
[2020-04-30] MEDS: SIMVASTATIN 40 MG TAB PO SCH (21:35)
[2020-05-01] MEDS: DOXYCYCLINE HYCLATE 100MG TABLET PO SCH ×2 (05:29→17:56)
[2020-05-01] MEDS: ANALGESIC BALM CRM 120 GM EXT PRN (05:29)
[2020-05-01 06:00] VITALS: BP 112/56
[2020-05-01] MEDS: SYMBICORT 160/4.5MCG INHALER 6GM INH SCH ×2 (08:33→20:27)
[2020-05-01] MEDS: FUROSEMIDE 20 MG TAB PO SCH (09:00)
[2020-05-01] MEDS: METOPROLOL TART 12.5 MG PER 1/2 TAB PO SCH ×2 (09:00→22:52)
[2020-05-01] MEDS: FAMOTIDINE 20 MG TAB PO SCH (10:34)
[2020-05-01] MEDS: SERTRALINE 100 MG TAB PO SCH (10:35)
[2020-05-01] MEDS: ASPIRIN 81 MG ENTERIC TAB PO SCH (10:35)
[2020-05-01] MEDS: rOPINIRole 1MG TAB PO SCH ×2 (10:35→22:53)
[2020-05-01] MEDS: VITAMIN D 1,000 INTERNATIONAL UNITS TABLET PO SCH (10:35)
[2020-05-01] MEDS: APIXABAN 5 MG TAB (ELIQUIS) PO SCH ×2 (10:35→22:52)
[2020-05-01] MEDS: ASCORBIC ACID 500 MG TAB PO SCH (10:35)
[2020-05-01] MEDS: MULTIVITAMINS/MINERALS THERAP 1 TAB PO SCH (10:35)
[2020-05-01] MEDS: AUGMENTIN 875 MG TAB PO SCH ×2 (10:35→22:52)
[2020-05-01] MEDS: SODIUM CHLORIDE NASAL 0.65% SPRAY BTL (OCEAN) SCH ×4 (10:36→22:53)
[2020-05-01] MEDS: SENNA 8.6 MG TAB (SENOKOT) PO SCH (10:36)
[2020-05-01] MEDS: NYSTATIN 100,000 UNITS/GM TOPICAL PWD 15 GM TOP SCH ×2 (10:36→22:53)
[2020-05-01] MEDS: FERROUS GLUCONATE 324 MG TAB PO SCH (10:36)
[2020-05-01 22:48] VITALS: BP 96/40
[2020-05-01] MEDS: RAMELTEON 8 MG TAB (ROZEREM) PO SCH (22:52)
[2020-05-01] MEDS: SIMVASTATIN 40 MG TAB PO SCH (22:53)
[2020-05-02 05:42] VITALS: BP 110/55
[2020-05-02] MEDS: DOXYCYCLINE HYCLATE 100MG TABLET PO SCH (05:42)
[2020-05-02] MEDS: SYMBICORT 160/4.5MCG INHALER 6GM INH SCH ×2 (08:20→20:00)
[2020-05-02] MEDS: FERROUS GLUCONATE 324 MG TAB PO SCH (08:33)
[2020-05-02] MEDS: ASCORBIC ACID 500 MG TAB PO SCH (08:35)
[2020-05-02] MEDS: rOPINIRole 1MG TAB PO SCH ×2 (08:36→20:45)
[2020-05-02] MEDS: FAMOTIDINE 20 MG TAB PO SCH (08:36)
[2020-05-02] MEDS: ASPIRIN 81 MG ENTERIC TAB PO SCH (08:36)
[2020-05-02] MEDS: MULTIVITAMINS/MINERALS THERAP 1 TAB PO SCH (08:36)
[2020-05-02] MEDS: AUGMENTIN 875 MG TAB PO SCH (08:36)
[2020-05-02] MEDS: SENNA 8.6 MG TAB (SENOKOT) PO SCH (08:36)
[2020-05-02] MEDS: SERTRALINE 100 MG TAB PO SCH (08:36)
[2020-05-02] MEDS: APIXABAN 5 MG TAB (ELIQUIS) PO SCH ×2 (08:36→20:45)
[2020-05-02] MEDS: POTASSIUM CHLORIDE 10 MEQ SR TABLET PO SCH (08:36)
[2020-05-02] MEDS: SODIUM CHLORIDE NASAL 0.65% SPRAY BTL (OCEAN) SCH ×4 (08:37→20:46)
[2020-05-02] MEDS: NYSTATIN 100,000 UNITS/GM TOPICAL PWD 15 GM TOP SCH ×2 (08:37→20:46)
[2020-05-02 08:40] VITALS: BP 78/41
[2020-05-02 08:42] VITALS: BP 102/48
[2020-05-02 08:56] LABS: BASO % 0.4 % (0.0-1.0); EOS # 0.2 10^3/uL (0.0-0.5); EOS % 3.4 % (0.0-3.0); HEMATOCRIT 36.7 % (36.0-47.0); HEMOGLOBIN 10.7 g/dl (12.0-15.5); LYMPH % 19.9 % (24.0-44.0); MEAN CORPUSCULAR HEMOGLOBIN 27.2 pg (27.0-33.0); MEAN CORPUSCULAR HGB CONC 29.2 g/dl (32.0-36.5); MEAN CORPUSCULAR VOLUME 93.4 fl (80.0-96.0); MONO # 0.6 10^3/uL (0.0-0.8); MONO % 11.3 % (0.0-5.0); NEUTROPHILS # 3.3 10^3/uL (1.5-8.5); NEUTROPHILS % 63.9 % (36.0-66.0); PLATELET COUNT, AUTOMATED 301 10^3/uL (150-450); RED BLOOD COUNT 3.93 10^6/uL (4.00-5.40); WHITE BLOOD COUNT 5.2 10^3/uL (4.0-10.0)
[2020-05-02] MEDS: METOPROLOL TART 12.5 MG PER 1/2 TAB PO SCH ×2 (08:57→20:45)
[2020-05-02] MEDS: FUROSEMIDE 20 MG TAB PO SCH (08:57)
[2020-05-02] MEDS ORDERED: GI COCKTAIL 50ML BTL(HYOSCYAMINE/MAALOX/LIDOCAINE VISCOUS)(1:3:1) PO ONE (09:00)
[2020-05-02 09:26] LABS: ALBUMIN 2.6 GM/DL (3.2-5.2); ALT/SGPT 14 U/L (12-78); BILIRUBIN,TOTAL 0.3 MG/DL (0.2-1.0); BLOOD UREA NITROGEN 20 MG/DL (7-18); CALCIUM LEVEL 8.2 MG/DL (8.8-10.2); CARBON DIOXIDE LEVEL 31 MEQ/L (21-32); CHLORIDE LEVEL 107 MEQ/L (98-107); GLOMERULAR FILTRATION RATE > 60.0 (>32); GLUCOSE, FASTING 113 MG/DL (70-100); MAGNESIUM LEVEL 2.1 MG/DL (1.8-2.4); NT-PRO BNP 205 PG/ML (<450); POTASSIUM SERUM 4.2 MEQ/L (3.5-5.1); SODIUM LEVEL 143 MEQ/L (136-145); TROPONIN I < 0.02 NG/ML (< 0.10)
[2020-05-02] MEDS: VITAMIN D 1,000 INTERNATIONAL UNITS TABLET PO SCH (12:28)
[2020-05-02] MEDS: RAMELTEON 8 MG TAB (ROZEREM) PO SCH (20:45)
[2020-05-02] MEDS: SIMVASTATIN 40 MG TAB PO SCH (20:45)
[2020-05-03 06:00] VITALS: BP 120/92
[2020-05-03] MEDS: SENNA 8.6 MG TAB (SENOKOT) PO SCH (07:24)
[2020-05-03] MEDS: SYMBICORT 160/4.5MCG INHALER 6GM INH SCH ×2 (08:24→20:45)
[2020-05-03] MEDS: rOPINIRole 1MG TAB PO SCH ×2 (08:54→20:21)
[2020-05-03] MEDS: ASPIRIN 81 MG ENTERIC TAB PO SCH (08:54)
[2020-05-03] MEDS: MULTIVITAMINS/MINERALS THERAP 1 TAB PO SCH (08:54)
[2020-05-03] MEDS: FAMOTIDINE 20 MG TAB PO SCH (08:54)
[2020-05-03] MEDS: SERTRALINE 100 MG TAB PO SCH (08:54)
[2020-05-03] MEDS: ASCORBIC ACID 500 MG TAB PO SCH (08:54)
[2020-05-03] MEDS: FERROUS GLUCONATE 324 MG TAB PO SCH (08:54)
[2020-05-03] MEDS: APIXABAN 5 MG TAB (ELIQUIS) PO SCH ×2 (08:54→20:21)
[2020-05-03] MEDS: FUROSEMIDE 20 MG TAB PO SCH (08:55)
[2020-05-03] MEDS: SODIUM CHLORIDE NASAL 0.65% SPRAY BTL (OCEAN) SCH ×4 (08:55→20:21)
[2020-05-03] MEDS: METOPROLOL TART 12.5 MG PER 1/2 TAB PO SCH ×2 (08:55→20:22)
[2020-05-03] MEDS: NYSTATIN 100,000 UNITS/GM TOPICAL PWD 15 GM TOP SCH ×2 (08:55→20:21)
[2020-05-03] MEDS: VITAMIN D 1,000 INTERNATIONAL UNITS TABLET PO SCH (11:41)
[2020-05-03] MEDS: RAMELTEON 8 MG TAB (ROZEREM) PO SCH (20:21)
[2020-05-03] MEDS: SIMVASTATIN 40 MG TAB PO SCH (20:21)
[2020-05-04 06:00] VITALS: BP 101/60
[2020-05-04] MEDS: SYMBICORT 160/4.5MCG INHALER 6GM INH SCH ×2 (08:00→19:56)
[2020-05-04] MEDS: METOPROLOL TART 12.5 MG PER 1/2 TAB PO SCH ×2 (09:00→20:43)
[2020-05-04] MEDS: ASCORBIC ACID 500 MG TAB PO SCH ×2 (09:00→09:23)
[2020-05-04] MEDS: POTASSIUM CHLORIDE 10 MEQ SR TABLET PO SCH ×2 (09:00→09:24)
[2020-05-04] MEDS: SODIUM CHLORIDE NASAL 0.65% SPRAY BTL (OCEAN) SCH ×4 (09:00→20:43)
[2020-05-04] MEDS: FUROSEMIDE 20 MG TAB PO SCH (09:00)
[2020-05-04] MEDS: MULTIVITAMINS/MINERALS THERAP 1 TAB PO SCH ×2 (09:00→09:23)
[2020-05-04] MEDS: SERTRALINE 100 MG TAB PO SCH (09:23)
[2020-05-04] MEDS: rOPINIRole 1MG TAB PO SCH ×2 (09:23→20:42)
[2020-05-04] MEDS: FERROUS GLUCONATE 324 MG TAB PO SCH (09:23)
[2020-05-04] MEDS: APIXABAN 5 MG TAB (ELIQUIS) PO SCH ×2 (09:23→20:42)
[2020-05-04] MEDS: ASPIRIN 81 MG ENTERIC TAB PO SCH (09:23)
[2020-05-04] MEDS: FAMOTIDINE 20 MG TAB PO SCH (09:23)
[2020-05-04] MEDS: SENNA 8.6 MG TAB (SENOKOT) PO SCH (09:23)
[2020-05-04] MEDS: NYSTATIN 100,000 UNITS/GM TOPICAL PWD 15 GM TOP SCH ×2 (09:24→20:44)
[2020-05-04] MEDS: VITAMIN D 1,000 INTERNATIONAL UNITS TABLET PO SCH (11:41)
[2020-05-04] MEDS: SIMVASTATIN 40 MG TAB PO SCH (20:42)
[2020-05-04] MEDS: RAMELTEON 8 MG TAB (ROZEREM) PO SCH (20:42)
[2020-05-04 22:00] VITALS: BP 95/48
[2020-05-05 06:00] VITALS: BP 113/66
[2020-05-05] MEDS: SYMBICORT 160/4.5MCG INHALER 6GM INH SCH ×2 (07:35→20:40)
[2020-05-05] MEDS: FUROSEMIDE 20 MG TAB PO SCH ×2 (09:00→09:21)
[2020-05-05] MEDS: METOPROLOL TART 12.5 MG PER 1/2 TAB PO SCH ×2 (09:00→21:00)
[2020-05-05] MEDS: MULTIVITAMINS/MINERALS THERAP 1 TAB PO SCH (09:20)
[2020-05-05] MEDS: FERROUS GLUCONATE 324 MG TAB PO SCH (09:20)
[2020-05-05] MEDS: ASPIRIN 81 MG ENTERIC TAB PO SCH (09:23)
[2020-05-05] MEDS: APIXABAN 5 MG TAB (ELIQUIS) PO SCH ×2 (09:24→21:48)
[2020-05-05] MEDS: SERTRALINE 100 MG TAB PO SCH (09:24)
[2020-05-05] MEDS: ASCORBIC ACID 500 MG TAB PO SCH (09:24)
[2020-05-05] MEDS: SENNA 8.6 MG TAB (SENOKOT) PO SCH (09:24)
[2020-05-05] MEDS: SODIUM CHLORIDE NASAL 0.65% SPRAY BTL (OCEAN) SCH ×4 (09:24→21:49)
[2020-05-05] MEDS: FAMOTIDINE 20 MG TAB PO SCH (09:24)
[2020-05-05] MEDS: rOPINIRole 1MG TAB PO SCH ×2 (09:24→21:48)
[2020-05-05] MEDS: NYSTATIN 100,000 UNITS/GM TOPICAL PWD 15 GM TOP SCH ×2 (09:25→21:49)
[2020-05-05] MEDS: VITAMIN D 1,000 INTERNATIONAL UNITS TABLET PO SCH (13:54)
[2020-05-05] MEDS: SIMVASTATIN 40 MG TAB PO SCH (21:48)
[2020-05-05] MEDS: RAMELTEON 8 MG TAB (ROZEREM) PO SCH (21:48)
[2020-05-05 22:00] VITALS: BP 100/59
[2020-05-06 06:00] VITALS: BP 109/55
[2020-05-06] MEDS: SYMBICORT 160/4.5MCG INHALER 6GM INH SCH ×2 (07:38→20:28)
[2020-05-06] MEDS: SODIUM CHLORIDE NASAL 0.65% SPRAY BTL (OCEAN) SCH ×4 (09:00→20:47)
[2020-05-06] MEDS: ASPIRIN 81 MG ENTERIC TAB PO SCH (09:57)
[2020-05-06] MEDS: FAMOTIDINE 20 MG TAB PO SCH (09:57)
[2020-05-06] MEDS: FERROUS GLUCONATE 324 MG TAB PO SCH (09:57)
[2020-05-06] MEDS: SERTRALINE 100 MG TAB PO SCH (09:57)
[2020-05-06] MEDS: METOPROLOL TART 12.5 MG PER 1/2 TAB PO SCH ×2 (09:58→20:47)
[2020-05-06] MEDS: APIXABAN 5 MG TAB (ELIQUIS) PO SCH ×2 (09:58→20:46)
[2020-05-06] MEDS: rOPINIRole 1MG TAB PO SCH ×2 (09:58→20:47)
[2020-05-06] MEDS: MULTIVITAMINS/MINERALS THERAP 1 TAB PO SCH (09:58)
[2020-05-06] MEDS: SENNA 8.6 MG TAB (SENOKOT) PO SCH (09:58)
[2020-05-06] MEDS: ASCORBIC ACID 500 MG TAB PO SCH (09:58)
[2020-05-06] MEDS: FUROSEMIDE 20 MG TAB PO SCH (09:58)
[2020-05-06] MEDS: POTASSIUM CHLORIDE 10 MEQ SR TABLET PO SCH (09:59)
[2020-05-06] MEDS: NYSTATIN 100,000 UNITS/GM TOPICAL PWD 15 GM TOP SCH ×2 (09:59→20:48)
[2020-05-06] MEDS: VITAMIN D 1,000 INTERNATIONAL UNITS TABLET PO SCH (12:12)
[2020-05-06] MEDS: RAMELTEON 8 MG TAB (ROZEREM) PO SCH (20:47)
[2020-05-06] MEDS: SIMVASTATIN 40 MG TAB PO SCH (20:47)
[2020-05-07 06:00] VITALS: BP 101/56
[2020-05-07] MEDS: SERTRALINE 100 MG TAB PO SCH (08:51)
[2020-05-07] MEDS: FAMOTIDINE 20 MG TAB PO SCH (08:51)
[2020-05-07] MEDS: ASPIRIN 81 MG ENTERIC TAB PO SCH (08:51)
[2020-05-07] MEDS: rOPINIRole 1MG TAB PO SCH ×2 (08:51→21:00)
[2020-05-07] MEDS: MULTIVITAMINS/MINERALS THERAP 1 TAB PO SCH (08:51)
[2020-05-07] MEDS: ASCORBIC ACID 500 MG TAB PO SCH (08:51)
[2020-05-07] MEDS: APIXABAN 5 MG TAB (ELIQUIS) PO SCH ×2 (08:51→21:01)
[2020-05-07] MEDS: FERROUS GLUCONATE 324 MG TAB PO SCH (08:51)
[2020-05-07] MEDS: SENNA 8.6 MG TAB (SENOKOT) PO SCH (08:51)
[2020-05-07] MEDS: NYSTATIN 100,000 UNITS/GM TOPICAL PWD 15 GM TOP SCH ×2 (08:51→21:02)
[2020-05-07] MEDS: FUROSEMIDE 20 MG TAB PO SCH (08:52)
[2020-05-07] MEDS: SODIUM CHLORIDE NASAL 0.65% SPRAY BTL (OCEAN) SCH ×4 (08:52→21:00)
[2020-05-07] MEDS: METOPROLOL TART 12.5 MG PER 1/2 TAB PO SCH ×2 (08:52→21:00)
[2020-05-07] MEDS: SYMBICORT 160/4.5MCG INHALER 6GM INH SCH ×2 (11:14→20:00)
[2020-05-07] MEDS: VITAMIN D 1,000 INTERNATIONAL UNITS TABLET PO SCH (12:42)
[2020-05-07] MEDS: RAMELTEON 8 MG TAB (ROZEREM) PO SCH (21:00)
[2020-05-07] MEDS: SIMVASTATIN 40 MG TAB PO SCH (21:00)
[2020-05-07] MEDS: ACETAMINOPHEN 325 MG TAB PO PRN (21:47)
[2020-05-08 06:00] VITALS: BP 146/69
[2020-05-08] MEDS: SYMBICORT 160/4.5MCG INHALER 6GM INH SCH ×2 (08:16→18:04)
[2020-05-08] MEDS: FUROSEMIDE 20 MG TAB PO SCH (09:00)
[2020-05-08] MEDS: SODIUM CHLORIDE NASAL 0.65% SPRAY BTL (OCEAN) SCH ×4 (09:00→21:21)
[2020-05-08] MEDS: METOPROLOL TART 12.5 MG PER 1/2 TAB PO SCH ×2 (09:00→21:00)
[2020-05-08] MEDS: FAMOTIDINE 20 MG TAB PO SCH (09:40)
[2020-05-08] MEDS: SERTRALINE 100 MG TAB PO SCH (09:40)
[2020-05-08] MEDS: APIXABAN 5 MG TAB (ELIQUIS) PO SCH ×2 (09:40→21:21)
[2020-05-08] MEDS: ASCORBIC ACID 500 MG TAB PO SCH (09:40)
[2020-05-08] MEDS: ASPIRIN 81 MG ENTERIC TAB PO SCH (09:40)
[2020-05-08] MEDS: MULTIVITAMINS/MINERALS THERAP 1 TAB PO SCH (09:40)
[2020-05-08] MEDS: FERROUS GLUCONATE 324 MG TAB PO SCH (09:40)
[2020-05-08] MEDS: SENNA 8.6 MG TAB (SENOKOT) PO SCH (09:40)
[2020-05-08] MEDS: rOPINIRole 1MG TAB PO SCH ×2 (09:40→21:21)
[2020-05-08] MEDS: NYSTATIN 100,000 UNITS/GM TOPICAL PWD 15 GM TOP SCH ×2 (09:41→21:23)
[2020-05-08] MEDS: VITAMIN D 1,000 INTERNATIONAL UNITS TABLET PO SCH (12:30)
[2020-05-08] MEDS: RAMELTEON 8 MG TAB (ROZEREM) PO SCH (21:21)
[2020-05-08] MEDS: SIMVASTATIN 40 MG TAB PO SCH (21:21)
[2020-05-08] MEDS: ANALGESIC BALM CRM 120 GM EXT PRN (21:22)
[2020-05-08] MEDS: ACETAMINOPHEN 325 MG TAB PO PRN (21:34)
[2020-05-08] MEDS ORDERED: tiZANidine 4 MG TAB PO ONE (23:15)
[2020-05-09] MEDS: ACETAMINOPHEN 325 MG TAB PO PRN (05:53)
[2020-05-09 06:00] VITALS: BP 113/56
[2020-05-09] MEDS: SYMBICORT 160/4.5MCG INHALER 6GM INH SCH (06:21)
[2020-05-09] MEDS: FAMOTIDINE 20 MG TAB PO SCH (09:50)
[2020-05-09] MEDS: SENNA 8.6 MG TAB (SENOKOT) PO SCH (09:50)
[2020-05-09] MEDS: SERTRALINE 100 MG TAB PO SCH (09:50)
[2020-05-09] MEDS: APIXABAN 5 MG TAB (ELIQUIS) PO SCH (09:51)
[2020-05-09] MEDS: ASPIRIN 81 MG ENTERIC TAB PO SCH (09:51)
[2020-05-09] MEDS: POTASSIUM CHLORIDE 10 MEQ SR TABLET PO SCH (09:51)
[2020-05-09] MEDS: FUROSEMIDE 20 MG TAB PO SCH (09:51)
[2020-05-09] MEDS: ASCORBIC ACID 500 MG TAB PO SCH (09:51)
[2020-05-09] MEDS: rOPINIRole 1MG TAB PO SCH (09:52)
[2020-05-09] MEDS: MULTIVITAMINS/MINERALS THERAP 1 TAB PO SCH (09:52)
[2020-05-09 09:53] VITALS: BP 113/56
[2020-05-09] MEDS: METOPROLOL TART 12.5 MG PER 1/2 TAB PO SCH (09:53)
[2020-05-09] MEDS: SODIUM CHLORIDE NASAL 0.65% SPRAY BTL (OCEAN) SCH ×2 (09:58→13:00)
[2020-05-09] MEDS: ANALGESIC BALM CRM 120 GM EXT PRN (09:58)
[2020-05-09] MEDS: FERROUS GLUCONATE 324 MG TAB PO SCH (09:58)
[2020-05-09] MEDS: NYSTATIN 100,000 UNITS/GM TOPICAL PWD 15 GM TOP SCH (09:59)
--- NOTE | 2020-05-09 10:13 | IPN ---
PROGRESS NOTE DATE: 05/09/2020 I saw Armani who is on SNF level. She is waiting for two negative COVID tests before she can return to the [facility]. She is quite frustrated about this. I spent some time talking to her that this is a decision that is out of the my or the hospital's hand, this is a [facility] requirement. Her exam is unchanged from before and she has had no recent lab work.
[2020-05-09 11:30] LABS: RSV AMPLIFICATION NEGATIVE (NEGATIVE)
[2020-05-09] MEDS: VITAMIN D 1,000 INTERNATIONAL UNITS TABLET PO SCH (13:02)
== END 2020-05-09 14:00 | DRG 177 ==
LOC: EDBD 15:55 → M ED 15:55 → M 4MAIN 18:44 → ENRESERV 19:34 → M 4MAIN 22:22 → M ED 22:59 → M 4MAIN 04-19 17:39 → M MS5PR 04-26 15:00
PROVIDERS: ADMIT Family Medicine; ATTEND Internal Medicine
DX: U07.1 COVID-19 (principal); J18.9 Pneumonia, unspecified organism; I13.0 Hypertensive heart and chronic kidney disease with heart failure and stage 1 through stage 4 chronic kidney disease, or unspecified chronic kidney disease; J96.11 Chronic respiratory failure with hypoxia; I69.354 Hemiplegia and hemiparesis following cerebral infarction affecting left non-dominant side; I50.32 Chronic diastolic (congestive) heart failure; N18.30 Chronic kidney disease, stage 3 unspecified; J44.9 Chronic obstructive pulmonary disease, unspecified; I48.0 Paroxysmal atrial fibrillation; D45 Polycythemia vera; G25.81 Restless legs syndrome; K21.9 Gastro-esophageal reflux disease without esophagitis; E78.00 Pure hypercholesterolemia, unspecified; G47.00 Insomnia, unspecified; I25.10 Atherosclerotic heart disease of native coronary artery without angina pectoris; F32.9 Major depressive disorder, single episode, unspecified; Z79.899 Other long term (current) drug therapy; E55.9 Vitamin D deficiency, unspecified; K59.00 Constipation, unspecified

== ENCOUNTER → 2020-04-12 | Outpatient (REF) ==
[2020-04-12 08:43] LABS: HEMATOCRIT 41.9 % (36.0-47.0); HEMOGLOBIN 12.5 g/dl (12.0-15.5); MEAN CORPUSCULAR HGB CONC 29.8 g/dl (32.0-36.5); MEAN CORPUSCULAR VOLUME 93.7 fl (80.0-96.0); PLATELET COUNT, AUTOMATED 223 10^3/uL (150-450); RED BLOOD COUNT 4.47 10^6/uL (4.00-5.40)
[2020-04-12 09:11] LABS: BLOOD UREA NITROGEN 23 MG/DL (7-18); CALCIUM LEVEL 8.5 MG/DL (8.8-10.2); CARBON DIOXIDE LEVEL 32 MEQ/L (21-32); CHLORIDE LEVEL 105 MEQ/L (98-107); CREATININE FOR GFR 0.88 MG/DL (0.55-1.30); GLOMERULAR FILTRATION RATE > 60.0 (>39); GLUCOSE, FASTING 98 MG/DL (70-100); POTASSIUM SERUM 3.2 MEQ/L (3.5-5.1); SODIUM LEVEL 143 MEQ/L (136-145)
== END ==
LOC: SKLAB7 08:16
PROVIDERS: ATTEND Internal Medicine
DX: U07.1 COVID-19 (principal)

== ENCOUNTER → 2020-05-17 | Outpatient (REF) ==
[~2020-05-17] MED LIST changes: +ASPI-161 PO; +AZIT-10 PO; +BACI28.3; +BENG1CRE3 EXT; +C 50TAB PO; +D31000TA2 PO; +ELIQ2.5T PO; +FERR32TA PO; +HM S0.65; +META400T PO; +ONDA-195 PO; +POTA10TA67 PO; +PRED20TA PO; +QC A650T3 PO; +SERT-138 PO; +ZINC50TA26 PO
[2020-05-17 10:02] LABS: BLOOD UREA NITROGEN 14 MG/DL (7-18); CALCIUM LEVEL 8.8 MG/DL (8.8-10.2); CARBON DIOXIDE LEVEL 33 MEQ/L (21-32); CHLORIDE LEVEL 104 MEQ/L (98-107); CREATININE FOR GFR 0.79 MG/DL (0.55-1.30); GLOMERULAR FILTRATION RATE > 60.0 (>32); GLUCOSE, FASTING 110 MG/DL (70-100); POTASSIUM SERUM 3.9 MEQ/L (3.5-5.1); SODIUM LEVEL 143 MEQ/L (136-145)
== END ==
LOC: SKLAB7 10:20
PROVIDERS: ATTEND Internal Medicine
DX: I50.9 Heart failure, unspecified (principal)

== ENCOUNTER → 2020-05-18 | Outpatient (REF) | payer MEDICARE, OTHER | LOC: SKLAB7 07:00 | PROVIDERS: ATTEND Internal Medicine | DX: Z20.822 Contact with and (suspected) exposure to COVID-19 (principal) ==

== ENCOUNTER 2020-06-22 10:51 | Inpatient (IN) | payer MEDICARE, OTHER ==
[~2020-06-22 10:51] MED LIST changes: -BACI28.3; +BACI28.3 NARES
[2020-06-22] MEDS ORDERED: LORazepam 2 MG/ML VIAL IV STA (10:54)
--- NOTE | 2020-06-22 11:25 | REP ---
INDICATION: seizure, new onset COMPARISON: 11/28/2018 TECHNIQUE: Axial noncontrast images from the skull base to the thoracic inlet with coronal reformations. This CT examination was performed using the following dose reduction techniques: Automated exposure control, adjustment of mA and/or kv according to the patient's size, and use of iterative reconstruction technique. FINDINGS: Atrophy with periventricular leukomalacia and evidence for old right middle cerebral artery infarction is again appreciated. The ventricles and sulci are symmetric. Qureshi-white differentiation is otherwise maintained. There is no evidence for acute intracranial hemorrhage, mass/mass effect, pathology or infarction. No extra-axial fluid collection. Calvarium is intact. Paranasal sinuses and mastoid air cells are clear. 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 No acute intracranial hemorrhage, infarction, or mass/mass effect. <Electronically signed by Raoul Todd > 06/22/20 1122
[2020-06-22] MEDS ORDERED: levETIRAcetam INJection 1,000 MG in D5W 100 ML IV ONE (11:30)
[2020-06-22] MEDS ORDERED: ACETAMINOPHEN 650 MG SUPP PR ONE (11:30)
[2020-06-22 11:34] LABS: BASO % 0.4 % (0.0-1.0); EOS % 0.2 % (0.0-3.0); HEMATOCRIT 45.1 % (36.0-47.0); HEMOGLOBIN 13.1 g/dl (12.0-15.5); LYMPH # 0.7 10^3/uL (1.5-5.0); MEAN CORPUSCULAR HEMOGLOBIN 27.3 pg (27.0-33.0); MEAN CORPUSCULAR VOLUME 94.2 fl (80.0-96.0); MONO # 0.6 10^3/uL (0.0-0.8); MONO % 7.1 % (2.0-8.0); NEUTROPHILS % 83.7 % (36.0-66.0); PLATELET COUNT, AUTOMATED 271 10^3/uL (150-450); RED BLOOD COUNT 4.79 10^6/uL (4.00-5.40); WHITE BLOOD COUNT 8.4 10^3/uL (4.0-10.0)
--- NOTE | 2020-06-22 11:35 | REP ---
INDICATION: CVA COMPARISON: 04/27/2020 TECHNIQUE: Portable AP view of the chest FINDINGS: Mediastinum and cardiac silhouette are stable. Lung murray demonstrate diffuse chronic interstitial changes similar to prior examination. Subtle basilar airspace disease cannot be excluded. No obvious effusion. No pneumothorax. Skeletal structures intact. IMPRESSION: Chronic appearing changes. Cannot exclude subtle basilar airspace disease. <Electronically signed by Raoul Todd > 06/22/20 4521
[2020-06-22 11:45] LABS: INR 1.22; PROTHROMBIN TIME 15.7 SECONDS (12.5-14.3)
--- OUTSIDE RECORDS SUMMARY | 2020-06-22 11:52 | CCD ---
Author Author [facility] Organization [facility] Address Unknown Phone Unavailable Care Team Providers Care Field Party Manager Name Role Phone Shelby Donovan MD Unavailable Unavailable Cederstrand, Shelby Chery MD Unavailable Unavailable Cederstrand, Shelby Chery MD Unavailable Unavailable Cederstrand, Shelby Chery MD Unavailable Unavailable Cederstrand, Shelby Chery MD Unavailable Unavailable Cederstrand, Shelby Chery MD Unavailable Unavailable Cederstrand, Shelby Chery MD Unavailable Unavailable Cederstrand, Shelby Chery MD Unavailable Unavailable Cederstrand, Shelby Chery MD Unavailable Unavailable Cederstrand, Shelby Chery MD Unavailable Unavailable Cedmariotrand, Shelby Chery MD Unavailable Unavailable Cederstrand, Shelby Chery MD Unavailable Unavailable Cederstrand, Shelby Chery MD Unavailable Unavailable Cederstrand, Shelby Chery MD Unavailable Unavailable Cederstrand, Shelby Chery MD Unavailable Unavailable Fons, M Nancy MILL OPERATOR HEAD Unavailable Unavailable Fons, M Nancy MILL OPERATOR HEAD Unavailable Unavailable Fons, M Nancy MILL OPERATOR HEAD Unavailable Unavailable Fons, M Nancy MILL OPERATOR HEAD Unavailable Unavailable Fons, M Nancy MILL OPERATOR HEAD Unavailable Unavailable Fons, M Nancy MILL OPERATOR HEAD Unavailable Unavailable Fons, M Nancy MILL OPERATOR HEAD Unavailable Unavailable Fons, M Nancy MILL OPERATOR HEAD Unavailable Unavailable Fons, M Nancy MILL OPERATOR HEAD Unavailable Unavailable Fons, M Nancy MILL OPERATOR HEAD Unavailable Unavailable Fons, M Nancy MILL OPERATOR HEAD Unavailable Unavailable Fons, M Nancy MILL OPERATOR HEAD Unavailable Unavailable Fons, M Nancy MILL OPERATOR HEAD Unavailable Unavailable Fons, M Nancy MILL OPERATOR HEAD Unavailable Unavailable Fons, M Nancy MILL OPERATOR HEAD Unavailable Unavailable Fons, M Nancy MILL OPERATOR HEAD Unavailable Unavailable Fons, M Nancy MILL OPERATOR HEAD Unavailable Unavailable Fons, M Nancy MILL OPERATOR HEAD Unavailable Unavailable Fons, M Nancy MILL OPERATOR HEAD Unavailable Unavailable Fons, M Nancy MILL OPERATOR HEAD Unavailable Unavailable Fons, M Nancy MILL OPERATOR HEAD Unavailable Unavailable Fons, M Nancy MILL OPERATOR HEAD Unavailable Unavailable Fons, M Nancy MILL OPERATOR HEAD Unavailable Unavailable Fons, M Nancy MILL OPERATOR HEAD Unavailable Unavailable Fons, M Nancy MILL OPERATOR HEAD Unavailable Unavailable Fons, M Nancy MILL OPERATOR HEAD Unavailable Unavailable Fons, M Nancy MILL OPERATOR HEAD Unavailable Unavailable Fons, M Nancy MILL OPERATOR HEAD Unavailable Unavailable Fons, M Nancy MILL OPERATOR HEAD Unavailable Unavailable Fons, M Nancy MILL OPERATOR HEAD Unavailable Unavailable Fons, M Nancy MILL OPERATOR HEAD Unavailable Unavailable Fons, M Nancy MILL OPERATOR HEAD Unavailable Unavailable Fons, M Nancy MILL OPERATOR HEAD Unavailable Unavailable Fons, M Nancy MILL OPERATOR HEAD Unavailable Unavailable Fons, M Nancy MILL OPERATOR HEAD Unavailable Unavailable Fons, M Nancy MILL OPERATOR HEAD Unavailable Unavailable Fons, M Nancy MILL OPERATOR HEAD Unavailable Unavailable Fons, M Nancy MILL OPERATOR HEAD Unavailable Unavailable Fons, M Nancy MILL OPERATOR HEAD Unavailable Unavailable Fons, M Nancy MILL OPERATOR HEAD Unavailable Unavailable Fons, M Nancy MILL OPERATOR HEAD Unavailable Unavailable Fons, M Nancy MILL OPERATOR HEAD Unavailable Unavailable Fons, M Nancy MILL OPERATOR HEAD Unavailable Unavailable Fons, M Nancy MILL OPERATOR HEAD Unavailable Unavailable Fons, M Nancy MILL OPERATOR HEAD Unavailable Unavailable Fons, M Nancy MILL OPERATOR HEAD Unavailable Unavailable Fons, M Nancy MILL OPERATOR HEAD Unavailable Unavailable Fons, M Nancy MILL OPERATOR HEAD Unavailable Unavailable Fons, M Nancy MILL OPERATOR HEAD Unavailable Unavailable Fons, M Nancy MILL OPERATOR HEAD Unavailable Unavailable Fons, M Nancy MILL OPERATOR HEAD Unavailable Unavailable Fons, M Nancy MILL OPERATOR HEAD Unavailable Unavailable Fons, M Nancy MILL OPERATOR HEAD Unavailable Unavailable Fons, M Nancy MILL OPERATOR HEAD Unavailable Unavailable Fons, M Nancy MILL OPERATOR HEAD Unavailable Unavailable Jewell, L Ana RPA Unavailable Unavailable Jewell, L Ana RPA Unavailable Unavailable Jewell, L Ana RPA Unavailable Unavailable Jewell, L Ana RPA Unavailable Unavailable Jewell, L Ana RPA Unavailable Unavailable Jewell, L Ana RPA Unavailable Unavailable Jewell, L Ana RPA Unavailable Unavailable Jewell, L Ana RPA Unavailable Unavailable Jewell, L Ana RPA Unavailable Unavailable Jewell, L Ana RPA Unavailable Unavailable Jewell, L Ana RPA Unavailable Unavailable Jewell, L Ana RPA Unavailable Unavailable Jewell, L Ana RPA Unavailable Unavailable Jewell, L Ana RPA Unavailable Unavailable Jewell, L Ana RPA Unavailable Unavailable Jewell, L Ana RPA Unavailable Unavailable Jewell, L Ana RPA Unavailable Unavailable Jewell, L Ana RPA Unavailable Unavailable Jewell, L Ana RPA Unavailable Unavailable Jewell, L Ana RPA Unavailable Unavailable Jewell, L Ana RPA Unavailable Unavailable Jewell, L Ana RPA Unavailable Unavailable Jewell, L Ana RPA Unavailable Unavailable Jewell, L Ana RPA Unavailable Unavailable Jewell, L Ana RPA Unavailable Unavailable Jewell, L Ana RPA Unavailable Unavailable Jewell, L Ana RPA Unavailable Unavailable Jewell, L Ana RPA Unavailable Unavailable Jewell, L Ana RPA Unavailable Unavailable Jewell, L Ana RPA Unavailable Unavailable Jewell, L Ana RPA Unavailable Unavailable Jewell, L Ana RPA Unavailable Unavailable ODUWA, O MD Unavailable Unavailable ODUWA, O MD Unavailable Unavailable ODUWA, O MD Unavailable Unavailable ODUWA, O MD Unavailable Unavailable ODUWA, O MD Unavailable Unavailable ODUWA, O MD Unavailable Unavailable ODUWA, O MD Unavailable Unavailable ODUWA, O MD Unavailable Unavailable ODUWA, O MD Unavailable Unavailable ODUWA, O MD Unavailable Unavailable ODUWA, O MD Unavailable Unavailable ODUWA, O MD Unavailable Unavailable ODUWA, O MD Unavailable Unavailable ODUWA, O MD Unavailable Unavailable ODUWA, O MD Unavailable Unavailable ODUWA, O MD Unavailable Unavailable ODUWA, O MD Unavailable Unavailable ODUWA, O MD Unavailable Unavailable ODUWA, O MD Unavailable Unavailable ODUWA, O MD Unavailable Unavailable ODUWA, O MD Unavailable Unavailable ODUWA, O MD Unavailable Unavailable ODUWA, O MD Unavailable Unavailable ODUWA, O MD Unavailable Unavailable ODUWA, O MD Unavailable Unavailable ODUWA, O MD Unavailable Unavailable ODUWA, O MD Unavailable Unavailable ODUWA, O MD Unavailable Unavailable ODUWA, O MD Unavailable Unavailable ODUWA, O MD Unavailable Unavailable ODUWA, O MD Unavailable Unavailable ODUWA, O MD Unavailable Unavailable ODUWA, O MD Unavailable Unavailable ODUWA, O MD Unavailable Unavailable ODUWA, O MD Unavailable Unavailable ODUWA, O MD Unavailable Unavailable ODUWA, O MD Unavailable Unavailable ODUWA, O MD Unavailable Unavailable ODUWA, O MD Unavailable Unavailable ODUWA, O MD Unavailable Unavailable ODUWA, O MD Unavailable Unavailable ODUWA, O MD Unavailable Unavailable ODUWA, O MD Unavailable Unavailable ODUWA, O MD Unavailable Unavailable ODUWA, O MD Unavailable Unavailable ODUWA, O MD Unavailable Unavailable ODUWA, O MD Unavailable Unavailable ODUWA, O MD Unavailable Unavailable ODUWA, O MD Unavailable Unavailable ODUWA, O MD Unavailable Unavailable ODUWA, O MD Unavailable Unavailable ODUWA, O MD Unavailable Unavailable ODUWA, O MD Unavailable Unavailable ODUWA, O MD Unavailable Unavailable ODUWA, O MD Unavailable Unavailable ODUWA, O MD Unavailable Unavailable ODUWA, O MD Unavailable Unavailable ODUWA, O MD Unavailable Unavailable Johnston, Roderick MD Unavailable Unavailable Johnston, Roderick MD Unavailable Unavailable Johnston, Roderick MD Unavailable Unavailable Johnston, Roderick MD Unavailable Unavailable Johnston, Roderick MD Unavailable Unavailable Johnston, Roderick MD Unavailable Unavailable Johnston, Roderick MD Unavailable Unavailable Johnston, Roderick MD Unavailable Unavailable Johnston, Roderick MD Unavailable Unavailable Johnston, Roderick MD Unavailable Unavailable Johnston, Roderick MD Unavailable Unavailable Johnston, Roderick MD Unavailable Unavailable Johnston, Roderick MD Unavailable Unavailable Johnston, Roderick MD Unavailable Unavailable Johnston, Roderick MD Unavailable Unavailable Johnston, Roderick MD Unavailable Unavailable Johnston, Roderick MD Unavailable Unavailable Johnston, Roderick MD Unavailable Unavailable Johnston, Roderick MD Unavailable Unavailable Johnston, Roderick MD Unavailable Unavailable Johnston, Roderick MD Unavailable Unavailable Johnston, Roderick MD Unavailable Unavailable Johnston, Roderick MD Unavailable Unavailable Johnston, Roderick MD Unavailable Unavailable Johnston, Roderick MD Unavailable Unavailable Johnston, Roderick MD Unavailable Unavailable Johnston, Roderick MD Unavailable Unavailable Johnston, Roderick MD Unavailable Unavailable Cong Jackson MD Unavailable Unavailable Cong Jackson MD Unavailable Unavailable Cong Jackson MD Unavailable Unavailable Cong Jackson MD Unavailable Unavailable Ali, Cong MD Unavailable Unavailable Ali, Cong MD Unavailable Unavailable Ali, Cong MD Unavailable Unavailable Ali, Cong MD Unavailable Unavailable Ali, Cong MD Unavailable Unavailable Ali, Cong MD Unavailable Unavailable Ali, Cong MD Unavailable Unavailable Ali, Cong MD Unavailable Unavailable Ali, Cong MD Unavailable Unavailable Ali, Cong MD Unavailable Unavailable Ali, Cong MD Unavailable Unavailable Ali, Cong MD Unavailable Unavailable Ali, Cong MD Unavailable Unavailable Ali, Cong MD Unavailable Unavailable Ali, Cong MD Unavailable Unavailable Ali, Cong MD Unavailable Unavailable Ali, Cong MD Unavailable Unavailable Ali, Cong MD Unavailable Unavailable Ali, Cong MD Unavailable Unavailable Ali, Cong MD Unavailable Unavailable Ali, Cong MD Unavailable Unavailable Ali, Cong MD Unavailable Unavailable Ali, Cong MD Unavailable Unavailable Ali, Cong MD Unavailable Unavailable Ali, Cong MD Unavailable Unavailable Ali, Cong MD Unavailable Unavailable Ali, Cong MD Unavailable Unavailable Ali, Cong MD Unavailable Unavailable Ali, Cong MD Unavailable Unavailable Ali, Cong MD Unavailable Unavailable Ali, Cong MD Unavailable Unavailable Ali, Cong MD Unavailable Unavailable Ali, Cong MD Unavailable Unavailable Ali, Cong MD Unavailable Unavailable Ali, Cong MD Unavailable Unavailable Ali, Cong MD Unavailable Unavailable Ali, Cong MD Unavailable Unavailable Ali, Cong MD Unavailable Unavailable Ali, Cong MD Unavailable Unavailable Ali, Cong MD Unavailable Unavailable Ali, Cong MD Unavailable Unavailable Ali, Cong MD Unavailable Unavailable Ali, Cong MD Unavailable Unavailable Ali, Cong MD Unavailable Unavailable Ali, Cong MD Unavailable Unavailable Re-disclosure Warning The records that you are about to access may contain information from federally-assisted alcohol or drug abuse programs. If such information is present, then the following federally mandated warning applies: This information has been disclosed to you from records protected by federal confidentiality rules (42 CFR part 2). The federal rules prohibit you from making any further disclosure of this information unless further disclosure is expressly permitted by the written consent of the person to whom it pertains or as otherwise permitted by 42 CFR part 2. A general authorization for the release of medical or other information is NOT sufficient for this purpose. The Federal rules restrict any use of the information to criminally investigate or prosecute any alcohol or drug abuse patient.The records that you are about to access may contain highly sensitive health information, the redisclosure of which is protected by Article 27-F of the [facility] Public Health law. If you continue you may have access to information: Regarding HIV / AIDS; Provided by facilities licensed or operated by the [facility] Office of Mental Health; or Provided by the [facility] Office for People With Developmental Disabilities. If such information is present, then the following [facility] mandated warning applies: This information has been disclosed to you from confidential records which are protected by state law. State law prohibits you from making any further disclosure of this information without the specific written consent of the person to whom it pertains, or as otherwise permitted by law. Any unauthorized further disclosure in violation of state law may result in a fine or group home sentence or both. A general authorization for the release of medical or other information is NOT sufficient authorization for further disc losure. Family History Family Member Name Family Member Gender Family Member Status Date o f Status Description Data Source(s) Unknown Unknown Problem 10/09/2018 12:00:00 AM EDT [facility] ([facility]) Unknown Unknown Problem [facility] ([facility]) Unknown Male Problem [facility] ([facility] () Encounters Encounter Providers Location Date Indications Data Source(s ) Outpatient Attender: Nancy MILLAN.[email or web address] 0 12:00:00 AM EST - 03/08/2020 11:46:[address] [facility] Outpatient Attender: Cong Jackson MD Main office - [place] 10/29/2019 02:15:00 PM EDT [facility] ([facility], ) Outpatient Attender: Miri Kearns/Yvette/Bennie/ Reindl 10/22/2019 10:00:00 AM EDT [facility] ([facility] Outpatient Attender: Nancy MILLAN.[email or web address].[email or web address] 0 12:00:00 AM EDT - 10/21/2019 11:40:[address] [facility] Outpatient Attender: Ana Kearns/Yvette/Bennie/R eindl 09/23/2019 10:00:00 AM EDT [facility] ([facility]) Outpatient Attender: Roderick Kearns/Yvette/Bennie/Flower santiago 09/15/2019 08:40:00 AM EDT [facility] ([facility] Outpatient Referrer: FELIX ARDON MD 08/13/2019 12:48:[address] [facility] Outpatient Referrer: FELIX ARDON MD 07/09/2019 03:15:[address] [facility] Outpatient Attender: Cong Jackson MD Main office [facility] 06/10/2019 10:45:00 AM EST [facility] ([facility] Medications Medication Brand Name Start Date Product Form Dose Route Admi nistrative Instructions Pharmacy Instructions Status Indications Reaction Description Data Source(s) Simvastatin 40 MG Oral Tablet simvastatin (ZOCOR) 40 M G tablet simvastatin (ZOCOR) 40 MG tablet 02/15/2020 12:00:00 AM EDT ac tive [facility] Potassium Chloride 10 MEQ Extended Relea se Oral Capsule potassium chloride (MICRO-K) 10 MEQ CR capsule potassium chloride (MICRO-K) 10 MEQ CR capsule 02/15/2020 12:00:00 AM EDT aborted [facility] Sertraline 100 MG Oral Tablet sertraline (ZOLOFT) 100 MG tablet sertraline (ZOLOFT) 100 MG tablet 09/28/2019 12:00:00 AM EDT active [facility] Baclofen 5 MG Oral Tablet Baclofen 5 MG TABS Baclofen 5 MG T ABS 09/28/2019 12:00:00 AM EDT aborted [facility] No Active Medications 06/12/2019 12:00:00 AM EST active [facility] ([facility]) ropinirole 0.5 MG Oral Tablet Ropinirole HCL 06/10/2019 12:00:00 AM EST completed [facility] ([facility] ) atorvastatin 40 MG Oral Tablet atorvastatin (LIPITOR) 40 MG tablet atorvastatin (LIPITOR) 40 MG tablet 07/02/2018 12:00:00 AM EST 40 mg Oral aborted Take 1 tablet (40 mg total) by mouth nightly [facility] Insurance Providers Payer name Policy type / Coverage type Policy ID Covered constitution party ID Covered constitution party's relationship to hart Policy Hart Plan Information MEDICARE [id number] SP [id number] FOR LIFE [id number] [id number] MEDICARE [id number] MEDICARE [id number] Thaira [id number] Spo [id number] MEDICARE C [id number] S [id number] [id number] FOR LIFE O [id number] S [id number] SELF PAY FOR LIFE [id number] MEDICARE [id number] SP [id number] A For Life Medigap Part B [id number] Family Dependent [id number] Medicare Medicare Primary [id number] Self [id number] Medicare Medicare Primary [id number] Self 8 [id number] Spo [id number] MEDICARE [id number] [place] [id number] MEDICARE A [id number] Self [id number] [id number] FOR LIFE U [id number] Self [id number] MEDICARE A [id number] Self [id number] A FOR LIFE U [id number] [id number] MEDICARE [id number] [place] [id number] A PI PI MEDICARE PI PI For Life WPS Medigap Part B [id number] Medicare Natl Gov't Servi Medicare Primary [id number] Self [id number] For Life Commercial [id number] Family Dependent [id number] Medicare Medicare Primary [id number] Family Dependent [id number] For Life Commercial [id number] Family Dependent [id number] Medicare Medicare Primary [id number] Family Dependent [id number] For Life Commercial [id number] Family Dependent [id number] Medicare Medicare Primary [id number] Family Dependent [id number] For Life WPS Medigap Part B [id number] Medicare Natl Gov't Servi Medicare Primary [id number] Self [id number] For Life Commercial [id number] Family Dependent [id number] Medicare Medicare Primary [id number] Family Dependent [id number] For Life Commercial [id number] Family Dependent [id number] Medicare Medicare Primary [id number] Family Dependent [id number] Health Net Federal Serv Medigap Part B [id number] Family Depe ndent [id number] Medicare Medicare Primary [id number] Family Dependent [id number] HNFS-Active Duty Medigap Part B [id number] Family Dependent [id number] FOR LIFE [id number] HU2 [id number] MEDICARE C [id number] S [id number] A For Life WPS Medigap Part B [id number] Medicare Natl Gov't Servi Medicare Primary [id number] Self [id number] Health Net Federal Serv Medigap Part B [id number] Family Depe ndent [id number] Medicare Medicare Primary [id number] Family Dependent [id number] Health Net Federal Serv Medigap Part B [id number] Family Depe ndent [id number] Medicare Medicare Primary [id number] Family Dependent [id number] Health Net Federal Serv Medigap Part B [id number] Family Depe ndent [id number] Medicare Medicare Primary [id number] Family Dependent [id number] Health Net Federal Serv Medigap Part B [id number] Family Depe ndent [id number] Medicare Medicare Primary [id number] Family Dependent [id number] HNFS-Active Duty Medigap Part B [id number] Family Depende nt [id number] Health Net Federal Serv Medigap Part B Family Depe ndent Medicare Medicare Primary Family Dependent For Life WPS Medigap Part B Medicare Natl Gov't Servi Medicare Primary Self Problems, Conditions, and Diagnoses Code Display Name Description Problem Type Effective Dates Data Source(s) 84502981 Restless legs Restless legs Problem 06/10/2019 12:00:00 AM EST [facility] ([facility]) 707594807 Periodic limb movement disorder Periodic limb mo vement disorder Problem 06/10/2019 12:00:00 AM EST [facility] ([facility]) [id number] Hypoxemia Hypoxemia Problem 06/10/2019 12:00:00 AM ES T [facility] ([facility]) 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 of p rosthetic heart valve Diagnosis 03/08/2020 10:54:[address] 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 Atherosclerosis of coronary artery bypas Diagnosis 10/21/2019 10:24:07 AM EDT [facility] I10 Essential (primary) hypertension Essential (primary) h ypertension Diagnosis 10/21/2019 10:24:07 AM EDT [facility] Surgeries/Procedures Procedure Description Date Indications Data Source(s) Control Nosebleed Anterior Simple 12/10/2019 12:00:00 AM EDT [facility] ([facility], ) Control Nosebleed Anterior Simple 09/15/2019 12:00:00 AM EDT [facility] ([facility], ) Results ID Date Data Source [id number] 05/10/2020 12:00:00 AM EST [facility] Name Value Range Interpretation Code Description Data Sonia rce(s) Supporting Document(s) SARS-CoV2 Rapid Antigen [facility] This lab was ordered by [facility] and reported by [facility]. ID Date Data Source [id number] 05/09/2020 10:41:00 AM EST [facility] Name Value Range Interpretation Code Description Data Sonia rce(s) Supporting Document(s) SARS coronavirus 2 RNA [Presence] in Res piratory specimen by GINEGR with probe detection [facility] This lab was ordered by [facility] a nd reported by [facility]. ID Date Data Source [id number] 05/02/2020 12:18:00 PM EST [facility] Name Value Range Interpretation Code Description Data Sonia rce(s) Supporting Document(s) SARS coronavirus 2 RNA [Presence] in Res piratory specimen by GINGER with probe detection [facility] This lab was ordered by [facility] a nd reported by [facility]. ID Date Data Source [id number] 04/25/2020 12:12:00 PM EST [facility] Name Value Range Interpretation Code Description Data Sonia rce(s) Supporting Document(s) SARS coronavirus 2 RNA [Presence] in Res piratory specimen by GINGER with probe detection [facility] This lab was ordered by [facility] a nd reported by [facility]. ID Date Data Source [id number] 04/23/2020 04:28:00 PM EST [facility] Name Value Range Interpretation Code Description Data Sonia rce(s) Supporting Document(s) SARS coronavirus 2 RNA [Presence] in Res piratory specimen by GINGER with probe detection [facility] This lab was ordered by [facility] a nd reported by [facility]. ID Date Data Source [id number] 04/06/2020 10:30:00 AM EST [facility] Name Value Range Interpretation Code Description Data Sonia rce(s) Supporting Document(s) SARS coronavirus 2 RNA [facility] This lab was ordered by [facility] and reported by [facility]. ID Date Data Source [id number] 03/30/2020 11:00:00 AM EST [facility] Name Value Range Interpretation Code Description Data Sonia rce(s) Supporting Document(s) SARS coronavirus 2 RNA [facility] This lab was ordered by [facility] and reported by [facility]. ID Date Data Source [id number] 03/23/2020 10:25:00 AM EST [facility] Name Value Range Interpretation Code Description Data Sonia rce(s) Supporting Document(s) SARS coronavirus 2 RNA [facility] This lab was ordered by [facility] and reported by [facility]. ID Date Data Source [id number] 03/17/2020 03:18:00 PM EST [facility] Name Value Range Interpretation Code Description Data Sonia rce(s) Supporting Document(s) SARS coronavirus 2 RNA [facility] This lab was ordered by [facility] and reported by [facility]. ID Date Data Source [id number] 10/15/2019 09:52:00 AM EDT [facility] ([facility], ) Name Value Range Interpretation Code Description Data Sonia rce(s) Supporting Document(s) Laboratory test finding (navigational concept) Laboratory test result [facility] ([facility], ) Laboratory test finding (navigational concept) Laboratory test result [facility] ([facility]) Procedure Social History Code Duration Value Status Description Data Source(s ) Alcohol intake 03/09/2020 12:00:00 AM EST No completed [facility] Cigarette pack-years 03/09/2020 12:00:00 AM EST UNK completed [facility] Cigarettes smoked current (pack per day) - Reported 03/09/20 20 12:00:00 AM EST UNK completed [facility] Smoking 03/09/2020 12:00:00 AM EST Former smoker completed Former smoker [facility] Vital Signs ID Date Data Source UNK Name Value Range Interpretation Code Description Data Source(s) Oxygen saturation in Arterial blood by Pulse oximetry 99 % 99 % [facility] Body mass index (BMI) [Ratio] 23.96 kg/m2 23.96 kg/m2 [facility] Body weight 59.421 kg 59.421 kg [facility] Body height 157.5 cm 157.5 cm [facility] Heart rate 77 /min 77 /min [facility] Diastolic blood pressure 70 mm[Hg] 70 mm[Hg] [facility] Systolic blood pressure 110 mm[Hg] 110 mm[Hg] [facility] Body weight 62.597 kg 62.597 kg [facility] ([facility], ) [place] body weight 110 [lb_av] 110 [lb_av] [facility] ([facility]) Body mass index (BMI) [Ratio] 25.2 kg/m2 25.2 k g/m2 [facility] ([facility]) Body weight 138.00 [lb_av] 138.00 [lb_av] [facility] ([facility], ) Body height 62 [in_i] 62 [in_i] [facility] ([facility], ) 5'2" Body weight 62.597 kg 62.597 kg [facility] ([facility], ) [place] body weight 110 [lb_av] 110 [lb_av] [facility] ([facility]) Body mass index (BMI) [Ratio] 25.2 kg/m2 25.2 k g/m2 [facility] ([facility]) Body weight 138.00 [lb_av] 138.00 [lb_av] [facility] ([facility]) Body height 62 [in_i] 62 [in_i] [facility] ([facility]) 5'2" Diastolic blood pressure 67 mm[Hg] 67 mm[Hg] [facility] ([facility]) Systolic blood pressure 107 mm[Hg] 107 mm[Hg] [facility] ([facility]) Body weight 63.504 kg 63.504 kg [facility] ([facility]) Body mass index (BMI) [Ratio] 25.6 kg/m2 25.6 k g/m2 [facility] ([facility]) Body weight 140.00 [lb_av] 140.00 [lb_av] [facility] ([facility]) Body height 62 [in_i] 62 [in_i] [facility] ([facility]) 5'2" Diastolic blood pressure 67 mm[Hg] 67 mm[Hg] [facility] ([facility]) Systolic blood pressure 106 mm[Hg] 106 mm[Hg] [facility] ([facility]) Body mass index (BMI) [Ratio] 19.6 kg/m2 19.6 k g/m2 [facility] ([facility]) Body weight 107.00 [lb_av] 107.00 [lb_av] [facility] Body height 62 [in_i] 62 [in_i] [facility] ([facility]) 5'2" Respiratory rate 14 /min 14 /min [facility] ( [facility]) Heart rate 70 /min 70 /min [facility] ([facility]) Diastolic blood pressure 60 mm[Hg] 60 mm[Hg] [facility] ([facility]) Systolic blood pressure 120 mm[Hg] 120 mm[Hg] [facility] ([facility]) Patient Treatment Plan of Care Planned Activity Planned Date Details Description Data Source (s) Potassium Chloride 10 MEQ Extended Release Oral Capsul e 02/15/2020 12:00:[address] [facility] Simvastatin 40 MG Oral Tablet 02/15/2020 12:00:00 AM EDT [facility] Baclofen 5 MG Oral Tablet 09/28/2019 12:00:00 AM EDT [facility] Sertraline 100 MG Oral Tablet 09/28/2019 12:00:00 AM EDT [facility] atorvastatin 40 MG Oral Tablet 07/02/2018 12:00:00 AM EST [facility]
[2020-06-22 12:05] LABS: ALBUMIN 3.5 GM/DL (3.2-5.2); ALT/SGPT 15 U/L (12-78); BILIRUBIN,DIRECT 0.1 MG/DL (0.0-0.2); BILIRUBIN,TOTAL 0.6 MG/DL (0.2-1.0); BLOOD UREA NITROGEN 15 MG/DL (7-18); CALCIUM LEVEL 9.2 MG/DL (8.8-10.2); CARBON DIOXIDE LEVEL 26 MEQ/L (21-32); CHLORIDE LEVEL 101 MEQ/L (98-107); CK-MB VALUE MASS < 1.0 NG/ML (<3.6); CPK CREATINE PHOSPHOKINASE 48 U/L (26-192); CREATININE FOR GFR 1.12 MG/DL (0.55-1.30); GLOMERULAR FILTRATION RATE 49.8 (>32); GLUCOSE, FASTING 182 MG/DL (70-100); MB/CK RELATIVE INDEX 2.08 (< OR =4); POTASSIUM SERUM 3.9 MEQ/L (3.5-5.1); SODIUM LEVEL 140 MEQ/L (136-145); TOTAL PROTEIN 7.7 GM/DL (6.4-8.2); TROPONIN I < 0.02 NG/ML (< 0.10)
[2020-06-22] MEDS ORDERED: NS 1,000 ML IV ONE ×2 (12:30→13:00)
[2020-06-22] MEDS ORDERED: cefTRIAXone SOD 2 GM in D5W MINI-BAG PLUS 50 ML IV ONE (13:30)
[2020-06-22] MEDS ORDERED: ZOLO100T PO (14:17)
[2020-06-22] MEDS ORDERED: ANOR1AER INH (14:17)
[2020-06-22] MEDS ORDERED: ASPI81CH33 PO (14:17)
[2020-06-22] MEDS ORDERED: ANALGESIC BALM CRM 120 GM EXT PRN (14:30)
[2020-06-22] MEDS ORDERED: BISACODYL 10 MG SUPP PR PRN (14:30)
[2020-06-22] MEDS ORDERED: ACETAMINOPHEN TAB 650MG DOSE (2X325MG) PO PRN (14:30)
[2020-06-22] MEDS ORDERED: MOM 30ML SUSPENSION UDC PO PRN (14:30)
--- OUTSIDE RECORDS SUMMARY | 2020-06-22 14:46 | CCD ---
Author Author [facility] Organization [facility] Address Unknown Phone Unavailable Care Team Providers Care Oracle Programmer Name Role Phone Shelby Donovan MD Unavailable [...] Chery MD Unavailable Unavailable Fons, M Nancy VESSEL SLAG WORKER Unavailable Unavailable Fons, M Nancy VESSEL SLAG WORKER Unavailable Unavailable Fons, M Nancy VESSEL SLAG WORKER Unavailable Unavailable Fons, M Nancy VESSEL SLAG WORKER Unavailable Unavailable Fons, M Nancy VESSEL SLAG WORKER Unavailable Unavailable Fons, M Nancy VESSEL SLAG WORKER Unavailable Unavailable Fons, M Nancy VESSEL SLAG WORKER Unavailable Unavailable Fons, M Nancy VESSEL SLAG WORKER Unavailable Unavailable Fons, M Nancy VESSEL SLAG WORKER Unavailable Unavailable Fons, M Nancy VESSEL SLAG WORKER Unavailable Unavailable Fons, M Nancy VESSEL SLAG WORKER Unavailable Unavailable Fons, M Nancy VESSEL SLAG WORKER Unavailable Unavailable Fons, M Nancy VESSEL SLAG WORKER Unavailable Unavailable Fons, M Nancy VESSEL SLAG WORKER Unavailable Unavailable Fons, M Nancy VESSEL SLAG WORKER Unavailable Unavailable Fons, M Nancy VESSEL SLAG WORKER Unavailable Unavailable Fons, M Nancy VESSEL SLAG WORKER Unavailable Unavailable Fons, M Nancy VESSEL SLAG WORKER Unavailable Unavailable Fons, M Nancy VESSEL SLAG WORKER Unavailable Unavailable Fons, M Nancy VESSEL SLAG WORKER Unavailable Unavailable Fons, M Nancy VESSEL SLAG WORKER Unavailable Unavailable Fons, M Nancy VESSEL SLAG WORKER Unavailable Unavailable Fons, M Nancy VESSEL SLAG WORKER Unavailable Unavailable Fons, M Nancy VESSEL SLAG WORKER Unavailable Unavailable Fons, M Nancy VESSEL SLAG WORKER Unavailable Unavailable Fons, M Nancy VESSEL SLAG WORKER Unavailable Unavailable Fons, M Nancy VESSEL SLAG WORKER Unavailable Unavailable Fons, M Nancy VESSEL SLAG WORKER Unavailable Unavailable Fons, M Nancy VESSEL SLAG WORKER Unavailable Unavailable Fons, M Nancy VESSEL SLAG WORKER Unavailable Unavailable Fons, M Nancy VESSEL SLAG WORKER Unavailable Unavailable Fons, M Nancy VESSEL SLAG WORKER Unavailable Unavailable Fons, M Nancy VESSEL SLAG WORKER Unavailable Unavailable Fons, M Nancy VESSEL SLAG WORKER Unavailable Unavailable Fons, M Nancy VESSEL SLAG WORKER Unavailable Unavailable Fons, M Nancy VESSEL SLAG WORKER Unavailable Unavailable Fons, M Nancy VESSEL SLAG WORKER Unavailable Unavailable Fons, M Nancy VESSEL SLAG WORKER Unavailable Unavailable Fons, M Nancy VESSEL SLAG WORKER Unavailable Unavailable Fons, M Nancy VESSEL SLAG WORKER Unavailable Unavailable Fons, M Nancy VESSEL SLAG WORKER Unavailable Unavailable Fons, M Nancy VESSEL SLAG WORKER Unavailable Unavailable Fons, M Nancy VESSEL SLAG WORKER Unavailable Unavailable Fons, M Nancy VESSEL SLAG WORKER Unavailable Unavailable Fons, M Nancy VESSEL SLAG WORKER Unavailable Unavailable Fons, M Nancy VESSEL SLAG WORKER Unavailable Unavailable Fons, M Nancy VESSEL SLAG WORKER Unavailable Unavailable Fons, M Nancy VESSEL SLAG WORKER Unavailable Unavailable Fons, M Nancy VESSEL SLAG WORKER Unavailable Unavailable Fons, M Nancy VESSEL SLAG WORKER Unavailable Unavailable Fons, M Nancy VESSEL SLAG WORKER Unavailable Unavailable Fons, M Nancy VESSEL SLAG WORKER Unavailable Unavailable Fons, M Nancy VESSEL SLAG WORKER Unavailable Unavailable Fons, M Nancy VESSEL SLAG WORKER Unavailable Unavailable Fons, M Nancy VESSEL SLAG WORKER Unavailable Unavailable Jewell, L Ana RPA Unavailable [...] Unavailable Unavailable ODUWA, O MD Unavailable Unavailable [place], Roderick MD Unavailable Unavailable [place], Roderick MD Unavailable Unavailable [place], Roderick MD Unavailable Unavailable [place], Roderick MD Unavailable Unavailable [place], Roderick MD Unavailable Unavailable [place], Roderick MD Unavailable Unavailable [place], Roderick MD Unavailable Unavailable [place], Roderick MD Unavailable Unavailable [place], Roderick MD Unavailable Unavailable [place], Roderick MD Unavailable Unavailable [place], Roderick MD Unavailable Unavailable [place], Roderick MD Unavailable Unavailable [place], Roderick MD Unavailable Unavailable [place], Roderick MD Unavailable Unavailable [place], Roderick MD Unavailable Unavailable [place], Roderick MD Unavailable Unavailable [place], Roderick MD Unavailable Unavailable [place], Roderick MD Unavailable Unavailable [place], Roderick MD Unavailable Unavailable [place], Roderick MD Unavailable Unavailable [place], Roderick MD Unavailable Unavailable [place], Roderick MD Unavailable Unavailable [place], Roderick MD Unavailable Unavailable [place], Roderick MD Unavailable Unavailable [place], Roderick MD Unavailable Unavailable [place], Roderick MD Unavailable Unavailable [place], Roderick MD Unavailable Unavailable [place], Roderick MD Unavailable Unavailable Cong Jackson MD [...] is protected by Article 27-F of the [facility] Public Health law. If you continue you may have access to information: Regarding HIV / AIDS; Provided by facilities licensed or operated by the [facility] Office of Mental Health; or Provided by the [facility] Office for People With Developmental Disabilities. If such information is present, then the following [facility] mandated warning applies: This information has been [...] law may result in a fine or retirement sentence or both. A general authorization for the release of medical or other information is NOT sufficient authorization for further disc losure. Family History Family Member Name Family Member Gender Family Member Status Date o f Status Description Data Source(s) Unknown Unknown Problem 10/09/2018 12:00:00 AM EDT [facility] ([facility]) Unknown Unknown Problem [facility] ([facility]) Unknown Male Problem [facility] ([facility] () Encounters Encounter Providers Location Date Indications Data Source(s ) Outpatient Attender: Nancy MILLAN.HERIBERTO-SJP.HERIBERTO 0 12:00:00 AM EST - 03/08/2020 11:46:20 AM EST [facility] Outpatient Attender: Cong Jackson MD Main office - [place] 10/29/2019 02:15:00 PM EDT [facility] ([facility], ) Outpatient Attender: Miri Kearns/Yvette/Bennie/ Reindl 10/22/2019 10:00:00 AM EDT [facility] ([facility] ) Outpatient Attender: Nancy MILLAN.HERIBERTO-SJP.HERIBERTO 0 12:00:00 AM EDT - 10/21/2019 11:40:31 AM EDT [facility] Outpatient Attender: Ana Kearns/Yvette/Bennie/R eindl 09/23/2019 10:00:00 AM EDT [facility] ([facility]) Outpatient Attender: Roderick Kearns/Yvette/Bennie/Flower santiago 09/15/2019 08:40:00 AM EDT [facility] ([facility]) Outpatient Referrer: FELIX ARDON MD 08/13/2019 12:48:00 PM EDT [facility] Outpatient Referrer: FELIX ARDON MD 07/09/2019 03:15:00 PM EST [facility] Outpatient Attender: Cong Jackson MD Main office [facility] 06/10/2019 10:45:00 AM EST [facility] ([facility] Medications Medication Brand Name Start Date Product Form Dose Route Admi nistrative Instructions Pharmacy Instructions Status Indications Reaction Description Data Source(s) Simvastatin 40 MG Oral Tablet simvastatin (ZOCOR) 40 M G tablet simvastatin (ZOCOR) 40 MG tablet 02/15/2020 12:00:00 AM EDT ac tive [facility] Potassium Chloride 10 MEQ Extended Relea se Oral Capsule potassium chloride (MICRO-K) 10 MEQ CR capsule potassium chloride (MICRO-K) 10 MEQ CR capsule 02/15/2020 12:00:00 AM EDT aborted [facility] Sertraline 100 MG Oral Tablet sertraline (ZOLOFT) 100 MG tablet sertraline (ZOLOFT) 100 MG tablet 09/28/2019 12:00:00 AM EDT active [facility] Baclofen 5 MG Oral Tablet Baclofen 5 MG TABS Baclofen 5 MG T ABS 09/28/2019 12:00:00 AM EDT aborted [facility] No Active Medications 06/12/2019 12:00:00 AM EST active [facility] ([facility]) ropinirole 0.5 MG Oral Tablet Ropinirole HCL 06/10/2019 12:00:00 AM EST completed [facility] ([facility] ) atorvastatin 40 MG Oral Tablet atorvastatin (LIPITOR) 40 MG tablet atorvastatin (LIPITOR) 40 MG tablet 07/02/2018 12:00:00 AM EST 40 mg Oral aborted Take 1 tablet (40 mg total) by mouth nightly [facility] Insurance Providers Payer name Policy type / Coverage type Policy ID Covered libertarian ID Covered libertarian's relationship to hart Policy Hart Plan Information MEDICARE [id number] SP [id number] FOR LIFE [id number] [id number] MEDICARE [id number] MEDICARE [id number] [place] [id number] Spo [id number] MEDICARE C [id number] S [id number] [id number] FOR LIFE O [id number] S [id number] SELF PAY FOR LIFE [id number] MEDICARE [id number] SP [id number] A For Life Medigap Part B [id number] Family Dependent [id number] Medicare Medicare Primary [id number] Self 11 [id number] Medicare Medicare Primary [id number] Self 8 [id number] Spo [id number] MEDICARE [id number] [place] [id number] MEDICARE A [id number] Self [id number] G55 FOR LIFE U [id number] Self [id number] MEDICARE A [id number] Self [id number] A FOR LIFE U [id number] Spouse [id number] MEDICARE [id number] [place] [id number] A PI PI MEDICARE PI PI For Life WPS Medigap Part B [id number] Medicare Natl Gov't Servi Medicare Primary [id number] Self [id number] For Life Commercial [id number] Family Dependent [id number] Medicare Medicare Primary [id number] Family Dependent [id number] For Life Commercial [id number] Family Dependent [id number] Medicare Medicare Primary [id number] Family Dependent [id number] For Life Commercial [id number] Family Dependent [id number] Medicare Medicare Primary [id number] Family Dependent [id number] For Life WPS Medigap Part B [id number] Medicare Natl Gov't Servi Medicare Primary [id number] Self [id number] For Life Commercial [id number] Family Dependent [id number] Medicare Medicare Primary [id number] Family Dependent [id number] For Life Commercial [id number] Family Dependent [id number] Medicare Medicare Primary [id number] Family Dependent [id number] Health Net Federal Serv Medigap Part B [id number] Family Depe ndent [id number] Medicare Medicare Primary [id number] Family Dependent [id number] HNFS-Active Duty Medigap Part B [id number] Family Dependent [id number] FOR LIFE [id number] MEDICARE C [id number] S [id number] A For Life WPS Medigap Part B [id number] Medicare Natl Gov't Servi Medicare Primary [id number] Self [id number] Health Net Federal Serv Medigap Part B [id number] Family Depe ndent [id number] Medicare Medicare Primary [id number] Family Dependent [id number] Health Net Federal Serv Medigap Part B [id number] Family Depe ndent [id number] Medicare Medicare Primary [id number] Family Dependent [id number] Health Net Federal Serv Medigap Part B [id number] Family Depe ndent [id number] Medicare Medicare Primary [id number] Family Dependent [id number] Health Net Federal Serv Medigap Part B [id number] Family Depe ndent [id number] Medicare Medicare Primary [id number] Family Dependent [id number] HNFS-Active Duty Medigap Part B [id number] Family Depende nt [id number] Health Net Federal Serv Medigap Part B Family Depe ndent Medicare Medicare Primary Family Dependent For Life WPS Medigap Part B Medicare Natl Gov't Servi Medicare Primary Self Problems, Conditions, and Diagnoses Code Display Name Description Problem Type Effective Dates Data Source(s) 01421502 Restless legs Restless legs Problem 06/10/2019 12:00:00 AM EST [facility] ([facility]) 875265296 Periodic limb movement disorder Periodic limb mo vement disorder Problem 06/10/2019 12:00:00 AM EST [facility] ([facility]) [id number] Hypoxemia Hypoxemia Problem 06/10/2019 12:00:00 AM ES T [facility] ([facility]) 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 of p rosthetic heart valve Diagnosis 03/08/2020 10:54:32 AM EST [facility] I71.2 Thoracic aortic aneurysm, without ruptur e Thoracic aortic aneurysm, without ruptur Diagnosis 03/08/2020 10:54:32 AM EST [facility] E78.5 Hyperlipidemia, unspecified Hyperlipidemia, unspecifie d Diagnosis 10/21/2019 10:24:07 AM EDT [facility] I48.0 Paroxysmal atrial fibrillation Paroxysmal atrial fibri llation Diagnosis 10/21/2019 10:24:07 AM EDT [facility] 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 Atherosclerosis of coronary artery bypas Diagnosis 10/21/2019 10:24:07 AM EDT [facility] I10 Essential (primary) hypertension Essential (primary) h ypertension Diagnosis 10/21/2019 10:24:07 AM EDT [facility] Surgeries/Procedures Procedure Description Date Indications Data Source(s) Control Nosebleed Anterior Simple 12/10/2019 12:00:00 AM EDT [facility] ([facility], ) Control Nosebleed Anterior Simple 09/15/2019 12:00:00 AM EDT [facility] ([facility], ) Results ID Date Data Source [id number] 05/10/2020 12:00:00 AM EST [facility] Name Value Range Interpretation Code Description Data Sonia rce(s) Supporting Document(s) SARS-CoV2 Rapid Antigen [facility] This lab was ordered by [facility] and reported by [facility]. ID Date Data Source [id number] 05/09/2020 10:41:00 AM EST [facility] Name Value Range Interpretation Code Description Data Sonia rce(s) Supporting Document(s) SARS coronavirus 2 RNA [Presence] in Res piratory specimen by GINGER with probe detection [facility] This lab was ordered by [facility] a nd reported by [facility]. ID Date Data Source [id number] 05/02/2020 12:18:00 PM EST [facility] Name Value Range Interpretation Code Description Data Sonia rce(s) Supporting Document(s) SARS coronavirus 2 RNA [Presence] in Res piratory specimen by GINGER with probe detection [facility] This lab was ordered by [facility] a nd reported by [facility]. ID Date Data Source [id number] 04/25/2020 12:12:00 PM EST [facility] Name Value Range Interpretation Code Description Data Sonia rce(s) Supporting Document(s) SARS coronavirus 2 RNA [Presence] in Res piratory specimen by GINGER with probe detection [facility] This lab was ordered by [facility] a nd reported by [facility]. ID Date Data Source [id number] 04/23/2020 04:28:00 PM EST [facility] Name Value Range Interpretation Code Description Data Sonia rce(s) Supporting Document(s) SARS coronavirus 2 RNA [Presence] in Res piratory specimen by GINGER with probe detection [facility] This lab was ordered by [facility] a nd reported by [facility]. ID Date Data Source [id number] 04/06/2020 10:30:00 AM EST [facility] Name Value Range Interpretation Code Description Data Sonia rce(s) Supporting Document(s) SARS coronavirus 2 RNA [facility] This lab was ordered by [facility] and reported by [facility]. ID Date Data Source [id number] 03/30/2020 11:00:00 AM EST [facility] Name Value Range Interpretation Code Description Data Sonia rce(s) Supporting Document(s) SARS coronavirus 2 RNA [facility] This lab was ordered by [facility] and reported by [facility]. ID Date Data Source [id number] 03/23/2020 10:25:00 AM EST [facility] Name Value Range Interpretation Code Description Data Sonia rce(s) Supporting Document(s) SARS coronavirus 2 RNA [facility] This lab was ordered by [facility] and reported by [facility]. ID Date Data Source [id number] 03/17/2020 03:18:00 PM EST [facility] Name Value Range Interpretation Code Description Data Sonia rce(s) Supporting Document(s) SARS coronavirus 2 RNA [facility] This lab was ordered by [facility] and reported by [facility]. ID Date Data Source [id number] 10/15/2019 09:52:00 AM EDT [facility] ([facility], ) Name Value Range Interpretation Code Description Data Sonia rce(s) Supporting Document(s) Laboratory test finding (navigational concept) Laboratory test result [facility] ([facility], ) Laboratory test finding (navigational concept) Laboratory test result [facility] ([facility]) Procedure Social History Code Duration Value Status Description Data Source(s ) Alcohol intake 03/09/2020 12:00:00 AM EST No completed [facility] Cigarette pack-years 03/09/2020 12:00:00 AM EST UNK completed [facility] Cigarettes smoked current (pack per day) - Reported 03/09/20 20 12:00:00 AM EST UNK completed [facility] Smoking 03/09/2020 12:00:00 AM EST Former smoker completed Former smoker [facility] Vital Signs ID Date Data Source UNK Name Value Range Interpretation Code Description Data Source(s) Oxygen saturation in Arterial blood by Pulse oximetry 99 % 99 % [facility] Body mass index (BMI) [Ratio] 23.96 kg/m2 23.96 kg/m2 [facility] Body weight 59.421 kg 59.421 kg [facility] Body height 157.5 cm 157.5 cm [facility] Heart rate 77 /min 77 /min [facility] Diastolic blood pressure 70 mm[Hg] 70 mm[Hg] [facility] Systolic blood pressure 110 mm[Hg] 110 mm[Hg] [facility] Body weight 62.597 kg 62.597 kg [facility] ([facility], ) [place] body weight 110 [lb_av] 110 [lb_av] [facility] ([facility]) Body mass index (BMI) [Ratio] 25.2 kg/m2 25.2 k g/m2 [facility] ([facility]) Body weight 138.00 [lb_av] 138.00 [lb_av] [facility] ([facility], ) Body height 62 [in_i] 62 [in_i] [facility] ([facility], ) 5'2" Body weight 62.597 kg 62.597 kg [facility] ([facility], ) [place] body weight 110 [lb_av] 110 [lb_av] [facility] ([facility]) Body mass index (BMI) [Ratio] 25.2 kg/m2 25.2 k g/m2 [facility] ([facility]) Body weight 138.00 [lb_av] 138.00 [lb_av] [facility] ([facility]) Body height 62 [in_i] 62 [in_i] [facility] ([facility]) 5'2" Diastolic blood pressure 67 mm[Hg] 67 mm[Hg] [facility] ([facility]) Systolic blood pressure 107 mm[Hg] 107 mm[Hg] [facility] ([facility]) Body weight 63.504 kg 63.504 kg [facility] ([facility]) Body mass index (BMI) [Ratio] 25.6 kg/m2 25.6 k g/m2 [facility] ([facility]) Body weight 140.00 [lb_av] 140.00 [lb_av] [facility] ([facility]) Body height 62 [in_i] 62 [in_i] [facility] ([facility]) 5'2" Diastolic blood pressure 67 mm[Hg] 67 mm[Hg] [facility] ([facility]) Systolic blood pressure 106 mm[Hg] 106 mm[Hg] [facility] ([facility]) Body mass index (BMI) [Ratio] 19.6 kg/m2 19.6 k g/m2 [facility] ([facility]) Body weight 107.00 [lb_av] 107.00 [facility]_av] [facility] Body height 62 [in_i] 62 [in_i] [facility] ([facility]) 5'2" Respiratory rate 14 /min 14 /min [facility] ( [facility]) Heart rate 70 /min 70 /min [facility] ([facility]) Diastolic blood pressure 60 mm[Hg] 60 mm[Hg] [facility] ([facility]) Systolic blood pressure 120 mm[Hg] 120 mm[Hg] [facility] ([facility]) Patient Treatment Plan of Care Planned Activity Planned Date Details Description Data Source (s) Potassium Chloride 10 MEQ Extended Release Oral Capsul e 02/15/2020 12:00:00 AM EDT [facility] Simvastatin 40 MG Oral Tablet 02/15/2020 12:00:00 AM EDT [facility] Baclofen 5 MG Oral Tablet 09/28/2019 12:00:00 AM EDT [facility] Sertraline 100 MG Oral Tablet 09/28/2019 12:00:00 AM EDT [facility] atorvastatin 40 MG Oral Tablet 07/02/2018 12:00:00 AM EST [facility]
--- NOTE | 2020-06-22 15:13 | HPEPDOC ---
General Date of Admission 06/22/20 Date of Service: Jun 22, 2020 Chief Complaint The patient is a 80-year-old female admitted with a reason for visit of Seizure. Source: Patient Exam Limitations: No limitations Associated Symptoms: Seizure History of Present Illness Patient is 80 years old female with past medical history of a hx of COPD (2L NC at home, requires continous CPAP), paroxysmal afib, depression, stroke, CAD (s/p CABG 2019), mobility disorder was admitted to the hospital after she developed seizures today. According to weakness patient developed generalized tonic-clonic seizure with altered mental status. In ER patient was found to have white blood count of 8.4, lactic acid 8.4, procalcitonin 0.1. CT head showed Old right MCA infarct and atrophy with microvascular ischemic changes. Dr. Jackson was contacted by ER he recommended to start Keppra 500 twice a day Home Medications Scheduled Acetaminophen (Acetaminophen 8 Hour) 650 Mg Tablet.er, 650 MG PO QHS, (Reported) Apixaban (Eliquis) 2.5 Mg Tablet, 2.5 MG PO BID, (Reported) Ascorbic Acid (Vitamin C) 500 Mg Tablet, 500 MG PO DAILY, (Reported) Aspirin (Aspirin) 81 Mg Tab.chew, 81 MG PO DAILY, (Reported) Bacitracin/Polymyxin B Sulfate (Polysporin Ointment) 28.3 Gm Oint...g., 1 DOSE NARES BID, (Reported) Cholecalciferol (Vitamin D3) (Vitamin D3) 1,000 Unit Tablet, 1,000 UNITS PO DAILY, (Reported) TAKES AT 1200 Famotidine (Famotidine) 20 Mg Tablet, 20 MG PO DAILY, (Reported) Ferrous Gluconate (Ferrous Gluconate) 324 Mg Tablet, 324 MG PO DAILY, (Reported) Furosemide (Furosemide) 20 Mg Tablet, 20 MG PO DAILY, (Reported) Lactose-Reduced Food (Ensure Enlive) 237 Ml Liquid, 180 ML PO DAILY, (Reported) TAKES AT 1400 Melatonin (Melatonin) 5 Mg Capsule, 5 MG PO QHS, (Reported) Metoprolol Tartrate (Metoprolol Tartrate) 25 Mg Tablet, 12.5 MG PO BID, (Reported) Potassium Chloride (Potassium Chloride) 10 Meq Tab.er.prt, 20 MEQ PO 3XW, (Reported) SATURDAY, SATURDAY AND SATURDAY Ropinirole HCl (Ropinirole HCl) 1 Mg Tablet, 1 MG PO BID, (Reported) Sennosides (Senna) 8.6 Mg Tablet, 8.6 MG PO DAILY, (Reported) Sertraline Hcl (Zoloft) 100 Mg Tablet, 100 MG PO QHS, (Reported) Simvastatin (Simvastatin) 40 Mg Tablet, 40 MG PO QHS, (Reported) Sodium Chloride (Saline Nasal [place]) 44 Ml [place], 1 SPRAY NA QID, (Reported) Umeclidinium Brm/Vilanterol Tr (Anoro Ellipta 62.5-25 Mcg INH) 1 Each Blst.w.dev, 1 PUFF INH DAILY, (Reported) Scheduled PRN Bisacodyl (Dulcolax) 10 Mg Supp.rect, 10 MG [place] DAILY PRN for CONSTIPATION, (Reported) Methyl Salicylate/Menthol (Bengay Greaseless Cream) 57 Gm Cream..g., 1 DOSE EXT QID PRN for PAIN, (Reported) APPLY TO PAINFUL JOINTS Milk Of Magnesia (Milk of Magnesia) 2,400 Mg/10 Ml Oral.susp, 10 ML PO DAILY PRN for CONSTIPATION, (Reported) Sodium Phosphate,[place]-Dibasic (Enema) 133 Ml Enema, 1 ERASTO [place] DAILY PRN for CONSTIPATION, (Reported) Allergies Coded Allergies: No Known Allergies (Unverified , 11/07/18) Past Medical History Medical History 1. Gait mobility disorder. 2. Left hip fracture due to mechanical fall. 3. COPD. 4. Chronic hypoxemic respiratory failure. 5. Paroxysmal atrial fibrillation, on chronic anticoagulation. 6. Hypercholesterolemia. 7. Depression. 8. Restless leg syndrome. 9. GERD. 10. Insomnia. 11. Coronary arterial disease, status post CABG times one. 12. 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 Complicated by postoperative stroke with left-sided hemiparesis. Aortic valve replacement with a #23 Magna Ease pericardial valve. Ascending thoracic aorta was fixed with a #32 Dacron aortic graft, and she had a single saphenous vein graft to her LAD. Echocardiogram May 2018 revealed ejection fraction 40-45% with normal function of bioprosthetic valve. She possibly had a patent foramen ovale. 13. Hypertension with chronic kidney disease stage III. 14. Polycythemia vera. 15. Chronic anxiety. 16. History of solitary kidney Stroke right MCA area Surgical History 1. CABG 2. S/p L rotator cuff repair 3. Carpal tunnel release 4. Hysterectomy 5. Hammer toe surgery Family History I personally reviewed the family history and found not pertinent Social History * Smoker: Denies Alcohol: Denies Drugs: denies, prescription drugs A-FIB/CHADSVASC A-FIB History Current/History of A-Fib/PAF?: Yes Current PO Anticoag Therapy: Yes Review of Systems Constitutional: Reports: Other (unable to obtain due to lethargy) Physical Examination General Exam: Negative: Alert, Cooperative Eye Exam: Positive: PERRLA ENT Exam: Positive: Atraumatic Neck Exam: Positive: Supple; Negative: JVD Chest Exam: Positive: Clear to auscultation Heart Exam: Positive: Irregular Rhythm Telemetry: Positive: Atrial fibrillation Abdomen Exam: Positive: Normal bowel sounds Extremity Exam: Negative: Clubbing, Cyanosis Skin Exam: Positive: Nl turgor and temperature Neuro Exam: Positive: Reflexes 2+ Psych Exam: Negative: Oriented x 3 Vital Signs Vital Signs Date Time Temp Pulse Resp B/P (MAP) Pulse Ox O2 Delivery O2 Flow Rate FiO2 06/22/20 13:01 86 96 06/22/20 13:00 109/62 (78) Nasal Cannula 4.0 06/22/20 12:55 99.2 06/22/20 12:31 26 Laboratory Data Labs 24H Laboratory Tests 2 06/22/20 10:00: Procalcitonin 0.10 06/22/20 11:08: Immature Granulocyte % (Auto) 0.6, Neutrophils (%) (Auto) 83.7H, Lymphocytes (%) (Auto) 8.0L, Monocytes (%) (Auto) 7.1, Eosinophils (%) (Auto) 0.2, Basophils (%) (Auto) 0.4, Neutrophils # (Auto) 7.0, Lymphocytes # (Auto) 0.7L, Monocytes # (Auto) 0.6, Eosinophils # (Auto) 0.0, Basophils # (Auto) 0.0, Nucleated Red Blood Cells % (auto) 0.0, Prothrombin Time 15.7H, Prothromb Time International Ratio 1.22, Activated Partial Thromboplast Time 22.0L, Anion Gap 13, Glomerular Filtration Rate 49.8, Lactic Acid Level 8.4*H, Calcium Level 9.2, Total Bilirubin 0.6, Direct Bilirubin 0.1, Aspartate Amino Transf (AST/SGOT) 21, Alanine Aminotransferase (ALT/SGPT) 15, Alkaline Phosphatase 86, Total Creatine Kinase 48, Creatine Kinase MB < 1.0, Creatine Kinase MB Relative Index 2.08, Troponin I < 0.02, Total Protein 7.7, Albumin 3.5, Albumin/Globulin Ratio 0.8L 06/22/20 11:57: Urine Color YELLOW, Urine Appearance CLEAR, Urine pH 5.0, Urine Specific [place] 1.006, Urine Protein 1+H, Urine Glucose (UA) NEGATIVE, Urine Ketones NEGATIVE, Urine Blood NEGATIVE, Urine Nitrite NEGATIVE, Urine Bilirubin NEGATIVE, Urine Urobilinogen 0.2, Urine Leukocyte Esterase NEGATIVE, Urine WBC (Auto) 2, Urine RBC (Auto) 2, Urine Hyaline Casts (Auto) 0, Urine Bacteria (Auto) 1+H, Urine Squamous Epithelial Cells 0, Urine Sperm (Auto) CBC/BMP Laboratory Tests 06/22/20 11:08 Microbiology Microbiology 06/22/20 Blood Culture, Received Pending 06/22/20 Blood Culture, Received Pending Assessment/Plan Patient is 80 years old female with past medical history of a hx of COPD (2L NC at home, requires continous CPAP), paroxysmal afib, depression, stroke, CAD (s/p CABG 2018), mobility disorder was admitted to the hospital after she developed seizures today. According to weakness patient developed generalized tonic-clonic seizure with altered mental status. In ER patient was found to have white blood count of 8.4, lactic acid 8.4, procalcitonin 0.1. CT head showed Old right MCA infarct and atrophy with microvascular ischemic changes. Dr. Jackson was contacted by ER he recommended to start Keppra 500 twice a day Problems (1) Seizure Status: Acute Problem Text: Keppra 500 twice a day Seizure precaution, aspiration precaution (2) Atrial fibrillation Status: Chronic Problem Text: Heart rate is under control Continue oral targeted anticoagulation (3) Physical deconditioning Status: Chronic Problem Text: PT/OT (4) Hypertension Status: Chronic Problem Text: Continue home cardioprotective medications (5) COPD (chronic obstructive pulmonary disease) Status: Chronic Problem Text: Acute exacerbation Continue inhalers (6) Polycythemia vera Status: Chronic Problem Text: Continue aspirin (7) Stroke Status: Chronic Problem Text: Continue aspirin (8) Lactic acidosis Status: Chronic Problem Text: Most likely secondary to seizure Unlikely infection, procalcitonin negative, no leukocytosis Plan / VTE VTE Prophylaxis Ordered?: Yes JAYLENE JACKSON DO Jun 22, 2020 15:13
[2020-06-22] MEDS: VITAMIN D 1,000 INTERNATIONAL UNITS TABLET PO SCH (15:16)
[2020-06-22] MEDS: NS 1,000 ML IV SCH (15:16)
[2020-06-22] MEDS: SODIUM CHLORIDE NASAL 0.65% SPRAY BTL (OCEAN) SCH (17:00)
[2020-06-22 20:40] VITALS: BP 131/59
[2020-06-22] MEDS: APIXABAN 2.5 MG TAB (ELIQUIS) PO SCH (21:00)
[2020-06-22] MEDS: levETIRAcetam INJection 500 MG in D5W MINI-BAG PLUS 100 ML IV SCH (21:00)
[2020-06-22] MEDS: SIMVASTATIN 40 MG TAB PO SCH (21:00)
[2020-06-22] MEDS: METOPROLOL TART 12.5 MG PER 1/2 TAB PO SCH (21:00)
[2020-06-22] MEDS: rOPINIRole 1MG TAB PO SCH (21:00)
[2020-06-22] MEDS: SERTRALINE 100 MG TAB PO SCH (21:33)
[2020-06-23] VITALS: BP 98/52
[2020-06-23] MEDS: SODIUM CHLORIDE NASAL 0.65% SPRAY BTL (OCEAN) SCH ×5 (00:15→22:27)
[2020-06-23] MEDS ORDERED: ONDANSETRON 4 MG ORAL DISINTEGRATING TAB PO ONE (01:30)
[2020-06-23] MEDS: NS 1,000 ML IV SCH (01:53)
[2020-06-23] MEDS ORDERED: ACETAMINOPHEN 650 MG SUPP PR ONE (03:30)
[2020-06-23 04:05] VITALS: BP 126/68
[2020-06-23 06:10] LABS: HEMATOCRIT 35.6 % (36.0-47.0); HEMOGLOBIN 10.7 g/dl (12.0-15.5); MEAN CORPUSCULAR HEMOGLOBIN 28.1 pg (27.0-33.0); MEAN CORPUSCULAR HGB CONC 30.1 g/dl (32.0-36.5); MEAN CORPUSCULAR VOLUME 93.4 fl (80.0-96.0); PLATELET COUNT, AUTOMATED 187 10^3/uL (150-450); RED BLOOD COUNT 3.81 10^6/uL (4.00-5.40); WHITE BLOOD COUNT 4.8 10^3/uL (4.0-10.0)
[2020-06-23 06:47] LABS: ALBUMIN 2.7 GM/DL (3.2-5.2); ALT/SGPT 24 U/L (12-78); BILIRUBIN,TOTAL 0.2 MG/DL (0.2-1.0); BLOOD UREA NITROGEN 12 MG/DL (7-18); CALCIUM LEVEL 7.8 MG/DL (8.8-10.2); CARBON DIOXIDE LEVEL 26 MEQ/L (21-32); CHLORIDE LEVEL 111 MEQ/L (98-107); CREATININE FOR GFR 0.72 MG/DL (0.55-1.30); GLOMERULAR FILTRATION RATE > 60.0 (>32); GLUCOSE, FASTING 93 MG/DL (70-100); MAGNESIUM LEVEL 1.9 MG/DL (1.8-2.4); POTASSIUM SERUM 3.8 MEQ/L (3.5-5.1); SODIUM LEVEL 143 MEQ/L (136-145)
[2020-06-23 07:47] LABS: NT-PRO BNP 4559 PG/ML (<450)
[2020-06-23 08:08] VITALS: BP 104/56
[2020-06-23] MEDS: METOPROLOL TART 12.5 MG PER 1/2 TAB PO SCH ×3 (09:00→22:25)
[2020-06-23] MEDS ORDERED: ENOXAPARIN 40MG/0.4ML SYRINGE (J1650 PER 10MG) SC SCH (09:00)
[2020-06-23] MEDS: ASPIRIN 81 MG CHEW TABLET PO SCH (09:39)
[2020-06-23] MEDS: FAMOTIDINE 20 MG TAB PO SCH (09:39)
[2020-06-23] MEDS: levETIRAcetam INJection 500 MG in D5W MINI-BAG PLUS 100 ML IV SCH ×2 (09:39→22:26)
[2020-06-23] MEDS: rOPINIRole 1MG TAB PO SCH ×2 (09:40→22:26)
[2020-06-23] MEDS: FUROSEMIDE 40MG/4ML VIAL (J1940) IV SCH ×2 (09:40→15:36)
[2020-06-23] MEDS: SENNA 8.6 MG TAB (SENOKOT) PO SCH (09:40)
[2020-06-23] MEDS: FERROUS GLUCONATE 324 MG TAB PO SCH (09:40)
[2020-06-23] MEDS: ASCORBIC ACID 500 MG TAB PO SCH (09:40)
[2020-06-23] MEDS: APIXABAN 2.5 MG TAB (ELIQUIS) PO SCH ×2 (09:40→22:26)
[2020-06-23] MEDS: VITAMIN D 1,000 INTERNATIONAL UNITS TABLET PO SCH (09:40)
[2020-06-23 12:00] VITALS: BP 104/53
--- NOTE | 2020-06-23 12:02 | IPNPDOC ---
Text Note Date of Service The patient was seen on 06/23/20. NOTE Subjective: Patient is is mildly lethargic in the morning. No seizures overnight Objective: GENERAL APPEARANCE: NAD HEENT: no scleral icterus, no JVD, EOMI CARDIOVASCULAR: Irregularly irregular LUNGS: Diminished lung sounds bilaterally ABDOMEN: soft & not tender w palpitation MUSCULOSKELETAL: no cyanosis, no swelling INTEGUMENT: no generalized pallor NEUROLOGICAL: cranial nerve function from 2-12 intact intact, follows commands, speech not dysarthric Assessment/Plan Patient is 80 years old female with past medical history of a hx of COPD (2L NC at home, requires continous CPAP), paroxysmal afib, depression, stroke, CAD (s/p CABG 2019), mobility disorder was admitted to the hospital after she developed seizures today. According to weakness patient developed generalized tonic-clonic seizure with altered mental status. In ER patient was found to have white blood count of 8.4, lactic acid 8.4, procalcitonin 0.1. CT head showed Old right MCA infarct and atrophy with microvascular ischemic changes. Dr. Jackson was contacted by ER he recommended to start Keppra 500 twice a day Problems (1) Seizure Keppra 500 twice a day Seizure precaution, aspiration precaution (2) chronic Atrial fibrillation Heart rate is under control Continue oral targeted anticoagulation (3) Physical deconditioning PT/OT (4) Hypertension Continue home cardioprotective medications (5) COPD (chronic obstructive pulmonary disease) not in acute exacerbation Continue inhalers (6) Polycythemia vera Continue aspirin (7) Stroke Continue aspirin (8) Lactic acidosis Most likely secondary to seizure Unlikely infection, procalcitonin negative, no leukocytosis Shortness of breath/ Acute hypoxemic respiratory failure Oxygen requirements increased to 5L from 2 L baseline Most likely secondary to acute exacerbation of diastolic sutures IV fluid BNP elevated over 4000 Stopped IV fluids Lasix IV Cardiac diet I's and O's Diastolic CHF See above VS,Fishbone, I+O VS, Fishbone, I+O Laboratory Tests 06/23/20 05:40 Vital Signs Date Time Temp Pulse Resp B/P (MAP) Pulse Ox O2 Delivery O2 Flow Rate FiO2 06/23/20 08:11 90 High Flow Cannula 5.0 06/23/20 08:08 97.9 70 20 104/56 (72) I&O- Last 24 Hours up to 6 AM 06/23/20 05:59 Intake Total 3915 ml Output Total 50 ml Balance 3865 ml JAYLENE JACKSON DO Jun 23, 2020 12:02
[2020-06-23 16:12] VITALS: BP 95/51
[2020-06-23 22:17] VITALS: BP 117/57
[2020-06-23] MEDS: SERTRALINE 100 MG TAB PO SCH (22:26)
[2020-06-23] MEDS: SIMVASTATIN 40 MG TAB PO SCH (22:26)
[2020-06-24] MEDS: FUROSEMIDE 40MG/4ML VIAL (J1940) IV SCH ×2 (02:04→09:18)
[2020-06-24 02:06] VITALS: BP 117/54
[2020-06-24 05:18] VITALS: BP 114/54
--- NOTE | 2020-06-24 08:05 | ECGEPIP ---
[facility] - ED Test Date: 2020-06-22 Pat Name: WILTON ROBERTO Department: Room: - Gender: Female [employer] Sewer: ALEKSANDER : 1940 Requested By: JOSÉ MANUEL Garcia Order Number: [id number] Reading MD: Nichol Ji Measurements Intervals [place] Rate: 114 P: 61 MA: 156 QRS: -83 QRSD: 130 T: 59 QT: 358 QTc: 493 Interpretive Statements Sinus tachycardia Possible Left atrial enlargement Left axis deviation Right bundle branch block Possible Lateral infarct , age undetermined Inferior infarct , age undetermined increased rate 04/12/20 Electronically Signed on 06-24-2020 8:05:33 EST by Nichol Ji
[2020-06-24 08:56] LABS: BASO % 0.3 % (0.0-1.0); EOS # 0.2 10^3/uL (0.0-0.5); EOS % 3.1 % (0.0-3.0); HEMATOCRIT 43.9 % (36.0-47.0); LYMPH # 1.5 10^3/uL (1.5-5.0); LYMPH % 25.9 % (24.0-44.0); MEAN CORPUSCULAR HEMOGLOBIN 28.2 pg (27.0-33.0); MEAN CORPUSCULAR HGB CONC 30.3 g/dl (32.0-36.5); MONO # 0.8 10^3/uL (0.0-0.8); MONO % 12.9 % (2.0-8.0); NEUTROPHILS # 3.3 10^3/uL (1.5-8.5); NEUTROPHILS % 57.3 % (36.0-66.0); PLATELET COUNT, AUTOMATED 233 10^3/uL (150-450); RED BLOOD COUNT 4.72 10^6/uL (4.00-5.40); WHITE BLOOD COUNT 5.8 10^3/uL (4.0-10.0)
[2020-06-24] MEDS ORDERED: POTASSIUM CHLORIDE 10 MEQ SR TABLET PO SCH (09:00)
[2020-06-24 09:02] LABS: HEMOGLOBIN 13.3 g/dl (12.0-15.5)
[2020-06-24 09:17] VITALS: BP 114/54
[2020-06-24] MEDS: FAMOTIDINE 20 MG TAB PO SCH (09:17)
[2020-06-24] MEDS: ASPIRIN 81 MG CHEW TABLET PO SCH (09:17)
[2020-06-24] MEDS: METOPROLOL TART 12.5 MG PER 1/2 TAB PO SCH (09:17)
[2020-06-24] MEDS: levETIRAcetam INJection 500 MG in D5W MINI-BAG PLUS 100 ML IV SCH (09:17)
[2020-06-24] MEDS: VITAMIN D 1,000 INTERNATIONAL UNITS TABLET PO SCH (09:18)
[2020-06-24] MEDS: rOPINIRole 1MG TAB PO SCH (09:18)
[2020-06-24] MEDS: SENNA 8.6 MG TAB (SENOKOT) PO SCH (09:18)
[2020-06-24] MEDS: FERROUS GLUCONATE 324 MG TAB PO SCH (09:18)
[2020-06-24] MEDS: ASCORBIC ACID 500 MG TAB PO SCH (09:18)
[2020-06-24] MEDS: APIXABAN 2.5 MG TAB (ELIQUIS) PO SCH (09:18)
[2020-06-24] MEDS: SODIUM CHLORIDE NASAL 0.65% SPRAY BTL (OCEAN) SCH (09:19)
[2020-06-24 09:22] LABS: ALBUMIN 3.3 GM/DL (3.2-5.2); ALT/SGPT 36 U/L (12-78); BILIRUBIN,TOTAL 0.3 MG/DL (0.2-1.0); BLOOD UREA NITROGEN 14 MG/DL (7-18); CALCIUM LEVEL 8.8 MG/DL (8.8-10.2); CARBON DIOXIDE LEVEL 32 MEQ/L (21-32); CHLORIDE LEVEL 102 MEQ/L (98-107); CREATININE FOR GFR 0.88 MG/DL (0.55-1.30); GLOMERULAR FILTRATION RATE > 60.0 (>32); GLUCOSE, FASTING 108 MG/DL (70-100); POTASSIUM SERUM 3.7 MEQ/L (3.5-5.1); SODIUM LEVEL 142 MEQ/L (136-145); TOTAL PROTEIN 7.5 GM/DL (6.4-8.2)
[2020-06-24] MEDS ORDERED: SLF 3 ML SYR IV PRN (09:30)
[2020-06-24 12:00] VITALS: BP 90/58
--- NOTE | 2020-06-24 12:31 | IPNPDOC ---
Text Note Date of Service The patient was seen on 06/24/20. NOTE Subjective: No any acute events overnight. Patient states that she feels better today. No seizure activity for past 48 hours Objective: GENERAL APPEARANCE: NAD HEENT: no scleral icterus, no JVD, EOMI CARDIOVASCULAR: Irregularly irregular LUNGS: Diminished lung sounds bilaterally ABDOMEN: soft & not tender w palpitation MUSCULOSKELETAL: no cyanosis, no swelling INTEGUMENT: no generalized pallor NEUROLOGICAL: cranial nerve function from 2-12 intact intact, follows commands, speech not dysarthric Assessment/Plan Patient is 80 years old female with past medical history of a hx of COPD (2L NC at home, requires continous CPAP), paroxysmal afib, depression, stroke, CAD (s/p CABG 2019), mobility disorder was admitted to the hospital after she developed seizures today. According to weakness patient developed generalized tonic-clonic seizure with altered mental status. In ER patient was found to have white blood count of 8.4, lactic acid 8.4, procalcitonin 0.1. CT head showed Old right MCA infarct and atrophy with microvascular ischemic changes. Dr. Jackson was contacted by ER he recommended to start Keppra 500 twice a day Problems (1) Seizure Keppra 500 twice a day Seizure precaution, aspiration precaution (2) chronic Atrial fibrillation Heart rate is under control Continue oral targeted anticoagulation (3) Physical deconditioning PT/OT (4) Hypertension Continue home cardioprotective medications (5) COPD (chronic obstructive pulmonary disease) not in acute exacerbation Continue inhalers (6) Polycythemia vera Continue aspirin (7) Stroke Continue aspirin (8) Lactic acidosis Resolved Most likely secondary to seizure Unlikely infection, procalcitonin negative, no leukocytosis Shortness of breath/ Acute hypoxemic respiratory failure Improved. Currently she is on her baseline Most likely secondary to acute exacerbation of diastolic sutures IV fluid BNP elevated over 4000 Stopped IV fluids Continue Lasix IV Cardiac diet I's and O's Diastolic CHF See above VS,Fishbone, I+O VS, Fishbone, I+O Laboratory Tests 06/24/20 08:39 Vital Signs Date Time Temp Pulse Resp B/P (MAP) Pulse Ox O2 Delivery O2 Flow Rate FiO2 06/24/20 09:17 80 114/54 06/24/20 05:18 4.0 06/24/20 05:18 97.1 18 96 Nasal Cannula I&O- Last 24 Hours up to 6 AM 06/24/20 06:00 Intake Total 590 ml Output Total 1300 ml Balance -710 ml JAYLENE JACKSON DO Jun 24, 2020 12:31
[2020-06-24] MEDS ORDERED: LASI40TA9 PO (13:08)
[2020-06-24] MEDS ORDERED: KEPP1TAB2 PO (13:08)
--- NOTE | 2020-06-24 13:15 | DS.PDOC ---
Discharge Summary General Date of Admission Jun 22, 2020 at 14:22 Date of Discharge 06/24/20 Discharge Summary PROCEDURES PERFORMED DURING STAY: [None]. ADMITTING DIAGNOSES: Seizure chronic Atrial fibrillation Physical deconditioning Hypertension COPD (chronic obstructive pulmonary disease) Polycythemia vera Stroke Lactic acidosis Shortness of breath/ Acute hypoxemic respiratory failure Diastolic CHF DISCHARGE DIAGNOSES: Seizure chronic Atrial fibrillation Physical deconditioning Hypertension COPD (chronic obstructive pulmonary disease) Polycythemia vera Stroke Lactic acidosis Shortness of breath/ Acute hypoxemic respiratory failure Diastolic CHF COMPLICATIONS/CHIEF COMPLAINT: Seizure. HISTORY OF PRESENT ILLNESS:Patient is 80 years old female with past medical history of a hx of COPD (2L NC at home, requires continous CPAP), paroxysmal afib, depression, stroke, CAD (s/p CABG 2018), mobility disorder was admitted to the hospital after she developed seizures today. According to weakness patient developed generalized tonic-clonic seizure with altered mental status. In ER patient was found to have white blood count of 8.4, lactic acid 8.4, procalcitonin 0.1. CT head showed Old right MCA infarct and atrophy with microvascular ischemic changes. Dr. Jackson was contacted by ER he recommended to start Keppra 500 twice a day HOSPITAL COURSE: During the hospital stay the following issues addressed Seizure Keppra 500 twice a day Seizure precaution, aspiration precaution chronic Atrial fibrillation Heart rate is under control Continue oral targeted anticoagulation Physical deconditioning PT/OT Hypertension Continue home cardioprotective medications COPD (chronic obstructive pulmonary disease) not in acute exacerbation Continue inhalers Polycythemia vera Continue aspirin Stroke Continue aspirin Lactic acidosis Resolved Most likely secondary to seizure Unlikely infection, procalcitonin negative, no leukocytosis Shortness of breath/ Acute hypoxemic respiratory failure Improved. Currently she is on her baseline Most likely secondary to acute exacerbation of diastolic sutures IV fluid BNP elevated over 4000 Stopped IV fluids Continue Lasix IV Cardiac diet I's and O's Diastolic CHF See above DISCHARGE MEDICATIONS: Please see below. ALLERGIES: Please see below. PHYSICAL EXAMINATION ON DISCHARGE: VITAL SIGNS: Please see below. GENERAL APPEARANCE: NAD HEENT: no scleral icterus, no JVD, EOMI CARDIOVASCULAR: Irregularly irregular LUNGS: Diminished lung sounds bilaterally ABDOMEN: soft & not tender w palpitation MUSCULOSKELETAL: no cyanosis, no swelling INTEGUMENT: no generalized pallor NEUROLOGICAL: cranial nerve function from 2-12 intact intact, follows commands, speech not dysarthric LABORATORY DATA: Please see below. IMAGING: [facility] NAME: WILTON ROBERTO DATE OF : 1940 AGE: 80 SEX: F REPORT #: [id number] ROOM: ED TECHNOLOGIST: ELOY DOCTOR: JOSÉ MANUEL SOARES MD Ordered for Date&Time: 06/22/20 1058 cc: [~ rep ct ivnm] Service Date&Time: 06/22/20 1110 This report is in Signed status. If this report is in a DRAFT status it has not yet been reviewed by the radiologist for accuracy. Thank you for having your radiology procedures performed at [facility] RADIOLOGY REPORT Date&Time printed: [~ rep prt dt last] [~ rep prt tm last] Page 2 of 2 [place] [address] RADIOLOGY REPORT This report is in Signed status. If this report is in a DRAFT status it has not yet been reviewed by the radiologist for accuracy. Thank you for having your radiology procedures performed at [facility] RADIOLOGY REPORT Date&Time printed: [~ rep prt dt last] [~ rep prt tm last] Page 1 of 2 NAME: WILTON ROBERTO DATE OF : 1940 AGE: 80 SEX: F REPORT #: [id number] ROOM: ED TECHNOLOGIST: ELOY DOCTOR: JOSÉ MANUEL SOARES MD Ordered for Date&Time: 06/22/20 1058 cc: [~ rep ct ivnm] Service Date&Time: 06/22/20 1110 EXAMINATION REQUESTED: CT Head without contrast REASON FOR PATIENT VISIT: SEIZURE REASON FOR EXAM/COMMENT: seizure, new onset INDICATION: seizure, new onset COMPARISON: 11/28/2018 TECHNIQUE: Axial noncontrast images from the skull base to the thoracic inlet with coronal reformations. This CT examination was performed using the following dose reduction techniques: Automated exposure control, adjustment of mA and/or kv according to the patient's size, and use of iterative reconstruction technique. FINDINGS: Atrophy with periventricular leukomalacia and evidence for old right middle cerebral artery infarction is again appreciated. The ventricles and sulci are symmetric. Qureshi-white differentiation is otherwise maintained. There is no evidence for acute intracranial hemorrhage, mass/mass effect, pathology or infarction. No extra- axial fluid collection. Calvarium is intact. Paranasal sinuses and mastoid air cells are clear. 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 No acute intracranial hemorrhage, infarction, or mass/mass effect. <Electronically signed by Raoul Todd > 06/22/20 1122 DD: Raoul Todd MD 06/22/20 1118 DT: YOVANI 06/22/201121 DS: CIERRA 06/22/20 1118 06/22/20 111 [~ rep ct labl] PROGNOSIS: Fair ACTIVITY: [As tolerated]. DIET: Cardiac DISPOSITION:SNF ITEMS TO FOLLOWUP ON ON OUTPATIENT: Follow-up with PCP DISCHARGE CONDITION: [Stable]. TIME SPENT ON DISCHARGE: 40 minutes. Vital Signs/I&Os Vital Signs Date Time Temp Pulse Resp B/P (MAP) Pulse Ox O2 Delivery O2 Flow Rate FiO2 06/24/20 12:00 2.0 06/24/20 12:00 97.6 70 19 90/58 (69) 93 Nasal Cannula I&O- Last 24 Hours up to 6 AM 06/24/20 06:00 Intake Total 590 ml Output Total 1300 ml Balance -710 ml Laboratory Data Labs 24H Laboratory Tests 2 06/24/20 08:39: Immature Granulocyte % (Auto) 0.5, Neutrophils (%) (Auto) 57.3, Lymphocytes (%) (Auto) 25.9, Monocytes (%) (Auto) 12.9H, Eosinophils (%) (Auto) 3.1H, Basophils (%) (Auto) 0.3, Neutrophils # (Auto) 3.3, Lymphocytes # (Auto) 1.5, Monocytes # (Auto) 0.8, Eosinophils # (Auto) 0.2, Basophils # (Auto) 0.0, Nucleated Red Blood Cells % (auto) 0.0, Anion Gap 8, Glomerular Filtration Rate > 60.0, Calcium Level 8.8, Magnesium Level 2.0, Total Bilirubin 0.3, Aspartate Amino Transf (AST/SGOT) 66H, Alanine Aminotransferase (ALT/SGPT) 36, Alkaline Phosphatase 73, Total Protein 7.5#, Albumin 3.3#, Albumin/Globulin Ratio 0.8L CBC/BMP Laboratory Tests 06/24/20 08:39 Microbiology Microbiology 06/24/20 Respiratory Virus Panel (PCR) ([facility]) - Final, Complete 06/22/20 Blood Culture - Preliminary, Resulted No Growth after 48 hours. All Specime... 06/22/20 Blood Culture - Preliminary, Resulted No Growth after 48 hours. All Specime... Discharge Medications Scheduled Acetaminophen (Acetaminophen 8 Hour) 650 Mg Tablet.er, 650 MG PO QHS, (Reported) Apixaban (Eliquis) 2.5 Mg Tablet, 2.5 MG PO BID, (Reported) Ascorbic Acid (Vitamin C) 500 Mg Tablet, 500 MG PO DAILY, (Reported) Aspirin (Aspirin) 81 Mg Tab.chew, 81 MG PO DAILY, (Reported) Bacitracin/Polymyxin B Sulfate (Polysporin Ointment) 28.3 Gm Oint...g., 1 DOSE [place]AR[place] BID, (Reported) Cholecalciferol (Vitamin D3) (Vitamin D3) 1,000 Unit Tablet, 1,000 UNITS PO DAILY, (Reported) TAKES AT 1200 Famotidine (Famotidine) 20 Mg Tablet, 20 MG PO DAILY, (Reported) Ferrous Gluconate (Ferrous Gluconate) 324 Mg Tablet, 324 MG PO DAILY, (Reported) Furosemide (Lasix) 40 Mg Tablet, 40 MG PO DAILY Lactose-Reduced Food (Ensure Enlive) 237 Ml Liquid, 180 ML PO DAILY, (Reported) TAKES AT 1400 Levetiracetam (Keppra) 750 Mg Tablet, 750 MG PO BID Melatonin (Melatonin) 5 Mg Capsule, 5 MG PO QHS, (Reported) Metoprolol Tartrate (Metoprolol Tartrate) 25 Mg Tablet, 12.5 MG PO BID, (Reported) Potassium Chloride (Potassium Chloride) 10 Meq Tab.er.prt, 20 MEQ PO 3XW, (Reported) SATURDAY, SATURDAY AND SATURDAY Ropinirole HCl (Ropinirole HCl) 1 Mg Tablet, 1 MG PO BID, (Reported) Sennosides (Senna) 8.6 Mg Tablet, 8.6 MG PO DAILY, (Reported) Sertraline Hcl (Zoloft) 100 Mg Tablet, 100 MG PO QHS, (Reported) Simvastatin (Simvastatin) 40 Mg Tablet, 40 MG PO QHS, (Reported) Sodium Chloride (Saline Nasal [place]) 44 Ml [place], 1 SPRAY NA QID, (Reported) Umeclidinium Brm/Vilanterol Tr (Anoro Ellipta 62.5-25 Mcg INH) 1 Each Blst.w .dev, 1 PUFF INH DAILY, (Reported) Scheduled PRN Bisacodyl (Dulcolax) 10 Mg Supp.rect, 10 MG [place] DAILY PRN for CONSTIPATION, (Reported) Methyl Salicylate/Menthol ([place] Greaseless Cream) 57 Gm Cream..g., 1 DOSE EXT QID PRN for PAIN, (Reported) APPLY TO PAINFUL JOINTS Milk Of Magnesia (Milk of Magnesia) 2,400 Mg/10 Ml Oral.susp, 10 ML PO DAILY PRN for CONSTIPATION, (Reported) Sodium Phosphate,[place]-Dibasic (Enema) 133 Ml Enema, 1 [place]STO [place] DAILY PRN for CON STIPATION, (Reported) Allergies Coded Allergies: No Known Allergies (Unverified , 11/07/18) JAYLENE JACKSON DO Jun 24, 2020 13:15
[2020-06-24] MEDS ORDERED: SLF 3 ML SYR IV SCH (14:00)
== END 2020-06-24 14:38 | DRG 100 ==
LOC: M ED 10:51 → EDBD 10:51 → M ED INP 14:22 → M PCU 20:29
PROVIDERS: ADMIT Internal Medicine; ATTEND Internal Medicine
DX: R56.9 Unspecified convulsions (principal); I50.33 Acute on chronic diastolic (congestive) heart failure; J96.21 Acute and chronic respiratory failure with hypoxia; E87.2 Acidosis; I48.20 Chronic atrial fibrillation, unspecified; I13.0 Hypertensive heart and chronic kidney disease with heart failure and stage 1 through stage 4 chronic kidney disease, or unspecified chronic kidney disease; I69.354 Hemiplegia and hemiparesis following cerebral infarction affecting left non-dominant side; J44.9 Chronic obstructive pulmonary disease, unspecified; G47.00 Insomnia, unspecified; F32.9 Major depressive disorder, single episode, unspecified; E78.00 Pure hypercholesterolemia, unspecified; K21.9 Gastro-esophageal reflux disease without esophagitis; G25.81 Restless legs syndrome; I25.10 Atherosclerotic heart disease of native coronary artery without angina pectoris; R26.89 Other abnormalities of gait and mobility; D45 Polycythemia vera; N18.30 Chronic kidney disease, stage 3 unspecified; Z99.81 Dependence on supplemental oxygen; Z95.1 Presence of aortocoronary bypass graft; Z79.01 Long term (current) use of anticoagulants; Z79.899 Other long term (current) drug therapy; Z95.2 Presence of prosthetic heart valve

== ENCOUNTER → 2020-06-28 | Outpatient (REF) | payer MEDICARE, OTHER ==
[~2020-06-28] MED LIST changes: -ACET-908 PO; +ACET-910 PO; +ANOR1AER INH; +ASPI81CH33 PO; -FOLI400T PO; +FOLI400T13 PO; +KEPP1TAB2 PO; +LASI40TA9 PO; +ZOLO100T PO
[2020-06-28 11:12] LABS: CALCIUM LEVEL 9.2 MG/DL (8.8-10.2); CREATININE FOR GFR 0.99 MG/DL (0.55-1.30); GLOMERULAR FILTRATION RATE 57.5 (>32)
== END ==
LOC: SKLAB7 08:00
PROVIDERS: ATTEND Internal Medicine
DX: I50.9 Heart failure, unspecified (principal)

== ENCOUNTER → 2020-07-04 | Outpatient (REF) | payer MEDICARE, OTHER ==
[~2020-07-04] MED LIST changes: +ACET-908 PO; -ACET-910 PO
[2020-07-04 09:12] LABS: CALCIUM LEVEL 9.1 MG/DL (8.8-10.2); CREATININE FOR GFR 0.97 MG/DL (0.55-1.30); GLOMERULAR FILTRATION RATE 58.8 (>32); POTASSIUM SERUM 3.5 MEQ/L (3.5-5.1)
== END ==
LOC: SKLAB7 11:29
PROVIDERS: ATTEND Internal Medicine
DX: I50.9 Heart failure, unspecified (principal)

== ENCOUNTER → 2020-07-13 | Outpatient (REF) | payer MEDICARE, OTHER ==
[~2020-07-13] MED LIST changes: -ACET-908 PO; +ACET-910 PO
== END ==
LOC: SKLAB7 10:18
PROVIDERS: ATTEND Internal Medicine
DX: Z20.822 Contact with and (suspected) exposure to COVID-19 (principal)

== ENCOUNTER → 2020-07-20 | Outpatient (REF) | payer MEDICARE, OTHER ==
[~2020-07-20] MED LIST changes: +ACET-908 PO; -ACET-910 PO
== END ==
LOC: SKLAB7 12:27
PROVIDERS: ATTEND Internal Medicine
DX: Z20.822 Contact with and (suspected) exposure to COVID-19 (principal)

== ENCOUNTER → 2020-07-21 | Outpatient (REF) | payer MEDICARE, OTHER ==
[2020-07-21 09:10] LABS: CHOLESTEROL RISK RATIO 3.446 (<5)
== END ==
LOC: SKLAB7 09:04
PROVIDERS: ATTEND Internal Medicine
DX: E78.5 Hyperlipidemia, unspecified (principal)

== ENCOUNTER → 2020-08-04 | Outpatient (REF) | payer MEDICARE, OTHER | LOC: SKLAB7 07:00 | PROVIDERS: ATTEND Internal Medicine | DX: Z51.81 Encounter for therapeutic drug level monitoring (principal); Z79.899 Other long term (current) drug therapy ==

== ENCOUNTER → 2020-08-05 | Outpatient (REF) | payer MEDICARE, OTHER | LOC: SKLAB7 07:00 | PROVIDERS: ATTEND Internal Medicine | DX: Z20.822 Contact with and (suspected) exposure to COVID-19 (principal) ==

== ENCOUNTER → 2020-09-22 | Outpatient (REF) | payer MEDICARE, OTHER ==
[~2020-09-22] MED LIST changes: -ACET-908 PO; +ACET-910 PO
== END ==
LOC: SKLAB7 07:00
PROVIDERS: ATTEND Internal Medicine
DX: D64.9 Anemia, unspecified (principal)

== ENCOUNTER → 2020-10-20 | Outpatient (REF) | payer MEDICARE, OTHER ==
[2020-10-20 09:39] LABS: HEMATOCRIT 33.4 % (36.0-47.0); HEMOGLOBIN 9.2 g/dl (12.0-15.5); MEAN CORPUSCULAR HEMOGLOBIN 25.6 pg (27.0-33.0); MEAN CORPUSCULAR HGB CONC 27.5 g/dl (32.0-36.5); PLATELET COUNT, AUTOMATED 320 10^3/uL (150-450); RED BLOOD COUNT 3.59 10^6/uL (4.00-5.40)
[2020-10-20 10:14] LABS: ALBUMIN 3.2 GM/DL (3.2-5.2); ALT/SGPT 14 U/L (12-78); BILIRUBIN,TOTAL 0.2 MG/DL (0.2-1.0); BLOOD UREA NITROGEN 16 MG/DL (7-18); CALCIUM LEVEL 8.6 MG/DL (8.8-10.2); CARBON DIOXIDE LEVEL 31 MEQ/L (21-32); CHLORIDE LEVEL 111 MEQ/L (98-107); CREATININE FOR GFR 0.66 MG/DL (0.55-1.30); GLOMERULAR FILTRATION RATE > 60.0 (>32); GLUCOSE, FASTING 93 MG/DL (70-100); POTASSIUM SERUM 3.5 MEQ/L (3.5-5.1); SODIUM LEVEL 146 MEQ/L (136-145); TOTAL PROTEIN 6.8 GM/DL (6.4-8.2)
== END ==
LOC: SKLAB7 07:00
PROVIDERS: ATTEND Internal Medicine
DX: D64.9 Anemia, unspecified (principal); J44.9 Chronic obstructive pulmonary disease, unspecified; I50.9 Heart failure, unspecified

== ENCOUNTER → 2020-11-17 | Outpatient (REF) | payer MEDICARE, OTHER | LOC: SKLAB7 10:16 | PROVIDERS: ATTEND Internal Medicine | DX: Z51.81 Encounter for therapeutic drug level monitoring (principal) ==

== ENCOUNTER → 2021-01-02 | Outpatient (REF) | payer MEDICARE, OTHER | LOC: SKLAB7 07:00 | PROVIDERS: ATTEND Internal Medicine | DX: G40.909 Epilepsy, unspecified, not intractable, without status epilepticus (principal) ==

== ENCOUNTER → 2021-01-11 | Outpatient (REF) | payer MEDICARE, OTHER ==
[2021-01-11 07:57] LABS: CHOLESTEROL RISK RATIO 2.476 (<5)
== END ==
LOC: SKLAB7 07:00
PROVIDERS: ATTEND Internal Medicine
DX: G40.909 Epilepsy, unspecified, not intractable, without status epilepticus (principal); Z79.899 Other long term (current) drug therapy

== ENCOUNTER → 2021-02-21 | Outpatient (REF) | payer MEDICARE, OTHER | LOC: SKLAB7 11:22 | PROVIDERS: ATTEND Internal Medicine | DX: Z20.822 Contact with and (suspected) exposure to COVID-19 (principal) ==

== ENCOUNTER → 2021-02-23 | Outpatient (REF) | payer MEDICARE, OTHER | LOC: SKLAB7 06:06 | PROVIDERS: ATTEND Internal Medicine | DX: Z51.81 Encounter for therapeutic drug level monitoring (principal); G40.909 Epilepsy, unspecified, not intractable, without status epilepticus; Z20.822 Contact with and (suspected) exposure to COVID-19 | CPT/HCPCS: 36415; 80180; U0002 ==

== ENCOUNTER → 2021-02-27 | Outpatient (REF) | payer MEDICARE, OTHER | LOC: SKLAB7 09:00 | PROVIDERS: ATTEND Internal Medicine | DX: Z20.822 Contact with and (suspected) exposure to COVID-19 (principal) ==

== ENCOUNTER → 2021-03-02 | Outpatient (REF) | payer MEDICARE, OTHER | LOC: SKLAB7 07:30 | PROVIDERS: ATTEND Internal Medicine | DX: Z20.822 Contact with and (suspected) exposure to COVID-19 (principal) ==

== ENCOUNTER → 2021-03-06 | Outpatient (REF) | payer MEDICARE, OTHER | LOC: SKLAB7 08:11 | PROVIDERS: ATTEND Internal Medicine | DX: Z20.822 Contact with and (suspected) exposure to COVID-19 (principal) ==

== ENCOUNTER → 2021-03-09 | Outpatient (REF) | payer MEDICARE, OTHER | LOC: SKLAB7 06:03 | PROVIDERS: ATTEND Internal Medicine | DX: Z20.822 Contact with and (suspected) exposure to COVID-19 (principal) ==

== ENCOUNTER → 2021-03-15 | Outpatient (REF) | payer MEDICARE, OTHER | LOC: SKLAB7 05:37 | PROVIDERS: ATTEND Internal Medicine | DX: Z20.822 Contact with and (suspected) exposure to COVID-19 (principal) ==

== ENCOUNTER → 2021-03-22 | Outpatient (REF) | payer MEDICARE, OTHER | LOC: SKLAB7 10:32 | PROVIDERS: ATTEND Internal Medicine | DX: Z20.822 Contact with and (suspected) exposure to COVID-19 (principal) ==

== ENCOUNTER → 2021-03-23 | Outpatient (REF) | payer MEDICARE, OTHER | LOC: SKLAB7 09:00 | PROVIDERS: ATTEND Internal Medicine | DX: D64.9 Anemia, unspecified (principal) ==

== ENCOUNTER → 2021-03-24 | Outpatient (REF) | payer MEDICARE, OTHER ==
[2021-03-24 10:54] LABS: HEMATOCRIT 35.9 % (36.0-47.0); HEMOGLOBIN 10.6 g/dl (12.0-15.5); MEAN CORPUSCULAR HEMOGLOBIN 27.7 pg (27.0-33.0); MEAN CORPUSCULAR HGB CONC 29.5 g/dl (32.0-36.5); PLATELET COUNT, AUTOMATED 275 10^3/uL (150-450); RED BLOOD COUNT 3.82 10^6/uL (4.00-5.40); WHITE BLOOD COUNT 7.4 10^3/uL (4.0-10.0)
[2021-03-24 11:14] LABS: ALBUMIN 3.1 GM/DL (3.2-5.2); BILIRUBIN,DIRECT 0.1 MG/DL (0.0-0.2); BILIRUBIN,TOTAL 0.3 MG/DL (0.2-1.0); PERCENT SATURATION 8.8 % (13.2-45.0); TOTAL PROTEIN 6.8 GM/DL (6.4-8.2)
== END ==
LOC: SKLAB7 09:00
PROVIDERS: ATTEND Internal Medicine
DX: R79.0 Abnormal level of blood mineral (principal)

== ENCOUNTER → 2021-04-12 | Outpatient (REF) | payer MEDICARE, OTHER | LOC: SKLAB7 13:57 | PROVIDERS: ATTEND Internal Medicine | DX: Z20.822 Contact with and (suspected) exposure to COVID-19 (principal) ==

== ENCOUNTER → 2021-04-19 | Outpatient (REF) | payer MEDICARE, OTHER | LOC: SKLAB7 14:53 | PROVIDERS: ATTEND Internal Medicine | DX: Z20.822 Contact with and (suspected) exposure to COVID-19 (principal) ==

== ENCOUNTER → 2021-04-20 | Outpatient (REF) | payer MEDICARE, OTHER ==
[2021-04-20 09:14] LABS: HEMATOCRIT 36.5 % (36.0-47.0); HEMOGLOBIN 10.5 g/dl (12.0-15.5); MEAN CORPUSCULAR HEMOGLOBIN 25.8 pg (27.0-33.0); MEAN CORPUSCULAR HGB CONC 28.8 g/dl (32.0-36.5); MEAN CORPUSCULAR VOLUME 89.7 fl (80.0-96.0); PLATELET COUNT, AUTOMATED 344 10^3/uL (150-450); RED BLOOD COUNT 4.07 10^6/uL (4.00-5.40)
[2021-04-20 09:46] LABS: ALBUMIN 3.3 GM/DL (3.2-5.2); ALT/SGPT 18 U/L (12-78); BILIRUBIN,TOTAL 0.3 MG/DL (0.2-1.0); BLOOD UREA NITROGEN 17 MG/DL (7-18); CALCIUM LEVEL 9.1 MG/DL (8.8-10.2); CARBON DIOXIDE LEVEL 32 MEQ/L (21-32); CHLORIDE LEVEL 102 MEQ/L (98-107); CREATININE FOR GFR 0.73 MG/DL (0.55-1.30); GLOMERULAR FILTRATION RATE > 60.0 (>32); GLUCOSE, FASTING 83 MG/DL (70-100); POTASSIUM SERUM 4.2 MEQ/L (3.5-5.1); SODIUM LEVEL 140 MEQ/L (136-145); TOTAL PROTEIN 7.4 GM/DL (6.4-8.2)
== END ==
LOC: SKLAB7 09:19
PROVIDERS: ATTEND Internal Medicine
DX: D64.9 Anemia, unspecified (principal); I50.9 Heart failure, unspecified; J44.9 Chronic obstructive pulmonary disease, unspecified

== ENCOUNTER → 2021-04-25 | Outpatient (REF) | payer MEDICARE, OTHER ==
--- NOTE | 2021-04-25 11:04 | REP ---
INDICATION: PAIN UNKNOWN INJURY COMPARISON: None. TECHNIQUE: AP, lateral, bilateral oblique views left 2nd toe. FINDINGS: Generalized osteopenia and degenerative changes are appreciated. There is evidence for prior fixation at the head of the 1st metatarsal bone. There appears to be chronic fusion at the level of the 2nd proximal interphalangeal joint. No acute fracture or dislocation. No subcutaneous emphysema or foreign body. IMPRESSION: Osteopenia and degenerative changes. <Electronically signed by Raoul Todd > 04/25/21 1100
== END ==
LOC: SKLAB7 10:31
PROVIDERS: ATTEND Internal Medicine
DX: M85.88 Other specified disorders of bone density and structure, other site (principal); M79.675 Pain in left toe(s)

== ENCOUNTER → 2021-04-26 | Outpatient (REF) | payer MEDICARE, OTHER | LOC: SKLAB7 07:00 | PROVIDERS: ATTEND Internal Medicine | DX: Z20.822 Contact with and (suspected) exposure to COVID-19 (principal) ==

== ENCOUNTER → 2021-05-03 | Outpatient (REF) | payer MEDICARE, OTHER | LOC: SKLAB7 10:29 | PROVIDERS: ATTEND Internal Medicine | DX: Z20.822 Contact with and (suspected) exposure to COVID-19 (principal) ==

== ENCOUNTER → 2021-05-10 | Outpatient (REF) | payer MEDICARE, OTHER | LOC: SKLAB7 07:00 | PROVIDERS: ATTEND Internal Medicine | DX: Z20.822 Contact with and (suspected) exposure to COVID-19 (principal) ==

== ENCOUNTER → 2021-07-10 | Outpatient (REF) | payer MEDICARE, OTHER ==
[~2021-07-10] MED LIST changes: -D31000TA2 PO; +POTA-151 PO; -POTA20TA6 PO; +VITA100093 PO
== END ==
LOC: SKLAB7 12:02
PROVIDERS: ATTEND Internal Medicine
DX: I71.4 Abdominal aortic aneurysm, without rupture (principal); M85.88 Other specified disorders of bone density and structure, other site; R10.9 Unspecified abdominal pain

== ENCOUNTER → 2021-07-20 | Outpatient (REF) | payer MEDICARE, OTHER ==
[~2021-07-20] MED LIST changes: +ACET-897 PO; +ACET-907 PO; +ATOR80TA59 PO; +BACI28.3 TOP; +DALI1TAB2 PO; +KEPP1TAB PO; +MILKSUS3 PO; +MUSC1CRE EXT; +MYLASSUD PO; +PANT40TA29 PO; +SUCR1TA PO; +VENL37TA PO
[2021-07-20 18:47] LABS: CHOLESTEROL RISK RATIO 2.208 (<5)
== END ==
LOC: SKLAB7 07:00
PROVIDERS: ATTEND Internal Medicine
DX: E78.5 Hyperlipidemia, unspecified (principal)

== ENCOUNTER 2021-08-03 22:39 | Inpatient (IN) | payer MEDICARE, OTHER ==
[~2021-08-03] VITALS: Ht 157.5 cm; Wt 62.2 kg
[~2021-08-03 22:39] MED LIST changes: -ACET-897 PO; -ACET-907 PO; -ATOR80TA59 PO; -BACI28.3 TOP; -DALI1TAB2 PO; -KEPP1TAB PO; -MILKSUS3 PO; -MUSC1CRE EXT; -MYLASSUD PO; -VENL37TA PO
[2021-08-03 23:01] LABS: INR 1.61; PROTHROMBIN TIME 19.5 SECONDS (12.7-14.5)
[2021-08-03 23:02] LABS: PARTIAL THROMBOPLASTIN TIME 31.8 SECONDS (25.9-37.0)
[2021-08-03 23:11] LABS: ALBUMIN 2.7 GM/DL (3.2-5.2); ALT/SGPT 12 U/L (12-78); BILIRUBIN,DIRECT 0.3 MG/DL (0.0-0.2); BILIRUBIN,TOTAL 0.6 MG/DL (0.2-1.0); BLOOD UREA NITROGEN 21 MG/DL (7-18); CALCIUM LEVEL 8.2 MG/DL (8.8-10.2); CARBON DIOXIDE LEVEL 30 MEQ/L (21-32); CHLORIDE LEVEL 110 MEQ/L (98-107); CREATININE FOR GFR 0.93 MG/DL (0.55-1.30); GLOMERULAR FILTRATION RATE > 60.0 (>32); GLUCOSE, FASTING 109 MG/DL (70-100); LIPASE 227 U/L (73-393); POTASSIUM SERUM 3.9 MEQ/L (3.5-5.1); SODIUM LEVEL 145 MEQ/L (136-145); TOTAL PROTEIN 5.9 GM/DL (6.4-8.2)
[2021-08-03] MEDS ORDERED: PANTOPRAZOLE 40MG VIAL IV ONE (23:15)
[2021-08-03 23:59] LABS: RSV AMPLIFICATION NEGATIVE (NEGATIVE)
[2021-08-04] VITALS (17 sets, daily range): BP systolic 104–142; BP diastolic 53–72; O2SAT 96
[2021-08-04] MEDS ORDERED: ATOR80TA59 PO (02:04)
[2021-08-04] MEDS ORDERED: MUSC1CRE EXT (02:04)
[2021-08-04] MEDS ORDERED: MYLASSUD PO (02:04)
[2021-08-04] MEDS ORDERED: ACET-897 PO (02:04)
[2021-08-04] MEDS ORDERED: BACI28.3 TOP (02:04)
[2021-08-04] MEDS ORDERED: FURO20TA2 PO (02:04)
[2021-08-04] MEDS ORDERED: VENL37TA PO (02:04)
[2021-08-04] MEDS ORDERED: ENSU1LIQ36 PO (02:04)
[2021-08-04] MEDS ORDERED: MILKSUS3 PO (02:04)
[2021-08-04] MEDS ORDERED: ELIQ2.5T PO (02:04)
[2021-08-04] MEDS ORDERED: KEPP1TAB PO (02:04)
[2021-08-04] MEDS ORDERED: ACET-907 PO (02:04)
[2021-08-04] MEDS ORDERED: DALI1TAB2 PO (02:04)
[2021-08-04] MEDS ORDERED: HOME MED LIST COMPLETE! XX SCH (02:05)
[2021-08-04] MEDS ORDERED: ANALGESIC BALM CRM 3OZ EXT PRN (02:25)
[2021-08-04] MEDS ORDERED: ACETAMINOPHEN TAB 650MG DOSE (2X325MG) PO PRN (02:30)
[2021-08-04 03:29] LABS: HEMATOCRIT 18.1 % (36.0-47.0); HEMOGLOBIN 5.1 g/dl (12.0-15.5)
[2021-08-04 06:09] LABS: HEMATOCRIT 23.1 % (36.0-47.0)
[2021-08-04 06:21] LABS: HEMOGLOBIN 6.8 g/dl (12.0-15.5)
[2021-08-04] MEDS: POTASSIUM CHLORIDE 10MEQ SR TABLET PO SCH (09:04)
[2021-08-04] MEDS: PANTOPRAZOLE 40MG VIAL IV SCH ×2 (09:04→21:24)
[2021-08-04] MEDS: rOPINIRole 1MG TAB PO SCH ×2 (09:04→21:25)
[2021-08-04] MEDS: levETIRAcetam 250MG TABLET (KEPPRA) PO SCH ×2 (09:04→21:24)
[2021-08-04] MEDS: SUCRALFATE 1 GM TAB PO SCH ×4 (09:04→21:25)
[2021-08-04] MEDS: METOPROLOL TART 12.5 MG PER 1/2 TAB PO SCH ×2 (09:05→21:25)
[2021-08-04] MEDS: SODIUM CHLORIDE NASAL 0.65% SPRAY BTL (OCEAN) SCH ×4 (09:05→21:23)
[2021-08-04 11:06] LABS: HEMATOCRIT 23.1 % (36.0-47.0)
[2021-08-04 11:09] LABS: HEMOGLOBIN 6.9 g/dl (12.0-15.5)
[2021-08-04] MEDS ORDERED: FUROSEMIDE 20MG/2ML VIAL (J1940) IV ONE (18:40)
[2021-08-04 19:27] LABS: HEMATOCRIT 28.4 % (36.0-47.0); HEMOGLOBIN 8.6 g/dl (12.0-15.5)
[2021-08-04] MEDS ORDERED: ATORVASTATIN 20 MG TAB PO SCH (21:00)
[2021-08-04] MEDS ORDERED: VENLAFAXINE 37.5 MG TAB PO SCH (21:00)
[2021-08-04 21:57] LABS: HEMATOCRIT 30.7 % (36.0-47.0); HEMOGLOBIN 9.3 g/dl (12.0-15.5)
[2021-08-05] VITALS (7 sets, daily range): BP systolic 126–140; BP diastolic 59–69; O2SAT 95–96
[2021-08-05 05:37] LABS: HEMATOCRIT 30.4 % (36.0-47.0); HEMOGLOBIN 8.9 g/dl (12.0-15.5); MEAN CORPUSCULAR HEMOGLOBIN 21.6 pg (27.0-33.0); MEAN CORPUSCULAR HGB CONC 29.3 g/dl (32.0-36.5); MEAN CORPUSCULAR VOLUME 73.8 fl (80.0-96.0); PLATELET COUNT, AUTOMATED 334 10^3/uL (150-450); RED BLOOD COUNT 4.12 10^6/uL (4.00-5.40)
[2021-08-05 05:57] LABS: BLOOD UREA NITROGEN 15 MG/DL (7-18); CALCIUM LEVEL 8.4 MG/DL (8.8-10.2); CARBON DIOXIDE LEVEL 31 MEQ/L (21-32); CHLORIDE LEVEL 113 MEQ/L (98-107); CREATININE FOR GFR 0.83 MG/DL (0.55-1.30); GLOMERULAR FILTRATION RATE > 60.0 (>32); GLUCOSE, FASTING 105 MG/DL (70-100); POTASSIUM SERUM 3.6 MEQ/L (3.5-5.1); SODIUM LEVEL 148 MEQ/L (136-145)
[2021-08-05] MEDS ORDERED: FUROSEMIDE 20MG/2ML VIAL (J1940) IV ONE (07:55)
[2021-08-05] MEDS ORDERED: ASPIRIN 81 MG CHEW TABLET PO SCH (09:00)
[2021-08-05] MEDS: PANTOPRAZOLE 40MG VIAL IV SCH (09:19)
[2021-08-05] MEDS: rOPINIRole 1MG TAB PO SCH (09:20)
[2021-08-05] MEDS: METOPROLOL TART 12.5 MG PER 1/2 TAB PO SCH (09:20)
[2021-08-05] MEDS: POTASSIUM CHLORIDE 10MEQ SR TABLET PO SCH (09:21)
[2021-08-05] MEDS: levETIRAcetam 250MG TABLET (KEPPRA) PO SCH (09:21)
[2021-08-05] MEDS: SUCRALFATE 1 GM TAB PO SCH ×2 (09:21→13:50)
[2021-08-05] MEDS: SODIUM CHLORIDE NASAL 0.65% SPRAY BTL (OCEAN) SCH ×2 (09:23→13:50)
[2021-08-05 10:32] LABS: HEMATOCRIT 31.8 % (36.0-47.0); HEMOGLOBIN 9.4 g/dl (12.0-15.5)
[2021-08-05] MEDS ORDERED: PANT40TA29 PO (13:23)
[2021-08-05] MEDS ORDERED: SUCR1TA PO (13:23)
[2021-08-05] MEDS ORDERED: FURO20TA2 PO (13:23)
[2021-08-05] MEDS ORDERED: APIXABAN 2.5 MG TAB (ELIQUIS) PO SCH (21:00)
[2021-08-06] MEDS ORDERED: FUROSEMIDE 20 MG TAB PO SCH (09:00)
== END 2021-08-05 14:35 | DRG 812 ==
LOC: M ED 22:39 → M ED INP 23:57 → ENRESERV 08-04 11:31 → M PCU 08-04 13:47
PROVIDERS: ADMIT Family Medicine; ATTEND Family Medicine
PROC: 30233N1 Transfusion of Nonautologous Red Blood Cells into Peripheral Vein, Percutaneous Approach (ICD-10-PCS; principal; 2021-08-03)
DX: D50.0 Iron deficiency anemia secondary to blood loss (chronic) (principal); K92.1 Melena; I50.22 Chronic systolic (congestive) heart failure; I13.0 Hypertensive heart and chronic kidney disease with heart failure and stage 1 through stage 4 chronic kidney disease, or unspecified chronic kidney disease; I69.354 Hemiplegia and hemiparesis following cerebral infarction affecting left non-dominant side; I48.0 Paroxysmal atrial fibrillation; J44.9 Chronic obstructive pulmonary disease, unspecified; G47.33 Obstructive sleep apnea (adult) (pediatric); D75.1 Secondary polycythemia; I25.10 Atherosclerotic heart disease of native coronary artery without angina pectoris; I71.2 Thoracic aortic aneurysm, without rupture; F32.A Depression, unspecified; F41.9 Anxiety disorder, unspecified; G25.81 Restless legs syndrome; R26.89 Other abnormalities of gait and mobility; Z74.09 Other reduced mobility; Z79.01 Long term (current) use of anticoagulants; Z95.1 Presence of aortocoronary bypass graft; N18.30 Chronic kidney disease, stage 3 unspecified; Z79.82 Long term (current) use of aspirin; Z79.899 Other long term (current) drug therapy; Z95.2 Presence of prosthetic heart valve

== ENCOUNTER → 2021-08-03 | Outpatient (REF) | payer MEDICARE, OTHER ==
[~2021-08-03] MED LIST changes: -PANT40TA29 PO; -SUCR1TA PO
[2021-08-03 21:52] LABS: MEAN CORPUSCULAR HEMOGLOBIN 15.7 pg (27.0-33.0); MEAN CORPUSCULAR HGB CONC 24.2 g/dl (32.0-36.5); MEAN CORPUSCULAR VOLUME 64.6 fl (80.0-96.0); RED BLOOD COUNT 1.98 10^6/uL (4.00-5.40); WHITE BLOOD COUNT 5.7 10^3/uL (4.0-10.0)
[2021-08-03 21:56] LABS: HEMATOCRIT 12.8 % (36.0-47.0); HEMOGLOBIN 3.1 g/dl (12.0-15.5)
[2021-08-03 21:57] LABS: PLATELET COUNT, AUTOMATED 346 10^3/uL (150-450)
== END ==
LOC: SKLAB7 20:24
PROVIDERS: ATTEND Internal Medicine
DX: R71.8 Other abnormality of red blood cells (principal)

== ENCOUNTER → 2021-08-03 | Outpatient (REF) | payer MEDICARE, OTHER ==
[2021-08-03 18:58] LABS: MEAN CORPUSCULAR HEMOGLOBIN 16.2 pg (27.0-33.0); MEAN CORPUSCULAR VOLUME 64.6 fl (80.0-96.0); PLATELET COUNT, AUTOMATED 446 10^3/uL (150-450); RED BLOOD COUNT 2.29 10^6/uL (4.00-5.40); WHITE BLOOD COUNT 6.6 10^3/uL (4.0-10.0)
[2021-08-03 19:02] LABS: HEMATOCRIT 14.8 % (36.0-47.0); HEMOGLOBIN 3.7 g/dl (12.0-15.5)
[2021-08-03 19:12] LABS: BILIRUBIN,TOTAL 0.8 MG/DL (0.2-1.0); CALCIUM LEVEL 8.6 MG/DL (8.8-10.2); CREATININE FOR GFR 1.01 MG/DL (0.55-1.30); POTASSIUM SERUM 4.3 MEQ/L (3.5-5.1); TOTAL PROTEIN 6.8 GM/DL (6.4-8.2)
== END ==
LOC: SKLAB7 10:56
PROVIDERS: ATTEND Internal Medicine
DX: D64.9 Anemia, unspecified (principal)

== ENCOUNTER → 2021-08-24 | Outpatient (REF) | payer MEDICARE, OTHER ==
[~2021-08-24] MED LIST changes: +ACET-897 PO; +ACET-907 PO; +ATOR80TA59 PO; +BACI28.3 TOP; +DALI1TAB2 PO; +KEPP1TAB PO; +MILKSUS3 PO; +MUSC1CRE EXT; +MYLASSUD PO; +PANT40TA29 PO; +SUCR1TA PO; +VENL37TA PO
== END ==
LOC: SKLAB7 07:00
PROVIDERS: ATTEND Internal Medicine
DX: G40.909 Epilepsy, unspecified, not intractable, without status epilepticus (principal)

== ENCOUNTER → 2021-09-21 | Outpatient (REF) | payer MEDICARE, OTHER | LOC: SKLAB7 11:37 | PROVIDERS: ATTEND Nurse Practitioner Family | DX: D64.9 Anemia, unspecified (principal) ==

== ENCOUNTER → 2021-10-05 | Outpatient (REF) | payer MEDICARE, OTHER ==
[~2021-10-05] MED LIST changes: +FAMO20TA PO; +IRON65TA2 PO
[2021-10-05 13:22] LABS: HEMATOCRIT 26.4 % (36.0-47.0); MEAN CORPUSCULAR HEMOGLOBIN 19.7 pg (27.0-33.0); MEAN CORPUSCULAR HGB CONC 24.2 g/dl (32.0-36.5); MEAN CORPUSCULAR VOLUME 81.2 fl (80.0-96.0); PLATELET COUNT, AUTOMATED 351 10^3/uL (150-450); RED BLOOD COUNT 3.25 10^6/uL (4.00-5.40); WHITE BLOOD COUNT 5.7 10^3/uL (4.0-10.0)
[2021-10-05 13:25] LABS: HEMOGLOBIN 6.4 g/dl (12.0-15.5)
== END ==
LOC: SKLAB7 07:00
PROVIDERS: ATTEND Internal Medicine
DX: D64.9 Anemia, unspecified (principal)

== ENCOUNTER → 2021-10-09 | Outpatient (REF) | payer MEDICARE, OTHER | LOC: SKLAB7 08:40 | PROVIDERS: ATTEND Internal Medicine | DX: Z20.822 Contact with and (suspected) exposure to COVID-19 (principal) ==

== ENCOUNTER 2021-10-13 10:36 | Day surgery (SDC) | payer MEDICARE, OTHER ==
[~2021-10-13] VITALS: Ht 152.4 cm; Wt 54.4 kg
[~2021-10-13 10:36] MED LIST changes: +NS 1,000 ML IV ONE
[2021-10-13 12:51] LABS: HEMATOCRIT 29.9 % (36.0-47.0); HEMOGLOBIN 7.2 g/dl (12.0-15.5); MEAN CORPUSCULAR HEMOGLOBIN 19.8 pg (27.0-33.0); MEAN CORPUSCULAR HGB CONC 24.1 g/dl (32.0-36.5); MEAN CORPUSCULAR VOLUME 82.1 fl (80.0-96.0); PLATELET COUNT, AUTOMATED 368 10^3/uL (150-450); RED BLOOD COUNT 3.64 10^6/uL (4.00-5.40); WHITE BLOOD COUNT 6.2 10^3/uL (4.0-10.0)
[2021-10-13] MEDS ORDERED: LIDOCAINE 2% 100MG/5ML SDV (FOR ANES.) As Ordered ONE (14:04)
[2021-10-13] MEDS ORDERED: propofoL 200 MG/20 ML VIAL As Ordered ONE (14:04)
[2021-10-13] MEDS ORDERED: GLUCAGON INJ 1MG VIAL As Ordered ONE (14:04)
[2021-10-13 14:33] VITALS: BP 134/87
== END 2021-10-13 14:45 | disposition home or self-care (01) ==
LOC: M OPP 10:36
PROVIDERS: ATTEND Internal Medicine Gastroenterology
DX: D12.3 Benign neoplasm of transverse colon (principal); D12.5 Benign neoplasm of sigmoid colon; K57.30 Diverticulosis of large intestine without perforation or abscess without bleeding; K64.8 Other hemorrhoids; R19.5 Other fecal abnormalities; D50.0 Iron deficiency anemia secondary to blood loss (chronic); K31.819 Angiodysplasia of stomach and duodenum without bleeding; Z79.1 Long term (current) use of non-steroidal anti-inflammatories (NSAID); Z79.01 Long term (current) use of anticoagulants; Z79.02 Long term (current) use of antithrombotics/antiplatelets; Z79.82 Long term (current) use of aspirin; Z79.899 Other long term (current) drug therapy; Z88.8 Allergy status to other drugs, medicaments and biological substances; Z86.74 Personal history of sudden cardiac arrest; Z87.19 Personal history of other diseases of the digestive system
CPT/HCPCS: 36415; 43255; 45385; 85027; 88305; J1610

== ENCOUNTER → 2021-10-23 | Outpatient (REF) | payer MEDICARE, OTHER ==
[~2021-10-23] MED LIST changes: -NS 1,000 ML IV ONE
[2021-10-23 07:15] LABS: HEMATOCRIT 26.3 % (36.0-47.0); MEAN CORPUSCULAR HEMOGLOBIN 19.3 pg (27.0-33.0); MEAN CORPUSCULAR HGB CONC 24.3 g/dl (32.0-36.5); MEAN CORPUSCULAR VOLUME 79.2 fl (80.0-96.0); PLATELET COUNT, AUTOMATED 369 10^3/uL (150-450); RED BLOOD COUNT 3.32 10^6/uL (4.00-5.40); WHITE BLOOD COUNT 5.5 10^3/uL (4.0-10.0)
[2021-10-23 07:20] LABS: HEMOGLOBIN 6.4 g/dl (12.0-15.5)
[2021-10-23 07:47] LABS: ALBUMIN 2.7 GM/DL (3.2-5.2); ALT/SGPT 10 U/L (12-78); BILIRUBIN,TOTAL 0.3 MG/DL (0.2-1.0); BLOOD UREA NITROGEN 14 MG/DL (7-18); CALCIUM LEVEL 8.5 MG/DL (8.8-10.2); CARBON DIOXIDE LEVEL 30 MEQ/L (21-32); CHLORIDE LEVEL 111 MEQ/L (98-107); CREATININE FOR GFR 0.59 MG/DL (0.55-1.30); GLOMERULAR FILTRATION RATE > 60.0 (>32); GLUCOSE, FASTING 111 MG/DL (70-100); IRON (FE) 14 UG/DL (50-170); POTASSIUM SERUM 3.8 MEQ/L (3.5-5.1); SODIUM LEVEL 148 MEQ/L (136-145); TOTAL IRON BINDING CAPACITY 352 UG/DL (250-450); TOTAL PROTEIN 5.8 GM/DL (6.4-8.2)
== END ==
LOC: SKLAB7 07:00
PROVIDERS: ATTEND Internal Medicine
DX: D64.9 Anemia, unspecified (principal); J44.9 Chronic obstructive pulmonary disease, unspecified

== ENCOUNTER 2021-10-24 08:34 | Outpatient (CLI) | payer MEDICARE, OTHER ==
[2021-10-24] VITALS (7 sets, daily range): BP systolic 127–147; BP diastolic 59–78
[~2021-10-24 08:34] MED LIST changes: +ACETAMINOPHEN TAB 650MG DOSE (2X325MG) PO ONE; +diphenhydrAMINE 25MG CAP PO ONE
== END 2021-10-24 12:55 | disposition home or self-care (01) ==
LOC: M INFU 08:34
PROVIDERS: ATTEND Internal Medicine
DX: D64.9 Anemia, unspecified (principal)
CPT/HCPCS: 36430; P9016

== ENCOUNTER → 2021-11-09 | Outpatient (REF) | payer MEDICARE, OTHER ==
[~2021-11-09] MED LIST changes: -ACETAMINOPHEN TAB 650MG DOSE (2X325MG) PO ONE; -diphenhydrAMINE 25MG CAP PO ONE
[2021-11-09 08:18] LABS: MEAN CORPUSCULAR HEMOGLOBIN 23.1 pg (27.0-33.0); MEAN CORPUSCULAR HGB CONC 27.5 g/dl (32.0-36.5); MEAN CORPUSCULAR VOLUME 83.9 fl (80.0-96.0); PLATELET COUNT, AUTOMATED 367 10^3/uL (150-450); RED BLOOD COUNT 4.77 10^6/uL (4.00-5.40); WHITE BLOOD COUNT 7.2 10^3/uL (4.0-10.0)
== END ==
LOC: SKLAB7 08:00
PROVIDERS: ATTEND Nurse Practitioner Family
DX: D64.9 Anemia, unspecified (principal)

== ENCOUNTER → 2021-11-23 | Outpatient (REF) | payer MEDICARE, OTHER | LOC: SKLAB7 09:15 | PROVIDERS: ATTEND Nurse Practitioner Family | DX: Z51.81 Encounter for therapeutic drug level monitoring (principal); D64.9 Anemia, unspecified ==

== ENCOUNTER → 2021-11-26 | Outpatient (CLI) | payer MEDICARE, OTHER | LOC: SKLAB7 03:39 | PROVIDERS: ATTEND Internal Medicine | DX: Z53.9 Procedure and treatment not carried out, unspecified reason (principal) ==

== ENCOUNTER → 2021-11-27 | Outpatient (REF) | payer MEDICARE, OTHER | LOC: SKLAB7 10:22 | PROVIDERS: ATTEND Nurse Practitioner Family | DX: Z20.822 Contact with and (suspected) exposure to COVID-19 (principal) ==

== ENCOUNTER → 2022-01-18 | Outpatient (REF) | payer MEDICARE, OTHER ==
[2022-01-18 12:43] LABS: CHOLESTEROL RISK RATIO 2.07 (<5)
== END ==
LOC: SKLAB7 07:00
PROVIDERS: ATTEND Nurse Practitioner Family
DX: E78.00 Pure hypercholesterolemia, unspecified (principal)

== ENCOUNTER → 2022-02-23 | Outpatient (REF) | payer MEDICARE, OTHER | LOC: SKLAB7 08:56 | PROVIDERS: ATTEND Nurse Practitioner Family | DX: M25.552 Pain in left hip (principal); M16.11 Unilateral primary osteoarthritis, right hip; M51.37 Other intervertebral disc degeneration, lumbosacral region; I70.90 Unspecified atherosclerosis ==

== ENCOUNTER → 2022-03-22 | Outpatient (REF) | payer MEDICARE, OTHER | LOC: SKLAB7 11:47 | PROVIDERS: ATTEND Nurse Practitioner Family | DX: Z79.899 Other long term (current) drug therapy (principal); G40.909 Epilepsy, unspecified, not intractable, without status epilepticus ==

== ENCOUNTER → 2022-04-13 | Outpatient (REF) | payer MEDICARE, OTHER | LOC: SKLAB7 13:58 | PROVIDERS: ATTEND Nurse Practitioner Family | DX: D64.9 Anemia, unspecified (principal) ==

== ENCOUNTER → 2022-04-19 | Outpatient (REF) | payer MEDICARE, OTHER ==
[2022-04-19 09:50] LABS: ALBUMIN 3.3 G/DL (3.2-5.2); ALKALINE PHOSPHATASE 121 U/L (46-116); ALT/SGPT 18 U/L (7.0-40); AST/SGOT 22 U/L (<34); BILIRUBIN,TOTAL 0.4 MG/DL (0.3-1.2); BLOOD UREA NITROGEN 14 MG/DL (9-23); CALCIUM LEVEL 9.1 MG/DL (8.3-10.6); CARBON DIOXIDE LEVEL 25 MMOL/L (20-31); CHLORIDE LEVEL 107 MMOL/L (98-107); CREATININE FOR GFR 0.52 MG/DL (0.55-1.30); GLOMERULAR FILTRATION RATE > 60.0 (>32); GLUCOSE, FASTING 101 MG/DL (74-106); POTASSIUM SERUM 4.3 MMOL/L (3.5-5.1); SODIUM LEVEL 145 MMOL/L (136-145); TOTAL PROTEIN 7.1 G/DL (5.7-8.2)
== END ==
LOC: SKLAB7 07:00
PROVIDERS: ATTEND Nurse Practitioner Family
DX: J44.9 Chronic obstructive pulmonary disease, unspecified (principal); D64.9 Anemia, unspecified

== ENCOUNTER → 2022-05-24 | Outpatient (REF) | payer MEDICARE, OTHER ==
[2022-05-24 08:37] LABS: HEMATOCRIT 43.3 % (36.0-47.0); HEMOGLOBIN 12.7 g/dl (12.0-15.5); MEAN CORPUSCULAR HEMOGLOBIN 27.2 pg (27.0-33.0); MEAN CORPUSCULAR HGB CONC 29.3 g/dl (32.0-36.5); MEAN CORPUSCULAR VOLUME 92.7 fl (80.0-96.0); PLATELET COUNT, AUTOMATED 215 10^3/uL (150-450); RED BLOOD COUNT 4.67 10^6/uL (4.00-5.40)
== END ==
LOC: SKLAB7 07:00
PROVIDERS: ATTEND Internal Medicine
DX: D64.9 Anemia, unspecified (principal)

== ENCOUNTER → 2022-06-21 | Outpatient (REF) | payer MEDICARE, OTHER | LOC: SKLAB7 11:29 | PROVIDERS: ATTEND Internal Medicine | DX: Z51.81 Encounter for therapeutic drug level monitoring (principal); Z79.899 Other long term (current) drug therapy ==

== ENCOUNTER → 2022-07-26 | Outpatient (REF) | payer MEDICARE, OTHER ==
[2022-07-26 10:12] LABS: HEMATOCRIT 40.7 % (36.0-47.0); HEMOGLOBIN 12.6 g/dl (12.0-15.5); MEAN CORPUSCULAR HEMOGLOBIN 28.6 pg (27.0-33.0); MEAN CORPUSCULAR VOLUME 92.5 fl (80.0-96.0); PLATELET COUNT, AUTOMATED 255 10^3/uL (150-450); WHITE BLOOD COUNT 7.4 10^3/uL (4.0-10.0)
[2022-07-26 10:40] LABS: PERCENT SATURATION 13.2 % (13.2-45.0)
== END ==
LOC: SKLAB7 07:00
PROVIDERS: ATTEND Internal Medicine
DX: D64.9 Anemia, unspecified (principal)

== ENCOUNTER → 2022-08-23 | Outpatient (REF) | payer MEDICARE, OTHER ==
[~2022-08-23] MED LIST changes: +SENN-186 PO; -SENN-80 PO
[2022-08-23 09:05] LABS: CHOLESTEROL RISK RATIO 2.39 (<5); HDL CHOLESTEROL 59.2 MG/DL (>40); NON-HDL-C 82.8 MG/DL
== END ==
LOC: SKLAB7 14:07
PROVIDERS: ATTEND Internal Medicine
DX: E78.5 Hyperlipidemia, unspecified (principal)

== ENCOUNTER → 2022-09-20 | Outpatient (REF) | payer MEDICARE, OTHER | LOC: SKLAB7 14:05 | PROVIDERS: ATTEND Internal Medicine | DX: Z51.81 Encounter for therapeutic drug level monitoring (principal); G40.909 Epilepsy, unspecified, not intractable, without status epilepticus ==

== ENCOUNTER → 2022-10-18 | Outpatient (REF) | payer MEDICARE, OTHER ==
[2022-10-18 10:28] LABS: ALBUMIN 3.3 G/DL (3.2-5.2); ALKALINE PHOSPHATASE 96 U/L (46-116); ALT/SGPT 10 U/L (7.0-40); AST/SGOT 12 U/L (<34); BILIRUBIN,TOTAL 0.4 MG/DL (0.3-1.2); BLOOD UREA NITROGEN 10 MG/DL (9-23); CALCIUM LEVEL 8.4 MG/DL (8.3-10.6); CARBON DIOXIDE LEVEL 32 MMOL/L (20-31); CHLORIDE LEVEL 106 MMOL/L (98-107); CREATININE FOR GFR 0.66 MG/DL (0.55-1.30); GLOMERULAR FILTRATION RATE > 60.0 (>32); GLUCOSE, FASTING 95 MG/DL (74-106); IRON (FE) 38 UG/DL (50-170); POTASSIUM SERUM 3.9 MMOL/L (3.5-5.1); SODIUM LEVEL 144 MMOL/L (136-145); TOTAL PROTEIN 6.3 G/DL (5.7-8.2)
== END ==
LOC: SKLAB7 07:00
PROVIDERS: ATTEND Internal Medicine
DX: D64.9 Anemia, unspecified (principal); I50.9 Heart failure, unspecified

== ENCOUNTER → 2022-12-20 | Outpatient (REF) | payer MEDICARE, OTHER ==
[~2022-12-20] MED LIST changes: -HM S0.65; -ROPI1TAB3 PO; +ROPI1TAB73 PO; +SALI0.6531
== END ==
LOC: SKLAB7 07:00
PROVIDERS: ATTEND Internal Medicine
DX: Z51.81 Encounter for therapeutic drug level monitoring (principal)

== ENCOUNTER → 2023-01-01 | Outpatient (REF) | LOC: SKLAB7 17:15 | PROVIDERS: ATTEND Internal Medicine | DX: M25.572 Pain in left ankle and joints of left foot (principal); Z53.8 Procedure and treatment not carried out for other reasons ==

== ENCOUNTER → 2023-01-01 | Outpatient (REF) | payer MEDICARE, OTHER | LOC: SKLAB7 17:05 | PROVIDERS: ATTEND Internal Medicine | DX: M81.0 Age-related osteoporosis without current pathological fracture (principal); Z98.890 Other specified postprocedural states; M77.32 Calcaneal spur, left foot ==

== ENCOUNTER → 2023-01-09 | Outpatient (REF) ==
[~2023-01-09] MED LIST changes: +ACET650T61 PO; +LEXA1TAB2 PO; +PRES10CA2 PO; +REFR0.5D8 OU; -SALI0.6531; +SALI0.6531 NARES; +SENN8.6T58 PO; +TRAZ-252 PO; +VASEGEL6 NARES
[2023-01-09 21:40] LABS: ALBUMIN 3.4 G/DL (3.2-5.2); ALKALINE PHOSPHATASE 96 U/L (46-116); ALT/SGPT 10 U/L (7.0-40); AST/SGOT 10 U/L (<34); BILIRUBIN,TOTAL 0.5 MG/DL (0.3-1.2); BLOOD UREA NITROGEN 13 MG/DL (9-23); CALCIUM LEVEL 9.6 MG/DL (8.3-10.6); CARBON DIOXIDE LEVEL 31 MMOL/L (20-31); CHLORIDE LEVEL 105 MMOL/L (98-107); CREATININE FOR GFR 0.67 MG/DL (0.55-1.30); GLOMERULAR FILTRATION RATE > 60.0 (>32); GLUCOSE, FASTING 129 MG/DL (74-106); SODIUM LEVEL 143 MMOL/L (136-145); TOTAL PROTEIN 6.6 G/DL (5.7-8.2)
[2023-01-09 21:41] LABS: BASO % 0.3 % (0.0-1.0); EOS # 0.2 10^3/uL (0.0-0.5); EOS % 2.3 % (0.0-3.0); HEMATOCRIT 40.7 % (36.0-47.0); HEMOGLOBIN 12.3 g/dl (12.0-15.5); LYMPH # 1.1 10^3/uL (1.5-5.0); LYMPH % 16.1 % (24.0-44.0); MEAN CORPUSCULAR HEMOGLOBIN 26.8 pg (27.0-33.0); MEAN CORPUSCULAR HGB CONC 30.2 g/dl (32.0-36.5); MEAN CORPUSCULAR VOLUME 88.7 fl (80.0-96.0); MONO # 0.6 10^3/uL (0.0-0.8); MONO % 8.8 % (2.0-8.0); NEUTROPHILS # 4.8 10^3/uL (1.5-8.5); PLATELET COUNT, AUTOMATED 216 10^3/uL (150-450); RED BLOOD COUNT 4.59 10^6/uL (4.00-5.40); WHITE BLOOD COUNT 6.6 10^3/uL (4.0-10.0)
[2023-01-09 21:43] LABS: THYROID STIMULATING HORMONE 1.239 uIU/ML (0.55-4.78)
[2023-01-09 21:46] LABS: APPEARANCE, URINE CLEAR (CLEAR); BACTERIA, URINE AUTO 1+ (NEGATIVE); BILIRUBIN, URINE AUTO NEGATIVE (NEGATIVE); BLOOD, URINE BLOOD NEGATIVE (NEGATIVE); COLOR, URINE YELLOW (YELLOW); GLUCOSE, URINE (UA) AUTO NEGATIVE (NEGATIVE); KETONE, URINE AUTO NEGATIVE (NEGATIVE); LEUKOCYTE ESTERASE, URINE AUTO TRACE (NEGATIVE); MUCUS, URINE SMALL (NEGATIVE); NITRITE, URINE AUTO NEGATIVE (NEGATIVE); PROTEIN, URINE AUTO NEGATIVE (NEGATIVE); RBC, URINE AUTO 1 /HPF (0-3); SPECIFIC GRAVITY URINE AUTO 1.017 (1.002-1.035); SQUAMOUS EPITHELIAL CELL UR AU 0 /HPF (0-6); UROBILINOGEN, URINE AUTO 0.2 mg/dL (0.0-2.0); WBC, URINE AUTO 15 /HPF (0-3)
== END ==
LOC: SKLAB7 21:06 → M LAB 21:06
PROVIDERS: ATTEND Internal Medicine
DX: I69.354 Hemiplegia and hemiparesis following cerebral infarction affecting left non-dominant side (principal)

== ENCOUNTER 2023-01-10 15:19 | Emergency (ER) | payer MEDICARE, OTHER ==
[~2023-01-10 15:19] MED LIST changes: -ACET650T61 PO; -LEXA1TAB2 PO; -PRES10CA2 PO; -REFR0.5D8 OU; -SENN8.6T58 PO; -TRAZ-252 PO; -VASEGEL6 NARES
[2023-01-10] MEDS ORDERED: MED REC IN PROGRESS XX SCH (17:40)
[2023-01-10 18:26] LABS: HEMATOCRIT 40.4 % (36.0-47.0); MEAN CORPUSCULAR HEMOGLOBIN 26.4 pg (27.0-33.0); MEAN CORPUSCULAR HGB CONC 29.7 g/dl (32.0-36.5); MEAN CORPUSCULAR VOLUME 88.8 fl (80.0-96.0); PLATELET COUNT, AUTOMATED 206 10^3/uL (150-450); RED BLOOD COUNT 4.55 10^6/uL (4.00-5.40); WHITE BLOOD COUNT 6.2 10^3/uL (4.0-10.0)
[2023-01-10 21:20] LABS: AMPHETAMINES LEVEL URINE NEGATIVE (NEGATIVE); BARBITURATES URINE NEGATIVE (NEGATIVE); BENZODIAZEPINES URINE NEGATIVE (NEGATIVE); CANNABINOIDS URINE NEGATIVE (NEGATIVE); COCAINE METABOLITE URINE NEGATIVE (NEGATIVE); METHADONE URINE NEGATIVE (NEGATIVE); OPIATES URINE NEGATIVE (NEGATIVE); PHENCYCLIDINE URINE NEGATIVE (NEGATIVE)
[2023-01-10 21:40] LABS: ETHYL ALCOHOL (ETHANOL) < 0.003 % (0.000-0.010)
[2023-01-10 21:42] LABS: ACETAMINOPHEN LEVEL < 2.0 UG/ML (10.0-20.0); SALICYLATE LEVEL < 3.0 MG/DL (<30)
[2023-01-10 22:09] LABS: ALBUMIN 3.3 G/DL (3.2-5.2); ALKALINE PHOSPHATASE 87 U/L (46-116); ALT/SGPT 11 U/L (7.0-40); AST/SGOT 12 U/L (<34); BILIRUBIN,DIRECT 0.1 MG/DL (<0.4); BILIRUBIN,TOTAL 0.4 MG/DL (0.3-1.2); BLOOD UREA NITROGEN 21 MG/DL (9-23); CALCIUM LEVEL 9.5 MG/DL (8.3-10.6); CARBON DIOXIDE LEVEL 34 MMOL/L (20-31); CHLORIDE LEVEL 103 MMOL/L (98-107); CREATININE FOR GFR 0.69 MG/DL (0.55-1.30); GLOMERULAR FILTRATION RATE > 60.0 (>32); GLUCOSE, FASTING 100 MG/DL (74-106); POTASSIUM SERUM 4.3 MMOL/L (3.5-5.1); SODIUM LEVEL 141 MMOL/L (136-145); TOTAL PROTEIN 6.9 G/DL (5.7-8.2)
[2023-01-10 22:20] LABS: THYROID STIMULATING HORMONE 1.062 uIU/ML (0.55-4.78)
[2023-01-11] MEDS ORDERED: ACET650T61 PO (02:45)
[2023-01-11] MEDS ORDERED: VASEGEL6 NARES (02:45)
[2023-01-11] MEDS ORDERED: LEXA1TAB2 PO (02:45)
[2023-01-11] MEDS ORDERED: MILKSUS3 PO (02:45)
[2023-01-11] MEDS ORDERED: ACET-897 PO (02:45)
[2023-01-11] MEDS ORDERED: ACET-907 PO (02:45)
[2023-01-11] MEDS ORDERED: PANT40TA29 PO (02:45)
[2023-01-11] MEDS ORDERED: PRES10CA2 PO (02:45)
[2023-01-11] MEDS ORDERED: TRAZ-252 PO (02:45)
[2023-01-11] MEDS ORDERED: REFR0.5D8 OU (02:45)
[2023-01-11] MEDS ORDERED: SENN8.6T58 PO (02:45)
[2023-01-11] MEDS ORDERED: HOME MED LIST COMPLETE! XX SCH (02:50)
[2023-01-11] MEDS: ASPIRIN 81MG CHEW TABLET PO SCH (09:19)
[2023-01-11] MEDS: levETIRAcetam 250MG TABLET (KEPPRA) PO SCH ×2 (09:19→20:55)
[2023-01-11] MEDS: PANTOPRAZOLE 40MG TAB (PROTONIX) PO SCH (09:20)
[2023-01-11] MEDS: ESCITALOPRAM OXALATE 10 MG TAB (LEXAPRO) PO SCH (09:20)
[2023-01-11] MEDS: SENNA 8.6 MG TAB (SENOKOT) PO SCH (09:20)
[2023-01-11 09:21] VITALS: BP 122/74
[2023-01-11] MEDS: METOPROLOL TART 25 MG TABLET PO SCH ×2 (09:21→20:56)
[2023-01-11] MEDS: SODIUM CHLORIDE NASAL 0.65% SPRAY BTL (OCEAN) SCH ×4 (11:32→20:55)
[2023-01-11] MEDS: rOPINIRole 1MG TAB PO SCH ×2 (11:32→20:56)
[2023-01-11] MEDS ORDERED: ATORVASTATIN 20 MG TAB PO SCH (21:00)
[2023-01-11] MEDS ORDERED: traZODone 50 MG TAB PO SCH (21:00)
[2023-01-11] MEDS ORDERED: ACETAMINOPHEN 650MG ER TAB (TYLENOL ARTHRITIS) PO SCH (21:00)
[2023-01-12 06:29] VITALS: BP 112/64; TEMP 98; O2SAT 94
[2023-01-12] MEDS: levETIRAcetam 250MG TABLET (KEPPRA) PO SCH (08:45)
[2023-01-12] MEDS: SENNA 8.6 MG TAB (SENOKOT) PO SCH (08:45)
[2023-01-12] MEDS: ESCITALOPRAM OXALATE 10 MG TAB (LEXAPRO) PO SCH (08:45)
[2023-01-12] MEDS: METOPROLOL TART 25 MG TABLET PO SCH (08:45)
[2023-01-12] MEDS: ASPIRIN 81MG CHEW TABLET PO SCH (08:45)
[2023-01-12] MEDS: SODIUM CHLORIDE NASAL 0.65% SPRAY BTL (OCEAN) SCH ×2 (08:45→12:55)
[2023-01-12] MEDS: PANTOPRAZOLE 40MG TAB (PROTONIX) PO SCH (08:45)
[2023-01-12] MEDS: rOPINIRole 1MG TAB PO SCH (08:46)
== END 2023-01-12 15:10 | disposition home or self-care (01) ==
LOC: M ED 15:19
DX: F43.0 Acute stress reaction (principal); R45.851 Suicidal ideations; I45.4 Nonspecific intraventricular block; I45.10 Unspecified right bundle-branch block; N18.30 Chronic kidney disease, stage 3 unspecified; E78.5 Hyperlipidemia, unspecified; G40.909 Epilepsy, unspecified, not intractable, without status epilepticus; J44.9 Chronic obstructive pulmonary disease, unspecified; Z83.79 Family history of other diseases of the digestive system; Z79.82 Long term (current) use of aspirin; Z79.02 Long term (current) use of antithrombotics/antiplatelets; Z79.899 Other long term (current) drug therapy

== ENCOUNTER → 2023-01-24 | Outpatient (REF) | payer MEDICARE, OTHER ==
[~2023-01-24] MED LIST changes: +ACET650T61 PO; +LEXA1TAB2 PO; +PRES10CA2 PO; +REFR0.5D8 OU; +SENN8.6T58 PO; +TRAZ-252 PO; +VASEGEL6 NARES
== END ==
LOC: SKLAB7 08:50
PROVIDERS: ATTEND Internal Medicine
DX: D64.9 Anemia, unspecified (principal)

== ENCOUNTER → 2023-02-21 | Outpatient (REF) | payer MEDICARE, OTHER, MEDICAID ==
[2023-02-28 12:28] LABS: CHOLESTEROL RISK RATIO 2.142 (<5); LDL CHOLESTEROL 51.6 MG/DL (<100)
== END ==
LOC: SKLAB7 07:00
PROVIDERS: ATTEND Internal Medicine
DX: E78.5 Hyperlipidemia, unspecified (principal)

== ENCOUNTER → 2023-04-23 | Outpatient (REF) | payer MEDICARE, OTHER, MEDICAID | LOC: SKLAB7 07:14 | PROVIDERS: ATTEND Internal Medicine | DX: D64.9 Anemia, unspecified (principal) ==

== ENCOUNTER → 2023-07-24 | Outpatient (REF) | payer MEDICARE, OTHER, MEDICAID ==
[~2023-07-24] MED LIST changes: -ASPI-161 PO; +ASPI-615 PO
[2023-07-24 12:00] LABS: HEMATOCRIT 42.4 % (36.0-47.0); HEMOGLOBIN 12.6 g/dl (12.0-15.5); MEAN CORPUSCULAR HEMOGLOBIN 26.4 pg (27.0-33.0); MEAN CORPUSCULAR HGB CONC 29.7 g/dl (32.0-36.5); MEAN CORPUSCULAR VOLUME 88.9 fl (80.0-96.0); PLATELET COUNT, AUTOMATED 252 10^3/uL (150-450); RED BLOOD COUNT 4.77 10^6/uL (4.00-5.40); WHITE BLOOD COUNT 6.8 10^3/uL (4.0-10.0)
[2023-07-24 12:23] LABS: ALBUMIN 3.5 G/DL (3.2-5.2); ALKALINE PHOSPHATASE 92 U/L (46-116); ALT/SGPT 10 U/L (7.0-40); AST/SGOT 13 U/L (<34); BILIRUBIN,TOTAL 0.5 MG/DL (0.3-1.2); BLOOD UREA NITROGEN 13 MG/DL (9-23); CARBON DIOXIDE LEVEL 30 MMOL/L (20-31); CHLORIDE LEVEL 106 MMOL/L (98-107); GLOMERULAR FILTRATION RATE > 60.0 (>32); GLUCOSE, FASTING 117 MG/DL (74-106); POTASSIUM SERUM 3.7 MMOL/L (3.5-5.1); SODIUM LEVEL 144 MMOL/L (136-145); TOTAL PROTEIN 6.8 G/DL (5.7-8.2)
== END ==
LOC: SKLAB7 09:23
PROVIDERS: ATTEND Internal Medicine
DX: I10 Essential (primary) hypertension (principal)

== ENCOUNTER → 2023-08-02 | Outpatient (REF) | payer MEDICARE, OTHER, MEDICAID ==
[2023-08-02 08:35] LABS: HEMATOCRIT 42.4 % (36.0-47.0); HEMOGLOBIN 12.3 g/dl (12.0-15.5); MEAN CORPUSCULAR HEMOGLOBIN 26.2 pg (27.0-33.0); MEAN CORPUSCULAR VOLUME 90.4 fl (80.0-96.0); PLATELET COUNT, AUTOMATED 202 10^3/uL (150-450); RED BLOOD COUNT 4.69 10^6/uL (4.00-5.40); WHITE BLOOD COUNT 5.3 10^3/uL (4.0-10.0)
[2023-08-02 09:04] LABS: ALBUMIN 3.4 G/DL (3.2-5.2); ALKALINE PHOSPHATASE 84 U/L (46-116); ALT/SGPT < 9 U/L (7.0-40); AST/SGOT 11 U/L (<34); BILIRUBIN,TOTAL 0.6 MG/DL (0.3-1.2); BLOOD UREA NITROGEN 19 MG/DL (9-23); CALCIUM LEVEL 8.7 MG/DL (8.3-10.6); CARBON DIOXIDE LEVEL 29 MMOL/L (20-31); CHLORIDE LEVEL 108 MMOL/L (98-107); CREATININE FOR GFR 0.66 MG/DL (0.55-1.30); GLOMERULAR FILTRATION RATE > 60.0 (>32); GLUCOSE, FASTING 98 MG/DL (74-106); IRON (FE) 38 UG/DL (50-170); POTASSIUM SERUM 3.9 MMOL/L (3.5-5.1); SODIUM LEVEL 145 MMOL/L (136-145); THYROID STIMULATING HORMONE 0.501 uIU/ML (0.55-4.78); TOTAL PROTEIN 6.6 G/DL (5.7-8.2)
== END ==
LOC: SKLAB7 08-01 09:11
PROVIDERS: ATTEND Internal Medicine
DX: D64.9 Anemia, unspecified (principal); G40.909 Epilepsy, unspecified, not intractable, without status epilepticus; E78.5 Hyperlipidemia, unspecified

== ENCOUNTER → 2023-09-05 | Outpatient (REF) | payer MEDICARE, OTHER, MEDICAID | LOC: SKLAB7 14:45 | PROVIDERS: ATTEND Internal Medicine | DX: S90.31XA Contusion of right foot, initial encounter (principal); M79.671 Pain in right foot; M20.11 Hallux valgus (acquired), right foot ==

== ENCOUNTER → 2024-01-23 | Outpatient (CLI) | payer MEDICARE, OTHER, MEDICAID ==
[~2024-01-23] MED LIST changes: +BARIUM SULFATE 700 MG TABLET (E-Z-DISK) As Ordered ONE; +E-Z-PAQUE 96% w/w SUSP 176GM BTL As Ordered ONE; +VARIBAR NECTAR 40% w/v 240ML SUSP BTL As Ordered ONE; +VARIBAR PUDDING 40% w/v 230ML TUBE As Ordered ONE
== END ==
LOC: M RAD 11:23
PROVIDERS: ATTEND Internal Medicine
DX: R13.10 Dysphagia, unspecified (principal)

== ENCOUNTER → 2024-01-30 | Outpatient (REF) | payer MEDICARE, OTHER, MEDICAID ==
[~2024-01-30] MED LIST changes: -BARIUM SULFATE 700 MG TABLET (E-Z-DISK) As Ordered ONE; -E-Z-PAQUE 96% w/w SUSP 176GM BTL As Ordered ONE; -VARIBAR NECTAR 40% w/v 240ML SUSP BTL As Ordered ONE; -VARIBAR PUDDING 40% w/v 230ML TUBE As Ordered ONE
== END ==
LOC: SKLAB7 07:00
PROVIDERS: ATTEND Internal Medicine
DX: D64.9 Anemia, unspecified (principal)

== ENCOUNTER → 2024-02-24 | Outpatient (REF) | payer MEDICARE, OTHER, MEDICAID | LOC: SKLAB7 07:34 | PROVIDERS: ATTEND Internal Medicine | DX: Z53.8 Procedure and treatment not carried out for other reasons (principal) ==

== ENCOUNTER → 2024-02-24 | Outpatient (REF) | payer MEDICARE, OTHER, MEDICAID ==
[2024-02-24 11:21] LABS: CHOLESTEROL RISK RATIO 2.89 (<5); HDL CHOLESTEROL 46.6 MG/DL (>40); LDL CHOLESTEROL 67.4 MG/DL (<100); NON-HDL-C 88.4 MG/DL
== END ==
LOC: SKLAB7 07:35
PROVIDERS: ATTEND Internal Medicine
DX: G40.909 Epilepsy, unspecified, not intractable, without status epilepticus (principal); E78.5 Hyperlipidemia, unspecified

== ENCOUNTER → 2024-03-03 | Outpatient (REF) | payer MEDICARE, OTHER, MEDICAID ==
[2024-03-03 12:06] LABS: HEMATOCRIT 46.1 % (36.0-47.0); HEMOGLOBIN 13.5 g/dl (12.0-15.5); MEAN CORPUSCULAR HEMOGLOBIN 27.1 pg (27.0-33.0); MEAN CORPUSCULAR HGB CONC 29.3 g/dl (32.0-36.5); MEAN CORPUSCULAR VOLUME 92.4 fl (80.0-96.0); PLATELET COUNT, AUTOMATED 265 10^3/uL (150-450); RED BLOOD COUNT 4.99 10^6/uL (4.00-5.40); WHITE BLOOD COUNT 6.5 10^3/uL (4.0-10.0)
[2024-03-03 12:38] LABS: ALBUMIN 3.2 G/DL (3.2-5.2); ALKALINE PHOSPHATASE 85 U/L (35-104); ALT/SGPT < 9 U/L (7.0-40); AST/SGOT 13 U/L (<34); BILIRUBIN,TOTAL 0.5 MG/DL (0.3-1.2); BLOOD UREA NITROGEN 21 MG/DL (9-23); CALCIUM LEVEL 9.4 MG/DL (8.3-10.6); CARBON DIOXIDE LEVEL 31 MMOL/L (20-31); CHLORIDE LEVEL 108 MMOL/L (98-107); CREATININE FOR GFR 0.92 MG/DL (0.55-1.30); GLOMERULAR FILTRATION RATE > 60.0 (>32); GLUCOSE, FASTING 90 MG/DL (74-106); POTASSIUM SERUM 4.3 MMOL/L (3.5-5.1); SODIUM LEVEL 144 MMOL/L (136-145); TOTAL PROTEIN 7.4 G/DL (5.7-8.2)
== END ==
LOC: SKLAB7 07:06
PROVIDERS: ATTEND Internal Medicine
DX: I50.9 Heart failure, unspecified (principal); I11.0 Hypertensive heart disease with heart failure

== ENCOUNTER 2024-03-22 17:57 | Emergency (ER) | payer MEDICARE, OTHER, MEDICAID ==
[~2024-03-22] VITALS: Ht 185.4 cm; Wt 61.6 kg
[2024-03-22 18:34] LABS: BASO % 0.2 % (0.0-1.0); EOS # 0.1 10^3/uL (0.0-0.5); EOS % 1.4 % (0.0-3.0); HEMATOCRIT 44.7 % (36.0-47.0); HEMOGLOBIN 13.2 g/dl (12.0-15.5); LYMPH # 1.2 10^3/uL (1.5-5.0); LYMPH % 12.9 % (24.0-44.0); MEAN CORPUSCULAR HEMOGLOBIN 26.5 pg (27.0-33.0); MEAN CORPUSCULAR HGB CONC 29.5 g/dl (32.0-36.5); MEAN CORPUSCULAR VOLUME 89.8 fl (80.0-96.0); MONO # 0.8 10^3/uL (0.0-0.8); MONO % 7.8 % (2.0-8.0); NEUTROPHILS # 7.4 10^3/uL (1.5-8.5); PLATELET COUNT, AUTOMATED 301 10^3/uL (150-450); RED BLOOD COUNT 4.98 10^6/uL (4.00-5.40); WHITE BLOOD COUNT 9.6 10^3/uL (4.0-10.0)
[2024-03-22 18:50] LABS: INR 1.07; PARTIAL THROMBOPLASTIN TIME 26.3 SECONDS (24.8-34.2); PROTHROMBIN TIME 14.2 SECONDS (12.5-14.5)
[2024-03-22 19:03] LABS: CK-MB VALUE MASS < 1.0 NG/ML (<3.6)
[2024-03-22 19:04] LABS: LIPASE 61 U/L (12-53)
[2024-03-22 19:06] LABS: ALBUMIN 2.8 G/DL (3.2-5.2); ALKALINE PHOSPHATASE 83 U/L (35-104); ALT/SGPT < 9 U/L (7.0-40); AST/SGOT 14 U/L (<34); BILIRUBIN,DIRECT 0.1 MG/DL (<0.4); BILIRUBIN,TOTAL 0.3 MG/DL (0.3-1.2); BLOOD UREA NITROGEN 16 MG/DL (9-23); CALCIUM LEVEL 9.3 MG/DL (8.3-10.6); CARBON DIOXIDE LEVEL 28 MMOL/L (20-31); CHLORIDE LEVEL 108 MMOL/L (98-107); GLOMERULAR FILTRATION RATE > 60.0 (>32); GLUCOSE, FASTING 186 MG/DL (74-106); POTASSIUM SERUM 4.5 MMOL/L (3.5-5.1); SODIUM LEVEL 146 MMOL/L (136-145); TOTAL PROTEIN 7.5 G/DL (5.7-8.2)
[2024-03-22 19:08] LABS: FREE T4 1.22 NG/DL (0.89-1.76); THYROID STIMULATING HORMONE 1.195 uIU/ML (0.55-4.78)
[2024-03-22 19:09] LABS: CPK CREATINE PHOSPHOKINASE 38 U/L (34-145); MB/CK RELATIVE INDEX 2.63 (< OR =4)
[2024-03-22 20:03] LABS: CK-MB VALUE MASS < 1.0 NG/ML (<3.6)
[2024-03-22 20:05] LABS: CPK CREATINE PHOSPHOKINASE 34 U/L (34-145); MB/CK RELATIVE INDEX 2.94 (< OR =4)
[2024-03-22 22:02] LABS: CK-MB VALUE MASS < 1.0 NG/ML (<3.6); CPK CREATINE PHOSPHOKINASE 44 U/L (34-145); MB/CK RELATIVE INDEX 2.27 (< OR =4)
[2024-03-22 22:16] VITALS: BP 132/79; TEMP 98
[2024-03-22 22:31] VITALS: O2SAT 67
== END 2024-03-22 22:56 | disposition home or self-care (01) ==
LOC: M ED 17:57
DX: R07.89 Other chest pain (principal); R13.10 Dysphagia, unspecified; I45.2 Bifascicular block; I45.81 Long QT syndrome; E78.5 Hyperlipidemia, unspecified; I48.91 Unspecified atrial fibrillation; J44.9 Chronic obstructive pulmonary disease, unspecified; I50.22 Chronic systolic (congestive) heart failure; N18.30 Chronic kidney disease, stage 3 unspecified; Z79.1 Long term (current) use of non-steroidal anti-inflammatories (NSAID); Z79.899 Other long term (current) drug therapy

== ENCOUNTER → 2024-03-30 | Outpatient (REF) | payer MEDICARE, OTHER, MEDICAID ==
[~2024-03-30] MED LIST changes: -ADV250INH INH; +ADVA1AER9 INH
[2024-03-30 09:04] LABS: BLOOD UREA NITROGEN 11 MG/DL (9-23); CALCIUM LEVEL 9.2 MG/DL (8.3-10.6); CARBON DIOXIDE LEVEL 33 MMOL/L (20-31); CHLORIDE LEVEL 104 MMOL/L (98-107); GLOMERULAR FILTRATION RATE > 60.0 (>32); GLUCOSE, FASTING 102 MG/DL (74-106); POTASSIUM SERUM 3.5 MMOL/L (3.5-5.1); SODIUM LEVEL 144 MMOL/L (136-145)
== END ==
LOC: SKLAB7 07:00
PROVIDERS: ATTEND Internal Medicine
DX: I50.9 Heart failure, unspecified (principal)

== ENCOUNTER 2024-06-01 17:05 | Emergency (ER) | payer MEDICARE, OTHER, MEDICAID ==
[~2024-06-01] VITALS: Ht 157.5 cm; Wt 61.6 kg
[~2024-06-01 17:05] MED LIST changes: -CEFD300C PO; -DOXY100C82 PO
[2024-06-01 17:44] VITALS: BP 156/81; TEMP 97.6
[2024-06-01] MEDS: methylPREDNISolone 125MG 2ML VIAL IV ONE (17:57)
[2024-06-01] MEDS: IPRATROPIUM 0.5MG/ALBUTEROL 2.5MG INH SOL UD 3ML (DUONEB) NEB SCH (17:57)
[2024-06-01 17:59] LABS: VENOUS PH 7.318 UNITS (7.330-7.430)
[2024-06-01 18:00] LABS: VENOUS BASE EXCESS 5.9 (-2.0-2.0); VENOUS HCO3 34.4 MMOL/L (23.0-27.0); VENOUS O2 SATURATION 69.9 % (60.0-80.0); VENOUS PARTIAL PRESSURE CO2 68.6 mmHg (38.0-50.0); VENOUS PARTIAL PRESSURE O2 38.9 mmHg (30.0-50.0); VENOUS STANDARD HCO3 29.1 MMOL/L; VENOUS TOTAL CO2 36.5 MMOL/L (24.0-28.0)
[2024-06-01 18:01] LABS: BASO % 0.2 % (0.0-1.0); EOS # 0.2 10^3/uL (0.0-0.5); EOS % 3.6 % (0.0-3.0); HEMATOCRIT 44.6 % (36.0-47.0); HEMOGLOBIN 12.8 g/dl (12.0-15.5); LYMPH # 1.6 10^3/uL (1.5-5.0); LYMPH % 24.5 % (24.0-44.0); MEAN CORPUSCULAR HEMOGLOBIN 26.2 pg (27.0-33.0); MEAN CORPUSCULAR HGB CONC 28.7 g/dl (32.0-36.5); MEAN CORPUSCULAR VOLUME 91.4 fl (80.0-96.0); MONO # 0.7 10^3/uL (0.0-0.8); MONO % 10.6 % (2.0-8.0); NEUTROPHILS # 3.9 10^3/uL (1.5-8.5); NEUTROPHILS % 60.5 % (36.0-66.0); PLATELET COUNT, AUTOMATED 215 10^3/uL (150-450); RED BLOOD COUNT 4.88 10^6/uL (4.00-5.40); WHITE BLOOD COUNT 6.4 10^3/uL (4.0-10.0)
[2024-06-01 18:20] VITALS: O2SAT 94
[2024-06-01 18:46] LABS: ALBUMIN 3.4 G/DL (3.2-5.2); ALKALINE PHOSPHATASE 93 U/L (35-104); ALT/SGPT < 9 U/L (7.0-40); AST/SGOT 12 U/L (<34); BILIRUBIN,DIRECT 0.1 MG/DL (<0.4); BILIRUBIN,TOTAL 0.4 MG/DL (0.3-1.2); BLOOD UREA NITROGEN 16 MG/DL (9-23); CALCIUM LEVEL 8.8 MG/DL (8.3-10.6); CARBON DIOXIDE LEVEL 34 MMOL/L (20-31); CHLORIDE LEVEL 107 MMOL/L (98-107); CREATININE FOR GFR 0.79 MG/DL (0.55-1.30); GLOMERULAR FILTRATION RATE > 60.0 (>32); GLUCOSE, FASTING 93 MG/DL (74-106); POTASSIUM SERUM 4.3 MMOL/L (3.5-5.1); SODIUM LEVEL 147 MMOL/L (136-145); TOTAL PROTEIN 7.4 G/DL (5.7-8.2)
[2024-06-01 18:47] LABS: THYROID STIMULATING HORMONE 1.112 uIU/ML (0.55-4.78)
[2024-06-01] MEDS ORDERED: DOXY100C82 PO (20:23)
[2024-06-01] MEDS ORDERED: CEFD300C PO (20:23)
[2024-06-01] MEDS ORDERED: DOXYCYCLINE HYCLATE 100MG TABLET PO ONE (20:25)
[2024-06-01] MEDS ORDERED: CEFDINIR 300 MG CAP (OMNICEF) PO ONE (20:25)
== END 2024-06-01 23:06 | disposition home or self-care (01) ==
LOC: M ED 17:05
DX: J18.9 Pneumonia, unspecified organism (principal); S43.085A Other dislocation of left shoulder joint, initial encounter; Y92.9 Unspecified place or not applicable; Y93.9 Activity, unspecified; Y99.9 Unspecified external cause status; I45.2 Bifascicular block; I48.91 Unspecified atrial fibrillation; I50.22 Chronic systolic (congestive) heart failure; J44.9 Chronic obstructive pulmonary disease, unspecified; I11.0 Hypertensive heart disease with heart failure; D64.9 Anemia, unspecified; E78.5 Hyperlipidemia, unspecified; F41.9 Anxiety disorder, unspecified; F32.A Depression, unspecified; N18.9 Chronic kidney disease, unspecified; Z79.1 Long term (current) use of non-steroidal anti-inflammatories (NSAID); Z79.2 Long term (current) use of antibiotics; Z79.899 Other long term (current) drug therapy
CPT/HCPCS: 36415; 71045; 73030; 80048; 80076; 82803; 83605; 83880; 84443; 85025; 87040; 87486; 87581; 87633; 87798; 93005; 93041; 94760; 96374; 99285; J2919

== ENCOUNTER → 2024-06-01 | Outpatient (REF) | payer MEDICARE, OTHER, MEDICAID ==
[~2024-06-01] MED LIST changes: +CEFD300C PO; +DOXY100C82 PO
[2024-06-01 14:27] LABS: BASO % 0.3 % (0.0-1.0); EOS # 0.2 10^3/uL (0.0-0.5); EOS % 3.5 % (0.0-3.0); HEMATOCRIT 42.3 % (36.0-47.0); HEMOGLOBIN 12.1 g/dl (12.0-15.5); LYMPH # 1.2 10^3/uL (1.5-5.0); LYMPH % 19.4 % (24.0-44.0); MEAN CORPUSCULAR HEMOGLOBIN 25.9 pg (27.0-33.0); MEAN CORPUSCULAR HGB CONC 28.6 g/dl (32.0-36.5); MEAN CORPUSCULAR VOLUME 90.6 fl (80.0-96.0); MONO # 0.6 10^3/uL (0.0-0.8); MONO % 9.1 % (2.0-8.0); NEUTROPHILS # 4.2 10^3/uL (1.5-8.5); NEUTROPHILS % 67.1 % (36.0-66.0); PLATELET COUNT, AUTOMATED 211 10^3/uL (150-450); RED BLOOD COUNT 4.67 10^6/uL (4.00-5.40); WHITE BLOOD COUNT 6.3 10^3/uL (4.0-10.0)
[2024-06-01 15:12] LABS: BLOOD UREA NITROGEN 17 MG/DL (9-23); CALCIUM LEVEL 8.6 MG/DL (8.3-10.6); CARBON DIOXIDE LEVEL 31 MMOL/L (20-31); CHLORIDE LEVEL 107 MMOL/L (98-107); CREATININE FOR GFR 0.67 MG/DL (0.55-1.30); GLOMERULAR FILTRATION RATE > 60.0 (>32); GLUCOSE, FASTING 138 MG/DL (74-106); SODIUM LEVEL 148 MMOL/L (136-145)
== END ==
LOC: SKLAB7 13:52
PROVIDERS: ATTEND Internal Medicine
DX: R06.02 Shortness of breath (principal); R05.9 Cough, unspecified; I28.9 Disease of pulmonary vessels, unspecified; M19.011 Primary osteoarthritis, right shoulder; M19.012 Primary osteoarthritis, left shoulder; M47.9 Spondylosis, unspecified; S43.006A Unspecified dislocation of unspecified shoulder joint, initial encounter

== ENCOUNTER → 2024-06-05 | Outpatient (REF) | payer MEDICARE, OTHER, MEDICAID ==
[~2024-06-05] MED LIST changes: +CEFD300C PO; +DOXY100C82 PO
[2024-06-05 11:00] LABS: BASO % 0.4 % (0.0-1.0); EOS # 0.1 10^3/uL (0.0-0.5); EOS % 0.5 % (0.0-3.0); HEMATOCRIT 44.8 % (36.0-47.0); HEMOGLOBIN 12.8 g/dl (12.0-15.5); LYMPH # 1.1 10^3/uL (1.5-5.0); LYMPH % 12.3 % (24.0-44.0); MEAN CORPUSCULAR HEMOGLOBIN 25.9 pg (27.0-33.0); MEAN CORPUSCULAR HGB CONC 28.6 g/dl (32.0-36.5); MEAN CORPUSCULAR VOLUME 90.7 fl (80.0-96.0); MONO # 0.5 10^3/uL (0.0-0.8); MONO % 5.8 % (2.0-8.0); NEUTROPHILS # 7.2 10^3/uL (1.5-8.5); NEUTROPHILS % 78.9 % (36.0-66.0); PLATELET COUNT, AUTOMATED 231 10^3/uL (150-450); RED BLOOD COUNT 4.94 10^6/uL (4.00-5.40); WHITE BLOOD COUNT 9.1 10^3/uL (4.0-10.0)
[2024-06-05 11:34] LABS: BLOOD UREA NITROGEN 17 MG/DL (9-23); CARBON DIOXIDE LEVEL 33 MMOL/L (20-31); CHLORIDE LEVEL 105 MMOL/L (98-107); CREATININE FOR GFR 0.63 MG/DL (0.55-1.30); GLOMERULAR FILTRATION RATE > 60.0 (>32); GLUCOSE, FASTING 122 MG/DL (74-106); POTASSIUM SERUM 4.3 MMOL/L (3.5-5.1); SODIUM LEVEL 144 MMOL/L (136-145)
== END ==
LOC: SKLAB7 07:35
PROVIDERS: ATTEND Internal Medicine
DX: J69.0 Pneumonitis due to inhalation of food and vomit (principal)

== ENCOUNTER → 2024-06-30 | Outpatient (REF) | payer MEDICARE, OTHER, MEDICAID | LOC: SKLAB7 15:51 | PROVIDERS: ATTEND Nurse Practitioner Family | DX: R05.9 Cough, unspecified (principal); J34.89 Other specified disorders of nose and nasal sinuses; I50.9 Heart failure, unspecified; Z95.2 Presence of prosthetic heart valve; Z98.890 Other specified postprocedural states ==

== ENCOUNTER → 2024-06-30 | Outpatient (REF) | payer MEDICARE, OTHER, MEDICAID ==
[2024-06-30 12:02] LABS: HEMOGLOBIN 12.8 g/dl (12.0-15.5); MEAN CORPUSCULAR HEMOGLOBIN 25.9 pg (27.0-33.0); MEAN CORPUSCULAR HGB CONC 29.1 g/dl (32.0-36.5); MEAN CORPUSCULAR VOLUME 88.9 fl (80.0-96.0); PLATELET COUNT, AUTOMATED 199 10^3/uL (150-450); RED BLOOD COUNT 4.95 10^6/uL (4.00-5.40); WHITE BLOOD COUNT 6.2 10^3/uL (4.0-10.0)
[2024-06-30 12:27] LABS: ALBUMIN 3.3 G/DL (3.2-5.2); ALKALINE PHOSPHATASE 80 U/L (35-104); ALT/SGPT < 9 U/L (7.0-40); AST/SGOT 20 U/L (<34); BILIRUBIN,TOTAL 0.5 MG/DL (0.3-1.2); BLOOD UREA NITROGEN 10 MG/DL (9-23); CALCIUM LEVEL 8.6 MG/DL (8.3-10.6); CARBON DIOXIDE LEVEL 33 MMOL/L (20-31); CHLORIDE LEVEL 102 MMOL/L (98-107); CREATININE FOR GFR 0.68 MG/DL (0.55-1.30); GLOMERULAR FILTRATION RATE > 60.0 (>32); GLUCOSE, FASTING 117 MG/DL (74-106); POTASSIUM SERUM 3.8 MMOL/L (3.5-5.1); SODIUM LEVEL 145 MMOL/L (136-145); TOTAL PROTEIN 7.1 G/DL (5.7-8.2)
== END ==
LOC: SKLAB7 10:04
PROVIDERS: ATTEND Internal Medicine
DX: I50.9 Heart failure, unspecified (principal); Z95.2 Presence of prosthetic heart valve; Z98.890 Other specified postprocedural states

== ENCOUNTER → 2024-07-06 | Outpatient (REF) | payer MEDICARE, OTHER, MEDICAID ==
[2024-07-06 17:08] LABS: BLOOD UREA NITROGEN 21 MG/DL (9-23); CALCIUM LEVEL 8.6 MG/DL (8.3-10.6); CARBON DIOXIDE LEVEL 29 MMOL/L (20-31); CHLORIDE LEVEL 107 MMOL/L (98-107); CREATININE FOR GFR 0.74 MG/DL (0.55-1.30); GLOMERULAR FILTRATION RATE > 60.0 (>32); GLUCOSE, FASTING 114 MG/DL (74-106); POTASSIUM SERUM 3.6 MMOL/L (3.5-5.1); SODIUM LEVEL 145 MMOL/L (136-145)
== END ==
LOC: SKLAB7 07:36
PROVIDERS: ATTEND Internal Medicine
DX: I50.9 Heart failure, unspecified (principal)

== ENCOUNTER → 2024-07-17 | Outpatient (CLI) | payer MEDICARE, OTHER, MEDICAID ==
[~2024-07-17] MED LIST changes: +BARIUM SULFATE 700 MG TABLET (E-Z-DISK) As Ordered ONE; +DOXY-442 PO; -DOXY100C82 PO; +E-Z-PAQUE 96% w/w SUSP 176GM BTL As Ordered ONE; +VARIBAR NECTAR 40% w/v 240ML SUSP BTL As Ordered ONE; +VARIBAR PUDDING 40% w/v 230ML TUBE As Ordered ONE
== END ==
LOC: M RAD 11:44
PROVIDERS: ATTEND Internal Medicine
DX: T17.320A Food in larynx causing asphyxiation, initial encounter (principal); R05.9 Cough, unspecified

== ENCOUNTER → 2024-07-30 | Outpatient (REF) | payer MEDICARE, OTHER, MEDICAID ==
[~2024-07-30] MED LIST changes: -BARIUM SULFATE 700 MG TABLET (E-Z-DISK) As Ordered ONE; -E-Z-PAQUE 96% w/w SUSP 176GM BTL As Ordered ONE; -VARIBAR NECTAR 40% w/v 240ML SUSP BTL As Ordered ONE; -VARIBAR PUDDING 40% w/v 230ML TUBE As Ordered ONE
[2024-07-30 07:59] LABS: HEMATOCRIT 43.2 % (36.0-47.0); HEMOGLOBIN 12.5 g/dl (12.0-15.5); MEAN CORPUSCULAR HEMOGLOBIN 26.3 pg (27.0-33.0); MEAN CORPUSCULAR HGB CONC 28.9 g/dl (32.0-36.5); MEAN CORPUSCULAR VOLUME 90.8 fl (80.0-96.0); PLATELET COUNT, AUTOMATED 256 10^3/uL (150-450); RED BLOOD COUNT 4.76 10^6/uL (4.00-5.40); WHITE BLOOD COUNT 6.1 10^3/uL (4.0-10.0)
[2024-07-30 08:33] LABS: ALBUMIN 3.2 G/DL (3.2-5.2); ALKALINE PHOSPHATASE 94 U/L (35-104); ALT/SGPT 9 U/L (7.0-40); AST/SGOT 13 U/L (<34); BILIRUBIN,TOTAL 0.4 MG/DL (0.3-1.2); BLOOD UREA NITROGEN 14 MG/DL (9-23); CALCIUM LEVEL 8.8 MG/DL (8.3-10.6); CARBON DIOXIDE LEVEL 31 MMOL/L (20-31); CHLORIDE LEVEL 105 MMOL/L (98-107); CREATININE FOR GFR 0.68 MG/DL (0.55-1.30); GLOMERULAR FILTRATION RATE > 60.0 (>32); GLUCOSE, FASTING 103 MG/DL (74-106); IRON (FE) 46 UG/DL (50-170); SODIUM LEVEL 145 MMOL/L (136-145); TOTAL PROTEIN 7.1 G/DL (5.7-8.2)
== END ==
LOC: SKLAB7 07:00
PROVIDERS: ATTEND Internal Medicine
DX: D64.9 Anemia, unspecified (principal)

== ENCOUNTER 2024-08-17 23:35 | Inpatient (IN) | payer MEDICARE, OTHER, MEDICAID ==
[~2024-08-17] VITALS: Ht 157.5 cm; Wt 63.1 kg
[2024-08-18 00:08] LABS: VENOUS BASE EXCESS -0.7 (-2.0-2.0); VENOUS HCO3 27.2 MMOL/L (23.0-27.0); VENOUS O2 SATURATION 66.4 % (60.0-80.0); VENOUS PARTIAL PRESSURE CO2 58.2 mmHg (38.0-50.0); VENOUS PARTIAL PRESSURE O2 40.3 mmHg (30.0-50.0); VENOUS PH 7.287 UNITS (7.330-7.430); VENOUS STANDARD HCO3 23.2 MMOL/L
[2024-08-18 00:25] LABS: ABG BASE EXCESS -0.5 (-2.0-2.0); ABG O2 SATURATION 96.2 % (95.0-99.0); ABG PARTIAL PRESSURE CO2 50.3 mmHg (35.0-45.0); ABG PARTIAL PRESSURE O2 90.6 mmHg (75.0-100.0); ABG TOTAL CO2 27.6 MMOL/L (23.0-31.0); ABG pH (ARTERIAL) 7.332 UNITS (7.350-7.450)
[2024-08-18] MEDS: IPRATROPIUM 0.5MG/ALBUTEROL 2.5MG INH SOL UD 3ML NEB ONE (00:31)
[2024-08-18] MEDS: NS 500 ML IV ONE (00:35)
[2024-08-18 00:36] LABS: CK-MB VALUE MASS 1.1 NG/ML (<3.6)
[2024-08-18 00:38] LABS: CPK CREATINE PHOSPHOKINASE 208 U/L (34-145); MB/CK RELATIVE INDEX 0.52 (< OR =4)
[2024-08-18 00:39] LABS: ALBUMIN 3.5 G/DL (3.2-5.2); ALKALINE PHOSPHATASE 87 U/L (35-104); ALT/SGPT < 9 U/L (7.0-40); AST/SGOT 15 U/L (<34); BILIRUBIN,DIRECT 0.3 MG/DL (<0.4); BLOOD UREA NITROGEN 24 MG/DL (9-23); CALCIUM LEVEL 9.2 MG/DL (8.3-10.6); CARBON DIOXIDE LEVEL 28 MMOL/L (20-31); CHLORIDE LEVEL 103 MMOL/L (98-107); CREATININE FOR GFR 1.63 MG/DL (0.55-1.30); GLOMERULAR FILTRATION RATE 30.9 (>32); GLUCOSE, FASTING 144 MG/DL (74-106); POTASSIUM SERUM 4.3 MMOL/L (3.5-5.1); SODIUM LEVEL 143 MMOL/L (136-145); TOTAL PROTEIN 7.6 G/DL (5.7-8.2)
[2024-08-18 00:41] LABS: BASO % 0.2 % (0.0-1.0); EOS % 0.1 % (0.0-3.0); HEMATOCRIT 44.8 % (36.0-47.0); HEMOGLOBIN 13.2 g/dl (12.0-15.5); LYMPH # 1.2 10^3/uL (1.5-5.0); LYMPH % 10.8 % (24.0-44.0); MEAN CORPUSCULAR HEMOGLOBIN 26.2 pg (27.0-33.0); MEAN CORPUSCULAR HGB CONC 29.5 g/dl (32.0-36.5); MEAN CORPUSCULAR VOLUME 89.1 fl (80.0-96.0); MONO # 0.7 10^3/uL (0.0-0.8); MONO % 6.6 % (2.0-8.0); NEUTROPHILS # 8.9 10^3/uL (1.5-8.5); NEUTROPHILS % 81.3 % (36.0-66.0); PLATELET COUNT, AUTOMATED 261 10^3/uL (150-450); RED BLOOD COUNT 5.03 10^6/uL (4.00-5.40)
[2024-08-18 01:42] LABS: CK-MB VALUE MASS < 1.0 NG/ML (<3.6); CPK CREATINE PHOSPHOKINASE 215 U/L (34-145); MB/CK RELATIVE INDEX 0.46 (< OR =4)
[2024-08-18] MEDS ORDERED: ISOVUE-370 76% 100ML VIAL As Ordered ONE (02:07)
[2024-08-18] MEDS ORDERED: MOM 30ML SUSPENSION UDC PO PRN (04:40)
[2024-08-18] MEDS ORDERED: ALBU2.5V10 INH (05:16)
[2024-08-18] MEDS ORDERED: LEXA1TAB PO (05:16)
[2024-08-18] MEDS ORDERED: METO1TAB32 PO (05:16)
[2024-08-18] MEDS ORDERED: BUDE2SUS3 INH (05:16)
[2024-08-18] MEDS ORDERED: MILKSUS3 PO (05:16)
[2024-08-18] MEDS ORDERED: OMEP40CA5 PO (05:16)
[2024-08-18] MEDS ORDERED: ACET-683 PO (05:16)
[2024-08-18] MEDS ORDERED: MIRT-88 PO (05:16)
[2024-08-18] MEDS ORDERED: ONDA-83 PO (05:16)
[2024-08-18] MEDS ORDERED: FERR1TAB8 PO (05:16)
[2024-08-18] MEDS ORDERED: HOME MED LIST COMPLETE! XX SCH (05:20)
[2024-08-18] MEDS: NS (Normal Saline) 0.9% 1,000 ML IV SCH ×2 (05:54→15:00)
[2024-08-18 06:38] LABS: KETONE, URINE AUTO RFX NEGATIVE (NEGATIVE); NITRITE, URINE AUTO RFX NEGATIVE (NEGATIVE); RBC, URINE AUTO RFX 6 /HPF (0-3); SQUAM EPITHELIAL CELL UR AURFX 7 /HPF (0-6); WBC, URINE AUTO RFX 4 /HPF (0-3)
[2024-08-18 06:40] LABS: LEUKOCYTE ESTERASE UR AUTO RFX 1+ (NEGATIVE)
[2024-08-18 07:46] LABS: CALCIUM LEVEL 8.4 MG/DL (8.3-10.6); CREATININE FOR GFR 1.58 MG/DL (0.55-1.30); GLOMERULAR FILTRATION RATE 32.1 (>32); POTASSIUM SERUM 4.3 MMOL/L (3.5-5.1)
[2024-08-18 07:54] VITALS: BP 99/62; TEMP 97.6; O2SAT 91
[2024-08-18] MEDS ORDERED: SYMBICORT 160/4.5MCG INHALER 6GM INH SCH (08:00)
[2024-08-18 08:02] LABS: BASO % 0.2 % (0.0-1.0); HEMOGLOBIN 12.3 g/dl (12.0-15.5); LYMPH # 1.1 10^3/uL (1.5-5.0); LYMPH % 13.2 % (24.0-44.0); MEAN CORPUSCULAR HEMOGLOBIN 25.6 pg (27.0-33.0); MEAN CORPUSCULAR HGB CONC 28.6 g/dl (32.0-36.5); MEAN CORPUSCULAR VOLUME 89.6 fl (80.0-96.0); MONO # 0.6 10^3/uL (0.0-0.8); MONO % 7.5 % (2.0-8.0); NEUTROPHILS # 6.7 10^3/uL (1.5-8.5); NEUTROPHILS % 77.9 % (36.0-66.0); PLATELET COUNT, AUTOMATED 208 10^3/uL (150-450); WHITE BLOOD COUNT 8.6 10^3/uL (4.0-10.0)
[2024-08-18] MEDS: DOCUSATE SODIUM 100MG CAPSULE PO SCH (09:00)
[2024-08-18] MEDS ORDERED: IPRATROPIUM 0.5MG/ALBUTEROL 2.5MG INH SOL UD 3ML NEB PRN (09:25)
[2024-08-18] MEDS ORDERED: methylPREDNISolone 40MG 1ML VIAL IV SCH (11:00)
[2024-08-18] MEDS: guaiFENesin ER TABLET 600 MG TAB PO SCH (12:04)
[2024-08-18] MEDS: AZITHROMYCIN INJ 500 MG, VIAL MATE ADAPTER 1 EACH in NS 250 ML IV SCH (12:28)
[2024-08-18] MEDS: predniSONE 20 MG TAB PO SCH (13:04)
[2024-08-18] MEDS: IPRATROPIUM 0.5MG/ALBUTEROL 2.5MG INH SOL UD 3ML NEB SCH (13:41)
[2024-08-18] MEDS: cefTRIAXone SOD 1 GM in DEXTROSE 5% (D5W) ADV/MINI-BAG 50 ML IV SCH (14:28)
[2024-08-18 15:00] VITALS: BP 108/57; TEMP 97.5; O2SAT 90
[2024-08-18 15:34] LABS: PROCALCITONIN 0.69 ng/ml
[2024-08-18] MEDS: BUDESONIDE 0.5 MG/2 ML INHALATION SUSPENSION NEB SCH (20:13)
[2024-08-18] MEDS: levETIRAcetam 250MG TABLET (KEPPRA) PO SCH (20:28)
[2024-08-18] MEDS: MIRTAZAPINE 15 MG TAB PO SCH (20:28)
[2024-08-18] MEDS: rOPINIRole 1MG TAB PO SCH (20:28)
[2024-08-18] MEDS: ATORVASTATIN 20 MG TAB PO SCH (20:28)
[2024-08-18] MEDS: METOPROLOL SUCC *XL* 12.5MG PER 1/2 TAB (TopROL *XL*) PO SCH (20:32)
[2024-08-18] MEDS: ASPIRIN 81MG CHEW TABLET PO SCH (20:38)
[2024-08-18] MEDS: ESCITALOPRAM OXALATE 10 MG TAB (LEXAPRO) PO SCH (20:38)
[2024-08-18] MEDS: PANTOPRAZOLE 40MG TAB (PROTONIX) PO SCH (20:38)
[2024-08-18 21:18] VITALS: BP 124/71; TEMP 97.3; O2SAT 92
[2024-08-18] MEDS: ONDANSETRON 4MG 2ML VIAL IV ONE (21:25)
[2024-08-19 04:35] VITALS: BP 122/58; TEMP 97.2; O2SAT 100
[2024-08-19 06:04] LABS: BASO % 0.2 % (0.0-1.0); EOS # 0.1 10^3/uL (0.0-0.5); EOS % 2.1 % (0.0-3.0); HEMATOCRIT 41.5 % (36.0-47.0); HEMOGLOBIN 11.7 g/dl (12.0-15.5); LYMPH # 0.8 10^3/uL (1.5-5.0); LYMPH % 11.6 % (24.0-44.0); MEAN CORPUSCULAR HEMOGLOBIN 25.8 pg (27.0-33.0); MEAN CORPUSCULAR HGB CONC 28.2 g/dl (32.0-36.5); MEAN CORPUSCULAR VOLUME 91.4 fl (80.0-96.0); MONO # 0.7 10^3/uL (0.0-0.8); MONO % 10.3 % (2.0-8.0); NEUTROPHILS # 4.9 10^3/uL (1.5-8.5); NEUTROPHILS % 74.6 % (36.0-66.0); PLATELET COUNT, AUTOMATED 191 10^3/uL (150-450); RED BLOOD COUNT 4.54 10^6/uL (4.00-5.40); WHITE BLOOD COUNT 6.6 10^3/uL (4.0-10.0)
[2024-08-19 06:35] LABS: CALCIUM LEVEL 8.2 MG/DL (8.3-10.6); CREATININE FOR GFR 0.92 MG/DL (0.55-1.30); GLOMERULAR FILTRATION RATE 61.4 (>32); MAGNESIUM LEVEL 1.8 MG/DL (1.8-2.4); POTASSIUM SERUM 4.5 MMOL/L (3.5-5.1)
[2024-08-19 06:39] LABS: PROCALCITONIN 0.36 ng/ml
[2024-08-19 09:00] VITALS: BP 104/58; TEMP 97.5; O2SAT 88
[2024-08-19] MEDS: FERROUS SULFATE 325MG TAB PO SCH (09:37)
[2024-08-19] MEDS: ENOXAPARIN 30MG/0.3ML SYRINGE (J1650 PER 10MG) SC SCH (09:39)
[2024-08-19 11:57] VITALS: BP 120/60; TEMP 97.5; O2SAT 91
[2024-08-19 12:21] VITALS: BP 122/81; TEMP 97.3; O2SAT 92
[2024-08-19] MEDS: methylPREDNISolone 40MG 1ML VIAL IV SCH (14:38)
[2024-08-19] MEDS ORDERED: IPRATROPIUM 0.5MG/ALBUTEROL 2.5MG INH SOL UD 3ML NEB PRN (18:20)
[2024-08-19 20:22] VITALS: BP 104/71; TEMP 96.6; O2SAT 92
[2024-08-19] MEDS: IPRATROPIUM 0.5MG/ALBUTEROL 2.5MG INH SOL UD 3ML NEB SCH (21:55)
[2024-08-20 06:17] LABS: HEMOGLOBIN 11.6 g/dl (12.0-15.5); MEAN CORPUSCULAR VOLUME 89.5 fl (80.0-96.0); PLATELET COUNT, AUTOMATED 237 10^3/uL (150-450); RED BLOOD COUNT 4.47 10^6/uL (4.00-5.40)
[2024-08-20 06:39] LABS: CALCIUM LEVEL 8.6 MG/DL (8.3-10.6); CREATININE FOR GFR 0.66 MG/DL (0.55-1.30); GLOMERULAR FILTRATION RATE 86.5 (>32); MAGNESIUM LEVEL 1.7 MG/DL (1.8-2.4); POTASSIUM SERUM 4.6 MMOL/L (3.5-5.1)
[2024-08-20] MEDS: MAG SULF 1GM/100ML (MAG RUN) 1 GM in IV 1 EA IV ONE (09:14)
[2024-08-20] MEDS: AZITHROMYCIN 250MG TABLET PO SCH (09:14)
[2024-08-20 09:20] VITALS: BP 129/65
[2024-08-20] MEDS ORDERED: PRED20TA PO (11:21)
[2024-08-20 12:00] VITALS: BP 123/69; TEMP 97.3; O2SAT 92
[2024-08-20] MEDS: FOSFOMYCIN TROMETHAMINE 3 GM POWDER PACKET (MONUROL) PO ONE (14:54)
== END 2024-08-20 15:15 | DRG 682 ==
LOC: M ED 23:35 → EDBD 23:35 → M ED INP 23:36 → M MS5PR 08-18 15:05 → EEVIPCON 08-19 13:18 → OBSVTOIN 08-19 13:18
PROVIDERS: ADMIT Family Medicine; ATTEND Student in an Organized Health Care Education/Training Program
DX: N17.9 Acute kidney failure, unspecified (principal); J18.9 Pneumonia, unspecified organism; J96.01 Acute respiratory failure with hypoxia; I13.0 Hypertensive heart and chronic kidney disease with heart failure and stage 1 through stage 4 chronic kidney disease, or unspecified chronic kidney disease; I50.32 Chronic diastolic (congestive) heart failure; I69.354 Hemiplegia and hemiparesis following cerebral infarction affecting left non-dominant side; J44.1 Chronic obstructive pulmonary disease with (acute) exacerbation; J44.0 Chronic obstructive pulmonary disease with (acute) lower respiratory infection; E87.0 Hyperosmolality and hypernatremia; I48.0 Paroxysmal atrial fibrillation; G47.30 Sleep apnea, unspecified; N18.30 Chronic kidney disease, stage 3 unspecified; D45 Polycythemia vera; D50.9 Iron deficiency anemia, unspecified; G40.909 Epilepsy, unspecified, not intractable, without status epilepticus; F32.A Depression, unspecified; F41.9 Anxiety disorder, unspecified; K21.9 Gastro-esophageal reflux disease without esophagitis; G25.81 Restless legs syndrome; E78.5 Hyperlipidemia, unspecified; Z90.79 Acquired absence of other genital organ(s); Z95.5 Presence of coronary angioplasty implant and graft; Z79.82 Long term (current) use of aspirin; Z79.2 Long term (current) use of antibiotics; Z79.899 Other long term (current) drug therapy; B96.20 Unspecified Escherichia coli [E. coli] as the cause of diseases classified elsewhere

== ENCOUNTER → 2024-08-21 | Outpatient (REF) | payer MEDICARE, OTHER, MEDICAID ==
[~2024-08-21] MED LIST changes: +ACET-683 PO; +ALBU2.5V10 INH; +BUDE2SUS3 INH; +FERR1TAB8 PO; +LEXA1TAB PO; +METO1TAB32 PO; +MIRT-88 PO; +OMEP40CA5 PO; +ONDA-83 PO
== END ==
LOC: SKLAB7 14:37
PROVIDERS: ATTEND Internal Medicine
DX: J44.9 Chronic obstructive pulmonary disease, unspecified (principal)

== ENCOUNTER → 2024-08-24 | Outpatient (REF) | payer MEDICARE, OTHER, MEDICAID ==
[2024-08-24 10:02] LABS: HEMATOCRIT 40.4 % (36.0-47.0); HEMOGLOBIN 11.8 g/dl (12.0-15.5); MEAN CORPUSCULAR HEMOGLOBIN 26.3 pg (27.0-33.0); MEAN CORPUSCULAR HGB CONC 29.2 g/dl (32.0-36.5); PLATELET COUNT, AUTOMATED 311 10^3/uL (150-450); RED BLOOD COUNT 4.49 10^6/uL (4.00-5.40); WHITE BLOOD COUNT 12.4 10^3/uL (4.0-10.0)
[2024-08-24 10:19] LABS: ANISOCYTOSIS 1+; CALCIUM LEVEL 8.4 MG/DL (8.3-10.6); CREATININE FOR GFR 0.74 MG/DL (0.55-1.30); GLOMERULAR FILTRATION RATE 79.7 (>32); OVALOCYTES 1+; POTASSIUM SERUM 3.7 MMOL/L (3.5-5.1)
[2024-08-24 10:27] LABS: PLATELET ESTIMATE NORMAL (NORMAL)
[2024-08-24 10:43] LABS: ATYPICAL LYMPH 1 % (0-5); LYMPHOCYTES 8 % (16-44); METAMYELOCYTES 1 % (0-0); MONOCYTES 6 % (0-5); NEUTROPHILS 84 % (28-66)
== END ==
LOC: SKLAB7 09:01
PROVIDERS: ATTEND Internal Medicine
DX: J44.9 Chronic obstructive pulmonary disease, unspecified (principal)

== ENCOUNTER 2024-09-02 22:30 | Emergency (ER) | payer MEDICARE, OTHER ==
[~2024-09-02] VITALS: Ht 157.5 cm; Wt 66.8 kg
[~2024-09-02 22:30] MED LIST changes: +MAG30ORA18 PO; -MYLASSUD PO
[2024-09-02 22:43] VITALS: TEMP 97.2
[2024-09-03] MEDS: TRANEXAMIC ACID 100 MG/ML 10ML VIAL ONE (00:54)
[2024-09-03 00:56] LABS: BASO % 0.2 % (0.0-1.0); EOS % 0.1 % (0.0-3.0); HEMATOCRIT 40.5 % (36.0-47.0); HEMOGLOBIN 11.6 g/dl (12.0-15.5); LYMPH # 1.4 10^3/uL (1.5-5.0); LYMPH % 11.9 % (24.0-44.0); MEAN CORPUSCULAR HEMOGLOBIN 26.3 pg (27.0-33.0); MEAN CORPUSCULAR HGB CONC 28.6 g/dl (32.0-36.5); MEAN CORPUSCULAR VOLUME 91.8 fl (80.0-96.0); MONO # 0.7 10^3/uL (0.0-0.8); NEUTROPHILS % 79.5 % (36.0-66.0); PLATELET COUNT, AUTOMATED 205 10^3/uL (150-450); RED BLOOD COUNT 4.41 10^6/uL (4.00-5.40); WHITE BLOOD COUNT 11.3 10^3/uL (4.0-10.0)
[2024-09-03 01:12] LABS: PARTIAL THROMBOPLASTIN TIME 22.2 SECONDS (24.8-34.2); PROTHROMBIN TIME 13.5 SECONDS (12.5-14.5)
[2024-09-03] MEDS ORDERED: SODI88SP NARES (01:59)
[2024-09-03] MEDS ORDERED: OXYM05SP (01:59)
[2024-09-03 02:00] VITALS: BP 114/55
[2024-09-03 02:01] VITALS: O2SAT 98
== END 2024-09-03 02:39 | disposition home or self-care (01) ==
LOC: M ED 22:30
DX: R04.0 Epistaxis (principal); I48.91 Unspecified atrial fibrillation; I25.2 Old myocardial infarction; E78.5 Hyperlipidemia, unspecified; J44.9 Chronic obstructive pulmonary disease, unspecified; I12.9 Hypertensive chronic kidney disease with stage 1 through stage 4 chronic kidney disease, or unspecified chronic kidney disease; F41.9 Anxiety disorder, unspecified; Z79.1 Long term (current) use of non-steroidal anti-inflammatories (NSAID); Z79.51 Long term (current) use of inhaled steroids; Z79.52 Long term (current) use of systemic steroids; Z79.899 Other long term (current) drug therapy

== ENCOUNTER → 2024-09-29 | Outpatient (REF) | payer MEDICARE, OTHER, MEDICAID ==
[~2024-09-29] MED LIST changes: +12 H0.056; +AZIT-12 PO; +IPRA0.00 NEB; +OMEP-173 PO; +OXYM05SP; +PRED5TA PO; +SODI88SP NARES
[2024-09-29 16:24] LABS: CALCIUM LEVEL 8.5 MG/DL (8.3-10.6); CREATININE FOR GFR 0.65 MG/DL (0.55-1.30); GLOMERULAR FILTRATION RATE 86.8 (>32); POTASSIUM SERUM 4.4 MMOL/L (3.5-5.1)
== END ==
LOC: SKLAB7 14:33
PROVIDERS: ATTEND Internal Medicine
DX: J18.9 Pneumonia, unspecified organism (principal)

== ENCOUNTER 2024-11-08 04:33 | Emergency (ER) | payer MEDICARE, OTHER, MEDICAID ==
[~2024-11-08] VITALS: Ht 157.5 cm; Wt 52.3 kg
[~2024-11-08 04:33] MED LIST changes: -12 H0.056; -IPRA0.00 NEB; -OMEP-173 PO; -PRED5TA PO
[2024-11-08 05:10] VITALS: TEMP 97.2
[2024-11-08 07:03] LABS: BASO # 0.0 10^3/uL (0.0-0.2); BASO % 0.3 % (0.0-1.0); EOS # 0.1 10^3/uL (0.0-0.5); EOS % 2.0 % (0.0-3.0); LYMPH # 1.8 10^3/uL (1.5-5.0); LYMPH % 24.9 % (24.0-44.0); MONO # 0.7 10^3/uL (0.0-0.8); MONO % 9.7 % (2.0-8.0); NEUTROPHILS # 4.4 10^3/uL (1.5-8.5); NEUTROPHILS % 62.1 % (36.0-66.0); PLATELET COUNT, AUTOMATED 319 10^3/uL (150-450)
[2024-11-08 07:08] LABS: INR 0.96
[2024-11-08 07:10] LABS: ALT/SGPT < 9 U/L (7.0-40); AST/SGOT 16 U/L (<34); CALCIUM LEVEL 9.1 MG/DL (8.3-10.6); CARBON DIOXIDE LEVEL 37 MMOL/L (20-31); CHLORIDE LEVEL 105 MMOL/L (98-107); CREATININE FOR GFR 0.76 MG/DL (0.55-1.30); GLOMERULAR FILTRATION RATE 77.2 (>32); POTASSIUM SERUM 3.7 MMOL/L (3.5-5.1); SODIUM LEVEL 151 MMOL/L (136-145)
[2024-11-08] MEDS ORDERED: ISOVUE-370 76% 100 ML VIAL As Ordered ONE (07:39)
[2024-11-08] MEDS: ACETAMINOPHEN 500 MG TAB PO ONE (08:49)
[2024-11-08] MEDS ORDERED: IPRA0.00 NEB (08:53)
[2024-11-08] MEDS ORDERED: 12 H0.056 (08:53)
[2024-11-08] MEDS ORDERED: PRED5TA PO (08:53)
[2024-11-08] MEDS ORDERED: OMEP-173 PO (08:53)
[2024-11-08] MEDS ORDERED: SODI88SP NARES (08:53)
[2024-11-08] MEDS ORDERED: HOME MED LIST COMPLETE! XX SCH (08:55)
[2024-11-08 09:30] VITALS: BP 133/78; O2SAT 92
== END 2024-11-08 09:49 | disposition home or self-care (01) ==
LOC: M ED 04:33
DX: R04.2 Hemoptysis (principal); I45.2 Bifascicular block; I48.91 Unspecified atrial fibrillation; J44.9 Chronic obstructive pulmonary disease, unspecified; N18.9 Chronic kidney disease, unspecified; I71.20 Thoracic aortic aneurysm, without rupture, unspecified; I69.352 Hemiplegia and hemiparesis following cerebral infarction affecting left dominant side; Z88.8 Allergy status to other drugs, medicaments and biological substances; Z79.1 Long term (current) use of non-steroidal anti-inflammatories (NSAID); Z79.51 Long term (current) use of inhaled steroids; Z79.52 Long term (current) use of systemic steroids; Z79.899 Other long term (current) drug therapy
CPT/HCPCS: 36415; 71045; 71275; 80048; 80076; 83605; 85025; 85610; 85730; 87486; 87581; 87633; 87798; 93005; 93041; 94760; 99285; Q9967

== ENCOUNTER → 2024-11-19 | Outpatient (REF) | payer MEDICARE, OTHER, MEDICAID ==
[~2024-11-19] MED LIST changes: +12 H0.056; +IPRA0.00 NEB; +OMEP-173 PO; +PRED5TA PO
== END ==
LOC: SKLAB7 07:00
PROVIDERS: ATTEND Internal Medicine
DX: G40.909 Epilepsy, unspecified, not intractable, without status epilepticus (principal); Z79.899 Other long term (current) drug therapy

== ENCOUNTER → 2024-12-29 | Outpatient (REF) | payer MEDICARE, OTHER, MEDICAID ==
[2024-12-29 14:18] LABS: PLATELET COUNT, AUTOMATED 309 10^3/uL (150-450)
[2024-12-29 14:40] LABS: CALCIUM LEVEL 9.1 MG/DL (8.3-10.6); CARBON DIOXIDE LEVEL 33.0 MMOL/L (20-31); CHLORIDE LEVEL 104.0 MMOL/L (98-107); CREATININE FOR GFR 0.74 MG/DL (0.55-1.30); GLOMERULAR FILTRATION RATE 79.7 (>32); POTASSIUM SERUM 3.8 MMOL/L (3.5-5.1); SODIUM LEVEL 147.0 MMOL/L (136-145)
== END ==
LOC: SKLAB7 11:25
PROVIDERS: ATTEND Internal Medicine
DX: R58 Hemorrhage, not elsewhere classified (principal)

== ENCOUNTER → 2025-01-05 | Outpatient (REF) | payer MEDICARE, OTHER, MEDICAID ==
[2025-01-05 09:09] LABS: IRON (FE) 17.0 UG/DL (50-170)
[2025-01-05 10:04] LABS: ESTIMATED AVERAGE GLUCOSE 131.0 MG/DL (60-110)
== END ==
LOC: SKLAB7 07:07
PROVIDERS: ATTEND Internal Medicine
DX: D64.9 Anemia, unspecified (principal); Z79.899 Other long term (current) drug therapy

== ENCOUNTER → 2025-01-26 | Outpatient (REF) | payer MEDICARE, OTHER, MEDICAID ==
[2025-01-26 11:34] LABS: PLATELET COUNT, AUTOMATED 253 10^3/uL (150-450)
[2025-01-26 12:06] LABS: ALT/SGPT < 9 U/L (7.0-40); AST/SGOT 10 U/L (<34); CALCIUM LEVEL 8.3 MG/DL (8.3-10.6); CARBON DIOXIDE LEVEL 34 MMOL/L (20-31); CHLORIDE LEVEL 104 MMOL/L (98-107); CHOLESTEROL LEVEL 193 MG/DL (<200); CHOLESTEROL RISK RATIO 3.58 (<5); CREATININE FOR GFR 0.76 MG/DL (0.55-1.30); GLOMERULAR FILTRATION RATE 77.2 (>32); IRON (FE) 15 UG/DL (50-170); LDL CHOLESTEROL 104.2 MG/DL (<100); NON-HDL-C 139.2 MG/DL; POTASSIUM SERUM 3.6 MMOL/L (3.5-5.1); SODIUM LEVEL 146 MMOL/L (136-145); TRIGLYCERIDES LEVEL 175 MG/DL (<150)
== END ==
LOC: SKLAB7 01-21 07:00
PROVIDERS: ATTEND Internal Medicine
DX: E78.5 Hyperlipidemia, unspecified (principal); D64.9 Anemia, unspecified

== ENCOUNTER 2025-02-23 22:52 | Emergency (ER) | payer MEDICARE, OTHER, MEDICAID ==
[~2025-02-23] VITALS: Ht 157.5 cm; Wt 146.1 kg
[2025-02-23 23:14] LABS: BASO # 0.0 10^3/uL (0.0-0.2); BASO % 0.3 % (0.0-1.0); EOS # 0.2 10^3/uL (0.0-0.5); EOS % 3.0 % (0.0-3.0); LYMPH # 2.0 10^3/uL (1.5-5.0); LYMPH % 29.7 % (24.0-44.0); MONO # 0.6 10^3/uL (0.0-0.8); MONO % 9.1 % (2.0-8.0); NEUTROPHILS # 3.8 10^3/uL (1.5-8.5); NEUTROPHILS % 56.6 % (36.0-66.0); PLATELET COUNT, AUTOMATED 256 10^3/uL (150-450)
[2025-02-23] MEDS: IPRATROPIUM 0.5 MG/ALBUTEROL 2.5 MG INH SOL UD 3 ML NEB ONE (23:30)
[2025-02-23 23:45] LABS: ALT/SGPT 10 U/L (7.0-40); AST/SGOT 13 U/L (<34); CALCIUM LEVEL 9.0 MG/DL (8.3-10.6); CARBON DIOXIDE LEVEL 35 MMOL/L (20-31); CHLORIDE LEVEL 104 MMOL/L (98-107); CREATININE FOR GFR 0.81 MG/DL (0.55-1.30); GLOMERULAR FILTRATION RATE 71.5 (>32); POTASSIUM SERUM 3.8 MMOL/L (3.5-5.1); SODIUM LEVEL 148 MMOL/L (136-145)
[2025-02-23 23:58] LABS: CK-MB VALUE MASS 1.1 NG/ML (<3.6)
[2025-02-24 00:01] LABS: CPK CREATINE PHOSPHOKINASE 31.0 U/L (34-145); MB/CK RELATIVE INDEX 3.54 (< OR =4)
[2025-02-24 01:26] LABS: CK-MB VALUE MASS 1.0 NG/ML (<3.6)
[2025-02-24 01:28] LABS: CPK CREATINE PHOSPHOKINASE 28.0 U/L (34-145); MB/CK RELATIVE INDEX 3.57 (< OR =4)
[2025-02-24] MEDS ORDERED: LEVO1TAB39 PO (01:44)
[2025-02-24 02:05] VITALS: BP 131/93; TEMP 97; O2SAT 90
== END 2025-02-24 02:10 | disposition home or self-care (01) ==
LOC: M ED 22:52
DX: J18.9 Pneumonia, unspecified organism (principal); I45.2 Bifascicular block; I48.91 Unspecified atrial fibrillation; I50.22 Chronic systolic (congestive) heart failure; I11.0 Hypertensive heart disease with heart failure; J44.9 Chronic obstructive pulmonary disease, unspecified; I25.119 Atherosclerotic heart disease of native coronary artery with unspecified angina pectoris; E78.5 Hyperlipidemia, unspecified; Z88.8 Allergy status to other drugs, medicaments and biological substances; Z79.1 Long term (current) use of non-steroidal anti-inflammatories (NSAID); Z79.51 Long term (current) use of inhaled steroids; Z79.899 Other long term (current) drug therapy

== ENCOUNTER → 2025-03-01 | Outpatient (REF) | payer MEDICARE, OTHER, MEDICAID ==
[~2025-03-01] MED LIST changes: +LEVO1TAB39 PO
[2025-03-01 10:15] LABS: CALCIUM LEVEL 8.3 MG/DL (8.3-10.6); CARBON DIOXIDE LEVEL 32.0 MMOL/L (20-31); CHLORIDE LEVEL 107.0 MMOL/L (98-107); CREATININE FOR GFR 0.87 MG/DL (0.55-1.30); GLOMERULAR FILTRATION RATE 65.7 (>32); POTASSIUM SERUM 4.3 MMOL/L (3.5-5.1); SODIUM LEVEL 148.0 MMOL/L (136-145)
== END ==
LOC: SKLAB7 08:25
PROVIDERS: ATTEND Family Medicine
DX: N18.9 Chronic kidney disease, unspecified (principal)

== ENCOUNTER → 2025-03-09 | Outpatient (REF) | payer MEDICARE, OTHER, MEDICAID ==
[2025-03-09 09:49] LABS: CALCIUM LEVEL 9.3 MG/DL (8.3-10.6); CARBON DIOXIDE LEVEL 36.0 MMOL/L (20-31); CHLORIDE LEVEL 101.0 MMOL/L (98-107); CREATININE FOR GFR 0.92 MG/DL (0.55-1.30); GLOMERULAR FILTRATION RATE 61.4 (>32); POTASSIUM SERUM 4.3 MMOL/L (3.5-5.1); SODIUM LEVEL 147.0 MMOL/L (136-145)
== END ==
LOC: SKLAB7 07:57
PROVIDERS: ATTEND Family Medicine
DX: N18.9 Chronic kidney disease, unspecified (principal)

== ENCOUNTER 2025-04-03 13:48 | Emergency (ER) | payer MEDICARE, OTHER, MEDICAID ==
[~2025-04-03] VITALS: Ht 157.5 cm; Wt 60.9 kg
[~2025-04-03 13:48] MED LIST changes: -T E MIS MC
[2025-04-03 15:15] VITALS: BP 116/58; TEMP 98; O2SAT 94
[2025-04-03] MEDS ORDERED: T E MIS MC (15:20)
== END 2025-04-03 15:56 | disposition home or self-care (01) ==
LOC: M ED 13:48 → EDBD 13:48 → M ED 15:56
DX: R22.42 Localized swelling, mass and lump, left lower limb (principal); N18.30 Chronic kidney disease, stage 3 unspecified; K21.9 Gastro-esophageal reflux disease without esophagitis; F41.9 Anxiety disorder, unspecified; F32.A Depression, unspecified; Z79.1 Long term (current) use of non-steroidal anti-inflammatories (NSAID); Z79.51 Long term (current) use of inhaled steroids; Z79.899 Other long term (current) drug therapy; Z79.52 Long term (current) use of systemic steroids; Z88.8 Allergy status to other drugs, medicaments and biological substances

== ENCOUNTER → 2025-04-03 | Outpatient (REF) | payer MEDICARE, OTHER, MEDICAID ==
[~2025-04-03] MED LIST changes: +POTA-232 PO; -POTA10TA67 PO; -SODI88SP NARES; +SODI88SP7 NARES; +T E MIS MC
== END ==
LOC: SKLAB7 13:00
PROVIDERS: ATTEND Nurse Practitioner Women's Health
DX: R21 Rash and other nonspecific skin eruption (principal)

== ENCOUNTER → 2025-04-04 | Outpatient (REF) | payer MEDICARE, OTHER, MEDICAID ==
[~2025-04-04] MED LIST changes: +T E MIS MC
[2025-04-04 18:57] LABS: PLATELET COUNT, AUTOMATED 285 10^3/uL (150-450)
== END ==
LOC: SKLAB7 18:01
PROVIDERS: ATTEND Nurse Practitioner Women's Health
DX: R21 Rash and other nonspecific skin eruption (principal); R22.42 Localized swelling, mass and lump, left lower limb

== ENCOUNTER → 2025-04-09 | Outpatient (REF) | payer MEDICARE, OTHER, MEDICAID ==
[2025-04-09 11:40] LABS: PLATELET COUNT, AUTOMATED 247 10^3/uL (150-450)
[2025-04-09 12:08] LABS: ALT/SGPT 10.0 U/L (7.0-40); AST/SGOT 16.0 U/L (<34); CALCIUM LEVEL 8.8 MG/DL (8.3-10.6); CARBON DIOXIDE LEVEL 32.0 MMOL/L (20-31); CHLORIDE LEVEL 102.0 MMOL/L (98-107); CREATININE FOR GFR 0.86 MG/DL (0.55-1.30); GLOMERULAR FILTRATION RATE 66.6 (>32); MAGNESIUM LEVEL 1.9 MG/DL (1.8-2.4); POTASSIUM SERUM 4.8 MMOL/L (3.5-5.1); SODIUM LEVEL 144.0 MMOL/L (136-145)
== END ==
LOC: SKLAB7 09:54
PROVIDERS: ATTEND Family Medicine
DX: Z79.899 Other long term (current) drug therapy (principal)